=== PATIENT | male | born 1935 | race Caucasian/White ===

== ENCOUNTER → 2016-10-12 | Outpatient (CLI) | payer OTHER ==
[~2016-10-12] MED LIST: ASPEC81 PO; ASPI81TA21 PO; ATOR-24 PO; ATOR-26 PO; FRS/40 PO; INSDGI; INSDGI SC; ISOS30TA3 PO; LISI-729 PO; METO25TA3 PO; MULT-845 PO; PLV75 PO; POTA10TA32 PO; PRD20 PO; RIVA1.5T PO; SPIR25TA PO; ZCR80 PO
[2016-10-12 16:09] LABS: BLOOD UREA NITROGEN 59 mg/dl (7-18); BUN/CREATININE RATIO 26.6 (10-20); CALCIUM 8.3 mg/dl (8.5-10.1); CARBON DIOXIDE 25 mmol/L (21-32); CHLORIDE 108 mmol/L (98-107); GLUCOSE 97 mg/dl (70-99); PHOSPHORUS 3.8 mg/dl (2.5-4.9); POTASSIUM 4.4 mmol/L (3.5-5.1); SODIUM 142 mmol/L (136-145)
[2016-10-13 06:04] LABS: ESTIMATED AVERAGE GLUCOSE 154 mg/dl; HA1C FLAG Normal (Normal)
== END | disposition home or self-care (01) ==
LOC: C.LAB1850 14:54
PROVIDERS: ATTEND Internal Medicine
DX: D64.9 Anemia, unspecified (principal); N18.3 Chronic kidney disease, stage 3 (moderate); E11.22 Type 2 diabetes mellitus with diabetic chronic kidney disease

== ENCOUNTER → 2016-11-01 | Outpatient (CLI) | payer OTHER ==
[~2016-11-01] MED LIST changes: -ATOR-26 PO
--- NOTE | 2016-11-01 15:26 | DIAGNOSTIC IMAGING REPORT ---
CT OF THE CHEST WITHOUT IV CONTRAST CLINICAL HISTORY: Lung nodule. Pleural effusion. COMPARISON STUDY: 08/12/2016 CT DOSE: 366.82 mGy.cm TECHNIQUE: CT of the thorax was performed from the thoracic inlet to the lung bases. Images are reviewed in the axial, sagittal, and coronal planes. IV contrast was not administered for this examination. FINDINGS: Thyroid: There is a multinodular thyroid gland. The largest nodule as visualized on the left measuring 11 mm. Thoracic aorta: The thoracic aorta is normal in course and caliber, noting standard 3 vessel arch anatomy. Heart: The heart is enlarged. There are coronary artery calcifications. Lungs and pleural spaces: There is evidence for pulmonary emphysema. There is no significant left pleural effusion. There is been marked interval decrease in the size of the right pleural effusion. There is right pleural thickening. There are right lower lobe atelectatic changes. In addition there is a persistent 2 cm lobulated/tubular nodule within the right lower lobe posterior medially. There is a stable 7 mm groundglass nodule within the right upper lobe. Mediastinum: There is a stable 9 mm right paratracheal lymph node. There is a stable 8 mm AP window lymph node. Diana: There is no evidence for pathologic hilar adenopathy given the limitations of a noncontrast study Axilla: Clear. Upper abdomen: There is left-sided nephrolithiasis Skeletal structures: There are no lytic or blastic osseous lesions. IMPRESSION: 1. Interval resolution of the previously identified left pleural effusion 2. Marked interval decrease in the size the right pleural effusion with only a small residua 3. Mild pleural thickening on the right 4. Right basilar atelectatic changes 5. Relatively stable somewhat unusual appearing lobulated/tubular 2 cm right lower lobe nodule 6. Stable 7 mm groundglass nodule within the right upper lobe 7. Left-sided nephrolithiasis Electronically signed by: Dipesh Mcnulty M.D. 11/01/2016 3:24 PM Dictated Date/Time: 11/01/2016 3:13 PM
== END | disposition home or self-care (01) ==
LOC: C.CTS 14:30
PROVIDERS: ATTEND Surgery
DX: R91.1 Solitary pulmonary nodule (principal); N20.0 Calculus of kidney

== ENCOUNTER → 2016-11-23 | Outpatient (CLI) | payer OTHER ==
[2016-11-23 15:23] LABS: BLOOD UREA NITROGEN 110 mg/dl (7-18); BUN/CREATININE RATIO 45.9 (10-20); CALCIUM 8.3 mg/dl (8.5-10.1); CARBON DIOXIDE 18 mmol/L (21-32); CHLORIDE 107 mmol/L (98-107); GLUCOSE 170 mg/dl (70-99); PHOSPHORUS 3.9 mg/dl (2.5-4.9); POTASSIUM 4.8 mmol/L (3.5-5.1); SODIUM 137 mmol/L (136-145)
== END | disposition home or self-care (01) ==
LOC: C.LAB1850 13:47
PROVIDERS: ATTEND Internal Medicine
DX: N18.3 Chronic kidney disease, stage 3 (moderate) (principal); D64.9 Anemia, unspecified

== ENCOUNTER → 2016-12-06 | Outpatient (CLI) | payer OTHER ==
[2016-12-06 09:51] LABS: BLOOD UREA NITROGEN 57 mg/dl (7-18); BUN/CREATININE RATIO 30.1 (10-20); CALCIUM 8.5 mg/dl (8.5-10.1); CARBON DIOXIDE 24 mmol/L (21-32); CHLORIDE 110 mmol/L (98-107); GLUCOSE 94 mg/dl (70-99); POTASSIUM 5.3 mmol/L (3.5-5.1); SODIUM 141 mmol/L (136-145)
== END | disposition home or self-care (01) ==
LOC: C.LAB1850 07:55
PROVIDERS: ATTEND Internal Medicine
DX: D64.9 Anemia, unspecified (principal); N18.3 Chronic kidney disease, stage 3 (moderate); N28.9 Disorder of kidney and ureter, unspecified

== ENCOUNTER → 2017-01-18 | Outpatient (CLI) | payer OTHER ==
[~2017-01-18] MED LIST changes: +ATOR-26 PO
[2017-01-18 15:38] LABS: BLOOD UREA NITROGEN 54 mg/dl (7-18); BUN/CREATININE RATIO 30.1 (10-20); CALCIUM 8.5 mg/dl (8.5-10.1); CARBON DIOXIDE 28 mmol/L (21-32); CHLORIDE 107 mmol/L (98-107); GLUCOSE 155 mg/dl (70-99); POTASSIUM 4.6 mmol/L (3.5-5.1); SODIUM 141 mmol/L (136-145)
[2017-01-19 06:16] LABS: ESTIMATED AVERAGE GLUCOSE 157 mg/dl; HA1C FLAG Normal (Normal)
== END | disposition home or self-care (01) ==
LOC: C.LAB1850 13:21
PROVIDERS: ATTEND Physician Assistant
DX: E11.9 Type 2 diabetes mellitus without complications (principal); N18.3 Chronic kidney disease, stage 3 (moderate)

== ENCOUNTER → 2017-05-04 | Outpatient (CLI) | payer OTHER ==
[~2017-05-04] MED LIST changes: -ATOR-26 PO
--- NOTE | 2017-05-04 11:51 | DIAGNOSTIC IMAGING REPORT ---
CT SCAN OF THE CHEST WITHOUT IV CONTRAST CLINICAL HISTORY: Pulmonary nodule. COMPARISON STUDY: Chest CT dated 11/01/2016 and 08/13/2014. Chest x-ray dated 04/06/2016. PET/CT dated 03/24/2016. TECHNIQUE: CT scan of the thorax was performed from the thoracic inlet to the upper abdomen. Images are reviewed in the axial, sagittal, and coronal planes. IV contrast was not administered for this examination as per the referring clinician. A dose lowering technique was utilized adhering to the principles of ALARA. CT DOSE: 385.12 mGy.cm FINDINGS: Thyroid: Imaged portions of the thyroid gland are normal in size and attenuation. A 1.5 cm low-attenuation nodule is again seen in the left lobe. Thoracic aorta: There is atherosclerotic calcification of the thoracic aorta, which is normal in caliber and demonstrates 4-vessel variant arch anatomy. Heart: The heart is markedly enlarged and without pericardial effusion. There is diminished attenuation of the cardiac blood pool as compared to the myocardium suggesting anemia. There are coronary arteries are densely calcified. The main pulmonary arteries are dilated suggesting pulmonary artery hypertension. Lungs and pleural spaces: Emphysema is again noted. There is no airspace consolidation typical for pneumonia. There are small pleural effusions, right larger than left. A curvilinear airspace opacity at the right lung base on image #212 measures 2.9 cm. Foci of scarring are present in the lower lobes, right greater than left. Scattered calcified granulomas are observed. A 9 mm groundglass lesion at the right apex is again noted. This is seen on image #65. Pleural thickening is noted at the right lung base. The trachea and central airways are clear. Mediastinum: Mediastinal lymphadenopathy has increased from 11/01/2016. Paratracheal nodes measure up to 1.3 cm in short axis. Precarinal nodes measure up to 1.4 cm in short axis, and prevascular nodes measure up to 9 mm in short axis. Diana: Not well assessed without IV contrast. Axillae: There is no axillary lymphadenopathy. Upper abdomen: Nonobstructing calculi are present in the upper pole of the left kidney. There is glandular atrophy of the partially visualized pancreas. A tiny hiatal hernia is observed. Gynecomastia is noted. Skeletal structures: The skeletal structures are osteopenic. No lytic or blastic bony lesions are seen. Degenerative changes noted throughout the thoracic spine. Arthritic changes also present in the shoulders. IMPRESSION: 1. Cardiomegaly and emphysema with evidence of pulmonary artery hypertension. 2. Small pleural effusions, right larger than left. The left pleural effusion is new from previous. 3. There are foci of parenchymal scarring at the right lung base. A curvilinear 2.9 cm density at the right lung base is similar to previous and likely represents round atelectasis. 4. A 9 mm groundglass nodule the right apex is again noted. This appears minimally increased in size from previous and a low-grade neoplasm is not excluded. At a minimum, continued attention at follow-up is recommended. 5. Increasing mediastinal lymphadenopathy as compared to 11/01/2016. Clinical correlation will be required. 6. Left-sided nephrolithiasis. 7. There is an enlarging 1.5 cm nodule in the left lobe of the thyroid gland. Consider follow-up thyroid ultrasound for further assessment. 8. Additional findings as above. Electronically signed by: Sen Estrada M.D. 05/04/2017 11:49 AM Dictated Date/Time: 05/04/2017 11:39 AM
== END | disposition home or self-care (01) ==
LOC: C.CTS 11:14
PROVIDERS: ATTEND Surgery
DX: J90 Pleural effusion, not elsewhere classified (principal); R91.1 Solitary pulmonary nodule; I51.7 Cardiomegaly; J43.9 Emphysema, unspecified; R91.8 Other nonspecific abnormal finding of lung field; R59.1 Generalized enlarged lymph nodes; N20.0 Calculus of kidney; E04.1 Nontoxic single thyroid nodule

== ENCOUNTER 2017-05-20 17:28 | Inpatient (IN) | payer OTHER ==
[~2017-05-20] VITALS: Ht 182.9 cm; Wt 82.6 kg
[2017-05-20] VITALS (19 sets, daily range): BP systolic 96–140; BP diastolic 39–85; PULSE 45–89; TEMP 36.4–36.8; O2SAT 84–100; BMI 25.6
[~2017-05-20 17:28] MED LIST changes: +AMIODARONE HCL INJ 50 MG/ML 3 ML VIAL IV ONE; -ASPI81TA21 PO; +ATROPINE SULFATE 0.1 MG/ML 10 ML SYR IV ONE; +DEXTROSE 5% 100 ML BAG IV ONE; +DEXTROSE 50% 50 ML SYR IV ONE; -INSDGI; +KETAMINE HCL INJ 50 MG/ML 10 ML VIAL IV ONE; -PLV75 PO; -PRD20 PO; +SODIUM BICARB 8.4% INJ 50 MEQ/50 ML SYR IV ONE; +SODIUM CHLORIDE 0.9% 10ML FLUSH IV ONE; +SUCCINYLCHOLINE CHLORIDE 20 MG/ML 10 ML VIAL IV ONE; -ZCR80 PO
[2017-05-20] MEDS ORDERED: NITROGLYCERIN/D5W 100MCG/ML 20ML SYR ONE (17:31)
[2017-05-20] MEDS ORDERED: NiCARDipine HCL INJ 2.5 MG/ML 10 ML AMP ONE (17:31)
[2017-05-20] MEDS ORDERED: HEPARIN SOD (PORCINE) 1000 UNIT/ML 10 ML VIAL ONE (17:31)
[2017-05-20] MEDS ORDERED: FENTANYL CITRATE INJ 50 MCG/1 ML 2 ML VIAL ONE ×2 (17:32→19:00)
[2017-05-20] MEDS ORDERED: MIDAZOLAM HCL 1 MG/ML 2ML VIAL ONE ×2 (17:32→20:00)
[2017-05-20] MEDS ORDERED: RAPID SEQUENCE INDUCTION BAG ONE (17:33)
--- NOTE | 2017-05-20 17:54 | DIAGNOSTIC IMAGING REPORT ---
CHEST ONE VIEW PORTABLE HISTORY: Short of breath. COMPARISON: Chest 07/14/2016. FINDINGS: The heart is moderately enlarged. Small bilateral pleural effusions. Diffuse interstitial and vascular thickening with perihilar hazy airspace opacities. This is consistent with pulmonary edema. No pneumothorax. IMPRESSION: Severe pulmonary edema, small bilateral pleural effusions, and moderate cardiomegaly. Recommend follow-up to ensure resolution. Electronically signed by: George Kingsley M.D. 05/20/2017 5:52 PM Dictated Date/Time: 05/20/2017 5:51 PM
--- NOTE | 2017-05-20 18:01 | DIAGNOSTIC IMAGING REPORT ---
CHEST ONE VIEW PORTABLE HISTORY: Short of breath. Intubation. COMPARISON: Chest 05/20/2017. FINDINGS: No pneumothorax. Severe pulmonary edema, cardiomegaly, and small bilateral pleural effusions persist. Interval placement of an endotracheal tube. The feliz is difficult to visualize. However, the endotracheal tube is likely near the level of the feliz. IMPRESSION: The endotracheal tube is likely near the level of the feliz. This should be pulled back by approximately 2 cm. Severe pulmonary edema and small bilateral pleural effusions persist. These findings were discussed with Dr. Bobby at 6:00 PM on 05/20/2017. Electronically signed by: George Kingsley M.D. 05/20/2017 6:00 PM Dictated Date/Time: 05/20/2017 5:56 PM
[2017-05-20] MEDS ORDERED: ZCR80 PO (18:02)
[2017-05-20] MEDS ORDERED: INSDGI (18:02)
[2017-05-20] MEDS ORDERED: NOREPINEPHRINE BITARTRATE 1 MG/ML 4 ML VIAL ONE (18:03)
[2017-05-20 18:04] LABS: ISTAT CREATININE 2.1 mg/dl (0.6-1.3); ISTAT HEMOGLOBIN 15.3 g/dl (14.0-18.0); ISTAT IONIZED CALCIUM 1.27 mmol/l (1.12-1.32)
[2017-05-20] MEDS ORDERED: ASPI81TA21 PO (18:05)
[2017-05-20] MEDS ORDERED: SODIUM BICARB 8.4% INJ 50 MEQ/50 ML SYR IV ONE (18:07)
[2017-05-20] MEDS ORDERED: FUROSEMIDE 40 MG/4 ML VIAL ONE (18:18)
[2017-05-20 18:22] LABS: BASO ABS # 0.11 K/uL (0-0.2); BASOPHIL % 0.9 % (0-2); COMPLETE YES; ECHINOCYTES 1+; EOSINOPHIL % 1.7 %; HEMATOCRIT 46.3 % (42-52); LYMPH ABS # 1.14 K/uL (1.2-3.4); LYMPHOCYTE % 9.5 %; MEAN CELL VOLUME 106.4 fL (80-100); MEAN CORPUSCULAR HEMOGLOBIN 33.3 pg (25-34); MEAN CORPUSCULAR HGB CONC 31.3 g/dl (32-36); NEUTROPHILS % 68.9 %; PLATELET COUNT 282 K/uL (130-400); PLT ESTIMATE NORMAL; RED BLOOD COUNT 4.35 M/uL (4.7-6.1); VARIANT LYM ABS # 1.14 K/uL; VARIANT LYMPHOCYTE % 9.5 %; WHITE BLOOD COUNT 11.99 K/uL (4.8-10.8)
[2017-05-20 18:34] LABS: BLOOD UREA NITROGEN 48 mg/dl (7-18); BUN/CREATININE RATIO 20.7 (10-20); CALCIUM 8.8 mg/dl (8.5-10.1); CARBON DIOXIDE 21 mmol/L (21-32); CHLORIDE 117 mmol/L (98-107); CKMB/CK RATIO 7.8 (0-3.0); POTASSIUM 5.4 mmol/L (3.5-5.1); SODIUM 145 mmol/L (136-145)
[2017-05-20 18:38] LABS: GLUCOSE 394 mg/dl (70-99)
[2017-05-20] MEDS ORDERED: DC ALL ANTICOAGULANTS ONE (18:45)
[2017-05-20] MEDS ORDERED: CLOPIDOGREL BISULFATE 300 MG TAB PO ONE (18:45)
[2017-05-20] MEDS ORDERED: ASPIRIN 81 MG CHEW ONE (18:45)
[2017-05-20 18:51] LABS: BETA-HYDROXYBUTYRATE 1.43 mg/dL (0.2-2.81)
[2017-05-20] MEDS ORDERED: CLOPIDOGREL BISULFATE 300 MG TAB PO STA ×2 (18:53)
[2017-05-20] MEDS ORDERED: ASPIRIN 81 MG CHEW PO SCH (19:00)
[2017-05-20] MEDS ORDERED: FENTANYL CITRATE 1250MCG/250ML NSS ONE (19:01)
[2017-05-20 19:03] LABS: ISTAT ARTERIAL BLOOD GAS HCO3 18 meq/L (19-24); ISTAT ARTERIAL BLOOD GAS PCO2 72 mmHg (35-46); ISTAT ARTERIAL BLOOD GAS PO2 151 mmHg (80-95); ISTAT CARBON DIOXIDE 20 mEq/l (24-31)
[2017-05-20 19:03] LABS: ISTAT ARTERIAL BLOOD GAS HCO3 20 meq/L (19-24); ISTAT ARTERIAL BLOOD GAS PCO2 55 mmHg (35-46); ISTAT ARTERIAL BLOOD GAS PO2 126 mmHg (80-95); ISTAT ARTERIAL BLOOD GAS pH 7.18 (7.35-7.45); ISTAT CARBON DIOXIDE 22 mEq/l (24-31)
[2017-05-20] MEDS ORDERED: MILRINONE IV STA (19:34)
[2017-05-20] MEDS ORDERED: D5W IV STA (19:34)
[2017-05-20] MEDS: FENTANYL 1250MCG/250ML NSS 250 ML IV SCH (20:00)
[2017-05-20] MEDS: MILRINONE / D5W 20,000 MCG in PREMIXED IN D5W 100 ML IV SCH (20:04)
--- NOTE | 2017-05-20 20:20 | EMERGENCY ROOM VISIT NOTE ---
History Report prepared by Tayo: Tyler Win Under the Supervision of: Dr. Steve Bobby D.O. First contact with patient: 17:31 Chief Complaint: HEART ALERT Stated Complaint: CARDIAC ALERT History of Present Illness The patient is a 82 year old male who presents to the Emergency Room with complaints of shortness of breath that began 30 minutes ago. This history is limited secondary to the patient's mental status and is given by EMS. He is currently on a non-breather. Patient was sitting in his living room having a normal conversation.. He suddenly began to be very short of breath, sweaty, and weak. He had no other complaints prior to these. He is normally awake, alert, and oriented at baseline. En route to the ED, he was given 2 Nitroglycerin and 324 of Aspirin. In the ambulance, when asked if the patient had chest pain, he nodded that he was not talking to EMS. Upon arrival patient is nonverbal and is unable to communicate. History limited secondary to altered mental status. Source of History: EMS History Limited By: other (Heart alert) Onset: 30 minutes ago Position: other (Heart) Symptom Intensity: severe Quality: other (Heart alert) Timing: constant Associated Symptoms: + diaphoresis, + chest pain, + SOB, + weakness Review of Systems See HPI for pertinent positives & negatives. A total of 10 systems reviewed and were otherwise negative. Past Medical & Surgical Medical Problems: (1) Diabetes mellitus (2) History of colon cancer, stage I (3) Hypercholesterolemia (4) Hypertension (5) Myocardial infarction (6) Pleural effusion (7) Rectal carcinoma Surgical Problems: (1) History of bilateral cataract extraction Family History Cancer Diabetes mellitus Heart disease Hypertension Kidney disease Kidney stones Social History Smoking Status: Former Smoker Drug Use: none Marital Status: Housing Status: lives with family Occupation Status: retired Current/Historical Medications Scheduled Aspirin Enteric Coated (Ecotrin Or Generic), 81 MG PO HS Furosemide (Lasix), 40 MG PO QAM Isosorbide Mononitrate Ext Rel (Imdur Ext Rel), 30 MG PO QAM Lisinopril (Zestril), 5 MG PO QAM Metoprolol Succinate (Toprol Xl), 25 MG PO BID Multiple Vitamins W/ Minerals (Centrum Silver Adult 50+), 1 TAB PO QAM Potassium Chloride Microencaps (Potassium Chloride Er), 10 MEQ PO QAM Rivaroxaban (Xarelto), 15 MG PO QPM Simvastatin (Simvastatin), 80 MG PO QPM Spironolactone (Aldactone), 25 MG PO QAM Miscellaneous Medications Insulin Glargine (Lantus), Unknown Dose Allergies Coded Allergies: NO KNOWN DRUG ALLERGIES (Verified Allergy, Mild, ., 08/06/16) Poison Emily Extract/Poison [place] Extra (Verified Adverse Reaction, Severe, SKIN BLISTERS ON CHEST, 08/06/16) Physical Exam Vital Signs Date Time Temp Pulse Resp B/P (MAP) Pulse Ox O2 Delivery O2 Flow Rate FiO2 05/20/17 18:50 36.4 60 26 117/59 (78) 99 Mechanical Ventilator 127/41 (69) 05/20/17 18:01 100 05/20/17 17:36 85 18 172/89 92 Non-Rebreather Physical Exam GENERAL: Lying on bed, unresponsive, ill appearing, in significant distress, on a non-rebreather, pale. EYE EXAM: Pupils are 2 mm and reactive to light. OROPHARYNX: no exudate, no erythema, lips, buccal mucosa, and tongue normal and mucous membranes are moist NECK: supple, no nuchal rigidity, no adenopathy, non-tender LUNGS: Rhonchi to bilateral bases. HEART: Distant, but no murmurs, S1 normal and S2 normal ABDOMEN: Ostomy bag in LLQ with protruding bowel, which is reproducible. : Scrotum is edematous. SKIN: Pale, no rashes and no bruising UPPER EXTREMITIES: upper extremities are grossly normal. LOWER EXTREMITIES: pitting edema. NEURO EXAM: Eyes are open, nonverbal, no response to painful stimuli, maintaining shallow respirations. Medical Decision & Procedures ER Provider Diagnostic Interpretation: Radiology results as stated below per my review and the radiologist's interpretation: CHEST ONE VIEW PORTABLE HISTORY: Short of breath. COMPARISON: Chest 07/14/2016. FINDINGS: The heart is moderately enlarged. Small bilateral pleural effusions. Diffuse interstitial and vascular thickening with perihilar hazy airspace opacities. This is consistent with pulmonary edema. No pneumothorax. IMPRESSION: Severe pulmonary edema, small bilateral pleural effusions, and moderate cardiomegaly. Recommend follow-up to ensure resolution. Electronically signed by: George Kingsley M.D. 05/20/2017 5:52 PM Dictated Date/Time: 05/20/2017 5:51 PM CHEST ONE VIEW PORTABLE HISTORY: Short of breath. Intubation. COMPARISON: Chest 05/20/2017. FINDINGS: No pneumothorax. Severe pulmonary edema, cardiomegaly, and small bilateral pleural effusions persist. Interval placement of an endotracheal tube. The feliz is difficult to visualize. However, the endotracheal tube is likely near the level of the feliz. IMPRESSION: The endotracheal tube is likely near the level of the feliz. This should be pulled back by approximately 2 cm. Severe pulmonary edema and small bilateral pleural effusions persist. These findings were discussed with Dr. Bobby at 6:00 PM on 05/20/2017. Electronically signed by: George Kingsley M.D. 05/20/2017 6:00 PM Dictated Date/Time: 05/20/2017 5:56 PM Laboratory Results 05/20/17 17:46 Red Blood Count 4.35, Mean Corpuscular Volume 106.4, Mean Corpuscular Hemoglobin 33.3, Mean Corpuscular Hemoglobin Concent 31.3, Mean Platelet Volume 12.0 05/20/17 17:46 Test 05/20/17 17:46 05/20/17 17:47 05/20/17 17:51 05/20/17 18:16 White Blood Count 11.99 K/uL (4.8-10.8) Red Blood Count 4.35 M/uL (4.7-6.1) Hemoglobin 14.5 g/dL (14.0-18.0) Hematocrit 46.3 % (42-52) Mean Corpuscular Volume 106.4 fL (80-100) Mean Corpuscular Hemoglobin 33.3 pg (25-34) Mean Corpuscular Hemoglobin Concent 31.3 g/dl (32-36) Platelet Count 282 K/uL (130-400) Mean Platelet Volume 12.0 fL (7.4-10.4) RDW Standard Deviation 57.3 fL (36.4-46.3) RDW Coefficient of Variation 14.7 % (11.5-14.5) Neutrophils % (Manual) 68.9 % Lymphocytes % (Manual) 9.5 % Variant Lymphocytes % (manual) 9.5 % Monocytes % (Manual) 9.5 % Eosinophils % (Manual) 1.7 % Basophils % (Manual) 0.9 % (0-2) Neutrophils # (Manual) 8.26 K/uL (1.4-6.5) Total Absolute Neutrophils 8.26 K/uL (1.4-6.5) Lymphocytes # (Manual) 1.14 K/uL (1.2-3.4) Absolute Variant Lymphocytes 1.14 K/uL Total Absolute Lymphocytes 2.28 K/uL (1.2-3.4) Monocytes # (Manual) 1.14 K/uL (0.11-0.59) Eosinophils # (Manual) 0.20 K/uL (0-0.5) Basophils # (Manual) 0.11 K/uL (0-0.2) Platelet Estimate NORMAL Echinocytes 1+ Estimated GFR () 30.0 Estimated GFR (Non- 25.9 BUN/Creatinine Ratio 20.7 (10-20) Calcium Level 8.8 mg/dl (8.5-10.1) Total Creatine Kinase 100 U/L (39-308) Creatine Kinase MB 7.8 ng/ml (0.5-3.6) Creatine Kinase MB Ratio 7.8 (0-3.0) Troponin I 0.069 ng/ml (0-0.045) LDL Cholesterol Direct 115 mg/dl Beta-Hydroxybutyric Acid 1.43 mg/dL (0.2-2.81) Bedside Lactic Acid Venous 2.97 mmol/L (0.90-1.70) Bedside Hemoglobin 15.3 g/dl (14.0-18.0) Bedside Hematocrit 45 % (42-52) Bedside Sodium 145 mEq/L (135-144) Bedside Potassium 5.2 mEq/L (3.3-5.0) Bedside Chloride 115 mEq/L (101-112) Bedside Total CO2 20 mEq/l (24-31) Anion Gap 16.0 mmol/L (16-25) Bedside Blood Urea Nitrogen 45 mg/dl (7-18) Bedside Creatinine 2.1 mg/dl (0.6-1.3) Bedside Glucose (other) 397 mg/dl (70-99) Bedside Ionized Calcium (Isaac) 1.27 mmol/l (1.12-1.32) Kaolin Activated Coagulation Time 147 SECONDS (94-140) Test 05/20/17 18:45 Bedside Blood Gas pH (LAB) 7.18 (7.35-7.45) Bedside Blood Gas pCO2 (LAB) 55 mmHg (35-46) Bedside Blood Gas pO2 (LAB) 126 mmHg (80-95) Bedside Blood Gas HCO3 (LAB) 20 meq/L (19-24) Bedside Blood Gas Total CO2 22 mEq/l (24-31) Bedside Blood Gas Base Excess (LAB) -8.0 meq/L (-9-1.8) Bedside Blood Gas O2 Saturation 98.0 % (90-95) Laboratory results per my review. Medications Administered Medications (Trade) Dose Ordered Sig/Stefani Route Start Time Stop Time Status Last Admin Dose Admin Milrinone Lactate/ Dextrose 36243 mcg/Prmx 100 ml @ 0 mls/hr Q0M IV 05/20/17 17:45 06/19/17 17:44 05/20/17 20:04 3.2 MLS/HR Procedure Endotracheal Intubation Indication: Respiratory Failure. The patient was on 100% oxygen via NRB prior to the procedure. Suction, airway equipment, RSI drugs, respiratory equipment, and appropriate personnel were prepared prior to the initiation of the procedure. A time out was taken. Induction was performed with ketamine and succinylcholine. After observing the clinical benefit of the medications, the airway was easily visualized utilizing a 3-glide scope. A 7.5 size ETT tube was placed atraumatically to 25 cm at the lips using standard technique. The cuff inflated without signs of malfunction. There were bilateral breath sounds, positive colormetric change, no gastric sounds, a good capnography waveform, and post procedure pulse oximetry was 95%. Post intubation sedation and paralysis was not administered. There were no complications. ECG Indication: SOB/dyspnea Rate (beats per minute): 84 Rhythm: sinus rhythm Findings: 1st degree AV block, Q waves (Inferior and anterior), ST depression ( high lateral), T-wave inversion (Lateral), ST elevation (Inferior, anterior) ED Course ED COURSE: Vital signs were reviewed and showed hypertension. The patients medical record was reviewed The above diagnostic studies were performed and reviewed. ED treatments and interventions as stated above. 1731: The patient was evaluated in room A1. A complete history and physical examination was performed. 1740: I performed an intubation procedure at this time. Please see the procedure note for more information. I ordered Ketamine and Succinylcholine as well as normal saline bolus IV. 1753: Upon reevaluation, the patient is going to the semiconductor lab technician. Based on the patients age, coexisting illnesses, exam and lab findings the decision to treat as an inpatient was made. The patient remained stable while under my care. The patient will be evaluated by [facility] for further management. Medical Decision Differential diagnoses includes but is not limited to pneumonia, bronchitis, COPD/Asthma exacerbation, pneumothorax, pulmonary embolism, congestive heart failure, acute coronary syndrome I received medical command in regards to an 82-year-old man who is sitting at home awake alert and talking at his baseline. He again has significant short of breath. EMS arrived and placed him on a nonrebreather as he was hypoxic. EKG showed a STEMI. Upon my review of the EKG I called a STEMI alert. Upon arrival patient is ill-appearing unresponsive with a GCS of 6 for his eyes being open. Patient is nonverbal and unresponsive to pain. Bowel was protruding through ostomy site that was reducible. Patient was intubated and taken to the Investigations Director. Bedside sounds showed large dilated LV/RV. No pericardial effusion. Chest x-ray showed ET tube was just above the feliz with enlarged heart. Did notify cardiology in regards to this as the patient was on the Table at this time. Updated family who presented while the patient was in the Investigations Director. labs resulted following admission. I did discuss case with the trimmer tailer and internal medicine attending. Medication Reconcilliation Current Medication List: was personally reviewed by me Blood Pressure Screening Patient's blood pressure: Elevated blood pressure Blood pressure disposition: Elevated BP felt to be situational Consults Time Called: 175 Consulting Physician: [facility] Returned Call: 175 I spoke with a physician of the [facility]. They will be evaluating the patient for more information. Impression Primary Impression: STEMI (ST elevation myocardial infarction) Additional Impressions: Respiratory failure Altered mental status Lactic acidosis Acute respiratory distress Critical Care I have personally spent 35 minutes of critical care time in the direct management of this patient. This includes bedside care, interpretation of diagnostic studies, and testing, discussion with consultants, patient, and family members, and other required patient management activities. This 35 minutes is in excess of all separately billable procedures. Scribe Attestation The scribe's documentation has been prepared under my direction and personally reviewed by me in its entirety. I confirm that the note above accurately reflects all work, treatment, procedures, and medical decision making performed by me. Departure Information Dispostion Being Evaluated By Hospitalist Referrals Henri Daily M.D. (PCP) Patient Instructions [facility] Problem Qualifiers Primary Impression: STEMI (ST elevation myocardial infarction) Involved coronary artery: unspecified coronary artery Qualified Codes: I21.3 - ST elevation (STEMI) myocardial infarction of unspecified site Additional Impressions: Respiratory failure Chronicity: acute Respiratory failure complication: unspecified whether with hypoxia or hypercapnia Qualified Codes: J96.00 - Acute respiratory failure, unspecified whether with hypoxia or hypercapnia Altered mental status Altered mental status type: coma Coma depth: [place] coma 3-8 Coma timing: at arrival to emergency department Qualified Codes: R40.2432 - Hal coma scale score 3-8, at arrival to emergency department
[2017-05-20] MEDS ORDERED: FUROSEMIDE INJ 60 MG in SYRINGE 0 ML IV ONE (20:30)
--- NOTE | 2017-05-20 20:49 | Critical Care Consultation ---
Critical Care Consultation Date of Consultation: May 20, 2017. Attending Physician: Jessica Young DO Reason for Consultation: STEMI, cardiogenic shock History of Present Illness Dear Dr. Mejia: Thank you for your kind referral of Mr. Casillas to [facility], this is 82 yo, m, with a hx of CAD , left main disease, declined CABG in the past, hx of DM, COPD, former smoker, hx of Afib not anticoagulated, hx of colon ca s/p sigmoidectomy with colostomy and ventral hernia, presented to the hospital with increasing sob and chest pain, became unresponsive , ended up intubated , found in the ED to have STEMI in the anterior leads with first degree AVB, the pt was taken to the logging rafter laborer by Dr. Mejia and found to have old left main disease and LAD lesion with OM1 lesion ( ballooned), apparently discussed with the family and based on the pt wishes he did not want aggressive measures done. the pt was started on ASA, loading dose Plavix, heparin, and transferred to the ICU. In the ICU , he was openning his eyes to command, but cold clammy in the periphery, Hr 45 with 1st degree AVB, with ST elevation notable in V2-5, reciprocal changes in I and AVL on 12 leads EKG, trop was positive, creat was elevated too. acidotic due to acute on chronic hypercapnea. intubated with 7.5 ETT , 21 cm to the lips. ROS was limited but he denied chest pain and sob. noted to have CM with EF 15% ( 25% in the past). started on Milrinone and Dopamine, fentanyl for sedation and versed as needed. vent was adjusted to higher VE. CVL needed and placed in the right IJ. long discussion with the family took place regarding the pt wishes, they are leaning towards DNR, no heroic measures based on his wishes. they agree to the current treatment. Family History Cancer Diabetes mellitus Heart disease Hypertension Kidney disease Kidney stones Social History Smoking Status: Former Smoker Drug Use: none Marital Status: Housing Status: lives with family Occupation Status: retired Allergies Coded Allergies: NO KNOWN DRUG ALLERGIES (Verified Allergy, Mild, ., 08/06/16) Poison Emily Extract/Poison [place] Extra (Verified Adverse Reaction, Severe, SKIN BLISTERS ON CHEST, 08/06/16) Home Medications Scheduled Aspirin Enteric Coated (Ecotrin Or Generic), 81 MG PO HS Furosemide (Lasix), 40 MG PO QAM Isosorbide Mononitrate Ext Rel (Imdur Ext Rel), 30 MG PO QAM Lisinopril (Zestril), 5 MG PO QAM Metoprolol Succinate (Toprol Xl), 25 MG PO BID Multiple Vitamins W/ Minerals (Centrum Silver Adult 50+), 1 TAB PO QAM Potassium Chloride Microencaps (Potassium Chloride Er), 10 MEQ PO QAM Rivaroxaban (Xarelto), 15 MG PO QPM Simvastatin (Simvastatin), 80 MG PO QPM Spironolactone (Aldactone), 25 MG PO QAM Miscellaneous Medications Insulin Glargine (Lantus), Unknown Dose Current Inpatient Medications Current Inpatient Medications Medications (Trade) Dose Ordered Sig/Stefani Route Start Time Stop Time Status Last Admin Dose Admin Aspirin (Ecotrin Tab) 81 mg QAM PO 05/21/17 09:00 06/20/17 08:59 Atorvastatin Calcium (Lipitor Tab) 40 mg QAM PO 05/21/17 09:00 06/20/17 08:59 Lisinopril (Zestril Tab) 5 mg QAM PO 05/21/17 09:00 06/20/17 08:59 Aspirin (Aspirin Chew) 324 mg NOW PO 05/20/17 19:00 06/19/17 18:59 Milrinone Lactate/ Dextrose 10840 mcg/Prmx 100 ml @ 0 mls/hr Q0M IV 05/20/17 17:45 06/19/17 17:44 Fentanyl Citrate 250 ml @ 20 mls/hr [id number] IV 05/20/17 20:00 06/03/17 19:59 Dopamine HCl/ Dextrose 0 ml @ 0 mls/hr Q0M IV 05/20/17 19:39 06/19/17 19:38 Furosemide 60 mg/ Syringe 6 ml @ 4 mls/min ONE STAT IV 05/20/17 19:42 05/20/17 19:43 UNV Midazolam HCl (Versed Inj) 2 mg Q1HWA PRN IV 05/20/17 19:45 06/19/17 19:44 UNV Review of Systems difficult to obtain due to intubation , but denies chest pain and sob. no further ROS is obtainable. Physical Exam Date Time Temp Pulse Resp B/P (MAP) Pulse Ox O2 Delivery O2 Flow Rate FiO2 05/20/17 19:41 100 05/20/17 19:30 Mechanical Ventilator 100 05/20/17 19:03 100 05/20/17 18:50 36.4 60 26 117/59 (78) 99 Mechanical Ventilator 127/41 (69) 05/20/17 18:01 100 05/20/17 17:36 85 18 172/89 92 Non-Rebreather General Appearance: no apparent distress, thin Eyes: PERRLA, sclerae normal ENT: normal mouth exam Neck: normal range of motion, no tenderness Respiratory: rales Cardiovasular: normal S1S2, no murmur, no gallop, no rub, JVD Abdomen: non tender, normal bowel sounds, no rebound, hernia, other Upper Extremities: no edema Pulses: carotid (R) (2+), carotid (L) (2+), radial (L) (2+), femoral (R) (2+) Neuro: alert, decreased LOC Laboratory Results Last 24 Hours Test 05/20/17 17:46 05/20/17 17:47 05/20/17 17:51 05/20/17 18:03 White Blood Count 11.99 K/uL Red Blood Count 4.35 M/uL Hemoglobin 14.5 g/dL Hematocrit 46.3 % Mean Corpuscular Volume 106.4 fL Mean Corpuscular Hemoglobin 33.3 pg Mean Corpuscular Hemoglobin Concent 31.3 g/dl Platelet Count 282 K/uL Mean Platelet Volume 12.0 fL RDW Standard Deviation 57.3 fL RDW Coefficient of Variation 14.7 % Neutrophils % (Manual) 68.9 % Lymphocytes % (Manual) 9.5 % Variant Lymphocytes % (manual) 9.5 % Monocytes % (Manual) 9.5 % Eosinophils % (Manual) 1.7 % Basophils % (Manual) 0.9 % Neutrophils # (Manual) 8.26 K/uL Total Absolute Neutrophils 8.26 K/uL Lymphocytes # (Manual) 1.14 K/uL Absolute Variant Lymphocytes 1.14 K/uL Total Absolute Lymphocytes 2.28 K/uL Monocytes # (Manual) 1.14 K/uL Eosinophils # (Manual) 0.20 K/uL Basophils # (Manual) 0.11 K/uL Platelet Estimate NORMAL Echinocytes 1+ Sodium Level 145 mmol/L Potassium Level 5.4 mmol/L Chloride Level 117 mmol/L Carbon Dioxide Level 21 mmol/L Anion Gap 7.0 mmol/L 16.0 mmol/L Blood Urea Nitrogen 48 mg/dl Creatinine 2.30 mg/dl Estimated GFR () 30.0 Estimated GFR (Non- 25.9 BUN/Creatinine Ratio 20.7 Random Glucose 394 mg/dl Calcium Level 8.8 mg/dl Total Creatine Kinase 100 U/L Creatine Kinase MB 7.8 ng/ml Creatine Kinase MB Ratio 7.8 Troponin I 0.069 ng/ml Beta-Hydroxybutyric Acid 1.43 mg/dL Bedside Lactic Acid Venous 2.97 mmol/L Bedside Hemoglobin 15.3 g/dl Bedside Hematocrit 45 % Bedside Sodium 145 mEq/L Bedside Potassium 5.2 mEq/L Bedside Chloride 115 mEq/L Bedside Total CO2 20 mEq/l Bedside Blood Urea Nitrogen 45 mg/dl Bedside Creatinine 2.1 mg/dl Bedside Glucose (other) 397 mg/dl Bedside Ionized Calcium (Isaac) 1.27 mmol/l Bedside Blood Gas pH (LAB) 7.00 Bedside Blood Gas pCO2 (LAB) 72 mmHg Bedside Blood Gas pO2 (LAB) 151 mmHg Bedside Blood Gas HCO3 (LAB) 18 meq/L Bedside Blood Gas Total CO2 20 mEq/l Bedside Blood Gas Base Excess (LAB) -13.0 meq/L Bedside Blood Gas O2 Saturation 98.0 % Test 05/20/17 18:16 05/20/17 18:45 Kaolin Activated Coagulation Time 147 SECONDS Bedside Blood Gas pH (LAB) 7.18 Bedside Blood Gas pCO2 (LAB) 55 mmHg Bedside Blood Gas pO2 (LAB) 126 mmHg Bedside Blood Gas HCO3 (LAB) 20 meq/L Bedside Blood Gas Total CO2 22 mEq/l Bedside Blood Gas Base Excess (LAB) -8.0 meq/L Bedside Blood Gas O2 Saturation 98.0 % Diagnostic Results CXR reviewed personally as well as the chest ct from previous showing CHF on the CXR with old pleural thickening in the right, pleural effusion bilaterally. ct chest with COPD changes and RLL nodule, Mediastinal LN noted. Assessment & Plan 1- STEMI. 2- acute on chronic hypercapneic respiratory failure. requiring intubation and MV. 3- COPD , severe , GOLD III. 4- Diabetes, hyperglycemia, stress related. 5- hx of colon ca with colostomy. 6- chronic pleural thickening right sided. Plan: 1- fentanyl drip for sedation given his poor cardiac reserve. 2- versed prn for sedation, RASS -2. 3- Vap bundle. 4- Vent adjusted to VE of >14 lpm to compensate for acute resp acidosis. 5- BD. 6- start Milrinone for inotropy. 7- Dopamine for BP support. 8- CVL, right IJ placed for multiple drips. 9- ASA, high dose Plavix. 10- glucose control. 11- daily labs. 12- soft restraints. 13- DVT prophylaxis . 14 GI prophylaxis. 15- family discussion regarding code status, they are leaning towards DNR but not confirmed yet, palliation if he does not turn the corner, they are awaiting another family member to arrive. for now he is a full code. 16 discussed with the staff in details. CCT 60 min excluding procedure time.
--- NOTE | 2017-05-20 20:52 | Procedure Note ---
Procedure Note Procedure Date May 20, 2017. Procedure Description Procedure Name: CVL Procedure time out: side/site verified, patient ID confirmed, correct procedure Consent obtained: verbal Performed by: attending Indications: diagnostic Contraindications: none Description: CVL placed in the right IJ site , due to the need for multiple drips, under strict sterile field, the pt placed in supine position, no sterile gel was available, US was not used, one attempt, seldinger tech, 5 ml of 1% lido after the skin been prepped with chlorhexidine, good flow times three ports, all ports flushed with saline, secured with two sutures and covered with surgical dressing, CXR , no PTX and the tip of the catheter at the SVC level. no immediate complication, tolerated well.
[2017-05-20] MEDS: DOPamine 400MG / D5W 400 MG IV SCH (20:53)
--- NOTE | 2017-05-20 20:56 | DIAGNOSTIC IMAGING REPORT ---
CHEST ONE VIEW PORTABLE CLINICAL HISTORY: Central line insertion. COMPARISON STUDY: Chest radiograph May 20, 2017 at 5:48 PM. FINDINGS: Tip of the endotracheal tube is difficult to visualize but is likely either at or just above the feliz. Tip of nasogastric tube is below the lower aspect of this image but shown to be within the proximal body of the stomach on the KUB which was performed concurrently. There is no pneumothorax. Bilateral pleural effusions are unchanged. There is persistent interstitial thickening suggestive of pulmonary edema. This has slightly improved. There has been interval placement of a right internal jugular central line with tip in the SVC. IMPRESSION: 1. Interval placement of a right internal jugular central line with tip in SVC. No pneumothorax. 2. Tip of endotracheal tube obscured on this exam but likely either at or just above the feliz. 3. No significant change in small to moderate bilateral pleural effusions and associated bibasilar opacities. 4. Moderate pulmonary edema, slightly improved since prior exam. Electronically signed by: Toño Gee M.D. 05/20/2017 8:55 PM Dictated Date/Time: 05/20/2017 8:46 PM
--- NOTE | 2017-05-20 20:57 | DIAGNOSTIC IMAGING REPORT ---
KUB CLINICAL HISTORY: Nasogastric tube insertion. COMPARISON STUDY: KUB September 03, 2014. FINDINGS: The tip of the nasogastric tube is within the proximal body of the stomach. There is no evidence for a bowel obstruction. IMPRESSION: Tip of nasogastric tube within the proximal body of the stomach. Electronically signed by: Toño Gee M.D. 05/20/2017 8:55 PM Dictated Date/Time: 05/20/2017 8:55 PM
[2017-05-20] MEDS ORDERED: INSULIN IV INFUSION PROTOCOL SCH (21:11)
[2017-05-20] MEDS: MIDAZOLAM HCL 1 MG/ML 2ML VIAL IV PRN (21:29)
[2017-05-20] MEDS ORDERED: NURSING VERBAL MED ORDER ONE (21:30)
[2017-05-20] MEDS ORDERED: GLUCOSE 40% GEL 15 GM TUBE PO PRN (21:45)
[2017-05-20] MEDS ORDERED: DEXTROSE 50% 50 ML SYR IV PRN (21:45)
[2017-05-20] MEDS ORDERED: INSULIN REGULAR 250 UNITS in SODIUM CHLORIDE 0.9% 250ML 250 ML IV SCH (21:45)
[2017-05-20] MEDS ORDERED: GLUCAGON FOR INJ 1 MG VIAL SQ PRN (21:45)
[2017-05-20] MEDS ORDERED: INSULIN HUMAN REGULAR IV BOLUS 2 UNIT in SYRINGE 0 ML IV SCH (21:45)
[2017-05-20] MEDS ORDERED: GLUCOSE 10 TABS/TUBE PO PRN (21:45)
[2017-05-20] MEDS: INSULIN ASPART 100 UNITS/ML 3 ML PEN SC SCH (21:46)
[2017-05-21] VITALS (117 sets, daily range): BP systolic -50–234; BP diastolic -50–234; PULSE 49–165; TEMP 36.7–36.8; O2SAT 75–100
[2017-05-21] MEDS: MIDAZOLAM HCL 1 MG/ML 2ML VIAL IV PRN ×2 (00:51→08:36)
[2017-05-21] MEDS: FENTANYL 1250MCG/250ML NSS 250 ML IV SCH (02:23)
--- NOTE | 2017-05-21 02:41 | OPERATIVE REPORT ---
DATE OF OPERATION: 05/20/2017 PORT-A-CATH AND PCI INDICATIONS: Acute anterolateral NM. History of prior inferior wall NM, history of congestive heart failure, atrial fibrillation in an 82-year-old male. Past medical history significant for hypertension, diabetes, hypercholesterolemia and atrial fibrillation. PROCEDURE PERFORMED: Left heart catheterization, coronary cineangiography, PTCA diagonal branch of the LAD, radial artery interpretation and supervision method. DESCRIPTION OF PROCEDURE: Upon arrival in the senior laboratory technician, the patient was prepped and draped in the usual sterile fashion. After local infiltration with 2% lidocaine, a 7-Italian sheath was placed in the right femoral vein, 7-Italian sheath in the right femoral artery, both sheaths were aspirated and flushed. A 6-Italian EBU 3.5 guiding catheter was advanced under fluoroscopic guidance to the central circulation where it was aspirated and flushed, and after confirmation of adequate waveforms, advanced into left main, cineangiogram of the left anterior descending artery obtained and reviewed. A 0.014-inch Coil Assembler wire was advanced across the left main and ostial LAD to the mid LAD, some calcified stenosis. After multiple unsuccessful attempts at crossing the calcified subtotally occluded LAD, the wire was advanced into the subtotally occluded diagonal branch. A 2.0 x 15 balloon was positioned in the diagonal branch, extending proximally into the LAD and inflated to nominal pressure for less than 1 and balloon was withdrawn. Further attempts to engage the LAD beyond the diagonal branch were attempted and abandoned. Wire was removed from the coronary artery, catheter from the body, over wire sheath was aspirated and flushed. A 6-Italian diagnostic JR4 was advanced under fluoroscopic guidance to the central circulation where it was aspirated and flushed, and after confirmation of adequate waves, it was advanced into the right coronary artery. Cineangiogram of the right coronary obtained and reviewed.. Catheter was removed from the body, over wire sheath was aspirated and flushed. The right coronary catheter was then used to cross the aortic valve in retrograde fashion. Left ventricular end-diastolic pressure was measured. The catheter was removed from the left ventricle to the aorta under continuous pressure monitoring and removed from the body, over wire sheath was aspirated and flushed. After consultation with family, the arterial and venous sheaths were sutured to the right groin. The patient was returned to his room in critical condition. COMPLICATIONS: None. FINDINGS: Left main is small to moderate in caliber with a distal 80% stenosis. Ostial diagonal branch has a 90% stenosis. The mid LAD has a subtotal calcified stenosis beyond the second diagonal branch. Second diagonal branch has an ostial 80% stenosis. Left circumflex has an ostial 80% stenosis. The remainder of the circumflex is free of significant disease. The right coronary artery has extensive but noncritical luminal irregularities. The PDA is small with a mid subtotal occlusion. Left ventricular end-diastolic pressure is markedly elevated. IMPRESSION: 1. Critical mid left anterior descending artery stenosis beyond critical left main, ostial left anterior descending artery and ostial circumflex stenosis, successful percutaneous transluminal coronary angioplasty without stent placement in the diagonal branch only, with unsuccessful attempt at re-perfusion of the mid to distal left anterior descending artery. 2. Markedly elevated left ventricular end-diastolic pressure. RECOMMENDATIONS: After discussion with the patient's family, it is clear that the and daughter knew of the left main stenosis at the time of PCI of the right coronary artery at the time of acute NM 2 years earlier. Comments including "We knew this day would come" were heard. I offered intraaortic balloon pump placement and transfer to a tertiary care facility for consideration of bypass surgery but explained that given severe LV dysfunction as demonstrated by echocardiogram in the ER, elevated LVDP, prior NM and general medical condition, surgery would be temporizing at best and unsuccessful at worst. states "He didn't want to be a vegetable." The patient transferred to the ICU. I discussed the case with the principal engineer who initiated further treatment in the face of acidosis and was intending to have further conversation with the patient's family regarding palliative care. I attest to the content of the Intraoperative Record and any orders documented therein. Any exception s are noted below.
[2017-05-21] MEDS ORDERED: ALBUT/IPRATROP 3MG/0.5MG NEB 3 ML VIAL INH SCH (03:00)
[2017-05-21] MEDS ORDERED: IPRATROPIUM BROMIDE HFA INHALER INH SCH (04:00)
[2017-05-21] MEDS ORDERED: ALBUTEROL HFA 8 GM INHALER INH SCH ×2 (04:00→09:00)
[2017-05-21 04:35] LABS: BUN/CREATININE RATIO 23.4 (10-20); CREATININE 2.1 mg/dl (0.60-1.40); MAGNESIUM 1.9 mg/dl (1.8-2.4); POTASSIUM 4.8 mmol/L (3.5-5.1)
[2017-05-21 04:38] LABS: PHOSPHORUS 1.9 mg/dl (2.5-4.9)
[2017-05-21 05:12] LABS: ISTAT ARTERIAL BLOOD GAS HCO3 20 meq/L (19-24); ISTAT ARTERIAL BLOOD GAS PCO2 33 mmHg (35-46); ISTAT ARTERIAL BLOOD GAS PO2 218 mmHg (80-95); ISTAT ARTERIAL BLOOD GAS pH 7.39 (7.35-7.45); ISTAT CARBON DIOXIDE 21 mEq/l (24-31); ISTAT DELIVERY SYSTEM Ventilator; ISTAT FIO2 100 %; ISTAT PEEP 8; ISTAT RATE 26; ISTAT SITE Art Line; VE 15.1; Vt 600
[2017-05-21] MEDS ORDERED: NOREPINEPHRINE BIT INJ 8 MG in DEXTROSE 5% 500ML 500 ML IV PRN (05:19)
[2017-05-21 05:25] LABS: HEMATOCRIT 40.9 % (42-52); MEAN CELL VOLUME 99.3 fL (80-100); MEAN CORPUSCULAR HEMOGLOBIN 32.8 pg (25-34); RED BLOOD COUNT 4.12 M/uL (4.7-6.1); WHITE BLOOD COUNT 12.66 K/uL (4.8-10.8)
[2017-05-21 05:30] LABS: MEAN PLATELET VOLUME 11.9 fL (7.4-10.4); PLATELET COUNT 143 K/uL (130-400)
[2017-05-21 05:31] LABS: BASO % 0.1 %; BASO ABS # 0.01 K/uL (0-0.2); COMPLETE YES; ECHINOCYTES 2+; IG% 0.3 %; LYMPH % 5.3 %; LYMPH ABS # 0.67 K/uL (1.2-3.4); MONO % 2.4 %; NEUT % 91.9 %; OVALOCYTES 1+; SCHISTOCYTES 1+
[2017-05-21] MEDS: DOPamine 400MG / D5W 400 MG IV SCH (06:29)
[2017-05-21] MEDS: INSULIN ASPART 100 UNITS/ML 3 ML PEN SC SCH ×4 (08:00→20:59)
[2017-05-21] MEDS: ATORVASTATIN 40 MG TAB PO SCH (08:27)
[2017-05-21] MEDS: ASPIRIN 81 MG CHEW PO SCH (08:27)
[2017-05-21] MEDS: LISINOPRIL 5 MG TAB PO SCH (08:28)
[2017-05-21] MEDS: MILRINONE / D5W 20,000 MCG in PREMIXED IN D5W 100 ML IV SCH (08:50)
[2017-05-21] MEDS ORDERED: CHLORHEXIDINE GLUCONATE 0.12% 480 ML MT SCH (09:00)
[2017-05-21] MEDS ORDERED: LISINOPRIL 5 MG TAB PO SCH (09:00)
[2017-05-21] MEDS ORDERED: ASPIRIN 81 MG ECTAB PO SCH (09:00)
[2017-05-21] MEDS ORDERED: ATORVASTATIN 40 MG TAB PO SCH (09:00)
[2017-05-21] MEDS ORDERED: ARTIFICIAL TEARS OP SOLN OP SCH ×2 (09:00)
[2017-05-21 11:18] LABS: ISTAT ALLEN TEST Pass; ISTAT ARTERIAL BLOOD GAS HCO3 22 meq/L (19-24); ISTAT ARTERIAL BLOOD GAS PCO2 48 mmHg (35-46); ISTAT ARTERIAL BLOOD GAS PO2 201 mmHg (80-95); ISTAT ARTERIAL BLOOD GAS pH 7.27 (7.35-7.45); ISTAT CARBON DIOXIDE 24 mEq/l (24-31); ISTAT DELIVERY SYSTEM Ventilator; ISTAT FIO2 70 %; ISTAT PEEP 5; ISTAT SITE Art Line
[2017-05-21] MEDS ORDERED: ALBUTEROL 0.5% NEB SOLN 2.5 MG/0.5 ML VIAL INH PRN (11:30)
--- NOTE | 2017-05-21 11:31 | ECHOCARDIOGRAM REPORT ---
*NOTICE TO RECEIVING [employer] This information is strictly Confidential and protected under [place] law. [place] law prohibits you from making any further disclosure of this information unless further disclosure is expressly permitted by the written consent of the person to whom it pertains or is authorized by law. A general authorization for the release of medical or other information is not sufficient for this purpose. Hospital accepts no responsibility if the information is made available to any other person, INCLUDING THE PATIENT. Interpretation Summary * Name: ROSAMARIA KERNS Study Date: 05/21/2017 06:48 AM BP: 98/51 mmHg * Patient Location: .MSICU\S\E110\S\1 HR: 94 * : 1935 (M/d/yyy) Gender: Male Height: 72 in * Age: 82 yrs Ethnicity: CA Weight: 188 lb * Ordering Physician: Clint Mejia * Referring Physician: Self, Referred * Performed By: Mike Perez RCS * * Reason For Study: Cardiomegaly * BSA: 2.1 m2 * -- Conclusions -- * Left ventricular systolic function is severely reduced. 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 All other deleon hypokinetic. * Left ventricular ejection fraction <20%. * Decreased right ventricular systolic function. * No obvious valvular pathology. Procedure Details * A complete two-dimensional transthoracic echocardiogram was performed (2D, M-mode, Doppler and color flow Doppler). * The study was technically difficult. * There were technical limitations due to patient'ssupine positioning while on mechanical ventilation * A contrast injection of Definity was performed to improve assessment of LV function. * Contrast was injected into an intravenous site in the right arm. * One vial of Definity ultrasound contrast was diluted in normal saline to a total volume of 10 ml. A total of '2' ml of solution was administered during imaging. * Lot # [id number] of Definity utilized for procedure. * Expiration date 1AUG18. * The attending nurse who injected the contrast agent was Ender Maharaj RN. Left Ventricle * The left ventricle is mildly dilated. * Left ventricular systolic function is severely reduced. * Left ventricular ejection fraction <20%. 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 All other deleon hypokinetic. Right Ventricle * The right ventricle is not well visualized. * The right ventricular systolic function is reduced as assessed by tricuspid annular plane systolic excursion (TAPSE) (TAPSE <1.6 cm). Atria * The left atrium is moderately dilated. * Right atrium not well visualized. * No ASD detected; PFO is not assessed. Mitral Valve * The mitral valve is grossly normal. * There is no mitral valve stenosis. * Significant mitral regurgitation is absent. Tricuspid Valve * The tricuspid valve is not well visualized, but is grossly normal. * There is no tricuspid stenosis. * Significant tricuspid regurgitation is absent. Aortic Valve * The aortic valve is not well visualized. * The aortic valve opens well. * No hemodynamically significant valvular aortic stenosis. * There is no significant aortic regurgitation. Pulmonic Valve * The pulmonary valve is not well seen, but the Doppler examination is normal without significant regurgitation or stenosis. Great Vessels * The aortic root is normal size. * The pulmonary is not well visualized. Pericardium/Pleural * There is no pericardial effusion. Great Vessels * Normal IVC size with little respiratory variation. MMode 2D Measurements and Calculations IVSd 1.0 cm IVSs 1.1 cm LVIDd 5.8 cm LVIDs 5.4 cm LVPWd 0.94 cm LVPWs 1.1 cm IVS/LVPW 1.1 FS 6.1 % EDV(Teich) 165.3 ml ESV(Teich) 142.9 ml EF(Teich) 13.5 % EDV(cubed) 193.2 ml ESV(cubed) 159.8 ml EF(cubed) 17.3 % % IVS thick 12.0 % % LVPW thick 12.6 % LV mass(C)d 225.9 grams LV mass(C)dI 108.9 grams/m\S\2 LV mass(C)s 237.0 grams LV mass(C)sI 114.2 grams/m\S\2 CO(Teich) 1.9 l/min CI(Teich) 0.89 l/min/m\S\2 SV(Teich) 22.4 ml SI(Teich) 10.8 ml/m\S\2 CO(cubed) 2.8 l/min CI(cubed) 1.3 l/min/m\S\2 SV(cubed) 33.4 ml SI(cubed) 16.1 ml/m\S\2 Ao root diam 3.9 cm Ao root area 11.9 cm\S\2 ACS 1.9 cm LA dimension 4.9 cm asc Aorta Diam 3.8 cm LA/Ao 1.3 LVAd ap4 46.0 cm\S\2 LVLd ap4 10.2 cm EDV(MOD-sp4) 168.0 ml LVAs ap4 42.9 cm\S\2 LVLs ap4 10.4 cm ESV(MOD-sp4) 142.0 ml EF(MOD-sp4) 15.5 % LVAd ap2 45.7 cm\S\2 LVLd ap2 9.9 cm EDV(MOD-sp2) 169.0 ml LVAs ap2 44.2 cm\S\2 LVLs ap2 9.9 cm ESV(MOD-sp2) 159.0 ml EF(MOD-sp2) 5.9 % CO(MOD-sp4) 2.2 l/min CI(MOD-sp4) 1.0 l/min/m\S\2 SV(MOD-sp4) 26.0 ml SI(MOD-sp4) 12.5 ml/m\S\2 CO(MOD-sp2) 0.83 l/min CI(MOD-sp2) 0.40 l/min/m\S\2 SV(MOD-sp2) 10.0 ml SI(MOD-sp2) 4.8 ml/m\S\2 Doppler Measurements and Calculations Ao V2 max 127.2 cm/sec Ao max PG 6.5 mmHg Ao max PG (full) 2.5 mmHg LV V1 max PG 3.9 mmHg LV V1 max 99.2 cm/sec PA V2 max 120.3 cm/sec PA max PG 5.8 mmHg
[2017-05-21] MEDS: METHYLPREDNISOLONE IV 40 MG in SYRINGE 0 ML IV SCH ×2 (11:59→18:23)
[2017-05-21] MEDS: FUROSEMIDE INJ 40 MG in SYRINGE 0 ML IV SCH (11:59)
[2017-05-21] MEDS: ALBUT/IPRATROP 3MG/0.5MG NEB 3 ML VIAL INH SCH ×3 (12:00→20:00)
[2017-05-21 14:07] LABS: ISTAT ALLEN TEST Pass; ISTAT ARTERIAL BLOOD GAS HCO3 19 meq/L (19-24); ISTAT ARTERIAL BLOOD GAS PCO2 34 mmHg (35-46); ISTAT ARTERIAL BLOOD GAS PO2 74 mmHg (80-95); ISTAT ARTERIAL BLOOD GAS pH 7.35 (7.35-7.45); ISTAT CARBON DIOXIDE 19 mEq/l (24-31); ISTAT DELIVERY SYSTEM Cannula; ISTAT SITE Art Line
--- NOTE | 2017-05-21 15:06 | Critical Care Progress Note ---
Critical Care Progress Note Date of Service May 21, 2017. Attending Dr. Zamarripa Subjective the pt is awake on the vent, denies chest pain, no sob, no cough , feels better , not diaphoretic. Objective stable overnight, on milrinone and dopamine, fentanyl and versed. noted to be awake on sedation. ( high tolerance). Current SOFA Score SOFA Score Response (Comments) Value PaO2/FiO2 (mmHg) < 300 2 SaO2 / FIO2 142 - 220 2 Platelets (x10) > 150 0 Bilirubin (mg/dL) < 1.2 0 Hal Coma Score 13 - 14 1 Level of Hypotension No Hypotension 0 Creatinine (mg/dL) < 1.2 0 Total 5 Assessment & Plan 1- STEMI, anterior wall, balloon dilation to OM, severe LM lesion. and prox LAD. 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 2- COPD. 3- colon ca with hemicolectomy and colostomy with ventral hernia. 4- pulmonary nodules. thought to be benign. 5- acute resp failure on this admission improving. Plan: 1- with stop fentanyl and versed. 2- cpap trial then proceed with extubation to bipap. 3- continue BD on regular basis. 4- on lisinopril ? stop it with CKD III, will defer to cardiology. 5- dc levophed. 6- use the bipap nocturnally and prn day time. 7- start solumedrol ( the pt with severe COPD, intubated and hypercapneic). GOLD IV. 8- resume oral meds. 9- diuresis with lasix 40 mg bid. 10- decrease Milrinone to .250 mcg/kg/min. 11- dc VAP bundle post extubation. 12- change BD to nebs. 13- discussed with the staff in details. 14- discussed with the family in details. discussed with the staff on rounds in details. CCT 45 min. Consults & Procedures Consultants: cardiology consult. Dr. Mejia. Procedures: central line. Data Medications: Current Inpatient Medications Medications (Trade) Dose Ordered Sig/Stefani Route Start Time Stop Time Status Last Admin Dose Admin Milrinone Lactate/ Dextrose 97049 mcg/Prmx 100 ml @ 0 mls/hr Q0M IV 05/20/17 17:45 06/19/17 17:44 05/21/17 08:50 9.6 MLS/HR Dopamine HCl/ Dextrose 0 ml @ 0 mls/hr Q0M IV 05/20/17 19:39 06/19/17 19:38 05/21/17 06:29 25.7 MLS/HR Midazolam HCl (Versed Inj) 2 mg Q1HWA PRN IV 05/20/17 19:45 06/19/17 19:44 05/21/17 08:36 2 MG Aspirin (Aspirin Chew) 81 mg QAM PO 05/21/17 09:00 06/20/17 08:59 05/21/17 08:27 81 MG Atorvastatin Calcium (Lipitor Tab) 40 mg QAM PO 05/21/17 09:00 06/20/17 08:59 05/21/17 08:27 40 MG Lisinopril (Zestril Tab) 5 mg QAM PO 05/21/17 09:00 06/20/17 08:59 05/21/17 08:28 5 MG Insulin Aspart (novoLOG ASPART) SLIDING SCALE HS SC 05/20/17 21:00 06/19/17 20:59 Glucose (Glucose 40% Gel) UD PRN PO 05/20/17 21:45 06/19/17 21:44 Glucose (Glucose Chew Tab) 1 tabs UD PRN PO 05/20/17 21:45 06/19/17 21:44 Dextrose (Dextrose 50% 50ML Syringe) 50 ml UD PRN IV 05/20/17 21:45 06/19/17 21:44 Glucagon (Glucagon Inj) 1 mg UD PRN SQ 05/20/17 21:45 06/19/17 21:44 Ipratropium Silex (Atrovent Hfa Inhaler) 4 puffs Q6R INH 05/21/17 04:00 06/20/17 03:59 05/21/17 07:13 4 PUFFS Methylprednisolone Sodium Succinate 40 mg/Syringe 0.64 ml @ 1.5 mls/min Q6H IV 05/21/17 12:00 06/20/17 11:59 05/21/17 11:59 1.5 MLS/MIN Furosemide 40 mg/ Syringe 4 ml @ 4 mls/min Q12H IV 05/21/17 12:00 06/20/17 11:59 05/21/17 11:59 4 MLS/MIN Albuterol/ Ipratropium (Duoneb) 3 ml Q4HWA INH 05/21/17 12:00 06/20/17 11:59 05/21/17 14:04 3 ML Albuterol Sulfate (Ventolin 0.5% 2.5MG/0.5ML Neb) 2.5 mg Q6 PRN INH 05/21/17 11:30 06/20/17 11:29 I & O: 24-Hour Column 05/22/17 08:00 Intake Total 366 ml Output Total 450 ml Balance -84 ml Vital Signs: Date Time Temp Pulse Resp B/P (MAP) Pulse Ox O2 Delivery O2 Flow Rate FiO2 05/21/17 14:32 72 20 97 Mask 8.0 05/21/17 14:00 56 (59) 102/41 05/21/17 13:31 63 111/51 (64) 91 108/47 05/21/17 13:31 63 111/51 (64) 91 108/47 05/21/17 13:30 68 (62) 94 116/43 05/21/17 13:30 68 (62) 94 116/43 05/21/17 13:01 63 103/53 (61) 94 99/45 05/21/17 13:01 63 103/53 (61) 94 99/45 05/21/17 13:01 63 103/53 (61) 94 99/45 05/21/17 13:00 55 (62) 95 102/45 05/21/17 13:00 55 (62) 95 102/45 05/21/17 13:00 55 (62) 95 102/45 05/21/17 12:31 63 103/64 (56) 93 91/42 05/21/17 12:30 60 (56) 93 90/42 05/21/17 12:01 95 101/71 (67) 94 113/48 05/21/17 12:01 95 101/71 (67) 94 113/48 05/21/17 12:00 93 BiPAP 05/21/17 12:00 104 (74) 93 112/56 05/21/17 12:00 104 (74) 93 112/56 05/21/17 11:36 100 93 05/21/17 11:31 78 111/52 (66) 94 112/47 05/21/17 11:31 78 111/52 (66) 94 112/47 05/21/17 11:30 87 (67) 93 109/49 05/21/17 11:30 87 (67) 93 109/49 05/21/17 11:15 165 (79) 88 125/54 05/21/17 11:01 89 145/59 (106) 95 172/64 05/21/17 11:01 89 145/59 (106) 95 172/64 05/21/17 11:00 85 (115) 96 180/32 05/21/17 11:00 85 (115) 96 180/32 05/21/17 10:49 70 05/21/17 10:31 86 13 120/72 (234) 97 234/234 05/21/17 10:15 64 26 (57) 97 99/41 05/21/17 10:01 61 26 112/55 (71) 98 120/53 05/21/17 09:45 52 26 (51) 97 88/38 05/21/17 09:31 69 26 99/51 (58) 97 91/45 05/21/17 09:15 71 26 (56) 98 89/36 05/21/17 09:01 76 26 90/52 (59) 97 90/46 05/21/17 08:45 80 26 (64) 97 98/49 05/21/17 08:45 80 26 (64) 97 98/49 05/21/17 08:31 84 26 114/60 (62) 98 94/43 05/21/17 08:30 82 26 (69) 98 111/52 05/21/17 08:15 72 26 (55) 97 94/39 05/21/17 08:01 74 26 98/56 (62) 97 95/48 05/21/17 08:00 76 26 (62) 97 96/48 05/21/17 08:00 70 05/21/17 08:00 97 Mechanical Ventilator 70 05/21/17 07:31 80 26 106/58 (67) 97 104/51 05/21/17 07:15 77 26 (66) 97 104/49 05/21/17 07:14 70 05/21/17 07:01 84 26 91/66 (65) 97 106/48 05/21/17 06:45 89 26 (63) 97 100/48 05/21/17 06:31 88 26 95/54 (63) 97 92/50 8/12/17 06:30 88 26 (62) 96 91/50 05/21/17 06:01 96 26 91/57 (60) 96 84/49 05/21/17 06:00 97 26 (61) 96 87/50 05/21/17 05:31 94 26 97/59 (65) 97 98/51 (62) 05/21/17 05:17 100 26 81/55 (63) 95 77/46 05/21/17 05:05 70 05/21/17 05:01 70 26 91/48 (59) 96 90/46 (56) 05/21/17 04:31 55 26 92/53 (56) 97 91/43 (60) 05/21/17 04:11 63 29 93/50 (68) 96 88/45 (61) 05/21/17 04:03 66 26 97 Mechanical Ventilator 100 05/21/17 04:01 36.8 66 26 108/56 (71) 98 112/54 (70) 05/21/17 04:00 100 05/21/17 04:00 Mechanical Ventilator 100 05/21/17 03:31 62 26 107/53 (62) 97 106/47 (67) 05/21/17 03:24 71 26 83/53 (64) 96 77/45 (59) 05/21/17 03:07 74 26 111/56 (73) 98 115/56 (72) 05/21/17 03:01 69 26 99/45 (60) 98 107/30 (52) 05/21/17 02:31 58 26 109/52 (66) 99 110/48 (68) 05/21/17 02:19 100 05/21/17 02:01 56 26 97/46 (58) 97 94/43 (58) 05/21/17 01:31 69 26 110/51 (69) 99 111/51 (67) 05/21/17 01:01 53 26 100/46 (53) 97 88/40 (58) 05/21/17 00:53 54 26 110/52 (84) 98 116/46 (66) 05/21/17 00:31 53 26 108/51 (67) 116/47 (67) 05/21/17 00:01 36.8 49 26 116/51 (63) 98 111/43 (65) 05/21/17 00:01 Mechanical Ventilator 100 05/21/17 00:01 100 05/20/17 23:31 54 26 119/56 (71) 98 115/49 (72) 05/20/17 23:11 100 05/20/17 23:01 51 26 117/54 (78) 98 114/48 (77) 05/20/17 22:47 51 26 (70) 99 119/48 05/20/17 22:31 52 26 125/49 (71) 98 124/49 (72) 05/20/17 22:01 52 26 126/53 (77) 99 132/51 (76) 05/20/17 21:46 50 26 128/43 (74) 100 127/49 (75) 05/20/17 21:31 53 26 140/65 (83) 99 140/55 (82) 05/20/17 21:16 70 26 128/64 (81) 99 128/57 (82) 05/20/17 21:01 60 26 122/59 (78) 100 128/54 (79) 05/20/17 20:46 89 26 136/68 (91) 100 136/63 (90) 05/20/17 20:31 64 26 125/77 (95) 84 118/42 (70) 05/20/17 20:16 45 26 101/49 (57) 98 96/39 (56) 05/20/17 20:01 36.8 51 26 106/58 (71) 93 110/49 (69) 05/20/17 19:46 59 27 103/64 (79) 100 116/59 (77) 05/20/17 19:41 100 05/20/17 19:30 58 11 108/58 (75) 97 113/55 (83) 05/20/17 19:30 Mechanical Ventilator 100 05/20/17 19:15 59 26 117/62 (84) 98 129/60 (82) 05/20/17 19:04 63 26 117/59 (72) 99 116/48 (64) 05/20/17 19:03 100 05/20/17 19:01 78 27 136/85 (101) 98 05/20/17 18:50 36.4 60 26 117/59 (78) 99 Mechanical Ventilator 127/41 (69) 05/20/17 18:01 100 05/20/17 17:36 85 18 172/89 92 Non-Rebreather Laboratory Results: Last 24 Hours Test 05/20/17 17:46 05/20/17 17:47 05/20/17 17:51 05/20/17 18:03 White Blood Count 11.99 K/uL Red Blood Count 4.35 M/uL Hemoglobin 14.5 g/dL Hematocrit 46.3 % Mean Corpuscular Volume 106.4 fL Mean Corpuscular Hemoglobin 33.3 pg Mean Corpuscular Hemoglobin Concent 31.3 g/dl Platelet Count 282 K/uL Mean Platelet Volume 12.0 fL RDW Standard Deviation 57.3 fL RDW Coefficient of Variation 14.7 % Neutrophils % (Manual) 68.9 % Lymphocytes % (Manual) 9.5 % Variant Lymphocytes % (manual) 9.5 % Monocytes % (Manual) 9.5 % Eosinophils % (Manual) 1.7 % Basophils % (Manual) 0.9 % Neutrophils # (Manual) 8.26 K/uL Total Absolute Neutrophils 8.26 K/uL Lymphocytes # (Manual) 1.14 K/uL Absolute Variant Lymphocytes 1.14 K/uL Total Absolute Lymphocytes 2.28 K/uL Monocytes # (Manual) 1.14 K/uL Eosinophils # (Manual) 0.20 K/uL Basophils # (Manual) 0.11 K/uL Platelet Estimate NORMAL Echinocytes 1+ Sodium Level 145 mmol/L Potassium Level 5.4 mmol/L Chloride Level 117 mmol/L Carbon Dioxide Level 21 mmol/L Anion Gap 7.0 mmol/L 16.0 mmol/L Blood Urea Nitrogen 48 mg/dl Creatinine 2.30 mg/dl Estimated GFR () 30.0 Estimated GFR (Non- 25.9 BUN/Creatinine Ratio 20.7 Random Glucose 394 mg/dl Calcium Level 8.8 mg/dl Total Creatine Kinase 100 U/L Creatine Kinase MB 7.8 ng/ml Creatine Kinase MB Ratio 7.8 Troponin I 0.069 ng/ml LDL Cholesterol Direct 115 mg/dl Beta-Hydroxybutyric Acid 1.43 mg/dL Bedside Lactic Acid Venous 2.97 mmol/L Bedside Hemoglobin 15.3 g/dl Bedside Hematocrit 45 % Bedside Sodium 145 mEq/L Bedside Potassium 5.2 mEq/L Bedside Chloride 115 mEq/L Bedside Total CO2 20 mEq/l Bedside Blood Urea Nitrogen 45 mg/dl Bedside Creatinine 2.1 mg/dl Bedside Glucose (other) 397 mg/dl Bedside Ionized Calcium (Isaac) 1.27 mmol/l Bedside Blood Gas pH (LAB) 7.00 Bedside Blood Gas pCO2 (LAB) 72 mmHg Bedside Blood Gas pO2 (LAB) 151 mmHg Bedside Blood Gas HCO3 (LAB) 18 meq/L Bedside Blood Gas Total CO2 20 mEq/l Bedside Blood Gas Base Excess (LAB) -13.0 meq/L Bedside Blood Gas O2 Saturation 98.0 % Test 05/20/17 18:16 05/20/17 18:45 05/20/17 19:41 05/20/17 21:15 Kaolin Activated Coagulation Time 147 SECONDS Bedside Blood Gas pH (LAB) 7.18 Bedside Blood Gas pCO2 (LAB) 55 mmHg Bedside Blood Gas pO2 (LAB) 126 mmHg Bedside Blood Gas HCO3 (LAB) 20 meq/L Bedside Blood Gas Total CO2 22 mEq/l Bedside Blood Gas Base Excess (LAB) -8.0 meq/L Bedside Blood Gas O2 Saturation 98.0 % Bedside Glucose 305 mg/dl Bedside Glucose (other) 281 mg/dl Test 05/20/17 23:02 05/21/17 00:14 05/21/17 01:14 05/21/17 02:11 Bedside Glucose (other) 262 mg/dl 244 mg/dl 224 mg/dl 206 mg/dl Test 05/21/17 03:11 05/21/17 04:10 05/21/17 04:26 05/21/17 04:59 Bedside Glucose (other) 188 mg/dl 176 mg/dl White Blood Count 12.66 K/uL Red Blood Count 4.12 M/uL Hemoglobin 13.5 g/dL Hematocrit 40.9 % Mean Corpuscular Volume 99.3 fL Mean Corpuscular Hemoglobin 32.8 pg Mean Corpuscular Hemoglobin Concent 33.0 g/dl Platelet Count 143 K/uL Mean Platelet Volume 11.9 fL Neutrophils (%) (Auto) 91.9 % Lymphocytes (%) (Auto) 5.3 % Monocytes (%) (Auto) 2.4 % Eosinophils (%) (Auto) 0.0 % Basophils (%) (Auto) 0.1 % Neutrophils # (Auto) 11.64 K/uL Lymphocytes # (Auto) 0.67 K/uL Monocytes # (Auto) 0.30 K/uL Eosinophils # (Auto) 0.00 K/uL Basophils # (Auto) 0.01 K/uL RDW Standard Deviation 52.2 fL RDW Coefficient of Variation 14.3 % Immature Granulocyte % (Auto) 0.3 % Immature Granulocyte # (Auto) 0.04 K/uL Ovalocytes 1+ Echinocytes 2+ Schistocytes 1+ Sodium Level 147 mmol/L Potassium Level 4.8 mmol/L Chloride Level 120 mmol/L Carbon Dioxide Level 22 mmol/L Anion Gap 5.0 mmol/L Blood Urea Nitrogen 49 mg/dl Creatinine 2.10 mg/dl Est Creatinine Clear Calc Drug Dose 30.8 ml/min Estimated GFR () 33.4 Estimated GFR (Non- 28.9 BUN/Creatinine Ratio 23.4 Random Glucose 171 mg/dl Calcium Level 8.0 mg/dl Phosphorus Level 1.9 mg/dl Magnesium Level 1.9 mg/dl Total Bilirubin 0.7 mg/dl Direct Bilirubin 0.2 mg/dl Aspartate Amino Transf (AST/SGOT) 34 U/L Alanine Aminotransferase (ALT/SGPT) 41 U/L Alkaline Phosphatase 97 U/L Total Protein 6.2 gm/dl Albumin 2.8 gm/dl Blood Gas Sample Site Art Line Bedside Blood Gas pH (LAB) 7.39 Bedside Blood Gas pCO2 (LAB) 33 mmHg Bedside Blood Gas pO2 (LAB) 218 mmHg Bedside Blood Gas HCO3 (LAB) 20 meq/L Bedside Blood Gas Total CO2 21 mEq/l Bedside Blood Gas Base Excess (LAB) -5.0 meq/L Bedside Blood Gas O2 Saturation 100.0 % Alon Test NA Oxygen Delivery Device Ventilator Bedside Oxygen Rate (breaths/min) 26 Blood Gas Minute Ventilation 15.1 Bedside FiO2 100 % Blood Gas Tidal Volume 600 Blood Gas PEEP 8 Test 05/21/17 05:55 05/21/17 11:05 05/21/17 12:16 05/21/17 13:56 Bedside Glucose (other) 162 mg/dl 113 mg/dl Blood Gas Sample Site Art Line Art Line Bedside Blood Gas pH (LAB) 7.27 7.35 Bedside Blood Gas pCO2 (LAB) 48 mmHg 34 mmHg Bedside Blood Gas pO2 (LAB) 201 mmHg 74 mmHg Bedside Blood Gas HCO3 (LAB) 22 meq/L 19 meq/L Bedside Blood Gas Total CO2 24 mEq/l 19 mEq/l Bedside Blood Gas Base Excess (LAB) -5.0 meq/L -7.0 meq/L Bedside Blood Gas O2 Saturation 100.0 % 94.0 % Alon Test Pass Pass Oxygen Delivery Device Ventilator Cannula Bedside FiO2 70 % Blood Gas PEEP 5
--- NOTE | 2017-05-21 15:46 | Family Medicine Progress Note ---
Progress Note Date of Service May 21, 2017. Subjective Pt evaluation today including: conversation w/ patient, physical exam Voiding: paulson catheter in place Patient was seen at the bedside. He was intubated. Couldn't obtain full ROS given his condition. He nod his head and denied SOB or chest pain. Spoke with nurse and she said he is doing better than yesterday. Plan to extubate him today. Additional Comments: couldn't obtain full ROS given his condition Medications Current Inpatient Medications Medications (Trade) Dose Ordered Sig/Stefani Route Start Time Stop Time Status Last Admin Dose Admin Milrinone Lactate/ Dextrose 62752 mcg/Prmx 100 ml @ 0 mls/hr Q0M IV 05/20/17 17:45 06/19/17 17:44 05/21/17 08:50 9.6 MLS/HR Dopamine HCl/ Dextrose 0 ml @ 0 mls/hr Q0M IV 05/20/17 19:39 06/19/17 19:38 05/21/17 06:29 25.7 MLS/HR Midazolam HCl (Versed Inj) 2 mg Q1HWA PRN IV 05/20/17 19:45 06/19/17 19:44 05/21/17 08:36 2 MG Aspirin (Aspirin Chew) 81 mg QAM PO 05/21/17 09:00 06/20/17 08:59 05/21/17 08:27 81 MG Atorvastatin Calcium (Lipitor Tab) 40 mg QAM PO 05/21/17 09:00 06/20/17 08:59 05/21/17 08:27 40 MG Lisinopril (Zestril Tab) 5 mg QAM PO 05/21/17 09:00 06/20/17 08:59 05/21/17 08:28 5 MG Insulin Aspart (novoLOG ASPART) SLIDING SCALE HS SC 05/20/17 21:00 06/19/17 20:59 Glucose (Glucose 40% Gel) UD PRN PO 05/20/17 21:45 06/19/17 21:44 Glucose (Glucose Chew Tab) 1 tabs UD PRN PO 05/20/17 21:45 06/19/17 21:44 Dextrose (Dextrose 50% 50ML Syringe) 50 ml UD PRN IV 05/20/17 21:45 06/19/17 21:44 Glucagon (Glucagon Inj) 1 mg UD PRN SQ 05/20/17 21:45 06/19/17 21:44 Ipratropium [place] (Atrovent Hfa Inhaler) 4 puffs Q6R INH 05/21/17 04:00 06/20/17 03:59 05/21/17 07:13 4 PUFFS Methylprednisolone Sodium Succinate 40 mg/Syringe 0.64 ml @ 1.5 mls/min Q6H IV 05/21/17 12:00 06/20/17 11:59 05/21/17 11:59 1.5 MLS/MIN Furosemide 40 mg/ Syringe 4 ml @ 4 mls/min Q12H IV 05/21/17 12:00 06/20/17 11:59 05/21/17 11:59 4 MLS/MIN Albuterol/ Ipratropium (Duoneb) 3 ml Q4HWA INH 05/21/17 12:00 06/20/17 11:59 Albuterol Sulfate (Ventolin 0.5% 2.5MG/0.5ML Neb) 2.5 mg Q6 PRN INH 05/21/17 11:30 06/20/17 11:29 Objective Vital Signs Date Time Temp Pulse Resp B/P (MAP) Pulse Ox O2 Delivery O2 Flow Rate FiO2 05/21/17 12:01 95 101/71 (67) 94 113/48 05/21/17 12:00 104 (74) 93 112/56 05/21/17 11:36 100 93 05/21/17 11:31 78 111/52 (66) 94 112/47 05/21/17 11:31 78 111/52 (66) 94 112/47 05/21/17 11:30 87 (67) 93 109/49 05/21/17 11:30 87 (67) 93 109/49 05/21/17 11:15 165 (79) 88 125/54 05/21/17 11:01 89 145/59 (106) 95 172/64 05/21/17 11:01 89 145/59 (106) 95 172/64 05/21/17 11:00 85 (115) 96 180/32 05/21/17 11:00 85 (115) 96 180/32 05/21/17 10:49 70 05/21/17 10:31 86 13 120/72 (234) 97 234/234 8/12/17 10:15 64 26 (57) 97 99/41 05/21/17 10:01 61 26 112/55 (71) 98 120/53 05/21/17 09:45 52 26 (51) 97 88/38 05/21/17 09:31 69 26 99/51 (58) 97 91/45 05/21/17 09:15 71 26 (56) 98 89/36 05/21/17 09:01 76 26 90/52 (59) 97 90/46 05/21/17 08:45 80 26 (64) 97 98/49 05/21/17 08:45 80 26 (64) 97 98/49 05/21/17 08:31 84 26 114/60 (62) 98 94/43 05/21/17 08:30 82 26 (69) 98 111/52 05/21/17 08:15 72 26 (55) 97 94/39 05/21/17 08:01 74 26 98/56 (62) 97 95/48 05/21/17 08:00 76 26 (62) 97 96/48 05/21/17 08:00 70 05/21/17 08:00 97 Mechanical Ventilator 70 05/21/17 07:31 80 26 106/58 (67) 97 104/51 05/21/17 07:15 77 26 (66) 97 104/49 05/21/17 07:14 70 05/21/17 07:01 84 26 91/66 (65) 97 106/48 05/21/17 06:45 89 26 (63) 97 100/48 05/21/17 06:31 88 26 95/54 (63) 97 92/50 05/21/17 06:30 88 26 (62) 96 91/50 05/21/17 06:01 96 26 91/57 (60) 96 84/49 05/21/17 06:00 97 26 (61) 96 87/50 05/21/17 05:31 94 26 97/59 (65) 97 98/51 (62) 05/21/17 05:17 100 26 81/55 (63) 95 77/46 05/21/17 05:05 70 05/21/17 05:01 70 26 91/48 (59) 96 90/46 (56) 05/21/17 04:31 55 26 92/53 (56) 97 91/43 (60) 05/21/17 04:11 63 29 93/50 (68) 96 88/45 (61) 05/21/17 04:03 66 26 97 Mechanical Ventilator 100 05/21/17 04:01 36.8 66 26 108/56 (71) 98 112/54 (70) 05/21/17 04:00 100 05/21/17 04:00 Mechanical Ventilator 100 05/21/17 03:31 62 26 107/53 (62) 97 106/47 (67) 05/21/17 03:24 71 26 83/53 (64) 96 77/45 (59) 05/21/17 03:07 74 26 111/56 (73) 98 115/56 (72) 05/21/17 03:01 69 26 99/45 (60) 98 107/30 (52) 05/21/17 02:31 58 26 109/52 (66) 99 110/48 (68) 05/21/17 02:19 100 05/21/17 02:01 56 26 97/46 (58) 97 94/43 (58) 05/21/17 01:31 69 26 110/51 (69) 99 111/51 (67) 05/21/17 01:01 53 26 100/46 (53) 97 88/40 (58) 05/21/17 00:53 54 26 110/52 (84) 98 116/46 (66) 05/21/17 00:31 53 26 108/51 (67) 116/47 (67) 05/21/17 00:01 36.8 49 26 116/51 (63) 98 111/43 (65) 05/21/17 00:01 Mechanical Ventilator 100 05/21/17 00:01 100 05/20/17 23:31 54 26 119/56 (71) 98 115/49 (72) 05/20/17 23:11 100 05/20/17 23:01 51 26 117/54 (78) 98 114/48 (77) 05/20/17 22:47 51 26 (70) 99 119/48 05/20/17 22:31 52 26 125/49 (71) 98 124/49 (72) 05/20/17 22:01 52 26 126/53 (77) 99 132/51 (76) 05/20/17 21:46 50 26 128/43 (74) 100 127/49 (75) 05/20/17 21:31 53 26 140/65 (83) 99 140/55 (82) 05/20/17 21:16 70 26 128/64 (81) 99 128/57 (82) 05/20/17 21:01 60 26 122/59 (78) 100 128/54 (79) 05/20/17 20:46 89 26 136/68 (91) 100 136/63 (90) 05/20/17 20:31 64 26 125/77 (95) 84 118/42 (70) 05/20/17 20:16 45 26 101/49 (57) 98 96/39 (56) 05/20/17 20:01 36.8 51 26 106/58 (71) 93 110/49 (69) 05/20/17 19:46 59 27 103/64 (79) 100 116/59 (77) 05/20/17 19:41 100 05/20/17 19:30 58 11 108/58 (75) 97 113/55 (83) 05/20/17 19:30 Mechanical Ventilator 100 05/20/17 19:15 59 26 117/62 (84) 98 129/60 (82) 05/20/17 19:04 63 26 117/59 (72) 99 116/48 (64) 05/20/17 19:03 100 05/20/17 19:01 78 27 136/85 (101) 98 05/20/17 18:50 36.4 60 26 117/59 (78) 99 Mechanical Ventilator 127/41 (69) 05/20/17 18:01 100 05/20/17 17:36 85 18 172/89 92 Non-Rebreather Physical Exam General Appearance: WD/WN, no apparent distress, + pertinent finding (intubated ) Neck: supple, trachea midline Respiratory/Chest: chest non-tender, no respiratory distress, no accessory muscle use Cardiovascular: regular rate, rhythm, no edema Abdomen: normal bowel sounds, non tender, soft, + pertinent finding (colostomy bag on the left) Extremities: non-tender, no pedal edema Skin: normal color, warm/dry, no rash Laboratory Results Results Past 24 Hours Test 05/20/17 17:46 05/20/17 17:47 05/20/17 17:51 05/20/17 18:03 Range/Units White Blood Count 11.99 4.8-10.8 K/uL Red Blood Count 4.35 4.7-6.1 M/uL Hemoglobin 14.5 14.0-18.0 g/dL Hematocrit 46.3 42-52 % Mean Corpuscular Volume 106.4 80-100 fL Mean Corpuscular Hemoglobin 33.3 25-34 pg Mean Corpuscular Hemoglobin Concent 31.3 32-36 g/dl Platelet Count 282 130-400 K/uL Mean Platelet Volume 12.0 7.4-10.4 fL RDW Standard Deviation 57.3 36.4-46.3 fL RDW Coefficient of Variation 14.7 11.5-14.5 % Neutrophils % (Manual) 68.9 % Lymphocytes % (Manual) 9.5 % Variant Lymphocytes % (manual) 9.5 % Monocytes % (Manual) 9.5 % Eosinophils % (Manual) 1.7 % Basophils % (Manual) 0.9 0-2 % Neutrophils # (Manual) 8.26 1.4-6.5 K/uL Total Absolute Neutrophils 8.26 1.4-6.5 K/uL Lymphocytes # (Manual) 1.14 1.2-3.4 K/uL Absolute Variant Lymphocytes 1.14 K/uL Total Absolute Lymphocytes 2.28 1.2-3.4 K/uL Monocytes # (Manual) 1.14 0.11-0.59 K/uL Eosinophils # (Manual) 0.20 0-0.5 K/uL Basophils # (Manual) 0.11 0-0.2 K/uL Platelet Estimate NORMAL Echinocytes 1+ Sodium Level 145 136-145 mmol/L Potassium Level 5.4 3.5-5.1 mmol/L Chloride Level 117 98-107 mmol/L Carbon Dioxide Level 21 21-32 mmol/L Anion Gap 7.0 16.0 16-25 mmol/L Blood Urea Nitrogen 48 7-18 mg/dl Creatinine 2.30 0.60-1.40 mg/dl Estimated GFR () 30.0 Estimated GFR (Non- 25.9 BUN/Creatinine Ratio 20.7 10-20 Random Glucose 394 70-99 mg/dl Calcium Level 8.8 8.5-10.1 mg/dl Total Creatine Kinase 100 39-308 U/L Creatine Kinase MB 7.8 0.5-3.6 ng/ml Creatine Kinase MB Ratio 7.8 0-3.0 Troponin I 0.069 0-0.045 ng/ml LDL Cholesterol Direct 115 mg/dl Beta-Hydroxybutyric Acid 1.43 0.2-2.81 mg/dL Bedside Lactic Acid Venous 2.97 0.90-1.70 mmol/L Bedside Hemoglobin 15.3 14.0-18.0 g/dl Bedside Hematocrit 45 42-52 % Bedside Sodium 145 135-144 mEq/L Bedside Potassium 5.2 3.3-5.0 mEq/L Bedside Chloride 115 101-112 mEq/L Bedside Total CO2 20 24-31 mEq/l Bedside Blood Urea Nitrogen 45 7-18 mg/dl Bedside Creatinine 2.1 0.6-1.3 mg/dl Bedside Glucose (other) 397 70-99 mg/dl Bedside Ionized Calcium (Isaac) 1.27 1.12-1.32 mmol/l Bedside Blood Gas pH (LAB) 7.00 7.35-7.45 Bedside Blood Gas pCO2 (LAB) 72 35-46 mmHg Bedside Blood Gas pO2 (LAB) 151 80-95 mmHg Bedside Blood Gas HCO3 (LAB) 18 19-24 meq/L Bedside Blood Gas Total CO2 20 24-31 mEq/l Bedside Blood Gas Base Excess (LAB) -13.0 -9-1.8 meq/L Bedside Blood Gas O2 Saturation 98.0 90-95 % Test 05/20/17 18:16 05/20/17 18:45 05/20/17 19:41 05/20/17 21:15 Range/Units Kaolin Activated Coagulation Time 147 94-140 SECONDS Bedside Blood Gas pH (LAB) 7.18 7.35-7.45 Bedside Blood Gas pCO2 (LAB) 55 35-46 mmHg Bedside Blood Gas pO2 (LAB) 126 80-95 mmHg Bedside Blood Gas HCO3 (LAB) 20 19-24 meq/L Bedside Blood Gas Total CO2 22 24-31 mEq/l Bedside Blood Gas Base Excess (LAB) -8.0 -9-1.8 meq/L Bedside Blood Gas O2 Saturation 98.0 90-95 % Bedside Glucose 305 70-99 mg/dl Bedside Glucose (other) 281 70-99 mg/dl Test 05/20/17 23:02 05/21/17 00:14 05/21/17 01:14 05/21/17 02:11 Range/Units Bedside Glucose (other) 262 244 224 206 70-99 mg/dl Test 05/21/17 03:11 05/21/17 04:10 05/21/17 04:26 05/21/17 04:59 Range/Units Bedside Glucose (other) 188 176 70-99 mg/dl White Blood Count 12.66 4.8-10.8 K/uL Red Blood Count 4.12 4.7-6.1 M/uL Hemoglobin 13.5 14.0-18.0 g/dL Hematocrit 40.9 42-52 % Mean Corpuscular Volume 99.3 80-100 fL Mean Corpuscular Hemoglobin 32.8 25-34 pg Mean Corpuscular Hemoglobin Concent 33.0 32-36 g/dl Platelet Count 143 130-400 K/uL Mean Platelet Volume 11.9 7.4-10.4 fL Neutrophils (%) (Auto) 91.9 % Lymphocytes (%) (Auto) 5.3 % Monocytes (%) (Auto) 2.4 % Eosinophils (%) (Auto) 0.0 % Basophils (%) (Auto) 0.1 % Neutrophils # (Auto) 11.64 1.4-6.5 K/uL Lymphocytes # (Auto) 0.67 1.2-3.4 K/uL Monocytes # (Auto) 0.30 0.11-0.59 K/uL Eosinophils # (Auto) 0.00 0-0.5 K/uL Basophils # (Auto) 0.01 0-0.2 K/uL RDW Standard Deviation 52.2 36.4-46.3 fL RDW Coefficient of Variation 14.3 11.5-14.5 % Immature Granulocyte % (Auto) 0.3 % Immature Granulocyte # (Auto) 0.04 0.00-0.02 K/uL Ovalocytes 1+ Echinocytes 2+ Schistocytes 1+ Sodium Level 147 136-145 mmol/L Potassium Level 4.8 3.5-5.1 mmol/L Chloride Level 120 98-107 mmol/L Carbon Dioxide Level 22 21-32 mmol/L Anion Gap 5.0 3-11 mmol/L Blood Urea Nitrogen 49 7-18 mg/dl Creatinine 2.10 0.60-1.40 mg/dl Est Creatinine Clear Calc Drug Dose 30.8 ml/min Estimated GFR () 33.4 Estimated GFR (Non- 28.9 BUN/Creatinine Ratio 23.4 10-20 Random Glucose 171 70-99 mg/dl Calcium Level 8.0 8.5-10.1 mg/dl Phosphorus Level 1.9 2.5-4.9 mg/dl Magnesium Level 1.9 1.8-2.4 mg/dl Total Bilirubin 0.7 0.2-1 mg/dl Direct Bilirubin 0.2 0-0.2 mg/dl Aspartate Amino Transf (AST/SGOT) 34 15-37 U/L Alanine Aminotransferase (ALT/SGPT) 41 12-78 U/L Alkaline Phosphatase 97 45-117 U/L Total Protein 6.2 6.4-8.2 gm/dl Albumin 2.8 3.4-5.0 gm/dl Blood Gas Sample Site Art Line Bedside Blood Gas pH (LAB) 7.39 7.35-7.45 Bedside Blood Gas pCO2 (LAB) 33 35-46 mmHg Bedside Blood Gas pO2 (LAB) 218 80-95 mmHg Bedside Blood Gas HCO3 (LAB) 20 19-24 meq/L Bedside Blood Gas Total CO2 21 24-31 mEq/l Bedside Blood Gas Base Excess (LAB) -5.0 -9-1.8 meq/L Bedside Blood Gas O2 Saturation 100.0 90-95 % Alon Test NA Oxygen Delivery Device Ventilator Bedside Oxygen Rate (breaths/min) 26 Blood Gas Minute Ventilation 15.1 Bedside FiO2 100 % Blood Gas Tidal Volume 600 Blood Gas PEEP 8 Test 05/21/17 05:55 05/21/17 11:05 05/21/17 12:16 05/21/17 13:56 Range/Units Bedside Glucose (other) 162 113 70-99 mg/dl Blood Gas Sample Site Art Line Art Line Bedside Blood Gas pH (LAB) 7.27 7.35 7.35-7.45 Bedside Blood Gas pCO2 (LAB) 48 34 35-46 mmHg Bedside Blood Gas pO2 (LAB) 201 74 80-95 mmHg Bedside Blood Gas HCO3 (LAB) 22 19 19-24 meq/L Bedside Blood Gas Total CO2 24 19 24-31 mEq/l Bedside Blood Gas Base Excess (LAB) -5.0 -7.0 -9-1.8 meq/L Bedside Blood Gas O2 Saturation 100.0 94.0 90-95 % Alon Test Pass Pass Oxygen Delivery Device Ventilator Cannula Bedside FiO2 70 % Blood Gas PEEP 5 Test 05/21/17 15:05 Range/Units Bedside Glucose (other) 112 70-99 mg/dl Microbiology Results 05/20/17 MRSA DNA Surveillance Screen - Final, Complete Specimen Negative for MRSA by DNA Probe Assessment and Plan This is a 82 y/o M with PMHx of CAD, 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 He became unresponsive and needed to be intubated. In ED he found to have STEMI in the anterior leads with 1st degree AVB. Patient was taken to the radiographer cardiac catheterization by Dr. Mejia and found to have old left main disease and mid LAD stenosis with ostial LAD artery and ostial circumflex stenosis. Placement of percutaneous transluminal coronary angioplasty without stent in the diagonal branch, with unsuccessful attempt at re-perfusion of the mid to distal LAD artery. Discussed the result with the family and apparently patient doesn't want any aggressive treatment. Patient is currently on ICU for further management. * ST elevation myocardial infraction - EKG in ED showed ST elevation in the ant leads. Troponin and CK-MB were elevated. - Cath was performed yesterday showed left main with a distal 80% stenosis , ostial diagonal branch 90% stenosis. Mid LAD has a subtotal calcified stenosis beyond the 2nd diagonal branch. 2nd diagonal branch has ostial 80% stenosis, LCX has ostial with 90% stenosis. RCA has extensive but non critical luminal irregularities. Markedly elevated left ventricular end-diastolic pressure. - Echo showed EF <20%, severely reduced LV systolic function, large akinetic segment involving the mid and distal anterior wall and the entire apex. All other deleon are hypokinetic. Decreased RV systolic function. No valvular pathology. - Patient declined aggressive management - Patient received loading dose of heparin and Plavix, currently on ASA 81mg - Continue Lisinopril 5mg qam * Acute on chronic hypercapneic respiratory failure - 2/2 COPD exacerbation, acute decompensation of CMP - Currently intubated and on mechanical vent with FIO2 70% and PEEP 5 - Last ABG showed pH 7.27, CO2 48 and HCO3 22, improved from prior ABG - Plan to extubate him this afternoon and observe * COPD exacerbation - Continue IV methylprednisolone 40mg q6h - Continue DuoNeb INH q4h, Ipratropium 4 puffs q6R - Continue Albuterol q6h prn *Acute on Chronic systolic congested heart failure - Echo (05/21/17) showed severely reduced LV systolic function with EF <20% , akinetic segment involving mid and distal ant wall and entire apex. - CXR showed moderate pulmonary edema, improving - Started on IV Milrinone for inotropic effect - Continue IV Lasix 40mg Q12h - Monitor I/O and weight * Hx of Afib - Patient was on Xarelto 15mg at home - In the hospital he received loading dose of Plavix and heparin - Currently on ASA 81mg * DMII - Patient glucose was elevated on admission, could be 2/2 stress - Currently on sliding scale - Continue to monitor BMP * Hypercholesterolemia - Continue with Lipitor 40mg * VTE prophylaxis - Patient received loading dose of heparin and Plavix - Currently ASA 81mg * Code Status - Full code (per Dr. Zamarripa's note) - Dr. Zamarripa spoke with the family yesterday about the code status, they were leaning toward DNR but have not come with a decision yet. Reviewed: Pt Seen/Exam by Me History seen this am. in the process of weaning vent. tolerating well Constitutional: denies: fever General Appearance: other Respiratory: lungs clear, other (on vent) Cardiovascular: regular rate, rhythm Gastrointestinal: normal bowel sounds, non tender, soft Neurologic/Psychiatric: alert, oriented x 3 Skin Characteristics: warm/dry Assessment/Plan Resident Physician Supervision Note: I was present with Dr. Palmer in bedside. I verified the salcido history and physical, reviewed labs and image studies, discussed the case with the resident and agree with the findings and care plan.
[2017-05-21] MEDS ORDERED: NURSING VERBAL MED ORDER ONE (19:00)
[2017-05-21 19:42] LABS: HEMATOCRIT 36.5 % (42-52)
[2017-05-21] MEDS: HEPARIN SOD 5000 UNIT/0.5 ML CARP SC SCH (20:57)
[2017-05-22] VITALS (45 sets, daily range): BP systolic 111–142; BP diastolic 59–91; PULSE 63–107; TEMP 36.5–37; O2SAT 94–100
[2017-05-22] MEDS: METHYLPREDNISOLONE IV 40 MG in SYRINGE 0 ML IV SCH ×5 (00:59→23:53)
[2017-05-22] MEDS: FUROSEMIDE INJ 40 MG in SYRINGE 0 ML IV SCH (00:59)
[2017-05-22 04:06] LABS: BUN/CREATININE RATIO 25.8 (10-20); CALCIUM 7.7 mg/dl (8.5-10.1); CREATININE 2.4 mg/dl (0.60-1.40); POTASSIUM 4.9 mmol/L (3.5-5.1)
[2017-05-22 04:26] LABS: COMPLETE YES; HEMATOCRIT 35.7 % (42-52); IG% 0.2 %; LYMPH % 2.4 %; LYMPH ABS # 0.29 K/uL (1.2-3.4); MEAN CELL VOLUME 101.1 fL (80-100); MEAN CORPUSCULAR HEMOGLOBIN 31.7 pg (25-34); MEAN CORPUSCULAR HGB CONC 31.4 g/dl (32-36); MEAN PLATELET VOLUME 12.1 fL (7.4-10.4); MONO % 1.4 %; PLATELET COUNT 119 K/uL (130-400); PLT ESTIMATE NORMAL; RED BLOOD COUNT 3.53 M/uL (4.7-6.1); WHITE BLOOD COUNT 12.14 K/uL (4.8-10.8)
[2017-05-22] MEDS: INSULIN ASPART 100 UNITS/ML 3 ML PEN SC SCH ×4 (06:44→21:00)
[2017-05-22] MEDS: ALBUT/IPRATROP 3MG/0.5MG NEB 3 ML VIAL INH SCH ×4 (07:37→20:02)
--- NOTE | 2017-05-22 09:13 | Critical Care Progress Note ---
Critical Care Progress Note Date of Service May 22, 2017. Attending Dr. Zamarripa Subjective asymptomatic this am, following commands, no chest pain or sob, tolerating oral intake. Objective stable overnight, on milrinone and dopamine, fentanyl and versed. noted to be awake on sedation. ( high tolerance). 05/22/17... stable overnight, the introducers removed, off dopa and milrinone. bun and creat slightly elevated. leukocytosis due to steroids. Current SOFA Score SOFA Score Response (Comments) Value PaO2/FiO2 (mmHg) < 300 2 SaO2 / FIO2 142 - 220 2 Platelets (x10) > 150 0 Bilirubin (mg/dL) < 1.2 0 [place] Coma Score 13 - 14 1 Level of Hypotension No Hypotension 0 Creatinine (mg/dL) < 1.2 0 Total 5 Assessment & Plan 1- STEMI , s/p PCI, balloon to the OM , prox LAD and LM lesions not amenable to PCI, needed surgery in the past but he told me that he was instructed to go with medical management, however, the family mentioned he did not want CABG in the past. 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 meanwhile will continue ASA, Plavix, add low dose b blockers ( not wheezing). stop Milrinone and Dopamine. 2- COPD, started on solumedrol and BD, will add LABA. 3- CKD with changing in creat, will reduce lasix dose to 40 mg po daily, it can be stopped if not needed. pulmonary edema definitely improved but the pt has EF of 15%. 4- Ischemic Cardiomyopathy , on afterload reduction with Lisinopril , will watch for the rising Creat and stop it or change it to ARB or Isosorbide. needs follow up with Cardiology and referral to CV surgery. 5- Thrombocytopenia, monitor closely, if the platelets < 70 stop Heparin SC and Plavix ( if Ok with Cardiology). 6- Hx of colon CA with hemicolectomy, colostomy, and ventral hernia, CRISTÓBAL. 7- multiple pulmonary nodules, according to the family a biopsy was done in the past and they were normal ( not sure). 8- DVT and GI prophylaxis. 9- disposition to step down. 10- ambulate. 11- oral intake heart healthy diet. 12- full code, discussed with the pt himself , he is not sure and he will talk it further with the family. discussed with the staff on rounds in details. CCT 35 min. Consults & Procedures Consultants: cardiology consult. Dr. Mejia. Procedures: central line. Data Medications: Current Inpatient Medications Medications (Trade) Dose Ordered Sig/Stefani Route Start Time Stop Time Status Last Admin Dose Admin Aspirin (Aspirin Chew) 81 mg QAM PO 05/21/17 09:00 06/20/17 08:59 05/21/17 08:27 81 MG Atorvastatin Calcium (Lipitor Tab) 40 mg QAM PO 05/21/17 09:00 06/20/17 08:59 05/21/17 08:27 40 MG Lisinopril (Zestril Tab) 5 mg QAM PO 05/21/17 09:00 06/20/17 08:59 05/21/17 08:28 5 MG Glucose (Glucose 40% Gel) UD PRN PO 05/20/17 21:45 06/19/17 21:44 Glucose (Glucose Chew Tab) 1 tabs UD PRN PO 05/20/17 21:45 06/19/17 21:44 Dextrose (Dextrose 50% 50ML Syringe) 50 ml UD PRN IV 05/20/17 21:45 06/19/17 21:44 Glucagon (Glucagon Inj) 1 mg UD PRN SQ 05/20/17 21:45 06/19/17 21:44 Methylprednisolone Sodium Succinate 40 mg/Syringe 0.64 ml @ 1.5 mls/min Q6H IV 05/21/17 12:00 06/20/17 11:59 05/22/17 06:38 1.5 MLS/MIN Albuterol/ Ipratropium (Duoneb) 3 ml Q4HWA INH 05/21/17 12:00 06/20/17 11:59 05/22/17 07:37 3 ML Albuterol Sulfate (Ventolin 0.5% 2.5MG/0.5ML Neb) 2.5 mg Q6 PRN INH 05/21/17 11:30 06/20/17 11:29 Clopidogrel Bisulfate (plAVix TAB) 75 mg QAM PO 05/22/17 09:00 06/21/17 08:59 Heparin Sodium (Porcine) (Heparin Sq 5000 Unit/0.5ml) 5,000 unit Q12 SC 05/21/17 21:00 06/20/17 20:59 Insulin Aspart (novoLOG ASPART) SLIDING SCALE G... ACHS GA 05/21/17 21:00 06/20/17 20:59 05/22/17 06:44 2 UNITS Vital Signs: Date Time Temp Pulse Resp B/P (MAP) Pulse Ox O2 Delivery O2 Flow Rate FiO2 05/22/17 08:00 96 Nasal Cannula 2.0 05/22/17 07:38 92 20 96 Nasal Cannula 2.0 05/22/17 06:16 70 12 122/70 (87) 100 BiPAP 30 05/22/17 06:01 74 14 132/82 (99) 100 BiPAP 30 05/22/17 05:46 69 16 117/68 (84) 100 BiPAP 30 05/22/17 05:31 68 11 117/67 (84) 100 BiPAP 30 05/22/17 05:16 67 14 123/70 (87) 100 BiPAP 30 05/22/17 05:07 67 100 05/22/17 05:01 68 15 115/65 (82) 100 BiPAP 30 05/22/17 04:46 74 11 129/70 (89) 100 05/22/17 04:31 79 15 124/71 (88) 100 05/22/17 04:16 75 14 123/71 (88) 100 05/22/17 04:01 37.0 76 24 121/68 (85) 100 30 05/22/17 04:00 BiPAP 05/22/17 03:46 79 19 119/70 (86) 100 05/22/17 03:31 84 17 119/75 (90) 100 30 05/22/17 03:16 88 17 132/77 (95) 100 30 05/22/17 03:01 107 20 142/91 (108) 94 05/22/17 02:46 69 13 116/70 (85) 100 30 05/22/17 02:31 73 10 115/74 (88) 100 05/22/17 02:16 71 26 123/73 (90) 100 30 05/22/17 02:01 73 17 118/69 (85) 100 05/22/17 01:46 74 18 117/69 (85) 100 05/22/17 01:31 83 19 116/83 (94) 100 30 05/22/17 01:16 76 15 114/68 (83) 100 30 05/22/17 01:16 75 100 05/22/17 01:01 76 24 116/65 (82) 100 30 05/22/17 00:46 76 23 114/68 (83) 100 30 05/22/17 00:31 85 21 126/74 (91) 100 30 05/22/17 00:16 79 18 116/61 (79) 100 BiPAP 30 05/22/17 00:01 37.0 80 16 111/62 (78) 100 BiPAP 30 05/22/17 00:01 BiPAP 05/21/17 23:46 86 19 110/73 (85) 100 BiPAP 30 05/21/17 23:31 90 16 115/70 (85) 100 05/21/17 23:31 90 18 115/70 (85) 100 BiPAP 30 05/21/17 23:16 85 16 109/64 (77) 100 05/21/17 23:16 85 16 109/64 (79) 100 BiPAP 30 05/21/17 23:01 83 18 108/62 (75) 100 05/21/17 23:01 83 18 108/62 (77) 100 BiPAP 30 05/21/17 22:46 87 19 106/66 (81) 100 05/21/17 22:31 94 25 112/66 (77) 100 05/21/17 22:16 95 18 109/63 (73) 100 05/21/17 22:01 95 108/60 (68) 100 05/21/17 22:00 96 100 05/21/17 21:46 96 113/61 (74) 98 05/21/17 21:31 94 104/56 (65) 97 05/21/17 21:16 71 110/54 (80) 96 05/21/17 21:01 67 17 112/59 (76) 96 Nasal Cannula 2.0 05/21/17 21:01 36.8 67 16 112/59 (81) 96 05/21/17 21:00 BiPAP 05/21/17 20:46 67 116/55 (80) 96 05/21/17 20:46 67 116/55 (80) 96 05/21/17 20:46 67 17 116/55 (75) 96 Nasal Cannula 2.0 05/21/17 20:35 76 17 107/57 (74) 97 2.0 05/21/17 20:35 76 107/57 (83) 97 05/21/17 20:33 88 107/57 (77) 96 05/21/17 20:33 88 17 107/57 (74) 96 2.0 05/21/17 20:31 74 17 107/57 (74) 97 2.0 05/21/17 20:31 74 107/57 (68) 97 05/21/17 20:29 88 102/61 (79) 97 05/21/17 20:29 88 17 102/61 (75) 97 Nasal Cannula 4.0 05/21/17 20:27 78 112/55 (87) 98 05/21/17 20:27 78 17 112/55 (74) 98 Nasal Cannula 4.0 05/21/17 20:25 87 104/55 (59) 97 05/21/17 20:25 87 17 104/55 (71) 97 Nasal Cannula 4.0 05/21/17 20:23 86 17 116/65 (82) 98 Nasal Cannula 4.0 05/21/17 20:23 86 116/65 (96) 98 05/21/17 20:21 79 104/67 (72) 98 05/21/17 20:21 79 17 104/67 (79) 98 Nasal Cannula 4.0 05/21/17 20:19 85 122/56 (75) 99 05/21/17 20:19 85 17 122/56 (78) 99 Nasal Cannula 4.0 05/21/17 20:17 81 17 119/68 (85) 100 Nasal Cannula 4.0 05/21/17 20:17 81 119/68 (85) 100 05/21/17 20:15 85 16 118/65 (82) 100 Non-Rebreather 15.0 05/21/17 20:15 85 118/65 (76) 100 05/21/17 20:13 78 119/60 (78) 100 05/21/17 20:13 78 16 119/60 (79) 100 Non-Rebreather 15.0 05/21/17 20:10 93 133/42 (101) 100 05/21/17 20:10 93 16 133/42 (72) 100 Non-Rebreather 15.0 05/21/17 20:07 91 16 122/75 (91) 100 Non-Rebreather 15.0 05/21/17 20:07 91 122/75 (96) 100 05/21/17 20:05 96 121/72 (90) 100 05/21/17 20:05 96 16 121/72 (88) 100 Non-Rebreather 15.0 05/21/17 20:03 90 16 113/89 (97) 100 Non-Rebreather 15.0 05/21/17 20:03 90 113/89 (91) 100 05/21/17 20:01 36.7 96 16 107/74 (85) 100 Non-Rebreather 15.0 05/21/17 20:01 96 107/74 (90) 100 05/21/17 20:00 92 100 05/21/17 19:57 92 125/66 (95) 100 05/21/17 19:55 92 122/60 (87) 100 05/21/17 19:53 92 118/60 (77) 100 05/21/17 19:51 92 124/64 (85) 100 05/21/17 19:49 94 126/66 (94) 100 05/21/17 19:47 90 124/64 (73) 100 05/21/17 19:45 93 126/61 (79) 100 05/21/17 19:43 85 118/68 (85) 100 05/21/17 19:41 93 117/71 (89) 100 05/21/17 19:39 94 120/63 (-50) 100 -50/-50 05/21/17 19:37 94 131/62 (-50) 100 -50/-50 05/21/17 19:35 92 122/65 (-50) 100 -50/-50 05/21/17 19:33 94 124/67 (-50) 100 -50/-50 05/21/17 19:30 90 130/67 (71) 100 -50/-50 05/21/17 19:28 98 139/70 (91) 100 -50/-50 05/21/17 19:27 111 152/80 (-50) 100 -50/-50 05/21/17 19:26 108 134/78 (-50) 100 -50/-50 05/21/17 19:01 65 109/50 (64) 100 104/46 8 19:00 68 (67) 100 109/49 05/21/17 18:00 36.8 69 20 (63) 100 101/46 8//17 17:00 69 (63) 100 101/46 8//17 16:32 87 113/60 (83) 100 133/60 05/21/17 16:30 63 (79) 100 130/57 17 16:15 64 (71) 100 120/50 17 16:01 65 110/64 (73) 100 120/52 8//17 16:01 65 110/64 (73) 100 120/52 17 16:00 64 (79) 100 129/57 05/21/17 16:00 36.8 72 20 (59) 97 113/6 05/21/17 16:00 97 BiPAP 05/21/17 16:00 64 (79) 100 129/57 05/21/17 15:31 63 122/72 (86) 93 143/61 05/21/17 15:30 75 (90) 94 145/62 05/21/17 15:01 64 111/57 (69) 121/47 05/21/17 15:00 36.8 72 20 (59) 97 102/41 05/21/17 15:00 68 (74) 75 127/51 05/21/17 14:32 72 20 97 Mask 8.0 05/21/17 14:00 56 (59) 102/41 17 13:31 63 111/51 (64) 91 108/47 17 13:31 63 111/51 (64) 91 108/47 17 13:30 68 (62) 94 116/43 8//17 13:30 68 (62) 94 116/43 8/17 13:01 63 103/53 (61) 94 99/45 8/12/17 13:01 63 103/53 (61) 94 99/45 8//17 13:01 63 103/53 (61) 94 99/45 8//17 13:00 55 (62) 95 102/45 8/17 13:00 55 (62) 95 102/45 8/12/17 13:00 55 (62) 95 102/45 05/21/17 12:31 63 103/64 (56) 93 91/42 05/21/17 12:30 60 (56) 93 90/42 05/21/17 12:01 95 101/71 (67) 94 113/48 05/21/17 12:01 95 101/71 (67) 94 113/48 05/21/17 12:00 93 BiPAP 05/21/17 12:00 104 (74) 93 112/56 05/21/17 12:00 104 (74) 93 112/56 05/21/17 11:36 100 93 05/21/17 11:31 78 111/52 (66) 94 112/47 05/21/17 11:31 78 111/52 (66) 94 112/47 05/21/17 11:30 87 (67) 93 109/49 05/21/17 11:30 87 (67) 93 109/49 05/21/17 11:15 165 (79) 88 125/54 05/21/17 11:01 89 145/59 (106) 95 172/64 05/21/17 11:01 89 145/59 (106) 95 172/64 05/21/17 11:00 85 (115) 96 180/32 05/21/17 11:00 85 (115) 96 180/32 05/21/17 10:49 70 05/21/17 10:31 86 13 120/72 (234) 97 234/234 05/21/17 10:15 64 26 (57) 97 99/41 05/21/17 10:01 61 26 112/55 (71) 98 120/53 05/21/17 09:45 52 26 (51) 97 88/38 05/21/17 09:31 69 26 99/51 (58) 97 91/45 05/21/17 09:15 71 26 (56) 98 89/36 Laboratory Results: Last 24 Hours Test 05/21/17 11:05 05/21/17 12:16 05/21/17 13:56 05/21/17 15:05 Blood Gas Sample Site Art Line Art Line Bedside Blood Gas pH (LAB) 7.27 7.35 Bedside Blood Gas pCO2 (LAB) 48 mmHg 34 mmHg Bedside Blood Gas pO2 (LAB) 201 mmHg 74 mmHg Bedside Blood Gas HCO3 (LAB) 22 meq/L 19 meq/L Bedside Blood Gas Total CO2 24 mEq/l 19 mEq/l Bedside Blood Gas Base Excess (LAB) -5.0 meq/L -7.0 meq/L Bedside Blood Gas O2 Saturation 100.0 % 94.0 % Alon Test Pass Pass Oxygen Delivery Device Ventilator Cannula Bedside FiO2 70 % Blood Gas PEEP 5 Bedside Glucose (other) 113 mg/dl 112 mg/dl Test 05/21/17 16:13 05/21/17 19:33 05/21/17 19:55 05/21/17 20:21 Bedside Glucose 134 mg/dl 246 mg/dl Hemoglobin 11.6 g/dL Hematocrit 36.5 % Hepatitis B Surface Antigen NEG Hepatitis C Antibody NEG HIV (1&2) Ab and P24 Ag, 4th Gener NEG Test 05/22/17 01:01 05/22/17 03:38 05/22/17 06:35 Bedside Glucose 227 mg/dl 215 mg/dl White Blood Count 12.14 K/uL Red Blood Count 3.53 M/uL Hemoglobin 11.2 g/dL Hematocrit 35.7 % Mean Corpuscular Volume 101.1 fL Mean Corpuscular Hemoglobin 31.7 pg Mean Corpuscular Hemoglobin Concent 31.4 g/dl Platelet Count 119 K/uL Mean Platelet Volume 12.1 fL Neutrophils (%) (Auto) 96.0 % Lymphocytes (%) (Auto) 2.4 % Monocytes (%) (Auto) 1.4 % Eosinophils (%) (Auto) 0.0 % Basophils (%) (Auto) 0.0 % Neutrophils # (Auto) 11.66 K/uL Lymphocytes # (Auto) 0.29 K/uL Monocytes # (Auto) 0.17 K/uL Eosinophils # (Auto) 0.00 K/uL Basophils # (Auto) 0.00 K/uL RDW Standard Deviation 54.0 fL RDW Coefficient of Variation 14.5 % Immature Granulocyte % (Auto) 0.2 % Immature Granulocyte # (Auto) 0.02 K/uL Platelet Estimate NORMAL Sodium Level 144 mmol/L Potassium Level 4.9 mmol/L Chloride Level 115 mmol/L Carbon Dioxide Level 23 mmol/L Anion Gap 6.0 mmol/L Blood Urea Nitrogen 62 mg/dl Creatinine 2.40 mg/dl Est Creatinine Clear Calc Drug Dose 26.9 ml/min Estimated GFR () 28.5 Estimated GFR (Non- 24.6 BUN/Creatinine Ratio 25.8 Random Glucose 258 mg/dl Calcium Level 7.7 mg/dl
[2017-05-22] MEDS: ATORVASTATIN 40 MG TAB PO SCH (09:23)
[2017-05-22] MEDS: ASPIRIN 81 MG CHEW PO SCH (09:23)
[2017-05-22] MEDS: LISINOPRIL 5 MG TAB PO SCH (09:24)
[2017-05-22] MEDS: CLOPIDOGREL BISULFATE 75 MG TAB PO SCH (09:24)
[2017-05-22] MEDS: HEPARIN SOD 5000 UNIT/0.5 ML CARP SC SCH ×2 (09:25→21:05)
--- NOTE | 2017-05-22 14:11 | Family Medicine Progress Note ---
Progress Note Date of Service May 22, 2017. Subjective Pt evaluation today including: conversation w/ patient, physical exam, lab review Pain: Denies Voiding: paulson catheter in place Patient was seen at the bedside. He was comfortably lying down on his bed. Patient looks more wake today. Denies any complaints today. Constitutional: No fever Respiratory: No cough, No shortness of breath Cardiovascular: No chest pain Abdomen: No pain, No nausea, No vomiting, No diarrhea Musculoskeletal: No muscle pain Medications Current Inpatient Medications Medications (Trade) Dose Ordered Sig/Stefani Route Start Time Stop Time Status Last Admin Dose Admin Aspirin (Aspirin Chew) 81 mg QAM PO 05/21/17 09:00 06/20/17 08:59 05/22/17 09:23 81 MG Atorvastatin Calcium (Lipitor Tab) 40 mg QAM PO 05/21/17 09:00 06/20/17 08:59 05/22/17 09:23 40 MG Lisinopril (Zestril Tab) 5 mg QAM PO 05/21/17 09:00 06/20/17 08:59 05/22/17 09:24 5 MG Glucose (Glucose 40% Gel) UD PRN PO 05/20/17 21:45 06/19/17 21:44 Glucose (Glucose Chew Tab) 1 tabs UD PRN PO 05/20/17 21:45 06/19/17 21:44 Dextrose (Dextrose 50% 50ML Syringe) 50 ml UD PRN IV 05/20/17 21:45 06/19/17 21:44 Glucagon (Glucagon Inj) 1 mg UD PRN SQ 05/20/17 21:45 06/19/17 21:44 Methylprednisolone Sodium Succinate 40 mg/Syringe 0.64 ml @ 1.5 mls/min Q6H IV 05/21/17 12:00 06/20/17 11:59 05/22/17 11:32 1.5 MLS/MIN Albuterol/ Ipratropium (Duoneb) 3 ml Q4HWA INH 05/21/17 12:00 06/20/17 11:59 05/22/17 11:22 3 ML Albuterol Sulfate (Ventolin 0.5% 2.5MG/0.5ML Neb) 2.5 mg Q6 PRN INH 05/21/17 11:30 06/20/17 11:29 Clopidogrel Bisulfate (plAVix TAB) 75 mg QAM PO 05/22/17 09:00 06/21/17 08:59 05/22/17 09:24 75 MG Heparin Sodium (Porcine) (Heparin Sq 5000 Unit/0.5ml) 5,000 unit Q12 SC 05/21/17 21:00 06/20/17 20:59 05/22/17 09:25 5,000 UNIT Insulin Aspart (novoLOG ASPART) SLIDING SCALE G... ACHS [place] 05/21/17 21:00 06/20/17 20:59 05/22/17 11:00 7 UNITS Furosemide (Lasix Tab) 40 mg QAM PO 05/23/17 09:00 06/22/17 08:59 Metoprolol Tartrate (Lopressor Tab) 12.5 mg BID PO 05/22/17 21:00 06/21/17 20:59 Objective Vital Signs Date Time Temp Pulse Resp B/P (MAP) Pulse Ox O2 Delivery O2 Flow Rate FiO2 05/22/17 12:00 100 Room Air 05/22/17 12:00 83 23 121/61 (81) 100 Room Air 83 05/22/17 11:22 92 25 97 Nasal Cannula 2.0 05/22/17 10:00 93 30 132/70 (90) 96 Nasal Cannula 2.0 93 05/22/17 08:00 36.8 94 26 129/77 (94) 96 Nasal Cannula 4.0 94 05/22/17 08:00 96 Nasal Cannula 2.0 05/22/17 07:38 92 20 96 Nasal Cannula 2.0 05/22/17 06:16 70 12 122/70 (87) 100 BiPAP 30 05/22/17 06:01 74 14 132/82 (99) 100 BiPAP 30 05/22/17 05:46 69 16 117/68 (84) 100 BiPAP 30 05/22/17 05:31 68 11 117/67 (84) 100 BiPAP 30 05/22/17 05:16 67 14 123/70 (87) 100 BiPAP 30 05/22/17 05:07 67 100 05/22/17 05:01 68 15 115/65 (82) 100 BiPAP 30 05/22/17 04:46 74 11 129/70 (89) 100 30 05/22/17 04:31 79 15 124/71 (88) 100 30 05/22/17 04:16 75 14 123/71 (88) 100 30 05/22/17 04:01 37.0 76 24 121/68 (85) 100 30 05/22/17 04:00 BiPAP 05/22/17 03:46 79 19 119/70 (86) 100 30 05/22/17 03:31 84 17 119/75 (90) 100 30 05/22/17 03:16 88 17 132/77 (95) 100 30 05/22/17 03:01 107 20 142/91 (108) 94 30 05/22/17 02:46 69 13 116/70 (85) 100 30 05/22/17 02:31 73 10 115/74 (88) 100 30 05/22/17 02:16 71 26 123/73 (90) 100 30 05/22/17 02:01 73 17 118/69 (85) 100 30 05/22/17 01:46 74 18 117/69 (85) 100 30 05/22/17 01:31 83 19 116/83 (94) 100 30 05/22/17 01:16 76 15 114/68 (83) 100 30 05/22/17 01:16 75 100 05/22/17 01:01 76 24 116/65 (82) 100 30 05/22/17 00:46 76 23 114/68 (83) 100 30 05/22/17 00:31 85 21 126/74 (91) 100 30 05/22/17 00:16 79 18 116/61 (79) 100 BiPAP 05/22/17 00:01 37.0 80 16 111/62 (78) 100 BiPAP 30 05/22/17 00:01 BiPAP 05/21/17 23:46 86 19 110/73 (85) 100 BiPAP 05/21/17 23:31 90 16 115/70 (85) 100 05/21/17 23:31 90 18 115/70 (85) 100 BiPAP 30 05/21/17 23:16 85 16 109/64 (77) 100 05/21/17 23:16 85 16 109/64 (79) 100 BiPAP 30 05/21/17 23:01 83 18 108/62 (75) 100 05/21/17 23:01 83 18 108/62 (77) 100 BiPAP 30 05/21/17 22:46 87 19 106/66 (81) 100 05/21/17 22:31 94 25 112/66 (77) 100 05/21/17 22:16 95 18 109/63 (73) 100 05/21/17 22:01 95 108/60 (68) 100 05/21/17 22:00 96 100 05/21/17 21:46 96 113/61 (74) 98 05/21/17 21:31 94 104/56 (65) 97 05/21/17 21:16 71 110/54 (80) 96 05/21/17 21:01 67 17 112/59 (76) 96 Nasal Cannula 2.0 05/21/17 21:01 36.8 67 16 112/59 (81) 96 05/21/17 21:00 BiPAP 05/21/17 20:46 67 116/55 (80) 96 05/21/17 20:46 67 116/55 (80) 96 05/21/17 20:46 67 17 116/55 (75) 96 Nasal Cannula 2.0 05/21/17 20:35 76 17 107/57 (74) 97 2.0 05/21/17 20:35 76 107/57 (83) 97 05/21/17 20:33 88 107/57 (77) 96 05/21/17 20:33 88 17 107/57 (74) 96 2.0 05/21/17 20:31 74 17 107/57 (74) 97 2.0 05/21/17 20:31 74 107/57 (68) 97 05/21/17 20:29 88 102/61 (79) 97 05/21/17 20:29 88 17 102/61 (75) 97 Nasal Cannula 4.0 05/21/17 20:27 78 112/55 (87) 98 05/21/17 20:27 78 17 112/55 (74) 98 Nasal Cannula 4.0 05/21/17 20:25 87 104/55 (59) 97 05/21/17 20:25 87 17 104/55 (71) 97 Nasal Cannula 4.0 05/21/17 20:23 86 17 116/65 (82) 98 Nasal Cannula 4.0 05/21/17 20:23 86 116/65 (96) 98 05/21/17 20:21 79 104/67 (72) 98 05/21/17 20:21 79 17 104/67 (79) 98 Nasal Cannula 4.0 05/21/17 20:19 85 122/56 (75) 99 05/21/17 20:19 85 17 122/56 (78) 99 Nasal Cannula 4.0 05/21/17 20:17 81 17 119/68 (85) 100 Nasal Cannula 4.0 05/21/17 20:17 81 119/68 (85) 100 05/21/17 20:15 85 16 118/65 (82) 100 Non-Rebreather 15.0 05/21/17 20:15 85 118/65 (76) 100 05/21/17 20:13 78 119/60 (78) 100 05/21/17 20:13 78 16 119/60 (79) 100 Non-Rebreather 15.0 05/21/17 20:10 93 133/42 (101) 100 05/21/17 20:10 93 16 133/42 (72) 100 Non-Rebreather 15.0 05/21/17 20:07 91 16 122/75 (91) 100 Non-Rebreather 15.0 05/21/17 20:07 91 122/75 (96) 100 05/21/17 20:05 96 121/72 (90) 100 05/21/17 20:05 96 16 121/72 (88) 100 Non-Rebreather 15.0 05/21/17 20:03 90 16 113/89 (97) 100 Non-Rebreather 15.0 05/21/17 20:03 90 113/89 (91) 100 05/21/17 20:01 36.7 96 16 107/74 (85) 100 Non-Rebreather 15.0 05/21/17 20:01 96 107/74 (90) 100 05/21/17 20:00 92 100 05/21/17 19:57 92 125/66 (95) 100 05/21/17 19:55 92 122/60 (87) 100 05/21/17 19:53 92 118/60 (77) 100 05/21/17 19:51 92 124/64 (85) 100 05/21/17 19:49 94 126/66 (94) 100 05/21/17 19:47 90 124/64 (73) 100 05/21/17 19:45 93 126/61 (79) 100 05/21/17 19:43 85 118/68 (85) 100 05/21/17 19:41 93 117/71 (89) 100 05/21/17 19:39 94 120/63 (-50) 100 -50/-50 05/21/17 19:37 94 131/62 (-50) 100 -50/-50 05/21/17 19:35 92 122/65 (-50) 100 -50/-50 05/21/17 19:33 94 124/67 (-50) 100 -50/-50 05/21/17 19:30 90 130/67 (71) 100 -50/-50 05/21/17 19:28 98 139/70 (91) 100 -50/-50 05/21/17 19:27 111 152/80 (-50) 100 -50/-50 05/21/17 19:26 108 134/78 (-50) 100 -50/-50 05/21/17 19:01 65 109/50 (64) 100 104/46 05/21/17 19:00 68 (67) 100 109/49 05/21/17 18:00 36.8 69 20 (63) 100 101/46 05/21/17 17:00 69 (63) 100 101/46 05/21/17 16:32 87 113/60 (83) 100 133/60 05/21/17 16:30 63 (79) 100 130/57 05/21/17 16:15 64 (71) 100 120/50 05/21/17 16:01 65 110/64 (73) 100 120/52 05/21/17 16:01 65 110/64 (73) 100 120/52 05/21/17 16:00 64 (79) 100 129/57 05/21/17 16:00 36.8 72 20 (59) 97 113/6 05/21/17 16:00 97 BiPAP 05/21/17 16:00 64 (79) 100 129/57 05/21/17 15:31 63 122/72 (86) 93 143/61 05/21/17 15:30 75 (90) 94 145/62 05/21/17 15:01 64 111/57 (69) 121/47 05/21/17 15:00 36.8 72 20 (59) 97 102/41 05/21/17 15:00 68 (74) 75 127/51 05/21/17 14:32 72 20 97 Mask 8.0 Physical Exam General Appearance: WD/WN, no apparent distress Neck: supple, trachea midline Respiratory/Chest: chest non-tender, lungs clear, normal breath sounds, no respiratory distress, no accessory muscle use Cardiovascular: regular rate, rhythm, no edema Abdomen: normal bowel sounds, non tender, soft, + pertinent finding (colostomy bag on the left) Extremities: non-tender, no pedal edema Neurologic/Psychiatric: alert, normal mood/affect Skin: normal color, warm/dry, no rash Laboratory Results Results Past 24 Hours Test 05/21/17 15:05 05/21/17 16:13 05/21/17 19:33 05/21/17 19:55 Range/Units Bedside Glucose (other) 112 70-99 mg/dl Bedside Glucose 134 70-99 mg/dl Hemoglobin 11.6 14.0-18.0 g/dL Hematocrit 36.5 42-52 % Hepatitis B Surface Antigen NEG NEG Hepatitis C Antibody NEG NEG HIV (1&2) Ab and P24 Ag, 4th Gener NEG NEG Test 05/21/17 20:21 05/22/17 01:01 05/22/17 03:38 05/22/17 06:35 Range/Units Bedside Glucose 246 227 215 70-99 mg/dl White Blood Count 12.14 4.8-10.8 K/uL Red Blood Count 3.53 4.7-6.1 M/uL Hemoglobin 11.2 14.0-18.0 g/dL Hematocrit 35.7 42-52 % Mean Corpuscular Volume 101.1 80-100 fL Mean Corpuscular Hemoglobin 31.7 25-34 pg Mean Corpuscular Hemoglobin Concent 31.4 32-36 g/dl Platelet Count 119 130-400 K/uL Mean Platelet Volume 12.1 7.4-10.4 fL Neutrophils (%) (Auto) 96.0 % Lymphocytes (%) (Auto) 2.4 % Monocytes (%) (Auto) 1.4 % Eosinophils (%) (Auto) 0.0 % Basophils (%) (Auto) 0.0 % Neutrophils # (Auto) 11.66 1.4-6.5 K/uL Lymphocytes # (Auto) 0.29 1.2-3.4 K/uL Monocytes # (Auto) 0.17 0.11-0.59 K/uL Eosinophils # (Auto) 0.00 0-0.5 K/uL Basophils # (Auto) 0.00 0-0.2 K/uL RDW Standard Deviation 54.0 36.4-46.3 fL RDW Coefficient of Variation 14.5 11.5-14.5 % Immature Granulocyte % (Auto) 0.2 % Immature Granulocyte # (Auto) 0.02 0.00-0.02 K/uL Platelet Estimate NORMAL Sodium Level 144 136-145 mmol/L Potassium Level 4.9 3.5-5.1 mmol/L Chloride Level 115 98-107 mmol/L Carbon Dioxide Level 23 21-32 mmol/L Anion Gap 6.0 3-11 mmol/L Blood Urea Nitrogen 62 7-18 mg/dl Creatinine 2.40 0.60-1.40 mg/dl Est Creatinine Clear Calc Drug Dose 26.9 ml/min Estimated GFR () 28.5 Estimated GFR (Non- 24.6 BUN/Creatinine Ratio 25.8 10-20 Random Glucose 258 70-99 mg/dl Calcium Level 7.7 8.5-10.1 mg/dl Test 05/22/17 11:19 Range/Units Bedside Glucose 377 70-99 mg/dl Assessment and Plan This is a 82 y/o M with PMHx of CAD, 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 He became unresponsive and needed to be intubated. In ED he found to have STEMI in the anterior leads with 1st degree AVB. Patient was taken to the [facility] by Dr. Mejia and found to have old left main disease and mid LAD stenosis with ostial LAD artery and ostial circumflex stenosis. Placement of percutaneous transluminal coronary angioplasty without stent in the diagonal branch, with unsuccessful attempt at re-perfusion of the mid to distal LAD artery. Discussed the result with the family and apparently patient doesn't want any aggressive treatment. Patient is currently on ICU. * ST elevation myocardial infraction - EKG in ED showed ST elevation in the ant leads. Troponin and CK-MB were elevated. - Cath was performed on 05/20 showed left main with a distal 80% stenosis, ostial diagonal branch 90% stenosis. Mid LAD has a subtotal calcified stenosis beyond the 2nd diagonal branch. 2nd diagonal branch has ostial 80% stenosis, LCX has ostial with 90% stenosis. RCA has extensive but non critical luminal irregularities. Markedly elevated left ventricular end-diastolic pressure. - Echo showed EF <20%, severely reduced LV systolic function, large akinetic segment involving the mid and distal anterior wall and the entire apex. All other deleon are hypokinetic. Decreased RV systolic function. No valvular pathology. - Patient declined aggressive management - Continue Plavix 75mg, heparin and ASA 81mg - Continue Lisinopril 5mg qam - Cardiology Consult * Acute on chronic hypercapneic respiratory failure - 2/2 COPD exacerbation, acute decompensation of CMP - Patient is extubated on 05/21. - Last ABG showed pH 7.35, CO2 34 and HCO3 19, improved from prior ABG - Currently on 3L NC and maintaining O2 sat. * COPD exacerbation - Continue IV methylprednisolone 40mg q6h - Continue DuoNeb INH q4h, Ipratropium 4 puffs q6R - Continue Albuterol q6h prn *Acute on Chronic systolic congested heart failure - Echo (05/21/17) showed severely reduced LV systolic function with EF <20% , akinetic segment involving mid and distal ant wall and entire apex. - CXR showed moderate pulmonary edema, improving - d/kaelyn Milrinone - Started Lopressor 12.5mg BID - Switched IV Lasix 40mg BID to daily given rising in creat - Monitor I/O and weight * Ischemic Cardiomyopathy - Currently on Lisinopril - Dr. Zamarripa recommended to switch to ARB or Isosorbide if Creat continues to rise * Hx of Afib - Patient was on Xarelto 15mg at home - Continue Plavix 75mg daily, heparin and ASA 81mg * DMII - Patient glucose was elevated on admission, could be 2/2 stress - Currently on sliding scale - Continue to monitor BMP * Hypercholesterolemia - Continue with Lipitor 40mg * Thrombocytopenia - To stop Plavix and heparin if platelet <70, if ok with Cardiology - Consulted Cardio - Continue to monitor CBC * Leukocytosis - Most likely 2/2 steroid - Continue to monitor CBC * VTE prophylaxis - Heparin * Code Status - Full code for now. Dr. Zamarripa stated that he spoke with the patient and he was not sure and will talk further with his family Reviewed: Pt Seen/Exam by Me History sitting in chair comfortably Constitutional: denies: fever Respiratory: negative: short of breath Cardiovascular: denies chest pain General Appearance: no apparent distress Respiratory: lungs clear, no respiratory distress Cardiovascular: regular rate, rhythm Gastrointestinal: normal bowel sounds, non tender, soft Neurologic/Psychiatric: alert, oriented x 3 Skin Characteristics: warm/dry Assessment/Plan Resident Physician Supervision Note: I was present with Dr. Palmer in bedside. I verified the salcido history and physical, reviewed labs and image studies, discussed the case with the resident and agree with the findings and care plan.
[2017-05-22] MEDS ORDERED: NURSING VERBAL MED ORDER ONE ×2 (21:00→23:00)
[2017-05-22] MEDS: METOPROLOL TARTRATE 25 MG TAB PO SCH (21:04)
[2017-05-22] MEDS ORDERED: INSULIN GLARGINE SOLOSTAR 100 UNITS/ML 3 ML PEN SC STA (21:28)
[2017-05-22] MEDS ORDERED: INSULIN ASPART 100 UNITS/ML 3 ML PEN SC STA (21:28)
[2017-05-22] MEDS ORDERED: TEMAZEPAM 15 MG CAP PO PRN (23:00)
[2017-05-22] MEDS ORDERED: INSULIN IV INFUSION PROTOCOL SCH (23:15)
[2017-05-22] MEDS ORDERED: MODERATE STRESS LEVEL ONE (23:15)
[2017-05-22] MEDS ORDERED: INSULIN PROTOCOL GOAL RANGE ONE (23:15)
--- NOTE | 2017-05-22 23:15 | Progress Note ---
Progress Note Date of Service May 22, 2017. Progress Note Patient has had significantly elevated BSG throughout the day and responding minimally to insulin from sliding scale, placed on insulin drip
[2017-05-22] MEDS ORDERED: INSULIN REGULAR 250 UNITS in SODIUM CHLORIDE 0.9% 250ML 250 ML IV SCH (23:30)
[2017-05-22] MEDS ORDERED: INSULIN HUMAN REGULAR IV BOLUS 2 UNIT in SYRINGE 0 ML IV SCH (23:30)
[2017-05-22 23:40] LABS: BUN/CREATININE RATIO 28.7 (10-20); CALCIUM 7.3 mg/dl (8.5-10.1); CREATININE 2.7 mg/dl (0.60-1.40); MAGNESIUM 1.9 mg/dl (1.8-2.4); POTASSIUM 4.6 mmol/L (3.5-5.1)
[2017-05-22 23:52] LABS: BETA-HYDROXYBUTYRATE 1.45 mg/dL (0.2-2.81)
[2017-05-23] VITALS (21 sets, daily range): BP systolic 101–126; BP diastolic 52–68; PULSE 53–98; TEMP 36.4–36.7; O2SAT 92–100; Ht 182.9 cm; Wt 82.6 kg
[2017-05-23 00:02] LABS: HEMATOCRIT 33.3 % (42-52); MEAN CELL VOLUME 98.2 fL (80-100); MEAN CORPUSCULAR HEMOGLOBIN 31.9 pg (25-34); MEAN CORPUSCULAR HGB CONC 32.4 g/dl (32-36); MEAN PLATELET VOLUME 10.2 fL (7.4-10.4); PLATELET COUNT 124 K/uL (130-400); RED BLOOD COUNT 3.39 M/uL (4.7-6.1)
[2017-05-23 00:03] LABS: COMPLETE YES; ECHINOCYTES 1+; IG% 0.3 %; LYMPH % 4.2 %; LYMPH ABS # 0.56 K/uL (1.2-3.4); MONO % 0.4 %; NEUT % 95.1 %; OVALOCYTES 1+
[2017-05-23 05:22] LABS: BUN/CREATININE RATIO 32.1 (10-20); CALCIUM 7.4 mg/dl (8.5-10.1); CREATININE 2.4 mg/dl (0.60-1.40); POTASSIUM 4.7 mmol/L (3.5-5.1)
[2017-05-23 05:26] LABS: HEMATOCRIT 33.9 % (42-52); MEAN CELL VOLUME 98.5 fL (80-100); MEAN CORPUSCULAR HEMOGLOBIN 31.1 pg (25-34); MEAN CORPUSCULAR HGB CONC 31.6 g/dl (32-36); MEAN PLATELET VOLUME 12.5 fL (7.4-10.4); PLATELET COUNT 91 K/uL (130-400); RED BLOOD COUNT 3.44 M/uL (4.7-6.1); WHITE BLOOD COUNT 11.03 K/uL (4.8-10.8)
[2017-05-23 05:27] LABS: COMPLETE YES; IG% 0.2 %; LYMPH % 3.1 %; LYMPH ABS # 0.34 K/uL (1.2-3.4); MONO % 1.4 %; NEUT % 95.3 %; TEAR DROP CELLS 1+
[2017-05-23] MEDS: METHYLPREDNISOLONE IV 40 MG in SYRINGE 0 ML IV SCH ×2 (06:37→11:57)
[2017-05-23] MEDS: ASPIRIN 81 MG CHEW PO SCH (07:36)
[2017-05-23] MEDS: METOPROLOL TARTRATE 25 MG TAB PO SCH ×2 (07:39→21:04)
[2017-05-23] MEDS: ALBUT/IPRATROP 3MG/0.5MG NEB 3 ML VIAL INH SCH ×4 (07:40→19:42)
[2017-05-23] MEDS: CLOPIDOGREL BISULFATE 75 MG TAB PO SCH (07:40)
[2017-05-23] MEDS: LISINOPRIL 5 MG TAB PO SCH (07:41)
[2017-05-23] MEDS ORDERED: INSULIN GLARGINE SOLOSTAR 100 UNITS/ML 3 ML PEN SC ONE ×2 (08:30→17:15)
[2017-05-23] MEDS ORDERED: INSULIN GLARGINE SOLOSTAR 100 UNITS/ML 3 ML PEN SC SCH ×2 (09:00→21:00)
[2017-05-23] MEDS: ATORVASTATIN 40 MG TAB PO SCH (09:46)
[2017-05-23] MEDS: HEPARIN SOD 5000 UNIT/0.5 ML CARP SC SCH ×2 (09:47→21:03)
[2017-05-23] MEDS: INSULIN ASPART 100 UNITS/ML 3 ML PEN SC SCH ×3 (09:52→16:25)
[2017-05-23] MEDS: FUROSEMIDE 40 MG TAB PO SCH (09:55)
[2017-05-23] MEDS ORDERED: INSULIN REGULAR 250 UNITS in SODIUM CHLORIDE 0.9% 250ML 250 ML IV SCH ×2 (11:30→21:00)
[2017-05-23] MEDS ORDERED: NURSING VERBAL MED ORDER ONE (11:45)
--- NOTE | 2017-05-23 13:29 | Cardiology Consultation ---
Cardiology Consultation Date of Consultation: May 23, 2017. Attending Physician: Neel Reason for Consultation: STEMI, ICM Pt evaluation today including: conversation w/ patient History of Present Illness Mr. Casillas is a pleasant 82-year-old man with a history coronary artery disease with prior [place] managed medically, ischemic cardiomyopathy prior EF 25-30 percent , atrial fibrillation, chronic kidney disease with baseline creatinine around 2 , moderate COPD rectal cancer status post resection and adjuvant chemotherapy residual colostomy, anemia, thrombocytopenia who was admitted over the weekend in with acute coronary syndrome. Per presenting documentation patient was in his usual state of health until the night of admission when developed acute onset of chest pressure, shortness breath while at rest. Symptoms persisted for approximately 30 minutes before presenting to the emergency department where was noted to have anterior ST elevations and a heart alert was activated. Patient was taken to cardiac catheterization lab where was found to have severe left main, ostial circumflex , proximal and mid LAD with significant 1st and 2nd diagonal disease. Attempts were made to wire mid LAD unsuccessfully. Eventually underwent POBA to 1st diagonal with 2.0 balloon. Initial course was complicated by respiratory failure requiring intubation but was able to be extubated on hospital day 2. His postprocedure echocardiogram showed severe LV dysfunction with an EF approximately 20 percent and regional wall motion abnormalities consistent with LAD distribution akinesis. He briefly required inotropes upon arrival to the ICU which quickly weaned off his required no vasopressor support. Today patient states that he is feeling well. He is on no supplemental oxygen and denies any significant shortness of breath, chest pain. He has no other new concerns or complaints. Past Medical/Surgical History Coronary artery disease--prior perioperative [place] in 2014 around the time surgery for rectal cancer. Was managed medically down at [facility] in the setting of thrombocytopenia, anemia Ischemic cardiomyopathy prior EF 25-30 percent Chronic kidney disease--baseline creatinine around 2.0 Rectal cancer status post resection and adjuvant chemo with residual colostomy Type 2 diabetes on insulin Hypertension Dyslipidemia Persistent pulmonary nodule/pleural plaquing followed by Dr. Calderon Moderate COPD Atrial fibrillation Family History Cancer Diabetes mellitus Heart disease Hypertension Kidney disease Kidney stones Social History Smoking Status: Former Smoker History of Alcohol Use: No Review of Systems Respiratory: No cough, No shortness of breath Cardiac: No chest pain 10 point review of systems was completed and was otherwise negative unless stated in HPI All Other Systems: Reviewed and Negative Allergies Coded Allergies: NO KNOWN DRUG ALLERGIES (Verified Allergy, Mild, ., 08/06/16) Poison Emily Extract/Poison [place] Extra (Verified Adverse Reaction, Severe, SKIN BLISTERS ON CHEST, 08/06/16) Medications Current Inpatient Medications Medications (Trade) Dose Ordered Sig/Stefani Route Start Time Stop Time Status Last Admin Dose Admin Aspirin (Aspirin Chew) 81 mg QAM PO 05/21/17 09:00 06/20/17 08:59 05/23/17 07:36 81 MG Atorvastatin Calcium (Lipitor Tab) 40 mg QAM PO 05/21/17 09:00 06/20/17 08:59 05/23/17 09:46 40 MG Glucose (Glucose 40% Gel) UD PRN PO 05/20/17 21:45 06/19/17 21:44 Glucose (Glucose Chew Tab) 1 tabs UD PRN PO 05/20/17 21:45 06/19/17 21:44 Dextrose (Dextrose 50% 50ML Syringe) 50 ml UD PRN IV 05/20/17 21:45 06/19/17 21:44 Glucagon (Glucagon Inj) 1 mg UD PRN SQ 05/20/17 21:45 06/19/17 21:44 Methylprednisolone Sodium Succinate 40 mg/Syringe 0.64 ml @ 1.5 mls/min Q6H IV 05/21/17 12:00 06/20/17 11:59 05/23/17 11:57 1.5 MLS/MIN Albuterol/ Ipratropium (Duoneb) 3 ml Q4HWA INH 05/21/17 12:00 06/20/17 11:59 05/23/17 11:16 3 ML Albuterol Sulfate (Ventolin 0.5% 2.5MG/0.5ML Neb) 2.5 mg Q6 PRN INH 05/21/17 11:30 06/20/17 11:29 Clopidogrel Bisulfate (plAVix TAB) 75 mg QAM PO 05/22/17 09:00 06/21/17 08:59 05/23/17 07:40 75 MG Heparin Sodium (Porcine) (Heparin Sq 5000 Unit/0.5ml) 5,000 unit Q12 SC 05/21/17 21:00 06/20/17 20:59 05/23/17 09:47 5,000 UNIT Furosemide (Lasix Tab) 40 mg QAM PO 05/23/17 09:00 06/22/17 08:59 05/23/17 09:55 40 MG Metoprolol Tartrate (Lopressor Tab) 12.5 mg BID PO 05/22/17 21:00 06/21/17 20:59 05/23/17 07:39 12.5 MG Temazepam (Restoril Cap) 15 mg HSZ PRN PO 05/22/17 23:00 06/21/17 22:59 Insulin Aspart (novoLOG ASPART) SLIDING SCALE PCHS NE 05/23/17 08:00 06/22/17 07:59 05/23/17 11:56 6 UNITS Insulin Glargine (Lantus Solostar Pen) 20 units PM SC 05/23/17 21:00 06/22/17 20:59 Physical Exam Vital Signs Past 12 Hours Date Time Temp Pulse Resp B/P (MAP) Pulse Ox O2 Delivery O2 Flow Rate FiO2 05/23/17 11:18 79 18 97 Room Air 05/23/17 10:00 98 30 115/65 (82) 95 Room Air 98 05/23/17 08:00 36.7 93 26 125/68 (87) 99 Room Air 93 05/23/17 08:00 100 Room Air 05/23/17 07:43 78 20 96 Room Air 05/23/17 06:01 56 20 117/67 (84) 97 Room Air 05/23/17 05:01 57 19 126/63 (84) 99 Room Air 05/23/17 04:01 36.6 55 15 113/52 (72) 99 Room Air 05/23/17 04:00 99 Room Air 05/23/17 03:01 59 16 112/63 (79) 99 Room Air 05/23/17 02:01 57 16 117/61 (79) 99 Room Air 05/23/17 01:42 60 99 05/23/17 01:01 58 14 113/56 (75) 99 General: Comfortable, no acute distress Eyes: Sclerae anicteric, extraocular movements intact HENT: Oropharynx clear mucous membranes moist Neck: Supple, no lymphadenopathy, no thyromegaly. Lungs: Clear to auscultation bilaterally, stent crackles at left base Cardiac: Regular rate and rhythm, 2/6 systolic ejection murmur heard best at the left upper sternal border. No JVD. No peripheral edema. Extremities well perfused. Vascular: No JVD 2+ radial, femoral, DP and PT pulses. No apparent access site complications at right groin Abdomen: Soft, nontender, nondistended positive bowel sounds. No hepatosplenomegaly. Musculoskeletal: Normal gait. No joint deformities Skin: No rashes or lesions. Neuro: Cranial nerves 2-12 grossly intact, remainder exam nonfocal Psych: Alert orient x3, normal affect and mood Data Laboratory Results: Last 24 Hours Test 05/22/17 16:08 05/22/17 20:29 05/22/17 22:54 05/22/17 22:58 Bedside Glucose 416 mg/dl 356 mg/dl 438 mg/dl White Blood Count 13.20 K/uL Red Blood Count 3.39 M/uL Hemoglobin 10.8 g/dL Hematocrit 33.3 % Mean Corpuscular Volume 98.2 fL Mean Corpuscular Hemoglobin 31.9 pg Mean Corpuscular Hemoglobin Concent 32.4 g/dl Platelet Count 124 K/uL Mean Platelet Volume 10.2 fL Neutrophils (%) (Auto) 95.1 % Lymphocytes (%) (Auto) 4.2 % Monocytes (%) (Auto) 0.4 % Eosinophils (%) (Auto) 0.0 % Basophils (%) (Auto) 0.0 % Neutrophils # (Auto) 12.55 K/uL Lymphocytes # (Auto) 0.56 K/uL Monocytes # (Auto) 0.05 K/uL Eosinophils # (Auto) 0.00 K/uL Basophils # (Auto) 0.00 K/uL RDW Standard Deviation 51.1 fL RDW Coefficient of Variation 14.2 % Immature Granulocyte % (Auto) 0.3 % Immature Granulocyte # (Auto) 0.04 K/uL Ovalocytes 1+ Echinocytes 1+ Sodium Level 142 mmol/L Potassium Level 4.6 mmol/L Chloride Level 109 mmol/L Carbon Dioxide Level 21 mmol/L Anion Gap 12.0 mmol/L Blood Urea Nitrogen 77 mg/dl Creatinine 2.70 mg/dl Est Creatinine Clear Calc Drug Dose 24.0 ml/min Estimated GFR () 24.7 Estimated GFR (Non- 21.3 BUN/Creatinine Ratio 28.7 Random Glucose 417 mg/dl Calcium Level 7.3 mg/dl Magnesium Level 1.9 mg/dl Beta-Hydroxybutyric Acid 1.45 mg/dL Test 8/14/17 00:42 05/23/17 01:39 05/23/17 02:27 05/23/17 03:52 Bedside Glucose 321 mg/dl 297 mg/dl 248 mg/dl 226 mg/dl Test 05/23/17 04:49 05/23/17 05:15 05/23/17 06:09 05/23/17 08:17 White Blood Count 11.03 K/uL Red Blood Count 3.44 M/uL Hemoglobin 10.7 g/dL Hematocrit 33.9 % Mean Corpuscular Volume 98.5 fL Mean Corpuscular Hemoglobin 31.1 pg Mean Corpuscular Hemoglobin Concent 31.6 g/dl Platelet Count 91 K/uL Mean Platelet Volume 12.5 fL Neutrophils (%) (Auto) 95.3 % Lymphocytes (%) (Auto) 3.1 % Monocytes (%) (Auto) 1.4 % Eosinophils (%) (Auto) 0.0 % Basophils (%) (Auto) 0.0 % Neutrophils # (Auto) 10.52 K/uL Lymphocytes # (Auto) 0.34 K/uL Monocytes # (Auto) 0.15 K/uL Eosinophils # (Auto) 0.00 K/uL Basophils # (Auto) 0.00 K/uL RDW Standard Deviation 50.4 fL RDW Coefficient of Variation 14.1 % Immature Granulocyte % (Auto) 0.2 % Immature Granulocyte # (Auto) 0.02 K/uL Tear Drop Cells 1+ Sodium Level 144 mmol/L Potassium Level 4.7 mmol/L Chloride Level 112 mmol/L Carbon Dioxide Level 23 mmol/L Anion Gap 9.0 mmol/L Blood Urea Nitrogen 77 mg/dl Creatinine 2.40 mg/dl Est Creatinine Clear Calc Drug Dose 26.9 ml/min Estimated GFR () 28.5 Estimated GFR (Non- 24.6 BUN/Creatinine Ratio 32.1 Random Glucose 215 mg/dl Calcium Level 7.4 mg/dl Bedside Glucose 202 mg/dl 203 mg/dl 267 mg/dl Test 05/23/17 11:51 Bedside Glucose 336 mg/dl Echo: Severe LV dysfunction, EF less than 20 percent, akinetic mid to distal anterior wall and entire apex remaining deleon are hypokinetic no significant valvular pathology, decreased RV systolic function EKG (05/20/2017): Sinus rhythm, first-degree AV block, ST elevations in V3, V4 , V5. Inferior Q-waves 2, 3, AVF EKG (05/21/2017): Sinus tachycardia, first-degree AV block, resolved ST elevations, inferior and anterior Q-waves Telemetry reviewed: No events overnight Assessment & Plan 1. Severe 2 vessel coronary artery disease as well as severe distal left main disease status post POBA of 1st diagonal 2. Severe LV dysfunction/ischemic cardiomyopathy 3. Atrial fibrillation 4. Acute on chronic renal insufficiency 5. Thrombocytopenia 6. COPD with resolved respiratory failure 7. History rectal cancer status post resection/chemotherapy, stable pulmonary nodules/pleural plaquing 8. Poorly controlled diabetes Patient now 3 days post PCI to 1st diagonal in the setting ACS/anterior STEMI. During intervention noted to have severe 2 vessel disease in addition to critical left main involvement. Since intervention he has done remarkably well and now appears comfortable on room air with no recurrent anginal symptoms. He has severe LV dysfunction on echocardiogram but appears well compensated without significant pulmonary or systemic venous congestion on exam today and appears well perfused. Going forward we discussed options for his severe coronary artery disease in terms of revascularization. At this time would continue to recommend medical management as would be significantly high risk for any surgical procedure or complex PCI with unclear potential benefit in the setting of what suspect is likely a chronically infarcted anterior wall. Patient understood this and is agreeable with this plan. In terms of medical management agree with current aspirin, clopidogrel, statin. If worsened thrombocytopenia would discontinue clopidogrel. Would increase metoprolol to 25 milligrams b.i.d.. Agree with continued holding of LUIS- inhibitor in the setting of acute renal insufficiency. Continue current diuretics. No role for spironolactone at present. Otherwise agree with transfer of patient out of intensive care unit and will continue to follow. Long-term reasonable to have further discussions with palliative care as with his critical coronary artery disease/LV dysfunction in the setting of significant comorbidities long-term prognosis is poor.
--- NOTE | 2017-05-23 16:44 | Family Medicine Progress Note ---
Progress Note Date of Service May 23, 2017. Subjective Pt evaluation today including: conversation w/ patient, physical exam, lab review, review of studies Pain: Denies Voiding: no voiding problems Patient was seen at the bedside. He was lying down comfortable on his bed. He denied any complaints. Tolerating food well. Denies SOB, chest pain, Constitutional: No fever Respiratory: + cough, No wheezing, No shortness of breath Cardiovascular: No chest pain, No edema Abdomen: No pain, No nausea, No vomiting Skin: No rash Medications Current Inpatient Medications Medications (Trade) Dose Ordered Sig/Stefani Route Start Time Stop Time Status Last Admin Dose Admin Aspirin (Aspirin Chew) 81 mg QAM PO 05/21/17 09:00 06/20/17 08:59 05/23/17 07:36 81 MG Atorvastatin Calcium (Lipitor Tab) 40 mg QAM PO 05/21/17 09:00 06/20/17 08:59 05/23/17 09:46 40 MG Glucose (Glucose 40% Gel) UD PRN PO 05/20/17 21:45 06/19/17 21:44 Glucose (Glucose Chew Tab) 1 tabs UD PRN PO 05/20/17 21:45 06/19/17 21:44 Dextrose (Dextrose 50% 50ML Syringe) 50 ml UD PRN IV 05/20/17 21:45 06/19/17 21:44 Glucagon (Glucagon Inj) 1 mg UD PRN SQ 05/20/17 21:45 06/19/17 21:44 Albuterol/ Ipratropium (Duoneb) 3 ml Q4HWA INH 05/21/17 12:00 06/20/17 11:59 05/23/17 15:07 3 ML Albuterol Sulfate (Ventolin 0.5% 2.5MG/0.5ML Neb) 2.5 mg Q6 PRN INH 05/21/17 11:30 06/20/17 11:29 Clopidogrel Bisulfate (plAVix TAB) 75 mg QAM PO 05/22/17 09:00 06/21/17 08:59 05/23/17 07:40 75 MG Heparin Sodium (Porcine) (Heparin Sq 5000 Unit/0.5ml) 5,000 unit Q12 SC 05/21/17 21:00 06/20/17 20:59 05/23/17 09:47 5,000 UNIT Furosemide (Lasix Tab) 40 mg QAM PO 05/23/17 09:00 06/22/17 08:59 05/23/17 09:55 40 MG Metoprolol Tartrate (Lopressor Tab) 12.5 mg BID PO 05/22/17 21:00 06/21/17 20:59 05/23/17 07:39 12.5 MG Temazepam (Restoril Cap) 15 mg HSZ PRN PO 05/22/17 23:00 06/21/17 22:59 Insulin Aspart (novoLOG ASPART) SLIDING SCALE PCHS HI 05/23/17 08:00 06/22/17 07:59 05/23/17 16:25 10 UNITS Insulin Glargine (Lantus Solostar Pen) 20 units PM SC 05/23/17 21:00 06/22/17 20:59 Methylprednisolone Sodium Succinate 40 mg/Syringe 0.64 ml @ 1.5 mls/min Q12@0000,1200 IV 05/24/17 00:00 06/23/17 00:00 Objective Vital Signs Date Time Temp Pulse Resp B/P (MAP) Pulse Ox O2 Delivery O2 Flow Rate FiO2 05/23/17 15:09 87 18 97 Room Air 05/23/17 14:00 88 18 113/60 (77) 92 Room Air 88 05/23/17 12:00 Room Air 05/23/17 12:00 86 28 114/64 (81) 96 Room Air 86 05/23/17 11:18 79 18 97 Room Air 05/23/17 10:00 98 30 115/65 (82) 95 Room Air 98 05/23/17 08:00 36.7 93 26 125/68 (87) 99 Room Air 93 05/23/17 08:00 100 Room Air 05/23/17 07:43 78 20 96 Room Air 05/23/17 06:01 56 20 117/67 (84) 97 Room Air 05/23/17 05:01 57 19 126/63 (84) 99 Room Air 05/23/17 04:01 36.6 55 15 113/52 (72) 99 Room Air 05/23/17 04:00 99 Room Air 05/23/17 03:01 59 16 112/63 (79) 99 Room Air 05/23/17 02:01 57 16 117/61 (79) 99 Room Air 05/23/17 01:42 60 99 05/23/17 01:01 58 14 113/56 (75) 99 05/23/17 00:01 99 Room Air 05/23/17 00:01 36.7 62 21 114/59 (77) 98 05/22/17 23:01 63 24 115/59 (77) 99 05/22/17 22:21 69 23 118/70 (86) 98 05/22/17 22:01 84 22 118/70 (86) 96 Room Air 05/22/17 21:26 89 99 05/22/17 21:01 91 20 120/64 (82) 100 Room Air 05/22/17 20:07 80 20 100 Room Air 05/22/17 20:01 36.5 78 23 121/71 (88) 100 Room Air 05/22/17 20:00 100 Room Air 05/22/17 19:01 80 17 122/71 (88) 100 Room Air 05/22/17 18:00 78 28 132/75 (94) 100 Room Air 78 Physical Exam General Appearance: WD/WN, no apparent distress Neck: supple, trachea midline Respiratory/Chest: chest non-tender, lungs clear, no respiratory distress, no accessory muscle use Cardiovascular: regular rate, rhythm, no edema Abdomen: normal bowel sounds, non tender, soft Extremities: non-tender, no pedal edema Neurologic/Psychiatric: alert, normal mood/affect, oriented x 3 Skin: normal color, warm/dry, no rash Laboratory Results Results Past 24 Hours Test 05/22/17 20:29 05/22/17 22:54 05/22/17 22:58 05/23/17 00:42 Range/Units Bedside Glucose 356 438 321 70-99 mg/dl White Blood Count 13.20 4.8-10.8 K/uL Red Blood Count 3.39 4.7-6.1 M/uL Hemoglobin 10.8 14.0-18.0 g/dL Hematocrit 33.3 42-52 % Mean Corpuscular Volume 98.2 80-100 fL Mean Corpuscular Hemoglobin 31.9 25-34 pg Mean Corpuscular Hemoglobin Concent 32.4 32-36 g/dl Platelet Count 124 130-400 K/uL Mean Platelet Volume 10.2 7.4-10.4 fL Neutrophils (%) (Auto) 95.1 % Lymphocytes (%) (Auto) 4.2 % Monocytes (%) (Auto) 0.4 % Eosinophils (%) (Auto) 0.0 % Basophils (%) (Auto) 0.0 % Neutrophils # (Auto) 12.55 1.4-6.5 K/uL Lymphocytes # (Auto) 0.56 1.2-3.4 K/uL Monocytes # (Auto) 0.05 0.11-0.59 K/uL Eosinophils # (Auto) 0.00 0-0.5 K/uL Basophils # (Auto) 0.00 0-0.2 K/uL RDW Standard Deviation 51.1 36.4-46.3 fL RDW Coefficient of Variation 14.2 11.5-14.5 % Immature Granulocyte % (Auto) 0.3 % Immature Granulocyte # (Auto) 0.04 0.00-0.02 K/uL Ovalocytes 1+ Echinocytes 1+ Sodium Level 142 136-145 mmol/L Potassium Level 4.6 3.5-5.1 mmol/L Chloride Level 109 98-107 mmol/L Carbon Dioxide Level 21 21-32 mmol/L Anion Gap 12.0 3-11 mmol/L Blood Urea Nitrogen 77 7-18 mg/dl Creatinine 2.70 0.60-1.40 mg/dl Est Creatinine Clear Calc Drug Dose 24.0 ml/min Estimated GFR () 24.7 Estimated GFR (Non- 21.3 BUN/Creatinine Ratio 28.7 10-20 Random Glucose 417 70-99 mg/dl Calcium Level 7.3 8.5-10.1 mg/dl Magnesium Level 1.9 1.8-2.4 mg/dl Beta-Hydroxybutyric Acid 1.45 0.2-2.81 mg/dL Test 05/23/17 01:39 05/23/17 02:27 05/23/17 03:52 05/23/17 04:49 Range/Units Bedside Glucose 297 248 226 70-99 mg/dl White Blood Count 11.03 4.8-10.8 K/uL Red Blood Count 3.44 4.7-6.1 M/uL Hemoglobin 10.7 14.0-18.0 g/dL Hematocrit 33.9 42-52 % Mean Corpuscular Volume 98.5 80-100 fL Mean Corpuscular Hemoglobin 31.1 25-34 pg Mean Corpuscular Hemoglobin Concent 31.6 32-36 g/dl Platelet Count 91 130-400 K/uL Mean Platelet Volume 12.5 7.4-10.4 fL Neutrophils (%) (Auto) 95.3 % Lymphocytes (%) (Auto) 3.1 % Monocytes (%) (Auto) 1.4 % Eosinophils (%) (Auto) 0.0 % Basophils (%) (Auto) 0.0 % Neutrophils # (Auto) 10.52 1.4-6.5 K/uL Lymphocytes # (Auto) 0.34 1.2-3.4 K/uL Monocytes # (Auto) 0.15 0.11-0.59 K/uL Eosinophils # (Auto) 0.00 0-0.5 K/uL Basophils # (Auto) 0.00 0-0.2 K/uL RDW Standard Deviation 50.4 36.4-46.3 fL RDW Coefficient of Variation 14.1 11.5-14.5 % Immature Granulocyte % (Auto) 0.2 % Immature Granulocyte # (Auto) 0.02 0.00-0.02 K/uL Tear Drop Cells 1+ Sodium Level 144 136-145 mmol/L Potassium Level 4.7 3.5-5.1 mmol/L Chloride Level 112 98-107 mmol/L Carbon Dioxide Level 23 21-32 mmol/L Anion Gap 9.0 3-11 mmol/L Blood Urea Nitrogen 77 7-18 mg/dl Creatinine 2.40 0.60-1.40 mg/dl Est Creatinine Clear Calc Drug Dose 26.9 ml/min Estimated GFR () 28.5 Estimated GFR (Non- 24.6 BUN/Creatinine Ratio 32.1 10-20 Random Glucose 215 70-99 mg/dl Calcium Level 7.4 8.5-10.1 mg/dl Test 05/23/17 05:15 05/23/17 06:09 05/23/17 08:17 05/23/17 11:51 Range/Units Bedside Glucose 202 203 267 336 70-99 mg/dl Assessment and Plan This is a 82 y/o M with PMHx of CAD, 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 He became unresponsive and needed to be intubated. In ED he found to have STEMI in the anterior leads with 1st degree AVB. [facility] was taken to [facility] by Dr. Mejia and found to have old left main disease and mid LAD stenosis with ostial LAD artery and ostial circumflex stenosis. Placement of percutaneous transluminal coronary angioplasty without stent in the diagonal branch, with unsuccessful attempt at re-perfusion of the mid to distal LAD artery. Discussed the result with the family and apparently patient doesn't want any aggressive treatment. Overnight his blood glucose level increased to 400s, which is most likely 2/2 steroid and he was only on SS. He was started on insulin infusion and also received lantus 7unit. Patient is transferred to Tele given improvement of his condition. * ST elevation myocardial infraction - EKG in ED showed ST elevation in the ant leads. Troponin and CK-MB were elevated. - Cath was performed on 05/20 showed left main with a distal 80% stenosis, ostial diagonal branch 90% stenosis. Mid LAD has a subtotal calcified stenosis beyond the 2nd diagonal branch. 2nd diagonal branch has ostial 80% stenosis, LCX has ostial with 90% stenosis. RCA has extensive but non critical luminal irregularities. Markedly elevated left ventricular end-diastolic pressure. - Echo showed EF <20%, severely reduced LV systolic function, large akinetic segment involving the mid and distal anterior wall and the entire apex. All other deleon are hypokinetic. Decreased RV systolic function. No valvular pathology. - Patient declined aggressive management - Continue Plavix 75mg, heparin and ASA 81mg - d/kaelyn Lisinopril 5mg qam given his increased creat - Cardiology Consulted and will appreciate his recommendation * Acute on chronic hypercapneic respiratory failure - 2/2 COPD exacerbation, acute decompensation of CMP - Patient is extubated on 05/21. - Last ABG showed pH 7.35, CO2 34 and HCO3 19, improved from prior ABG - Currently on room air maintaining O2 sat. * COPD exacerbation - Changed IV methylprednisolone 40mg q6h to q12h - Continue DuoNeb INH q4h, Ipratropium 4 puffs q6R - Continue Albuterol q6h prn - Currently on RA maintaining O2 *Acute on Chronic systolic congested heart failure - Echo (05/21/17) showed severely reduced LV systolic function with EF <20% , akinetic segment involving mid and distal ant wall and entire apex. - CXR showed moderate pulmonary edema, improving - d/kaelyn Milrinone - Changed Lopressor to 25mg BID per Cardio recommendation - Switched IV Lasix 40mg daily given rising in creat - Daily I/O and weight * Ischemic Cardiomyopathy - d/kaelyn Lisinopril given rising in creatinine - Currently on Lopressor 25mg BID - Cardiology was consulted and will appreciate his recommendation * Hx of Afib - Patient was on Xarelto 15mg at home - Continue Plavix 75mg daily, heparin and ASA 81mg * DMII - Patient glucose was elevated overnight could be 2/2 steroid also he was only on SS - d/kaelyn insulin infusion, Start 20unit Lantus - Con't sliding scale - Continue to monitor BMP * Hypercholesterolemia - Continue with Lipitor 40mg * Thrombocytopenia - To stop Plavix and heparin if platelet <70, if ok with Cardiology - Consulted Cardio - Continue to monitor CBC * Leukocytosis - Most likely 2/2 steroid - Continue to monitor CBC * VTE prophylaxis - Heparin * Code Status - Full code for now. Dr. Zamarripa stated that he spoke with the patient and he was not sure and will talk further with his family Resident Physician Supervision Note: I was present with Dr. Palmer during the history and exam. I discussed the case with the resident and agree with the findings and plan as documented in the note. Any exceptions or clarifications are listed here: Patient without complaint today. Agree that he is stable for transfer to telemetry. Likely be able to convert IV steroids to oral steroids tomorrow. Close attention to volume status with respect to diuretics and creatinine. PT/OT consults. Documented By: Matias Greene
[2017-05-23] MEDS ORDERED: PHARMACY GLYCEMIC MGMT CONSULT PRN (17:02)
[2017-05-23] MEDS ORDERED: INSULIN ASPART 100 UNITS/ML 3 ML PEN SC SCH ×2 (17:15→21:00)
--- NOTE | 2017-05-23 18:16 | Critical Care Progress Note ---
Critical Care Progress Note Date of Service May 23, 2017. ICU Day ICU Day Number: [address] Nicholson Subjective Patient is an 82-year-old male who was admitted to the ICU for significant coronary artery disease with balloon angioplasty of the LAD. The patient has a poor EF. The patient has progressively improved throughout his stay in the emergency department. He did have continued elevated blood sugars throughout his stay. Overall, the patient feels very well. He offers no complaint of pain. He had no events overnight Objective VITAL SIGNS - Vital signs and nursing notes were reviewed. GENERAL - 82-year-old male appearing his stated age who is in no acute distress. Communicates well with provider and answers questions appropriately. NECK - Neck with FROM. Supple to palpation. RIGHT IJ in place. LUNGS - Chest wall symmetric without accessory muscle use, intercostals retractions, or central cyanosis. Normal vesicular breath sounds CTA B/L. No wheezes, rales, or rhonchi appreciated. CARDIAC - RRR with S1/S2. No murmur, rubs, or gallops appreciated. No reproducible tenderness to palpation appreciated over the anterior chest wall. ABDOMEN - Abdominal contour flat and without pulsations or visible masses. BS normoactive all four quadrants. No tenderness, palpable masses, hepatosplenomegaly, or ascites noted. NEUROLOGIC - Cranial nerves II through XII grossly intact. PSYCH - A&Ox3 and cooperates fully with examiner. Pt is very pleasant and interacts well with examiner. Current SOFA Score SOFA Score Response (Comments) Value PaO2/FiO2 (mmHg) < 300 2 SaO2 / FIO2 142 - 220 2 Platelets (x10) > 150 0 Bilirubin (mg/dL) < 1.2 0 [place] Coma Score 13 - 14 1 Level of Hypotension No Hypotension 0 Creatinine (mg/dL) < 1.2 0 Total 5 Assessment & Plan (1) STEMI (ST elevation myocardial infarction) Reason Critically Ill: 82-year-old male status post balloon angioplasty with acute hypercapnic respiratory failure or cardiac to patient. Neuro: * Alert and oriented 3. * No complaints of pain. Cardiac: * Status post STEMI with balloon angioplasty only. * Despite poor EF, continues to progress. * chest discomfort overnight. * Troponins peaked. * Plan to be downgraded to telemetry per cardiology. Respiratory: * Continues to improve from a respiratory standpoint. * O2 as needed. Renal/Lytes: * Continue chronic kidney disease. Decrease nephrotoxic agents. * Replace Lytes appropriately. Endo: * Continued elevation of BSG. * Increased Lantus dosing. Lines: * PIVs intact. * RIGHT IJ - d/c today. DVT Prophylaxis: * Heparin BID. Thank you for allowing us to participate in the care of this patient. Please refer to my attending physician's documentation for further recommendation. To be downgraded to telemetry status per cardiology I have personally evaluated and examined this patient. I agree with assessment and plan of Bere Massey PA-C. Started lantus for glycemic control. Discussed with Hospitalist team. Consults & Procedures Consultants: cardiology consult. Dr. Mejia. Procedures: central line. Data Medications: Current Inpatient Medications Medications (Trade) Dose Ordered Sig/Stefani Route Start Time Stop Time Status Last Admin Dose Admin Aspirin (Aspirin Chew) 81 mg QAM PO 05/21/17 09:00 06/20/17 08:59 05/23/17 07:36 81 MG Atorvastatin Calcium (Lipitor Tab) 40 mg QAM PO 05/21/17 09:00 06/20/17 08:59 05/23/17 09:46 40 MG Glucose (Glucose 40% Gel) UD PRN PO 05/20/17 21:45 06/19/17 21:44 Glucose (Glucose Chew Tab) 1 tabs UD PRN PO 05/20/17 21:45 06/19/17 21:44 Dextrose (Dextrose 50% 50ML Syringe) 50 ml UD PRN IV 05/20/17 21:45 06/19/17 21:44 Glucagon (Glucagon Inj) 1 mg UD PRN SQ 05/20/17 21:45 06/19/17 21:44 Albuterol/ Ipratropium (Duoneb) 3 ml Q4HWA INH 05/21/17 12:00 06/20/17 11:59 05/23/17 15:07 3 ML Albuterol Sulfate (Ventolin 0.5% 2.5MG/0.5ML Neb) 2.5 mg Q6 PRN INH 05/21/17 11:30 06/20/17 11:29 Clopidogrel Bisulfate (plAVix TAB) 75 mg QAM PO 05/22/17 09:00 06/21/17 08:59 05/23/17 07:40 75 MG Heparin Sodium (Porcine) (Heparin Sq 5000 Unit/0.5ml) 5,000 unit Q12 SC 05/21/17 21:00 06/20/17 20:59 05/23/17 09:47 5,000 UNIT Furosemide (Lasix Tab) 40 mg QAM PO 05/23/17 09:00 06/22/17 08:59 05/23/17 09:55 40 MG Temazepam (Restoril Cap) 15 mg HSZ PRN PO 05/22/17 23:00 06/21/17 22:59 Methylprednisolone Sodium Succinate 40 mg/Syringe 0.64 ml @ 1.5 mls/min Q12@0000,1200 IV 05/24/17 00:00 06/23/17 00:00 Metoprolol Tartrate (Lopressor Tab) 25 mg BID PO 05/23/17 21:00 06/21/17 20:59 Miscellaneous Information (Consult Glycemic Management Pharmacy) 1 ea UD PRN N/A 05/23/17 17:02 06/22/17 17:01 Insulin Aspart (novoLOG ASPART) SLIDING SCALE ACHS MN 05/23/17 17:15 06/22/17 17:14 05/23/17 17:50 15 UNITS Insulin Aspart (novoLOG ASPART) SLIDING SCALE TODAY@0000,0400 MN 05/24/17 00:00 05/24/17 04:01 I & O: 24-Hour Column 05/24/17 08:00 Intake Total 480 ml Output Total 800 ml Balance -320 ml Vital Signs: Date Time Temp Pulse Resp B/P (MAP) Pulse Ox O2 Delivery O2 Flow Rate FiO2 05/23/17 16:00 97 Room Air 05/23/17 16:00 95 22 101/59 (73) 99 Room Air 95 05/23/17 15:09 87 18 97 Room Air 05/23/17 14:00 88 18 113/60 (77) 92 Room Air 88 05/23/17 12:00 Room Air 05/23/17 12:00 86 28 114/64 (81) 96 Room Air 86 05/23/17 11:18 79 18 97 Room Air 05/23/17 10:00 98 30 115/65 (82) 95 Room Air 98 05/23/17 08:00 36.7 93 26 125/68 (87) 99 Room Air 93 05/23/17 08:00 100 Room Air 05/23/17 07:43 78 20 96 Room Air 05/23/17 06:01 56 20 117/67 (84) 97 Room Air 05/23/17 05:01 57 19 126/63 (84) 99 Room Air 05/23/17 04:01 36.6 55 15 113/52 (72) 99 Room Air 05/23/17 04:00 99 Room Air 05/23/17 03:01 59 16 112/63 (79) 99 Room Air 05/23/17 02:01 57 16 117/61 (79) 99 Room Air 05/23/17 01:42 60 99 05/23/17 01:01 58 14 113/56 (75) 99 05/23/17 00:01 99 Room Air 05/23/17 00:01 36.7 62 21 114/59 (77) 98 05/22/17 23:01 63 24 115/59 (77) 99 05/22/17 22:21 69 23 118/70 (86) 98 05/22/17 22:01 84 22 118/70 (86) 96 Room Air 05/22/17 21:26 89 99 05/22/17 21:01 91 20 120/64 (82) 100 Room Air 05/22/17 20:07 80 20 100 Room Air 05/22/17 20:01 36.5 78 23 121/71 (88) 100 Room Air 05/22/17 20:00 100 Room Air 05/22/17 19:01 80 17 122/71 (88) 100 Room Air Laboratory Results: Last 24 Hours Test 05/22/17 20:29 05/22/17 22:54 05/22/17 22:58 05/23/17 00:42 Bedside Glucose 356 mg/dl 438 mg/dl 321 mg/dl White Blood Count 13.20 K/uL Red Blood Count 3.39 M/uL Hemoglobin 10.8 g/dL Hematocrit 33.3 % Mean Corpuscular Volume 98.2 fL Mean Corpuscular Hemoglobin 31.9 pg Mean Corpuscular Hemoglobin Concent 32.4 g/dl Platelet Count 124 K/uL Mean Platelet Volume 10.2 fL Neutrophils (%) (Auto) 95.1 % Lymphocytes (%) (Auto) 4.2 % Monocytes (%) (Auto) 0.4 % Eosinophils (%) (Auto) 0.0 % Basophils (%) (Auto) 0.0 % Neutrophils # (Auto) 12.55 K/uL Lymphocytes # (Auto) 0.56 K/uL Monocytes # (Auto) 0.05 K/uL Eosinophils # (Auto) 0.00 K/uL Basophils # (Auto) 0.00 K/uL RDW Standard Deviation 51.1 fL RDW Coefficient of Variation 14.2 % Immature Granulocyte % (Auto) 0.3 % Immature Granulocyte # (Auto) 0.04 K/uL Ovalocytes 1+ Echinocytes 1+ Sodium Level 142 mmol/L Potassium Level 4.6 mmol/L Chloride Level 109 mmol/L Carbon Dioxide Level 21 mmol/L Anion Gap 12.0 mmol/L Blood Urea Nitrogen 77 mg/dl Creatinine 2.70 mg/dl Est Creatinine Clear Calc Drug Dose 24.0 ml/min Estimated GFR () 24.7 Estimated GFR (Non- 21.3 BUN/Creatinine Ratio 28.7 Random Glucose 417 mg/dl Calcium Level 7.3 mg/dl Magnesium Level 1.9 mg/dl Beta-Hydroxybutyric Acid 1.45 mg/dL Test 05/23/17 01:39 05/23/17 02:27 05/23/17 03:52 05/23/17 04:49 Bedside Glucose 297 mg/dl 248 mg/dl 226 mg/dl White Blood Count 11.03 K/uL Red Blood Count 3.44 M/uL Hemoglobin 10.7 g/dL Hematocrit 33.9 % Mean Corpuscular Volume 98.5 fL Mean Corpuscular Hemoglobin 31.1 pg Mean Corpuscular Hemoglobin Concent 31.6 g/dl Platelet Count 91 K/uL Mean Platelet Volume 12.5 fL Neutrophils (%) (Auto) 95.3 % Lymphocytes (%) (Auto) 3.1 % Monocytes (%) (Auto) 1.4 % Eosinophils (%) (Auto) 0.0 % Basophils (%) (Auto) 0.0 % Neutrophils # (Auto) 10.52 K/uL Lymphocytes # (Auto) 0.34 K/uL Monocytes # (Auto) 0.15 K/uL Eosinophils # (Auto) 0.00 K/uL Basophils # (Auto) 0.00 K/uL RDW Standard Deviation 50.4 fL RDW Coefficient of Variation 14.1 % Immature Granulocyte % (Auto) 0.2 % Immature Granulocyte # (Auto) 0.02 K/uL Tear Drop Cells 1+ Sodium Level 144 mmol/L Potassium Level 4.7 mmol/L Chloride Level 112 mmol/L Carbon Dioxide Level 23 mmol/L Anion Gap 9.0 mmol/L Blood Urea Nitrogen 77 mg/dl Creatinine 2.40 mg/dl Est Creatinine Clear Calc Drug Dose 26.9 ml/min Estimated GFR () 28.5 Estimated GFR (Non- 24.6 BUN/Creatinine Ratio 32.1 Random Glucose 215 mg/dl Calcium Level 7.4 mg/dl Test 05/23/17 05:15 05/23/17 06:09 05/23/17 08:17 05/23/17 11:51 Bedside Glucose 202 mg/dl 203 mg/dl 267 mg/dl 336 mg/dl Problem Qualifiers (1) STEMI (ST elevation myocardial infarction): Involved coronary artery: unspecified coronary artery Qualified Codes: I21.3 - ST elevation (STEMI) myocardial infarction of unspecified site
--- NOTE | 2017-05-23 20:08 | Pharmacy Progress Note ---
Glycemic Control Intl Consult Date of Service May 23, 2017. Scope Glycemic Pharmacist consulted by Dr Pamler on 05/23/17 for glycemic control and to write orders per [facility] inpatient glycemic control protocol Objective Weight (Kilograms): 83.800 Accuchecks BSG (last 24hrs): Test 05/22/17 20:29 05/22/17 22:54 05/22/17 22:58 05/23/17 00:42 Bedside Glucose 356 mg/dl (70-99) 438 mg/dl (70-99) 321 mg/dl (70-99) Random Glucose 417 mg/dl (70-99) Test 05/23/17 01:39 05/23/17 02:27 05/23/17 03:52 05/23/17 04:49 Bedside Glucose 297 mg/dl (70-99) 248 mg/dl (70-99) 226 mg/dl (70-99) Random Glucose 215 mg/dl (70-99) Test 05/23/17 05:15 05/23/17 06:09 05/23/17 08:17 05/23/17 11:51 Bedside Glucose 202 mg/dl (70-99) 203 mg/dl (70-99) 267 mg/dl (70-99) 336 mg/dl (70-99) Test 05/23/17 16:20 Bedside Glucose 476 mg/dl (70-99) Laboratory Data (last 24hrs) Test 05/22/17 22:54 05/23/17 04:49 Anion Gap 12.0 mmol/L 9.0 mmol/L BUN/Creatinine Ratio 28.7 32.1 Blood Urea Nitrogen 77 mg/dl 77 mg/dl Creatinine 2.70 mg/dl 2.40 mg/dl Potassium Level 4.6 mmol/L 4.7 mmol/L Sodium Level 142 mmol/L 144 mmol/L White Blood Count 13.20 K/uL 11.03 K/uL Red Blood Count 3.39 M/uL 3.44 M/uL Hemoglobin 10.8 g/dL 10.7 g/dL Hematocrit 33.3 % 33.9 % Mean Corpuscular Volume 98.2 fL 98.5 fL Mean Corpuscular Hemoglobin 31.9 pg 31.1 pg Mean Corpuscular Hemoglobin Concent 32.4 g/dl 31.6 g/dl Platelet Count 124 K/uL 91 K/uL Mean Platelet Volume 10.2 fL 12.5 fL Neutrophils (%) (Auto) 95.1 % 95.3 % Lymphocytes (%) (Auto) 4.2 % 3.1 % Monocytes (%) (Auto) 0.4 % 1.4 % Eosinophils (%) (Auto) 0.0 % 0.0 % Basophils (%) (Auto) 0.0 % 0.0 % Neutrophils # (Auto) 12.55 K/uL 10.52 K/uL Lymphocytes # (Auto) 0.56 K/uL 0.34 K/uL Monocytes # (Auto) 0.05 K/uL 0.15 K/uL Eosinophils # (Auto) 0.00 K/uL 0.00 K/uL Basophils # (Auto) 0.00 K/uL 0.00 K/uL HbA1c 7.1% on 01/18/17 Recent Pertinent Medications Outpatient Anti-diabetic Regimen: * Lantus 25 units SQ daily The patient is currently receiving: * Basal insulin: Lantus 20 units every 24 hours given at bedtime ( Lantus 10 units SQ x 1 dose given to transition off of insulin infusion this morning) * Correctional Insulin: Novolog Correction per scale ACHS Goal Range: Low 140 mg/dL - High 180 mg/dL Correction Factor: 30 mg/dL/unit * Prandial insulin: Per carb ratio of 1 unit per -- grams CHO consumed Risk Factors for Insulin Resistance: * Steroids * Pressors * Diet Assessment & Plan ASSESSMENT: * 82yo T2DM male with SEVERE sustained hyperglycemia secondary to holding outpatient basal insulin x 3 days and patient initiated on high dose IV Solumedrol * Pt initiated on IV insulin infusion 05/22/17 PM and transitioned off this morning despite no BSGs < 180 mg/dl? * Lantus 10 units SQ x 1 dose given this AM to facilitate transition ( outpatient dosing is 25 units) and IV insulin infusion was running at 2+ units/ hr with suboptimal control. Pt received additional 17 units of SQ NovoLog coverage in addition in IV insulin infusion * Pt now with SEVERE rebound hyperglycemia d/t insufficient SQ insulin given to transition off of drip * Steroid dosing cut in half from Solumedrol 40mg IV Q6hrs to 40mg IV Q12hrs. This should improve BSGs but likely will still have severe insulin resistance as Solumedrol dosing is still 80+ mg/day. * Discussed case with RN and MD.... recommended re-initiating IV insulin infusion but both reluctant since patient was downgraded to tele? * ADA & AACE recommend a goal blood sugar range 140-180 mg/dl for the majority of critically ill & non-critically ill patients. However, more stringent targets may be selected in individual cases. PLAN FOR INPATIENT GLYCEMIC CONTROL: * RECOMMEND re-starting IV insulin infusion per moderate stress protocol for BSG > 250mg/dl * Goal Range 140 - 180 mg/dl * In the critical care setting, continuous IV insulin infusion has been shown to be the best method for achieving glycemic targets. In the meantime, will aggressively adjust SQ basal bolus insulin orders * Basal insulin * 35 units SQ x 1 dose NOW (for a total dose of 45 units today) * Bolus insulin * NovoLog per scale ACHS or Q6hrs while NPO. Additional checks + coverage at 0000 & 0400 for severe hyperglycemia * Goal Range: Low 140 mg/dL - High 180 mg/dL * Correction Factor: 20 mg/dL/unit * Nutritional / Prandial insulin per carb ratio of 1 unit per 6 grams CHO consumed * Please note that the plan above was derived based on current level of insulin resistance and hospital stress. These recommendations are appropriate for inpatient admission only. Plan of care upon discharge will need to be reassessed to avoid potential outpatient hypo/hyperglycemia. Thank you.
[2017-05-23] MEDS ORDERED: INSULIN IV INFUSION PROTOCOL ONE (20:45)
[2017-05-23] MEDS ORDERED: INSULIN HUMAN REGULAR IV BOLUS 2 UNIT in SYRINGE 0 ML IV ONE (21:00)
[2017-05-24] VITALS (9 sets, daily range): BP systolic 110–128; BP diastolic 65–74; PULSE 53–62; TEMP 36.4–36.9; O2SAT 94–98
[2017-05-24] MEDS ORDERED: METHYLPREDNISOLONE IV 40 MG in SYRINGE 0 ML IV SCH
[2017-05-24 05:34] LABS: PARTIAL THROMBOPLASTIN RATIO 0.9; PROTHROMBIN TIME (PATIENT) 11.2 SECONDS (9.0-12.0)
[2017-05-24 05:47] LABS: BUN/CREATININE RATIO 33.3 (10-20); CALCIUM 7.9 mg/dl (8.5-10.1); CREATININE 2.5 mg/dl (0.60-1.40); POTASSIUM 4.2 mmol/L (3.5-5.1)
[2017-05-24 06:18] LABS: HEMATOCRIT 34.7 % (42-52); MEAN CELL VOLUME 98.6 fL (80-100); MEAN CORPUSCULAR HEMOGLOBIN 32.7 pg (25-34); MEAN CORPUSCULAR HGB CONC 33.1 g/dl (32-36); MEAN PLATELET VOLUME 11.2 fL (7.4-10.4); PLATELET COUNT 145 K/uL (130-400); RED BLOOD COUNT 3.52 M/uL (4.7-6.1); WHITE BLOOD COUNT 14.34 K/uL (4.8-10.8)
[2017-05-24 06:19] LABS: COMPLETE YES; ECHINOCYTES 1+; IG% 0.3 %; LYMPH % 4.2 %; NEUT % 94.5 %; OVALOCYTES 1+
[2017-05-24] MEDS: ALBUT/IPRATROP 3MG/0.5MG NEB 3 ML VIAL INH SCH (07:00)
[2017-05-24] MEDS: ATORVASTATIN 40 MG TAB PO SCH (08:54)
[2017-05-24] MEDS: CLOPIDOGREL BISULFATE 75 MG TAB PO SCH (08:54)
[2017-05-24] MEDS: ASPIRIN 81 MG CHEW PO SCH (08:55)
[2017-05-24] MEDS: METOPROLOL TARTRATE 25 MG TAB PO SCH ×2 (08:55→20:51)
[2017-05-24] MEDS: FUROSEMIDE 40 MG TAB PO SCH (08:55)
[2017-05-24] MEDS: HEPARIN SOD 5000 UNIT/0.5 ML CARP SC SCH ×2 (08:58→20:56)
[2017-05-24] MEDS ORDERED: INSULIN ASPART 100 UNITS/ML 3 ML PEN SC ONE ×2 (10:30→12:15)
[2017-05-24] MEDS: IPRATROPIUM BROMIDE/ALBUTEROL respimat INH INH SCH ×3 (11:12→20:50)
--- NOTE | 2017-05-24 11:24 | Pharmacy Progress Note ---
Glycemic Control Progress Note Date of Service May 24, 2017. Scope Glycemic Pharmacist consulted for glycemic control to write orders per [facility] inpatient glycemic control protocol. Objective Accuchecks BSG (last 24hrs): Test 05/23/17 11:51 05/23/17 16:20 05/23/17 20:29 05/23/17 22:04 Bedside Glucose 336 mg/dl (70-99) 476 mg/dl (70-99) 423 mg/dl (70-99) 355 mg/dl (70-99) Test 05/23/17 23:21 05/24/17 00:24 05/24/17 01:16 05/24/17 02:55 Bedside Glucose 266 mg/dl (70-99) 241 mg/dl (70-99) 212 mg/dl (70-99) 157 mg/dl (70-99) Test 05/24/17 04:44 05/24/17 04:58 05/24/17 06:00 05/24/17 06:33 Bedside Glucose 110 mg/dl (70-99) 145 mg/dl (70-99) 163 mg/dl (70-99) Random Glucose 107 mg/dl (70-99) Test 05/24/17 10:20 Bedside Glucose 283 mg/dl (70-99) Recent Pertinent Medications The patient is currently receiving: * Insulin drip was discontinued ~0600 this AM * Basal insulin: Lantus 45 units total yesterday * Correctional Insulin: Novolog Correction per scale ACHS - was placed on hold while on insulin drip Goal Range: Low 140 mg/dL - High 180 mg/dL Correction Factor: 20 mg/dL/unit * Prandial insulin: Per carb ratio of 1 unit per 6 grams CHO consumed - was placed on hold while on insulin drip Outpatient Anti-Diabetic Meds Lantus 25 units daily Assessment & Plan ASSESSMENT: * See progress note from 05/23 for more background info, in short: * Pt receiving SQ basal bolus insulin regimen for hyperglycemia secondary to baseline DM (outpatient regimen on hold), steroids * Patient received 79 units of SQ insulin yesterday (in addition to IV overnight ). I spoke with the nurse this AM and apparently there was some confusion because the provider told the nurse to d/c the insulin drip when she was transferred out of the ICU (was previously on hold and then resumed at 1.5 units /hr) and then somehow the patient did not get coverage w/ breakfast. * BSG at 1030 this AM was up to 283 so I instructed the nurse to give a dose of correctional insulin at that time. 1 hr later, BSG has improved by ~15% so will plan to have nurse cover CHO only with lunch and resume CF/CR with dinner * I am okay with insulin drip staying off for now but will need to continue being quite aggressive with SQ insulin dosing with the steroids still on board - patient switched to once daily prednisone 60 mg today * Insulin dosing to be based on patient's weight and stress level of 3 - similar to TDD of ~80 units that he received yesterday PLAN FOR INPATIENT GLYCEMIC CONTROL: * Lantus 40 units qAM - 1st dose now to coincide w/ prednisone dose * Novolog ACHS + 00,04 for overnight accuchecks * Continue correction factor of 20 mg/dl/unit * Continue carb ratio of 1 unit per 6 grams CHO consumed * Continue goal range of Low 140 mg/dL - High 180 mg/dL * Please note that the plan above was derived based on current level of insulin resistance and hospital stress. These recommendations are appropriate for inpatient admission only. Plan of care upon discharge will need to be reassessed to avoid potential outpatient hypo/hyperglycemia. Thank you.
[2017-05-24] MEDS ORDERED: INSULIN ASPART 100 UNITS/ML 3 ML PEN SC SCH ×2 (11:30)
[2017-05-24] MEDS: INSULIN GLARGINE SOLOSTAR 100 UNITS/ML 3 ML PEN SC SCH (12:30)
--- NOTE | 2017-05-24 13:14 | Clinical Documentation Query ---
CLINICAL DOCUMENTATION QUERY Dr. BERNARD, In your clinical opinion is this patient being managed for: ( ) Acute kidney failure ( X ) Other explanation of clinical findings (Please Explain) ( ) Unable to determine (Please Define) ( ) Need to Discuss ( ) Not Agree Patient has CKD stage 3. His baseline Creatinine is between 1.8-2.5. Currently he is at his baseline. His Lasix dose was changed given CKD and rising in creatinine. The medical record reflects the following clinical findings, treatment, and risk factors. Clinical Indicators:82 yo male presenting with STEMI. Noted to have CKD stage III. Initial Cr 2.3 which kb to Cr 2.7 on day 3 of admission. Progress notes indicate rising creatinine. Treatment:stop IV lasix and restart at po dosing, daily wts and I/O, monitor PRP's daily Risk Factors: CKD stage III, Acute on chronic systolic CHF, IV lasix, STEMI, HTN, DM Please clarify and document your clinical opinion in the progress notes and discharge summary. Terms such as "probable", "suspected", "likely", "questionable", "possible", or "still to be ruled out" are acceptable. IF IN AGREEMENT, YOU MUST DOCUMENT ABOVE DIAGNOSTIC STATEMENT IN DAILY PROGRESS NOTES AND DISCHARGE SUMMARY. This document is not part of the patient's record. Thank You, Elizabet Bauer RN [phone]
--- NOTE | 2017-05-24 13:16 | Clinical Documentation Query ---
CLINICAL DOCUMENTATION QUERY Dr. UNGER, In your clinical opinion is this patient being managed for: ( x) Acute kidney failure ( ) Other explanation of clinical findings (Please Explain) ( ) Unable to determine (Please Define) ( ) Need to Discuss ( ) Not Agree The medical record reflects the following clinical findings, treatment, and risk factors. Clinical Indicators:82 yo male presenting with STEMI. Noted to have CKD stage III. Initial Cr 2.3 which kb to Cr 2.7 on day 3 of admission. Progress notes indicate rising creatinine. Treatment:stop IV lasix and restart at po dosing, daily wts and I/O, monitor PRP's daily Risk Factors: CKD stage III, Acute on chronic systolic CHF, IV lasix, STEMI, HTN, DM Please clarify and document your clinical opinion in the progress notes and discharge summary. Terms such as "probable", "suspected", "likely", "questionable", "possible", or "still to be ruled out" are acceptable. IF IN AGREEMENT, YOU MUST DOCUMENT ABOVE DIAGNOSTIC STATEMENT IN DAILY PROGRESS NOTES AND DISCHARGE SUMMARY. This document is not part of the Thank You, Elizabet Bauer RN [phone]
[2017-05-24] MEDS: INSULIN ASPART 100 UNITS/ML 3 ML PEN SC SCH ×2 (17:08→20:52)
--- NOTE | 2017-05-24 18:27 | Family Medicine Progress Note ---
Progress Note Date of Service May 24, 2017. Subjective Pt evaluation today including: conversation w/ patient, chart review, lab review, review of studies Pain: denies PO Intake: good 82-year-old male seen this morning. He denies any chest pain or shortness of breath. He was able living when he was the ICU with assistance of one nurse without any significant symptoms. The patient tells me today that he has his own garden at home which he tends to so I get the idea that his baseline activity level is fairly substantial given his age. Respiratory: No cough, No sputum, No wheezing, No shortness of breath, No dyspnea on exertion Cardiovascular: No chest pain, No orthopnea, No palpitations Abdomen: No nausea, No vomiting, No diarrhea All Other Systems: Reviewed and Negative Medications Albuterol/ Ipratropium (Combivent Respimat Inh) 1 puffs Q4HWA INH Last administered on 05/24/17 11:12; Admin Dose 1 PUFFS; Start 05/24/17 at 12:00; Stop 06/23/17 at 11:59 Aspirin (Aspirin Chew) 81 mg QAM PO Last administered on 05/24/17 08:55; Admin Dose 81 MG; Start 05/21/17 at 09:00; Stop 06/20/17 at 08:59 Atorvastatin Calcium (Lipitor Tab) 40 mg QAM PO Last administered on 05/24/17 08:54; Admin Dose 40 MG; Start 05/21/17 at 09:00; Stop 06/20/17 at 08:59 Clopidogrel Bisulfate (plAVix TAB) 75 mg QAM PO Last administered on 05/24/17 08:54; Admin Dose 75 MG; Start 05/22/17 at 09:00; Stop 06/21/17 at 08:59 Dextrose (Dextrose 50% 50ML Syringe) 50 ml UD PRN IV; Start 05/20/17 at 21:45; Stop 06/19/17 at 21:44 Furosemide (Lasix Tab) 40 mg QAM PO Last administered on 05/24/17 08:55; Admin Dose 40 MG; Start 05/23/17 at 09:00; Stop 06/22/17 at 08:59 Glucagon (Glucagon Inj) 1 mg UD PRN SQ; Start 05/20/17 at 21:45; Stop 06/19/17 at 21:44 Glucose (Glucose 40% Gel) UD PRN PO; Start 05/20/17 at 21:45; Stop 06/19/17 at 21:44 Glucose (Glucose Chew Tab) 1 tabs UD PRN PO; Start 05/20/17 at 21:45; Stop 07/26 at 21:44 Heparin Sodium (Porcine) (Heparin Sq 5000 Unit/0.5ml) 5,000 unit Q12 SC Last administered on 05/24/17 08:58; Admin Dose 5,000 UNIT; Start 05/21/17 at 21:00 ; Stop 06/20/17 at 20:59 Insulin Aspart (novoLOG ASPART) SLIDING SCALE 0000,0400 SC; Start 05/25/17 at 00 :00; Stop 05/25/17 at 04:01 Insulin Aspart (novoLOG ASPART) SLIDING SCALE ACHS SC; Start 05/24/17 at 16:15; Stop 06/23/17 at 16:14 Insulin Glargine (Lantus Solostar Pen) 40 units QAM SC Last administered on 05/24 12:30; Admin Dose 40 UNITS; Start 05/24/17 at 11:30; Stop 06/23/17 at 11: 29 Metoprolol Tartrate (Lopressor Tab) 25 mg BID PO Last administered on 05/24/17 08:55; Admin Dose 25 MG; Start 05/23/17 at 21:00; Stop 06/21/17 at 20:59 Miscellaneous Information (Consult Glycemic Management Pharmacy) 1 ea UD PRN N/ A; Start 05/23/17 at 17:02; Stop 06/22/17 at 17:01 Prednisone (PredniSONE TAB) 60 mg Taper DAILY PO Last administered on 05/24/17 12:24; Admin Dose 60 MG; Start 05/24/17 at 10:45; Stop 05/30/17 at 10:44 Temazepam (Restoril Cap) 15 mg HSZ PRN PO; Start 05/22/17 at 23:00; Stop at 22:59 Objective Physical Exam General Appearance: WD/WN, no apparent distress Eyes: normal inspection, PERRL ENT: normal ENT inspection Neck: supple Respiratory/Chest: lungs clear Cardiovascular: regular rate, rhythm, no edema Abdomen: non tender, soft, no organomegaly Extremities: non-tender, normal inspection Neurologic/Psychiatric: no motor/sensory deficits, alert, normal mood/affect, oriented x 3 Skin: warm/dry Laboratory Results Last 24 Hours Test 05/23/17 16:20 05/23/17 20:29 05/23/17 22:04 05/23/17 23:21 Bedside Glucose 476 mg/dl 423 mg/dl 355 mg/dl 266 mg/dl Test 05/24/17 00:24 05/24/17 01:16 05/24/17 02:55 05/24/17 04:44 Bedside Glucose 241 mg/dl 212 mg/dl 157 mg/dl 110 mg/dl Test 05/24/17 04:58 05/24/17 06:00 05/24/17 06:33 05/24/17 10:20 White Blood Count 14.34 K/uL Red Blood Count 3.52 M/uL Hemoglobin 11.5 g/dL Hematocrit 34.7 % Mean Corpuscular Volume 98.6 fL Mean Corpuscular Hemoglobin 32.7 pg Mean Corpuscular Hemoglobin Concent 33.1 g/dl Platelet Count 145 K/uL Mean Platelet Volume 11.2 fL Neutrophils (%) (Auto) 94.5 % Lymphocytes (%) (Auto) 4.2 % Monocytes (%) (Auto) 1.0 % Eosinophils (%) (Auto) 0.0 % Basophils (%) (Auto) 0.0 % Neutrophils # (Auto) 13.55 K/uL Lymphocytes # (Auto) 0.60 K/uL Monocytes # (Auto) 0.14 K/uL Eosinophils # (Auto) 0.00 K/uL Basophils # (Auto) 0.00 K/uL RDW Standard Deviation 50.9 fL RDW Coefficient of Variation 14.1 % Immature Granulocyte % (Auto) 0.3 % Immature Granulocyte # (Auto) 0.05 K/uL Ovalocytes 1+ Echinocytes 1+ Prothrombin Time 11.2 SECONDS Prothromb Time International Ratio 1.0 Activated Partial Thromboplast Time 24.6 SECONDS Partial Thromboplastin Ratio 0.9 Sodium Level 143 mmol/L Potassium Level 4.2 mmol/L Chloride Level 113 mmol/L Carbon Dioxide Level 21 mmol/L Anion Gap 9.0 mmol/L Blood Urea Nitrogen 83 mg/dl Creatinine 2.50 mg/dl Est Creatinine Clear Calc Drug Dose 25.9 ml/min Estimated GFR () 27.1 Estimated GFR (Non- 23.4 BUN/Creatinine Ratio 33.3 Random Glucose 107 mg/dl Calcium Level 7.9 mg/dl Bedside Glucose 145 mg/dl 163 mg/dl 283 mg/dl Test 05/24/17 11:22 Bedside Glucose 241 mg/dl Assessment and Plan Resident Physician Supervision Note: I was present with Dr. Palmer during the history and exam. I discussed the case with the resident and agree with the findings and plan as documented in her note. Severe two-vessel coronary artery disease with left ventricular/ischemic cardiopathy Atrial fibrillation COPD exacerbation with acute respiratory failure, improving Acute on chronic renal insufficiency Thrombocytopenia, stable Diabetes, exacerbated by intravenous steroids for COPD exacerbation Appreciate cardiology consultation, symptomatically the patient is doing well. PT/OT consults today with increased activity. Transition to by mouth steroids; there is no wheezing upon auscultation today. Glycemic consult appreciated.
--- NOTE | 2017-05-24 18:29 | Family Medicine Progress Note ---
Progress Note Date of Service May 24, 2017. Subjective Pt evaluation today including: conversation w/ patient, physical exam, lab review Pain: Denies Voiding: no voiding problems Patient was seen at the bedside. He was comfortably lying down on his bed. He states that he is feeling better today. He did walk to the bathroom and didn't have any chest pain. Denied SOB. Constitutional: No fever Respiratory: No cough, No shortness of breath Cardiovascular: No chest pain, No edema Abdomen: No pain, No nausea, No vomiting, No diarrhea Male : No dysuria Skin: No rash Medications Current Inpatient Medications Medications (Trade) Dose Ordered Sig/Stefani Route Start Time Stop Time Status Last Admin Dose Admin Aspirin (Aspirin Chew) 81 mg QAM PO 05/21/17 09:00 06/20/17 08:59 05/24/17 08:55 81 MG Atorvastatin Calcium (Lipitor Tab) 40 mg QAM PO 05/21/17 09:00 06/20/17 08:59 05/24/17 08:54 40 MG Glucose (Glucose 40% Gel) UD PRN PO 05/20/17 21:45 06/19/17 21:44 Glucose (Glucose Chew Tab) 1 tabs UD PRN PO 05/20/17 21:45 06/19/17 21:44 Dextrose (Dextrose 50% 50ML Syringe) 50 ml UD PRN IV 05/20/17 21:45 06/19/17 21:44 Glucagon (Glucagon Inj) 1 mg UD PRN SQ 05/20/17 21:45 06/19/17 21:44 Clopidogrel Bisulfate (plAVix TAB) 75 mg QAM PO 05/22/17 09:00 06/21/17 08:59 05/24/17 08:54 75 MG Heparin Sodium (Porcine) (Heparin Sq 5000 Unit/0.5ml) 5,000 unit Q12 SC 05/21/17 21:00 06/20/17 20:59 05/24/17 08:58 5,000 UNIT Furosemide (Lasix Tab) 40 mg QAM PO 05/23/17 09:00 06/22/17 08:59 05/24/17 08:55 40 MG Temazepam (Restoril Cap) 15 mg HSZ PRN PO 05/22/17 23:00 06/21/17 22:59 Metoprolol Tartrate (Lopressor Tab) 25 mg BID PO 05/23/17 21:00 06/21/17 20:59 05/24/17 08:55 25 MG Miscellaneous Information (Consult Glycemic Management Pharmacy) 1 ea UD PRN N/A 05/23/17 17:02 06/22/17 17:01 Prednisone (PredniSONE TAB) 60 mg Taper DAILY PO 05/24/17 10:45 05/30/17 10:44 05/24/17 12:24 60 MG Albuterol/ Ipratropium (Combivent Respimat Inh) 1 puffs Q4HWA INH 05/24/17 12:00 06/23/17 11:59 05/24/17 15:57 1 PUFFS Insulin Glargine (Lantus Solostar Pen) 40 units QAM [place] 05/24/17 11:30 06/23/17 11:29 05/24/17 12:30 40 UNITS Insulin Aspart (novoLOG ASPART) SLIDING SCALE ACHS [place] 05/24/17 16:15 06/23/17 16:14 Insulin Aspart (novoLOG ASPART) SLIDING SCALE 0000,0400 [place] 05/25/17 00:00 05/25/17 04:01 Objective Vital Signs Date Time Temp Pulse Resp B/P (MAP) Pulse Ox O2 Delivery O2 Flow Rate FiO2 05/24/17 15:15 36.4 53 18 121/70 (87) 97 Room Air 05/24/17 12:00 98 Room Air 2.0 30 05/24/17 11:37 36.6 53 18 118/68 (85) 98 Room Air 05/24/17 08:00 54 05/24/17 08:00 98 Room Air 2.0 30 05/24/17 07:00 58 20 98 Room Air 05/24/17 06:45 36.6 62 18 128/69 (88) 97 Room Air 05/24/17 06:43 36.9 55 20 95 05/24/17 04:00 36.9 55 20 110/65 (80) 95 Room Air 05/24/17 04:00 Room Air 05/23/17 23:59 Room Air 05/23/17 23:59 36.5 53 18 104/59 (74) 96 Room Air 05/23/17 20:00 36.4 75 18 110/55 (73) 94 Room Air 05/23/17 20:00 96 Room Air 05/23/17 19:42 79 18 96 Room Air 05/23/17 18:00 69 20 116/63 (80) Room Air 69 Physical Exam General Appearance: WD/WN, no apparent distress Neck: supple, trachea midline Respiratory/Chest: chest non-tender, lungs clear, normal breath sounds, no respiratory distress, no accessory muscle use Cardiovascular: regular rate, rhythm, no edema Abdomen: normal bowel sounds, non tender, soft Extremities: non-tender, no pedal edema Neurologic/Psychiatric: alert, normal mood/affect, oriented x 3 Skin: normal color, warm/dry, no rash Laboratory Results Results Past 24 Hours Test 05/23/17 16:20 05/23/17 20:29 05/23/17 22:04 05/23/17 23:21 Range/Units Bedside Glucose 476 423 355 266 70-99 mg/dl Test 05/24/17 00:24 05/24/17 01:16 05/24/17 02:55 05/24/17 04:44 Range/Units Bedside Glucose 241 212 157 110 70-99 mg/dl Test 05/24/17 04:58 05/24/17 06:00 05/24/17 06:33 05/24/17 10:20 Range/Units White Blood Count 14.34 4.8-10.8 K/uL Red Blood Count 3.52 4.7-6.1 M/uL Hemoglobin 11.5 14.0-18.0 g/dL Hematocrit 34.7 42-52 % Mean Corpuscular Volume 98.6 80-100 fL Mean Corpuscular Hemoglobin 32.7 25-34 pg Mean Corpuscular Hemoglobin Concent 33.1 32-36 g/dl Platelet Count 145 130-400 K/uL Mean Platelet Volume 11.2 7.4-10.4 fL Neutrophils (%) (Auto) 94.5 % Lymphocytes (%) (Auto) 4.2 % Monocytes (%) (Auto) 1.0 % Eosinophils (%) (Auto) 0.0 % Basophils (%) (Auto) 0.0 % Neutrophils # (Auto) 13.55 1.4-6.5 K/uL Lymphocytes # (Auto) 0.60 1.2-3.4 K/uL Monocytes # (Auto) 0.14 0.11-0.59 K/uL Eosinophils # (Auto) 0.00 0-0.5 K/uL Basophils # (Auto) 0.00 0-0.2 K/uL RDW Standard Deviation 50.9 36.4-46.3 fL RDW Coefficient of Variation 14.1 11.5-14.5 % Immature Granulocyte % (Auto) 0.3 % Immature Granulocyte # (Auto) 0.05 0.00-0.02 K/uL Ovalocytes 1+ Echinocytes 1+ Prothrombin Time 11.2 9.0-12.0 SECONDS Prothromb Time International Ratio 1.0 0.9-1.1 Activated Partial Thromboplast Time 24.6 21.0-31.0 SECONDS Partial Thromboplastin Ratio 0.9 Sodium Level 143 136-145 mmol/L Potassium Level 4.2 3.5-5.1 mmol/L Chloride Level 113 98-107 mmol/L Carbon Dioxide Level 21 21-32 mmol/L Anion Gap 9.0 3-11 mmol/L Blood Urea Nitrogen 83 7-18 mg/dl Creatinine 2.50 0.60-1.40 mg/dl Est Creatinine Clear Calc Drug Dose 25.9 ml/min Estimated GFR () 27.1 Estimated GFR (Non- 23.4 BUN/Creatinine Ratio 33.3 10-20 Random Glucose 107 70-99 mg/dl Calcium Level 7.9 8.5-10.1 mg/dl Bedside Glucose 145 163 283 70-99 mg/dl Test 05/24/17 11:22 05/24/17 16:06 Range/Units Bedside Glucose 241 118 70-99 mg/dl Assessment and Plan This is a 82 y/o M with PMHx of CAD, 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 He became unresponsive and needed to be intubated. In ED he found to have STEMI in the anterior leads with 1st degree AVB. Patient was taken to the oven laborer by Dr. Mejia and found to have old left main disease and mid LAD stenosis with ostial LAD artery and ostial circumflex stenosis. Placement of percutaneous transluminal coronary angioplasty without stent in the diagonal branch, with unsuccessful attempt at re-perfusion of the mid to distal LAD artery. Discussed the result with the family and apparently patient doesn't want any aggressive treatment. Patient is transferred to Tele given improvement of his condition. Patient is doing well, changed IV steroid to PO and taper down. PT/OT is ordered. * ST elevation myocardial infraction - EKG in ED showed ST elevation in the ant leads. Troponin and CK-MB were elevated. - Cath was performed on 05/20 showed left main with a distal 80% stenosis, ostial diagonal branch 90% stenosis. Mid LAD has a subtotal calcified stenosis beyond the 2nd diagonal branch. 2nd diagonal branch has ostial 80% stenosis, LCX has ostial with 90% stenosis. RCA has extensive but non critical luminal irregularities. Markedly elevated left ventricular end-diastolic pressure. - Echo showed EF <20%, severely reduced LV systolic function, large akinetic segment involving the mid and distal anterior wall and the entire apex. All other deleon are hypokinetic. Decreased RV systolic function. No valvular pathology. - Patient declined aggressive management - Continue Plavix 75mg, heparin and ASA 81mg - d/kaelyn Lisinopril 5mg qam given his increased creat - Cardiology Consulted and will appreciate his recommendation * Acute on chronic hypercapneic respiratory failure - 2/2 COPD exacerbation, acute decompensation of CMP - Patient is extubated on 05/21. - Last ABG showed pH 7.35, CO2 34 and HCO3 19, improved from prior ABG - Currently on room air maintaining O2 sat. * COPD exacerbation - PO steroid and taper down - Continue DuoNeb INH q4h, Ipratropium 4 puffs q6R - Continue Albuterol q6h prn - Currently on RA maintaining O2 *Acute on Chronic systolic congested heart failure - Echo (05/21/17) showed severely reduced LV systolic function with EF <20% , akinetic segment involving mid and distal ant wall and entire apex. - CXR showed moderate pulmonary edema, improving - d/kaelyn Milrinone - Changed Lopressor to 25mg BID per Cardio recommendation - Switched IV Lasix 40mg daily given rising in creat - Daily I/O and weight * Ischemic Cardiomyopathy - d/kaelyn Lisinopril given rising in creatinine - Currently on Lopressor 25mg BID - Cardiology was consulted and will appreciate his recommendation * Hx of Afib - Patient was on Xarelto 15mg at home - Continue Plavix 75mg daily, heparin and ASA 81mg * DMII - Patient glucose was elevated overnight could be 2/2 steroid also he was only on SS - d/kaelyn insulin infusion, Start 20unit Lantus - Con't sliding scale - Continue to monitor BMP * Hypercholesterolemia - Continue with Lipitor 40mg * Thrombocytopenia - hold Plavix if platelet <60, per Cardiology recommendation - Consulted Cardio - Continue to monitor CBC * Leukocytosis - Most likely 2/2 steroid - Continue to monitor CBC * CKD - Stage 3 (according to prior record) - Reviewed prior labs, his baseline Creatinine is between 1.8-2.5 - Currently he is on his baseline - Avoid nephrotoxic drugs - Continue to hold lisinopril * VTE prophylaxis - Heparin * Code Status - Full code for now. Dr. Zamarripa stated that he spoke with the patient and he was not sure and will talk further with his family Plan to discharge tomorrow, if patient remains stable. Resident Physician Supervision Note: I was present with Dr. Palmer during the history and exam. I discussed the case with the resident and agree with the findings and plan as documented in the note. Any exceptions or clarifications are listed here: Please see my note of the same date Documented By: Matias Greene
--- NOTE | 2017-05-24 18:45 | Cardiology Follow-Up ---
Subjective Subjective Date of Service: May 24, 2017. Pt evaluation today including: conversation w/ patient, physical exam, chart review, lab review, review of studies, conversation w/ provider contracting consultant Additional Details: Feeling well. No chest pain, shortness of breath, palpitations. Up walking to bathroom without complaints Telemetry reviewed--no events overnight Problem List Medical Problems: (1) Acute pulmonary edema Status: Acute (2) Acute respiratory distress Status: Acute (3) Altered mental status Status: Acute (4) Hyperglycemia Status: Acute (5) Hypoxia Status: Acute (6) Lactic acidosis Status: Acute (7) Respiratory failure Status: Acute (8) STEMI (ST elevation myocardial infarction) Status: Acute Review of Systems Constitutional: No fever Respiratory: No cough, No shortness of breath Cardiac: No chest pain, No edema Abdomen: No pain, No nausea, No vomiting, No diarrhea Musculoskeletal: No muscle pain Male : No dysuria Skin: No rash Objective Vital Signs Last Vital Signs Documentation Date Time Temp Pulse Resp B/P (MAP) Pulse Ox O2 Delivery O2 Flow Rate FiO2 05/24/17 16:00 Room Air 05/24/17 15:15 36.4 53 18 121/70 (87) 97 05/24/17 12:00 2.0 30 Physical Exam: General Appearance: WD/WN, no apparent distress ENT: normal ENT inspection Neck: supple, trachea midline, + pertinent finding (Prior right IJ dressing in place) Respiratory/Chest: lungs clear, normal breath sounds, no respiratory distress Cardiovascular: regular rate, rhythm, no edema Abdomen: normal bowel sounds, non tender, soft Extremities: non-tender, no pedal edema Neurologic/Psychiatric: alert, normal mood/affect, oriented x 3 Skin: normal color, warm/dry, no rash Lymphatic: no adenopathy Assessment and Plan 1. Severe 2 vessel coronary artery disease as well as severe distal left main disease status post POBA of diagonal 2. Severe LV dysfunction/ischemic cardiomyopathy 3. Atrial fibrillation 4. Acute on chronic renal insufficiency 5. Thrombocytopenia 6. COPD with resolved respiratory failure 7. History rectal cancer status post resection/chemotherapy, stable pulmonary nodules/pleural plaquing 8. Poorly controlled diabetes Patient continues to do well following his ACS event and PCI 4 days ago. He remains chest pain-free, hemodynamically and electrically stable. Well perfused, minimal congestion on exam Continue conservative management --continue dual antiplatelet therapy with aspirin and clopidogrel. Further discussion with patient, family regarding long-term anticoagulation --continue beta-jimmy. LUIS on hold,can resume as renal function, blood pressure allows --continue current diuretic for now --from a cardiac standpoint if remains stable potentially safe for discharge tomorrow with close cardiology follow-up. Medications: Current Inpatient Medications Medications (Trade) Dose Ordered Sig/Stefani Route Start Time Stop Time Status Last Admin Dose Admin Aspirin (Aspirin Chew) 81 mg QAM PO 05/21/17 09:00 06/20/17 08:59 05/24/17 08:55 81 MG Atorvastatin Calcium (Lipitor Tab) 40 mg QAM PO 05/21/17 09:00 06/20/17 08:59 05/24/17 08:54 40 MG Glucose (Glucose 40% Gel) UD PRN PO 05/20/17 21:45 06/19/17 21:44 Glucose (Glucose Chew Tab) 1 tabs UD PRN PO 05/20/17 21:45 06/19/17 21:44 Dextrose (Dextrose 50% 50ML Syringe) 50 ml UD PRN IV 05/20/17 21:45 06/19/17 21:44 Glucagon (Glucagon Inj) 1 mg UD PRN SQ 05/20/17 21:45 06/19/17 21:44 Clopidogrel Bisulfate (plAVix TAB) 75 mg QAM PO 05/22/17 09:00 06/21/17 08:59 05/24/17 08:54 75 MG Heparin Sodium (Porcine) (Heparin Sq 5000 Unit/0.5ml) 5,000 unit Q12 SC 05/21/17 21:00 06/20/17 20:59 05/24/17 08:58 5,000 UNIT Furosemide (Lasix Tab) 40 mg QAM PO 05/23/17 09:00 06/22/17 08:59 05/24/17 08:55 40 MG Temazepam (Restoril Cap) 15 mg HSZ PRN PO 05/22/17 23:00 06/21/17 22:59 Metoprolol Tartrate (Lopressor Tab) 25 mg BID PO 05/23/17 21:00 06/21/17 20:59 05/24/17 08:55 25 MG Miscellaneous Information (Consult Glycemic Management Pharmacy) 1 ea UD PRN N/A 05/23/17 17:02 06/22/17 17:01 Prednisone (PredniSONE TAB) 60 mg Taper DAILY PO 05/24/17 10:45 05/30/17 10:44 05/24/17 12:24 60 MG Albuterol/ Ipratropium (Combivent Respimat Inh) 1 puffs Q4HWA INH 05/24/17 12:00 06/23/17 11:59 05/24/17 15:57 1 PUFFS Insulin Glargine (Lantus Solostar Pen) 40 units QAM [place] 05/24/17 11:30 06/23/17 11:29 05/24/17 12:30 40 UNITS Insulin Aspart (novoLOG ASPART) SLIDING SCALE ACHS [place] 05/24/17 16:15 06/23/17 16:14 05/24/17 17:08 7 UNITS Insulin Aspart (novoLOG ASPART) SLIDING SCALE 0000,0400 [place] 05/25/17 00:00 05/25/17 04:01 Lab Results: 05/24/17 04:58 Red Blood Count 3.52, Mean Corpuscular Volume 98.6, Mean Corpuscular Hemoglobin 32.7, Mean Corpuscular Hemoglobin Concent 33.1, Mean Platelet Volume 11.2, Neutrophils (%) (Auto) 94.5, Lymphocytes (%) (Auto) 4.2, Monocytes (%) (Auto) 1.0, Eosinophils (%) (Auto) 0.0, Basophils (%) (Auto) 0.0, Neutrophils # (Auto) 13.55, Lymphocytes # (Auto) 0.60, Monocytes # (Auto) 0.14, Eosinophils # (Auto) 0.00, Basophils # (Auto) 0.00 05/24/17 04:58 Test 05/24/17 04:58 05/24/17 16:06 White Blood Count 14.34 K/uL (4.8-10.8) Red Blood Count 3.52 M/uL (4.7-6.1) Hemoglobin 11.5 g/dL (14.0-18.0) Hematocrit 34.7 % (42-52) Mean Corpuscular Volume 98.6 fL (80-100) Mean Corpuscular Hemoglobin 32.7 pg (25-34) Mean Corpuscular Hemoglobin Concent 33.1 g/dl (32-36) Platelet Count 145 K/uL (130-400) Mean Platelet Volume 11.2 fL (7.4-10.4) Neutrophils (%) (Auto) 94.5 % Lymphocytes (%) (Auto) 4.2 % Monocytes (%) (Auto) 1.0 % Eosinophils (%) (Auto) 0.0 % Basophils (%) (Auto) 0.0 % Neutrophils # (Auto) 13.55 K/uL (1.4-6.5) Lymphocytes # (Auto) 0.60 K/uL (1.2-3.4) Monocytes # (Auto) 0.14 K/uL (0.11-0.59) Eosinophils # (Auto) 0.00 K/uL (0-0.5) Basophils # (Auto) 0.00 K/uL (0-0.2) RDW Standard Deviation 50.9 fL (36.4-46.3) RDW Coefficient of Variation 14.1 % (11.5-14.5) Immature Granulocyte % (Auto) 0.3 % Immature Granulocyte # (Auto) 0.05 K/uL (0.00-0.02) Ovalocytes 1+ Echinocytes 1+ Prothrombin Time 11.2 SECONDS (9.0-12.0) Prothromb Time International Ratio 1.0 (0.9-1.1) Activated Partial Thromboplast Time 24.6 SECONDS (21.0-31.0) Partial Thromboplastin Ratio 0.9 Anion Gap 9.0 mmol/L (3-11) Est Creatinine Clear Calc Drug Dose 25.9 ml/min Estimated GFR () 27.1 Estimated GFR (Non- 23.4 BUN/Creatinine Ratio 33.3 (10-20) Calcium Level 7.9 mg/dl (8.5-10.1) Bedside Glucose 118 mg/dl (70-99)
[2017-05-25] VITALS (7 sets, daily range): BP systolic 125–137; BP diastolic 74–80; PULSE 49–66; TEMP 36.5–37; O2SAT 94–98
[2017-05-25] MEDS: INSULIN ASPART 100 UNITS/ML 3 ML PEN SC SCH ×4 (03:44→11:00)
--- NOTE | 2017-05-25 07:15 | Discharge Instructions ---
Discharge Instructions Date of Service May 25, 2017. Admission Reason for Admission: Chf, Myocardial Infarction Discharge Discharge Diagnosis / Problem: STEMI, CHF, COPD exacerbation Discharge Goals Goal(s): Decrease discomfort, Increase independence, Improve disease control Activity Recommendations Activity Limitations: resume your previous activity . Instructions / Follow-Up Instructions / Follow-Up You presented to the hospital with chest and shortness of breath. You had loss of consciousness and need to be intubated. You also found to have heart attack. You were taken to the labeling machine operator. You had severe stenosis of your 2 heart vessels. You didn't want any aggressive management. Please take Xarelto 15 mg daily, continue aspirin 81mg Lisinopril and Xarelto are stopped. Please follow up with your Hydraulic Chair Assembler and primary doctor when you can continue Lisinopril. Continue taking rest of your medications. Please follow up with your community development planner Dr. Bauer in 1 week. Follow up with your primary doctor in 4-5days. Current Hospital Diet Patient's current hospital diet: AHA Diet (Heart Healthy), Diabetes Type 2 Diet Discharge Diet Recommended Diet: Regular Diet Pending Studies Studies pending at discharge: no Medical Emergencies . Who to Call and When: Medical Emergencies: If at any time you feel your situation is an emergency, please call 911 immediately. . Non-Emergent Contact Non-Emergency issues call your: Primary Care Provider . . "Provider Documentation" section prepared by Lisette Palmer. . VTE Core Measure Inpt VTE Proph given/why not?: Unfractionated heparin SQ
[2017-05-25] MEDS: METOPROLOL TARTRATE 25 MG TAB PO SCH (07:48)
[2017-05-25] MEDS: CLOPIDOGREL BISULFATE 75 MG TAB PO SCH (07:48)
[2017-05-25] MEDS: FUROSEMIDE 40 MG TAB PO SCH (07:48)
[2017-05-25] MEDS: ATORVASTATIN 40 MG TAB PO SCH (07:48)
[2017-05-25] MEDS: IPRATROPIUM BROMIDE/ALBUTEROL respimat INH INH SCH ×2 (07:48→12:51)
[2017-05-25] MEDS: ASPIRIN 81 MG CHEW PO SCH (07:51)
[2017-05-25] MEDS: HEPARIN SOD 5000 UNIT/0.5 ML CARP SC SCH (07:54)
[2017-05-25] MEDS: INSULIN GLARGINE SOLOSTAR 100 UNITS/ML 3 ML PEN SC SCH (07:55)
[2017-05-25 07:58] LABS: PARTIAL THROMBOPLASTIN RATIO 0.9; PROTHROMBIN TIME (PATIENT) 10.8 SECONDS (9.0-12.0)
[2017-05-25] MEDS ORDERED: PLV75 PO (08:03)
[2017-05-25 08:07] LABS: BUN/CREATININE RATIO 32.6 (10-20); CREATININE 2.4 mg/dl (0.60-1.40); POTASSIUM 4.2 mmol/L (3.5-5.1)
[2017-05-25 08:11] LABS: MEAN CELL VOLUME 99.2 fL (80-100); MEAN CORPUSCULAR HEMOGLOBIN 32.4 pg (25-34); MEAN CORPUSCULAR HGB CONC 32.6 g/dl (32-36); PLATELET COUNT 168 K/uL (130-400); RED BLOOD COUNT 3.83 M/uL (4.7-6.1); WHITE BLOOD COUNT 12.73 K/uL (4.8-10.8)
--- NOTE | 2017-05-25 10:14 | Pharmacy Progress Note ---
Glycemic Control Progress Note Date of Service May 25, 2017. Scope Glycemic Pharmacist consulted for glycemic control to write orders per [facility] inpatient glycemic control protocol. Objective Accuchecks BSG (last 24hrs): Test 05/24/17 10:20 05/24/17 11:22 05/24/17 16:06 05/24/17 20:48 Bedside Glucose 283 mg/dl (70-99) 241 mg/dl (70-99) 118 mg/dl (70-99) 174 mg/dl (70-99) Test 05/25/17 00:13 05/25/17 03:42 05/25/17 06:19 05/25/17 07:26 Bedside Glucose 150 mg/dl (70-99) 141 mg/dl (70-99) 133 mg/dl (70-99) Random Glucose 122 mg/dl (70-99) Recent Pertinent Medications The patient is currently receiving: * Basal insulin: Lantus 40 units qAM * Correctional Insulin: Novolog Correction per scale ACHS Goal Range: Low 140 mg/dL - High 180 mg/dL Correction Factor: 20 mg/dL/unit * Prandial insulin: Per carb ratio of 1 unit per 6 grams CHO consumed Outpatient Anti-Diabetic Meds Lantus 25 units SQ daily Assessment & Plan ASSESSMENT: * See progress note from 05/24 for more background info, in short: * Pt receiving SQ basal bolus insulin regimen for hyperglycemia secondary to baseline DM (outpatient regimen on hold), steroids * Patient is currently receiving an average of 60 units of insulin per day * 40 units of basal insulin * BSGs ranging 118-241 over the past 24hrs * Risk factors for insulin resistance are decreasing over the past 24hrs * Steroid dosing tapering - received equivalent of 110 mg prednisone yesterday (with combo of Solu-medrol and prednisone) * Anticipating insulin regimen will need decreased for the next 24hrs d/t above: * Lantus dose already given this AM so will need to decrease starting tomorrow (heavily weighted on basal dose at this point so will decrease back to 25 units - outpatient dose) * Will loosen CF/CR slightly to coincide with tapering steroid PLAN FOR INPATIENT GLYCEMIC CONTROL: * Decrease Lantus to 25 units qAM starting tomorrow * Novolog ACHS - no further overnight accuchecks since BSGs have improved * LOOSEN correction factor to 30 mg/dl/unit * LOOSEN carb ratio to 1 unit per 8 grams CHO consumed * Continue goal range of Low 140 mg/dL - High 180 mg/dL for age/comorbidities DISCHARGE RECOMMENDATIONS: * Will depend if patient is to be discharged on steroids * If not discharged on steroids, patient may continue Lantus 25 units daily Thank you.
[2017-05-25] MEDS ORDERED: PRD20 PO (12:33)
--- NOTE | 2017-05-25 12:36 | Discharge Instructions ---
Discharge Instructions Date of Service May 25, 2017. Admission Reason for Admission: Chf, Myocardial Infarction Discharge Discharge Diagnosis / Problem: STEMI, CHF, COPD Discharge Goals Goal(s): Decrease discomfort, Improve function, Improve disease control Activity Recommendations Activity Limitations: resume your previous activity . Instructions / Follow-Up Instructions / Follow-Up Home Care: * Take your medications exactly as directed. Don't skip doses. * Remember that recovery after a heart attack takes time. Plan to rest for at lease 4-8 weeks while you recover. Then return to normal activity when your doctor says it's okay. * Ask your doctor about joining a heart rehabilitation program. * Tell your doctor if you are feeling depressed. Feelings of sadness are common after a heart attack, but it is important that you speak to someone if you are feeling overwhelmed by these feelings. * If you are having chest pain, call 911 for an ambulance. Do NOT drive yourself to the hospital. * Ask your family members to learn CPR. * Learn to take your own blood pressure and pulse. Keep a record of your results. Ask your doctor when you should seek emergency medical attention. He or she will tell you which blood pressure reading is dangerous. Lifestyle Changes: * Maintain a healthy weight. Get help to lose any extra pounds. * Cut back on salt. * Limit canned, dried, packaged, and fast foods. * Don't add salt to your food. * Season foods with herbs instead of salt when you cook. * Break the smoking habit. Enroll in a stop-smoking program to improve your chances of success. * Limit fatty foods. * Ask your doctor about having your lipid levels checked regularly. * Build up your activity according to your doctor's recommendation. * Ask your doctor when it's okay to resume sexual activity. * Tell your doctor about any erectile dysfunction (ED) medication you are taking. Some ED medications are not safe if you take certain heart medications. * Try to manage stress. Follow Up: It is important for you to keep your follow up appointments with your medical provider. You presented to the hospital with chest and shortness of breath. You had loss of consciousness and need to be intubated. You also found to have heart attack. You were taken to the optical laboratory mechanic. You had severe stenosis of your 2 heart vessels. You didn't want any aggressive management. Please take Xarelto 15 mg daily, continue aspirin 81mg Lisinopril is stopped. Please follow up with your Revenue Coordinator and primary doctor when you can continue Lisinopril. Take prednisone as follows: - 40mg for 2days - 20mg for 2 days then stop Continue taking rest of your medications. Please follow up with your cloth checker Dr. Bauer in 1 week. Follow up with your primary doctor in 4-5days. Current Hospital Diet Patient's current hospital diet: AHA Diet (Heart Healthy), Diabetes Type 2 Diet Discharge Diet Recommended Diet: Regular Diet Procedures Procedures Performed: Catherization Pending Studies Studies pending at discharge: no Medical Emergencies . Who to Call and When: Medical Emergencies: If at any time you feel your situation is an emergency, please call 911 immediately. Call 911 immediately or go to your nearest Emergency Room if you experience any of the following: Warning Signs and Symptoms of a Heart Attack * Chest pain that is not relieved by medication * Shortness of breath . Non-Emergent Contact Non-Emergency issues call your: Primary Care Provider . . "Provider Documentation" section prepared by Lisette Palmer. . AMI Core Measures Reason no ASA as I/P: Treatment provided - N/A Reason no ASA at D/C: Treatment provided - N/A Reason no statin as I/P: Treatment provided - N/A Reason no statin at D/C: Treatment provided - N/A VTE Core Measure Inpt VTE Proph given/why not?: Unfractionated heparin SQ
--- NOTE | 2017-05-25 17:53 | Discharge Summary ---
Discharge Summary Date of Service May 25, 2017. (Lisette Palmer MD) Discharge Summary Admission Date: May 20, 2017 at 18:53 Discharge Date: May 25, 2017 Discharge Disposition: Home Principal Diagnosis: STEMI, CHF, COPD Procedures: Patient: ROSAMARIA KERNS Admit Date: 05/20/1708/11/17 Med Rec: [id number] Acct ID: [id number] [~ rep ct labl] Page 3of 3 p: [~ rep prt dt last] [~ rep prt tm last] [~ rep ct labl] Page 1of 1 p: [~ rep prt dt last] [~ rep prt tm last] OPERATIVE REPORT [place], [place] Patient: ROSAMARIA KERNS Admit Date: 05/20/1708/11/17 Med Rec: [id number] Att Phy: Tess Shaikh M.D. Acct ID: [id number] Fam Phy: Henri Daily M.D. Date: 1935 Ref Phy: Henri Daily M.D. Age: 82 Location: [facility] Sex: M Room/Bed: [facility] MNE:[facility] REPORT #: [id number] CC: Henri Daily M.D. Fanning, Robert ., D.O. Endcc: DICTATED BY: Clint Mejia D.O. DATE OF OPERATION: 05/20/2017 PORT-A-CATH AND PCI INDICATIONS: Acute anterolateral NJ. History of prior inferior wall NJ, history of congestive heart failure, atrial fibrillation in an 82-year-old male. Past medical history significant for hypertension, diabetes, hypercholesterolemia and atrial fibrillation. PROCEDURE PERFORMED: Left heart catheterization, coronary cineangiography, PTCA diagonal branch of the LAD, radial artery interpretation and supervision method. DESCRIPTION OF PROCEDURE: Upon arrival in the veterinarian laboratory animal care, the patient was prepped and draped in the usual sterile fashion. After local infiltration with 2% lidocaine, a 7-Ethiopian sheath was placed in the right femoral vein, 7-Ethiopian sheath in the right femoral artery, both sheaths were aspirated and flushed. A 6-Ethiopian EBU 3.5 guiding catheter was advanced under fluoroscopic guidance to the central circulation where it was aspirated and flushed, and after confirmation of adequate waveforms, advanced into left main, cineangiogram of the left anterior descending artery obtained and reviewed. A 0.014-inch Medical Nurse wire was advanced across the left main and ostial LAD to the mid LAD, some calcified stenosis. After multiple unsuccessful attempts at crossing the calcified subtotally occluded LAD, the wire was advanced into the subtotally occluded diagonal branch. A 2.0 x 15 balloon was positioned in the diagonal branch, extending proximally into the LAD and inflated to nominal pressure for less than 1 and balloon was withdrawn. Further attempts to engage the LAD beyond the diagonal branch were attempted and abandoned. Wire was removed from the coronary artery, catheter from the body, over wire sheath was aspirated and flushed. A 6-Ethiopian diagnostic JR4 was advanced under fluoroscopic guidance to the central circulation where it was aspirated and flushed, and after confirmation of adequate waves, it was advanced into the right coronary artery. Cineangiogram of the right coronary obtained and reviewed.. Catheter was removed from the body, over wire sheath was aspirated and flushed. The right coronary catheter was then used to cross the aortic valve in retrograde fashion. Left ventricular end-diastolic pressure was measured. The catheter was removed from the left ventricle to the aorta under continuous pressure monitoring and removed from the body, over wire sheath was aspirated and flushed. After consultation with family, the arterial and venous sheaths were sutured to the right groin. The patient was returned to his room in critical condition. COMPLICATIONS: None. FINDINGS: Left main is small to moderate in caliber with a distal 80% stenosis. Ostial diagonal branch has a 90% stenosis. The mid LAD has a subtotal calcified stenosis beyond the second diagonal branch. Second diagonal branch has an ostial 80% stenosis. Left circumflex has an ostial 80% stenosis. The remainder of the circumflex is free of significant disease. The right coronary artery has extensive but noncritical luminal irregularities. The PDA is small with a mid subtotal occlusion. Left ventricular end-diastolic pressure is markedly elevated. IMPRESSION: 1. Critical mid left anterior descending artery stenosis beyond critical left main, ostial left anterior descending artery and ostial circumflex stenosis, successful percutaneous transluminal coronary angioplasty without stent placement in the diagonal branch only, with unsuccessful attempt at re-perfusion of the mid to distal left anterior descending artery. 2. Markedly elevated left ventricular end-diastolic pressure. RECOMMENDATIONS: After discussion with the patient's family, it is clear that the and daughter knew of the left main stenosis at the time of PCI of the right coronary artery at the time of acute NJ 2 years earlier. Comments including "We knew this day would come" were heard. I offered intraaortic balloon pump placement and transfer to a tertiary care facility for consideration of bypass surgery but explained that given severe LV dysfunction as demonstrated by echocardiogram in the ER, elevated LVDP, prior NJ and general medical condition, surgery would be temporizing at best and unsuccessful at worst. states "He didn't want to be a vegetable." The patient transferred to the ICU. I discussed the case with the nanoscience technician who initiated further treatment in the face of acidosis and was intending to have further conversation with the patient's family regarding palliative care. I attest to the content of the Intraoperative Record and any orders documented therein. Any exceptions are noted below. Dictated: 05/20/171916 Transcribed: 05/21/17145 <Electronically signed by Clint Mejia D.O.> Signed: 05/23/17134 ES Clint Mejia D.O. The status of this report is Signed. Draft = Not yet reviewed or approved by Medical Physician. Signed = Reviewed and approved by Medical Physician. Patient Name: ROSAMARIA KERNS Unit Number: [id number] Dictated: 05/20/172045 Transcribed: 05/20/172045 JACQUELINE Printed Date/Time: [~ rep prt dt]/[~ rep prt tm] [~ rep ct labl] - [~ rep ct ivnm] [facility] [place] [address] Dictated: 05/20/172045 Transcribed: 05/20/172045 JACQUELINE Printed Date/Time: [~ rep prt dt]/[~ rep prt tm] [~ rep ct labl] - [~ rep ct ivnm] Patient: ROSAMARIA KERNS Address1: [address] [place] [address] Rec: [id number] Address2: Acct ID: [id number] [facility] Zip: [place] [address] Date: 1935 Sex: M Room/Bed: E110-1 Ref Phy: Henri Daily M.D. SC: REYNA Att Phy: Jessica Young DO Report #: [id number] Zaynab Phy: Henri Daily M.D. Test: CXR1P Admit Phy: Apurva Zamarripa MD Revenue Cycle Analyst: JONATHAN Interpreting Phy: Toño Gee MD Diagnosis: CHF, MYOCARDIAL INFARCTION Ordering Phy: Apurva Zamarripa MD Service Date: 05/20/17 Admit Date: 05/20/1708/11/17 MNE: [id number] CONF: DICTATED BY: Toño Gee MD]] CC: Henri Daily M.D. Stevens, Jessica A., DO Wardeh, Anas ., MD Endcc: [~ rep ct add3]] CHEST ONE VIEW PORTABLE CLINICAL HISTORY: Central line insertion. COMPARISON STUDY: Chest radiograph May 20, 2017 at 5:48 PM. FINDINGS: Tip of the endotracheal tube is difficult to visualize but is likely either at or just above the feliz. Tip of nasogastric tube is below the lower aspect of this image but shown to be within the proximal body of the stomach on the KUB which was performed concurrently. There is no pneumothorax. Bilateral pleural effusions are unchanged. There is persistent interstitial thickening suggestive of pulmonary edema. This has slightly improved. There has been interval placement of a right internal jugular central line with tip in the SVC. IMPRESSION: 1. Interval placement of a right internal jugular central line with tip in SVC. No pneumothorax. 2. Tip of endotracheal tube obscured on this exam but likely either at or just above the feliz. 3. No significant change in small to moderate bilateral pleural effusions and associated bibasilar opacities. 4. Moderate pulmonary edema, slightly improved since prior exam. Electronically signed by: Toño Gee M.D. 05/20/2017 8:55 PM Dictated Date/Time: 05/20/2017 8:46 PM The status of this report is Signed. Draft = Not yet reviewed or approved by Radiologist. Signed = Reviewed and approved by Radiologist. <AttendingPhy>Jessica Young DO</AttendingPhy> <FamilyPhy>Henri Daily M.D.</FamilyPhy> <PrimaryPhy>Henri Daily M.D.</PrimaryPhy> <UnitNumber> [id number]</UnitNumber> <VisitNumber>[id number]</VisitNumber> <PatientName> ROSAMARIA KERNS</PatientName> <DateOfBirth>1935</DateOfBirth> <Location> C.[facility]</Location> <ServiceDate>05/20/17</ServiceDate> <MNE>ESINDI</MNE> < OrderingPhy>Apurva Zamarripa MD</OrderingPhy> <OrderingPhyMNE>f rep ord dr gregg</ OrderingPhyMNE> <DictatingPhyMNE>f rep dict dr gregg</DictatingPhyMNE> <CCListMNE> f rep ct mne</CCListMNE> <AdmittingPhyMNE>f pt admit dr gregg</AdmittingPhyMNE> < AttendingPhyMNE>f pt attend dr gregg</AttendingPhyMNE> <ConsultingPhyMNE>f pt consult dr gregg</ConsultingPhyMNE> <FamilyPhyMNE>f pt fam dr gregg</FamilyPhyMNE> <OtherPhyMNE>f pt other dr gregg</OtherPhyMNE> < PrimaryPhyMNE>f pt prim care dr gregg</PrimaryPhyMNE> <ReferringPhyMNE>f pt referring dr gregg</ReferringPhyMNE> (Lisette Palmer MD) Medication Reconciliation New Medications: Prednisone (Prednisone) 20 Mg Tab 40 MG PO DAILY for 4 Days, #6 TAB 40mg for 2 days, 20mg for 2 days then stop Continued Medications: Aspirin Enteric Coated (Ecotrin Or Generic) 81 Mg Tab 81 MG PO HS, TAB Furosemide (Lasix) 40 Mg Tab 40 MG PO QAM, TAB Insulin Glargine (Lantus) 100 Unit/Ml Inj Unknown Dose, #30 Isosorbide Mononitrate Ext Rel (Imdur Ext Rel) 30 Mg Ertab 30 MG PO QAM, TAB Metoprolol Succinate (Toprol Xl) 25 Mg Tabcr 25 MG PO BID Multiple Vitamins W/ Minerals (Centrum Silver Adult 50+) 1 Tab Tab 1 TAB PO QAM Potassium Chloride Microencaps (Potassium Chloride Er) 10 Meq Tab 10 MEQ PO QAM Rivaroxaban (Xarelto) 15 Mg Tab 15 MG PO QPM Simvastatin (Simvastatin) 80 Mg Tab 80 MG PO QPM, #30 Spironolactone (Aldactone) 25 Mg Tab 25 MG PO QAM, TAB Discontinued Medications: Lisinopril (Zestril) 5 Mg Tab 5 MG PO QAM, TAB Referrals At Discharge Follow up Referrals: Hospitality Associate Referral - Within 1-2 Weeks @ [facility] with Jensen Bauer MD Discharge Exam Patient was seen at the bedside. He was able to walk around the hallway without having any chest pain or SOB. He is tolerating PO intake well. Denies any complaints today. Review of Systems: Constitutional: No fever, No chills Respiratory: No cough, No shortness of breath Cardiovascular: No chest pain Abdomen: No pain, No nausea, No vomiting, No diarrhea, No constipation Genitourinary - Male: No dysuria Integumentary: No rash Physical Exam: General Appearance: WD/WN, no apparent distress Neck: supple, trachea midline Respiratory/Chest: chest non-tender, lungs clear, normal breath sounds, no respiratory distress, no accessory muscle use Cardiovascular: regular rate, rhythm Abdomen / GI: normal bowel sounds, non tender, soft Extremities: no calf tenderness, no pedal edema Neurologic/Psychiatric: alert, normal mood/affect, oriented x 3 Skin: normal color, warm/dry, no rash (Lisette Palmer MD) Hospital Course This is a 82 y/o M with PMHx of CAD, left main disease (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 He became unresponsive and needed to be intubated. In ED he found to have STEMI in the anterior leads with 1st degree AVB. Patient was taken to the veterinarian laboratory animal care by Dr. Mejia and found severe distal left main disease s/p balloon dilation to 1st diagonal, also noted stenosis in prox LAD. Discussed the result with the family and family informed patient doesn't want any aggressive treatment. Patient was transferred to the ICU for further medical management. One day after patient was extubated. 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 All other deleon are hypokinetic. Decreased RV systolic function. No valvular pathology. He was started on Milrinone for inotropic effect. Given improvement of his symptoms milrinone d/kaelyn. Patient was started on prednisone along with duoneb and his regular home medications given hypoxic, which might be 2/2 COPD exacerbation and acute decompensation of cardiomyopathy. Patient was started on Plavix and ASA. Lisinopril was on hold given his CKD and rising creatinine. Continued Lopressor and statin. Patient symptoms improved and he was transferred to Tele. Cardiology was consulted. Dr. Bauer, who is his regular conference service coordinator saw the patient. He recommended to continue to hold lisinopril, continue dual therapy with Plavix 75mg and ASA, continue Lopressor 25mg and Lasix 40mg. Patient continues to improve. He maintained oxygen sat on room. He was evaluated by OT/PT prior discharge to home. On discharge patient was instructed to continue his home dose of Xarelto (15mg) and ASA; Plavix was d/kaelyn per Cardio recommendation. Lisinopril was on hold and rest of his medications were continued. Patient also had thrombocytopenia during his hospital stay which resolved during discharge. His plt count on discharge [id number]. Total Time Spent: Greater than 30 minutes This includes examination of the patient, discharge planning, medication reconciliation, and communication with other providers. (Lisette Palmer MD) Resident Physician Supervision Note: I was present with Dr. Palmer during the history and exam. I discussed the case with the resident and agree with the findings and plan as documented in the note. Any exceptions or clarifications are listed here: Patient without chest pain or SOB with ambulation. I personally discussed with cardiology regarding medications and follow up and reviewed changes with the patient. Documented By: Matias Greene Total Time Spent: Greater than 30 minutes 45 minutes was spent seeing this patient, discussing with specialist, and reconciling medications. (Matias Greene.,D.O.) Discharge Instructions Please refer to the electronic Patient Visit Report (Discharge Instructions) for additional information. (Lisette Palmer MD) Additional Copies To Henri Daily M.D.
[2017-05-26] MEDS ORDERED: INSULIN GLARGINE SOLOSTAR 100 UNITS/ML 3 ML PEN SC SCH (09:00)
== END 2017-05-25 15:01 | disposition home or self-care (01) | DRG 250 ==
LOC: EDBD 17:28 → C.ED 17:29 → C.MSICU 18:53 → C.2T 05-24 06:10
PROVIDERS: ADMIT Internal Medicine; ATTEND Family Medicine
PROC: 02HV33Z Insertion of Infusion Device into Superior Vena Cava, Percutaneous Approach (ICD-10-PCS; 2017-05-20)
PROC: B2151ZZ Fluoroscopy of Left Heart using Low Osmolar Contrast (ICD-10-PCS; 2017-05-20)
PROC: 4A023N7 Measurement of Cardiac Sampling and Pressure, Left Heart, Percutaneous Approach (ICD-10-PCS; 2017-05-20)
PROC: B2111ZZ Fluoroscopy of Multiple Coronary Arteries using Low Osmolar Contrast (ICD-10-PCS; 2017-05-20)
PROC: 02703ZZ Dilation of Coronary Artery, One Artery, Percutaneous Approach (ICD-10-PCS; 2017-05-20)
PROC: 5A1935Z Respiratory Ventilation, Less than 24 Consecutive Hours (ICD-10-PCS; principal; 2017-05-20 19:11)
PROC: 0BH17EZ Insertion of Endotracheal Airway into Trachea, Via Natural or Artificial Opening (ICD-10-PCS; principal; 2017-05-20 19:11)
DX: I21.09 ST elevation (STEMI) myocardial infarction involving other coronary artery of anterior wall (principal); J96.22 Acute and chronic respiratory failure with hypercapnia; R57.0 Cardiogenic shock; I50.23 Acute on chronic systolic (congestive) heart failure; J44.1 Chronic obstructive pulmonary disease with (acute) exacerbation; E87.2 Acidosis; I13.0 Hypertensive heart and chronic kidney disease with heart failure and stage 1 through stage 4 chronic kidney disease, or unspecified chronic kidney disease; I25.5 Ischemic cardiomyopathy; I44.0 Atrioventricular block, first degree; I25.10 Atherosclerotic heart disease of native coronary artery without angina pectoris; I25.84 Coronary atherosclerosis due to calcified coronary lesion; D69.6 Thrombocytopenia, unspecified; D64.9 Anemia, unspecified; E11.65 Type 2 diabetes mellitus with hyperglycemia; D72.829 Elevated white blood cell count, unspecified; T38.0X5A Adverse effect of glucocorticoids and synthetic analogues, initial encounter; E11.22 Type 2 diabetes mellitus with diabetic chronic kidney disease; N28.9 Disorder of kidney and ureter, unspecified; N18.3 Chronic kidney disease, stage 3 (moderate); I48.91 Unspecified atrial fibrillation; E78.00 Pure hypercholesterolemia, unspecified; E78.5 Hyperlipidemia, unspecified; R91.8 Other nonspecific abnormal finding of lung field; I25.2 Old myocardial infarction; Z93.3 Colostomy status; Z87.891 Personal history of nicotine dependence; Z79.82 Long term (current) use of aspirin; Z79.01 Long term (current) use of anticoagulants; Z79.4 Long term (current) use of insulin; Z79.899 Other long term (current) drug therapy

== ENCOUNTER → 2017-07-26 | Outpatient (CLI) | payer OTHER ==
[~2017-07-26] MED LIST changes: -AMIODARONE HCL INJ 50 MG/ML 3 ML VIAL IV ONE; -ASPEC81 PO; +ASPI81TA21 PO; -ATOR-24 PO; +ATOR-26 PO; -ATROPINE SULFATE 0.1 MG/ML 10 ML SYR IV ONE; -DEXTROSE 5% 100 ML BAG IV ONE; -DEXTROSE 50% 50 ML SYR IV ONE; +INSDGI; -INSDGI SC; -KETAMINE HCL INJ 50 MG/ML 10 ML VIAL IV ONE; -LISI-729 PO; +PRD20 PO; -SODIUM BICARB 8.4% INJ 50 MEQ/50 ML SYR IV ONE; -SODIUM CHLORIDE 0.9% 10ML FLUSH IV ONE; -SUCCINYLCHOLINE CHLORIDE 20 MG/ML 10 ML VIAL IV ONE; +ZCR80 PO
[2017-07-26 13:15] VITALS: BP 122/62; PULSE 45; TEMP 36.2; O2SAT 100
--- NOTE | 2017-07-26 14:22 | Radiation Oncology Follow-Up ---
Radiation Oncology Follow-Up Date of Visit Jul 26, 2017. Reason For Visit Annual follow-up Radiation Completion Date 11/20/14 Diagnosis (1) Rectal carcinoma Status: Resolved Onset Date: 08/13/2014 Histology Subtype: adenocarcinoma Stage: lll (B) Permanent Comment: Routine colonoscopy due to history of polyps Finding of adenocarcinoma of the rectum Status post endoscopic ultrasound 09/06/2014, stage uT4a uN1 M0 clinical stage IIIB Status post neoadjuvant radiation and chemotherapy. Radiation completed 2014 received 5460 cGy Chemotherapy comprised of infusional 5-FU, chemotherapy stopped due to thrombocytopenia Status post abdominal peritoneal resection performed robotically 01/20/2015 Pathology stage ypT2 ypN0 Surgery was complicated by an acute myocardial infarction The patient had subsequent DE and congestive heart failure No further chemotherapy has been advised Last Edited By: Estrella Randolph on Jun 19, 2015 16:18 History of Present Illness Mr. Casillas has multiple comorbidities and was found to be anemic as part of his ongoing evaluation. He has a prior history of colonic polyps and in May 2002 underwent colonoscopy that revealed a cecal polyp which was biopsied revealing a tubular adenoma and a polyp in the ascending colon positive for tubulovillous adenoma. Specimen #0 [id number]. In June 2002 a rectal polypectomy was performed identifying an adenocarcinoma in situ arising within a tubular adenoma with no invasive carcinoma seen. Specimen #0 [id number]. His hemoglobin on 04/10/2014 was 11.9 with hematocrit of 37.1. On 08/13/2014 Dr. Thuan Vazquez underwent a colonoscopy secondary to his history of polyps and the recent anemia. This examination revealed a large ulcerated rectal mass with active bleeding. Also noted was a large pedunculated sigmoid colon polyp >3 cm. This was removed by hot snare polypectomy and an Endo clip placed 3. A sending colon polyps 2 were noted. These were sessile measuring from 0.4- 0.5 cm. These were completely removed via hot snare. A CEA was performed and was normal at 0.5. The ascending colonic polyps revealed fragments of colonic mucosa with hyperplastic change. The sigmoid polyp revealed a tubular adenoma. The rectal mass biopsies revealed a moderately differentiated invasive adenocarcinoma. 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 Intact expression of all 4 proteins is present within the carcinoma. The immunohistochemistry findings are not consistent with microsatellite instability. Case: [id number]. Patient underwent a staging CT scan of the chest abdomen and pelvis. The chest CT showed multiple tiny pulmonary nodules the largest of these is noted within the right lower lobe posterior medially and measures 5 mm. A three-month follow-up was suggested. A centrally hypodense enhancing splenic lesion was noted that was felt to represent a splenic hemangioma. CT scan of the abdomen and pelvis showed no evidence of bowel obstruction or abdominal free air. Diverticulosis was appreciated without evidence of abscess. Rectosigmoid wall thickening was appreciated. A 5 mm right lower lobe pulmonary nodule was noted. A 2.4 cm hypervascular targetoid lesion was noted within the spleen. A 1.3 cm hypervascular lesion was noted within the liver demonstrating peripheral nodular enhancement. A 1.1 cm left anal gland nodule was noted. The patient was seen in referral by Dr. Anton James. He scheduled the patient used be seen by Dr. Sandhu for endoscopic staging. He also scheduled according to the patient and his an ultrasound of the liver and a bone marrow biopsy. These results are pending. On 09/06/2014 the patient was evaluated by Dr. Sandhu. He recommended an MRI of the pelvis however this was not possible due to the placement of Endo clips. He performed an endoscopy and endorectal ultrasound. His rectal exam revealed a palpable mass present at 5 cm from the anal verge in the anterior region of the rectum extending up to 10 cm. The tumor was identified and appeared to be a T1 tumor however at the center of the tumor there was invasion through the muscularis into the perirectal fat. He staged this as a uT4a. In addition 3 lymph nodes were noted to be enlarged raising the possibility of lymph node involvement. Final ultrasound staging is T4a N1. We were asked to see the patient for evaluation and discussion of the role of radiation and chemotherapy as neoadjuvant therapy prior to a planned surgical excision. Status post neoadjuvant radiation chemotherapy. Radiation completed 11/20/2014 received 5460 cGy. Chemotherapy was initiated with infusional 5-FU but stopped due to thrombocytopenia. Interim History He's been doing well regards to the prior history of rectal cancer. He denies any abdominal pain or discomfort. There is been no change in the function of his ostomy. He seen no bleeding. He is up-to-date in follow-up with medical oncology and the colorectal surgeon. He'll be having laboratory studies for the medical oncologist and seeing him next week. He had a colonoscopy by Dr. Garcia 08/06/2016. 2 polyps were removed from the cecum. These were tubular adenomas case [id number]. The skin in the perineal region is easily irritated. He states he has to be careful how he slides across the seed of scar. This can cause irritation to the tissue in this area. Unfortunately he suffered a myocardial infarction and was hospitalized in May. He is steadily recuperating and doing well. Allergies Coded Allergies: NO KNOWN DRUG ALLERGIES (Verified Allergy, Mild, ., 08/06/16) Poison Emily Extract/Poison [place] Extra (Verified Adverse Reaction, Severe, SKIN BLISTERS ON CHEST, 08/06/16) Home Medications Scheduled Aspirin Enteric Coated (Ecotrin Or Generic), 81 MG PO HS Atorvastatin (Lipitor), 80 MG PO DAILY Furosemide (Lasix), 40 MG PO QAM Isosorbide Mononitrate Ext Rel (Imdur Ext Rel), 30 MG PO QAM Metoprolol Succinate (Toprol Xl), 25 MG PO BID Multiple Vitamins W/ Minerals (Centrum Silver Adult 50+), 1 TAB PO QAM Potassium Chloride Microencaps (Potassium Chloride Er), 10 MEQ PO QAM Rivaroxaban (Xarelto), 15 MG PO QPM Spironolactone (Aldactone), 25 MG PO QAM Miscellaneous Medications Insulin Glargine (Lantus) Review of Systems Gastrointestinal: Symptoms: WNL Oral: Symptoms: No Problems Respiratory: Symptoms: WNL Urinary: Symptoms: WNL Skin: Symptoms: No Problems Physical Exam Vital Signs Date Time Temp Pulse Resp B/P (MAP) Pulse Ox O2 Delivery O2 Flow Rate FiO2 07/26/17 13:15 36.2 45 18 122/62 100 General Appearance: no apparent distress Eyes: normal inspection, EOMI ENT: normal ENT inspection, hearing grossly normal Respiratory/Chest: lungs clear, no respiratory distress, no accessory muscle use Cardiovascular: regular rate, rhythm, no gallop, no murmur Abdomen: non tender, soft, no organomegaly Anal / Rectum: Perineal area reveals no telangiectasia. No induration. Extremities: no pedal edema Neurologic/Psychiatric: no motor/sensory deficits, alert, normal mood/affect Skin: warm/dry Laboratory Studies Test 04/29/17 08:58 05/20/17 17:46 05/20/17 17:47 05/20/17 17:51 Globulin 3.3 gm/dl (2.5-4.0) Albumin/Globulin Ratio 0.9 (0.9-2) Carcinoembryonic Antigen < 0.5 ng/ml (0-2.5) Neutrophils % (Manual) 68.9 % Lymphocytes % (Manual) 9.5 % Variant Lymphocytes % (manual) 9.5 % Monocytes % (Manual) 9.5 % Eosinophils % (Manual) 1.7 % Basophils % (Manual) 0.9 % (0-2) Neutrophils # (Manual) 8.26 K/uL (1.4-6.5) Total Absolute Neutrophils 8.26 K/uL (1.4-6.5) Lymphocytes # (Manual) 1.14 K/uL (1.2-3.4) Absolute Variant Lymphocytes 1.14 K/uL Total Absolute Lymphocytes 2.28 K/uL (1.2-3.4) Monocytes # (Manual) 1.14 K/uL (0.11-0.59) Eosinophils # (Manual) 0.20 K/uL (0-0.5) Basophils # (Manual) 0.11 K/uL (0-0.2) Platelet Estimate NORMAL Total Creatine Kinase 100 U/L (39-308) Creatine Kinase MB 7.8 ng/ml (0.5-3.6) Creatine Kinase MB Ratio 7.8 (0-3.0) Troponin I 0.069 ng/ml (0-0.045) LDL Cholesterol Direct 115 mg/dl Beta-Hydroxybutyric Acid 1.43 mg/dL (0.2-2.81) POC Lactic Acid Venous 2.97 mmol/L (0.90-1.70) POC Hemoglobin 15.3 g/dl (14.0-18.0) POC Hematocrit 45 % (42-52) POC Sodium 145 mEq/L (135-144) POC Potassium 5.2 mEq/L (3.3-5.0) POC Chloride 115 mEq/L (101-112) POC Total CO2 20 mEq/l (24-31) POC Blood Urea Nitrogen 45 mg/dl (7-18) POC Creatinine 2.1 mg/dl (0.6-1.3) POC Ionized Calcium (Isaac) 1.27 mmol/l (1.12-1.32) Test 05/20/17 18:16 8/12/17 04:10 05/21/17 04:59 05/21/17 11:05 Kaolin Activated Coagulation Time 147 SECONDS (94-140) Schistocytes 1+ Phosphorus Level 1.9 mg/dl (2.5-4.9) Magnesium Level 1.9 mg/dl (1.8-2.4) Total Bilirubin 0.7 mg/dl (0.2-1) Direct Bilirubin 0.2 mg/dl (0-0.2) Aspartate Amino Transferase (AST) 34 U/L (15-37) Alanine Aminotransferase (ALT) 41 U/L (12-78) Alkaline Phosphatase 97 U/L (45-117) Total Protein 6.2 gm/dl (6.4-8.2) Albumin 2.8 gm/dl (3.4-5.0) POC Oxygen Rate (breaths/min) 26 Blood Gas Minute Ventilation 15.1 POC FiO2 100 % 70 % Blood Gas Tidal Volume 600 Blood Gas PEEP 8 5 Blood Gas Sample Site Art Line POC Blood Gas pH 7.27 (7.35-7.45) POC Blood Gas pCO2 48 mmHg (35-46) POC Blood Gas pO2 201 mmHg (80-95) POC Blood Gas HCO3 22 meq/L (19-24) POC Blood Gas Total CO2 24 mEq/l (24-31) POC Blood Gas Base Excess -5.0 meq/L (-9-1.8) POC Blood Gas O2 Saturation 100.0 % (90-95) Alon Test Pass Oxygen Delivery Device Ventilator Test 05/21/17 12:16 05/21/17 13:56 05/21/17 15:05 05/21/17 19:55 POC Glucose 113 mg/dl (70-99) 112 mg/dl (70-99) Blood Gas Sample Site Art Line POC Blood Gas pH 7.35 (7.35-7.45) POC Blood Gas pCO2 34 mmHg (35-46) POC Blood Gas pO2 74 mmHg (80-95) POC Blood Gas HCO3 19 meq/L (19-24) POC Blood Gas Total CO2 19 mEq/l (24-31) POC Blood Gas Base Excess -7.0 meq/L (-9-1.8) POC Blood Gas O2 Saturation 94.0 % (90-95) Alon Test Pass Oxygen Delivery Device Cannula Hepatitis A IgM Antibody NON-REACTIVE (NON-REACTIVE) Hepatitis B Surface Antigen NEG (NEG) Hepatitis B Core IgM Antibody NON-REACTIVE (NON-REACTIVE) Hepatitis C Antibody NEG (NEG) HIV (1&2) Ab and P24 Ag, 4th Gener NEG (NEG) Test 05/22/17 03:38 05/22/17 22:54 05/23/17 00:00 05/23/17 04:49 Platelet Estimate NORMAL Ovalocytes 1+ Echinocytes 1+ Magnesium Level 1.9 mg/dl (1.8-2.4) Beta-Hydroxybutyric Acid 1.45 mg/dL (0.2-2.81) Hepatitis C Antibody NEG (NEG) HIV-1 Antibody Rapid Screen NEG (NEG) Immature Granulocyte % (Auto) 0.2 % White Blood Count 11.03 K/uL (4.8-10.8) Red Blood Count 3.44 M/uL (4.7-6.1) Hemoglobin 10.7 g/dL (14.0-18.0) Hematocrit 33.9 % (42-52) Mean Corpuscular Volume 98.5 fL (80-100) Mean Corpuscular Hemoglobin 31.1 pg (25-34) Mean Corpuscular Hemoglobin Concent 31.6 g/dl (32-36) Platelet Count 91 K/uL (130-400) Mean Platelet Volume 12.5 fL (7.4-10.4) Neutrophils (%) (Auto) 95.3 % Lymphocytes (%) (Auto) 3.1 % Monocytes (%) (Auto) 1.4 % Eosinophils (%) (Auto) 0.0 % Basophils (%) (Auto) 0.0 % Neutrophils # (Auto) 10.52 K/uL (1.4-6.5) Lymphocytes # (Auto) 0.34 K/uL (1.2-3.4) Monocytes # (Auto) 0.15 K/uL (0.11-0.59) Eosinophils # (Auto) 0.00 K/uL (0-0.5) Basophils # (Auto) 0.00 K/uL (0-0.2) Immature Granulocyte # (Auto) 0.02 K/uL (0.00-0.02) Tear Drop Cells 1+ Test 05/24/17 04:58 05/25/17 06:19 05/25/17 07:05/25/17 07:26 RDW Standard Deviation 50.9 fL (36.4-46.3) 50.1 fL (36.4-46.3) RDW Coefficient of Variation 14.1 % (11.5-14.5) 13.9 % (11.5-14.5) White Blood Count 14.34 K/uL (4.8-10.8) 12.73 K/uL (4.8-10.8) Red Blood Count 3.52 M/uL (4.7-6.1) 3.83 M/uL (4.7-6.1) Hemoglobin 11.5 g/dL (14.0-18.0) Hematocrit 34.7 % (42-52) Mean Corpuscular Volume 98.6 fL (80-100) 99.2 fL (80-100) Mean Corpuscular Hemoglobin 32.7 pg (25-34) 32.4 pg (25-34) Mean Corpuscular Hemoglobin Concent 33.1 g/dl (32-36) 32.6 g/dl (32-36) Platelet Count 145 K/uL (130-400) 168 K/uL (130-400) Mean Platelet Volume 11.2 fL (7.4-10.4) 12.0 fL (7.4-10.4) Neutrophils (%) (Auto) 94.5 % Lymphocytes (%) (Auto) 4.2 % Monocytes (%) (Auto) 1.0 % Eosinophils (%) (Auto) 0.0 % Basophils (%) (Auto) 0.0 % Neutrophils # (Auto) 13.55 K/uL (1.4-6.5) Lymphocytes # (Auto) 0.60 K/uL (1.2-3.4) Monocytes # (Auto) 0.14 K/uL (0.11-0.59) Eosinophils # (Auto) 0.00 K/uL (0-0.5) Basophils # (Auto) 0.00 K/uL (0-0.2) Immature Granulocyte % (Auto) 0.3 % Immature Granulocyte # (Auto) 0.05 K/uL (0.00-0.02) Ovalocytes 1+ Echinocytes 1+ Prothrombin Time 11.2 SECONDS (9.0-12.0) 10.8 SECONDS (9.0-12.0) Prothrombin Time INR 1.0 (0.9-1.1) 1.0 (0.9-1.1) PTT 24.6 SECONDS (21.0-31.0) 24.3 SECONDS (21.0-31.0) Partial Thromboplastin Ratio 0.9 0.9 Est Creatinine Clear Calc Drug Dose 25.9 ml/min 27.0 ml/min POC Glucose 133 mg/dl (70-99) Test 05/25/17 11:14 06/22/17 08:44 07/19/17 11:55 07/26/17 13:59 POC Glucose 110 mg/dl (70-99) Sodium Level 138 mmol/L (136-145) Potassium Level 4.2 mmol/L (3.5-5.1) Chloride Level 104 mmol/L (98-107) Carbon Dioxide Level 26 mmol/L (21-32) Anion Gap 8.0 mmol/L (3-11) Blood Urea Nitrogen 75 mg/dl (7-18) Creatinine 2.20 mg/dl (0.60-1.40) Estimated GFR () 31.6 Estimated GFR (Non- 27.3 BUN/Creatinine Ratio 34.0 (10-20) Random Glucose 242 mg/dl (70-99) Calcium Level 8.5 mg/dl (8.5-10.1) Hemoglobin 11.3 g/dL (14.0-18.0) Hematocrit 33.0 % (42-52) Assessment & Plan Plan: Continue regular follow-up with medical oncology. She'll be seen next week and has recheck laboratory studies. He'll continue follow-up with the colorectal surgeon who is planning x-rays at approximately one year. Continue follow-up with his primary care provider. We asked him to return to our office in 1 year. He will call if he has any questions or concerns in the interim. Total Time In Follow-Up I spent 20 minutes speaking to the patient performing examination. I spent 15 minutes reviewing information and completing this note. Copy To Henri Daily M.D.; Jaylon Cartwright D.O.; Korey Sandhu M.D.
== END | disposition home or self-care (01) ==
LOC: C.ONC 13:01
PROVIDERS: ATTEND Physician Assistant Medical
DX: Z08 Encounter for follow-up examination after completed treatment for malignant neoplasm (principal); Z92.3 Personal history of irradiation; Z85.048 Personal history of other malignant neoplasm of rectum, rectosigmoid junction, and anus

== ENCOUNTER → 2017-09-19 | Outpatient (CLI) | payer OTHER ==
[~2017-09-19] MED LIST changes: -PRD20 PO; -ZCR80 PO
[2017-09-19 09:01] LABS: ALT/SGPT 10 U/L (12-78); AST/SGOT 9 U/L (15-37); BLOOD UREA NITROGEN 59 mg/dl (7-18); CALCIUM 8.6 mg/dl (8.5-10.1); CARBON DIOXIDE 24 mmol/L (21-32); CHLORIDE 103 mmol/L (98-107); CHOLESTEROL 134 mg/dl (0-200); CREATININE 2.36 mg/dl (0.60-1.40); GLUCOSE 249 mg/dl (70-99); POTASSIUM 4.2 mmol/L (3.5-5.1); SODIUM 136 mmol/L (136-145); TRIGLYCERIDES 83 mg/dl (0-150); VERY LOW DENSITY LIPOPROT CALC 17 mg/dl
[2017-09-19 09:08] LABS: ESTIMATED AVERAGE GLUCOSE 232 mg/dl; HA1C FLAG Normal (Normal)
[2017-09-19 09:11] LABS: CHOLESTEROL/HDL RATIO 3.2; HDL CHOLESTEROL 42 mg/dl; LDL CHOLESTEROL CALCULATED 75 mg/dl
== END | disposition home or self-care (01) ==
LOC: C.LAB1850 07:40
PROVIDERS: ATTEND Internal Medicine
DX: E11.9 Type 2 diabetes mellitus without complications (principal)

== ENCOUNTER → 2017-10-06 | Outpatient (CLI) | payer OTHER ==
[2017-10-06 09:49] LABS: FERRITIN 112.4 ng/ml (8.0-388.0)
== END | disposition home or self-care (01) ==
LOC: C.LAB1850 06:56
PROVIDERS: ATTEND Internal Medicine
DX: D64.9 Anemia, unspecified (principal)

== ENCOUNTER → 2017-11-25 | Outpatient (CLI) | payer OTHER ==
[~2017-11-25] MED LIST changes: -METO25TA3 PO; +METO25TA4 PO
--- NOTE | 2017-11-25 15:04 | DIAGNOSTIC IMAGING REPORT ---
(CHEST) THORAX WITHOUT CLINICAL HISTORY: 82 years-old Male presenting with C20 Rectal [id number] Lung nodule. TECHNIQUE: Multidetector CT imaging of the chest was performed without the use of intravenous contrast. IV contrast: None. A dose lowering technique was used consistent with the principles of ALARA (as low as reasonably achievable). COMPARISON: 05/04/2017. CT DOSE (mGy.cm): The estimated cumulative dose is 1458.41 mGycm. FINDINGS: Cloth Winding Supervisor topogram: Cardiomegaly. On soft tissue windows, hypodense 13 mm left left thyroid lobe nodule, unchanged. Bilateral gynecomastia. Multiple enlarged mediastinal lymph nodes as on prior exam in the right paratracheal, precarinal, subcarinal, and prevascular regions. These measure up to 10 mm in the short axis and are overall stable to slightly less prominent than on prior exam. Suspected right hilar lymph nodes though the jesse are suboptimally assessed without intravenous contrast. Atherosclerosis of the aorta. Multichamber enlargement of the heart. Coronary artery calcification. Trace right and small left pleural effusions, which appear loculated. Additionally, nodular appearing pleural thickening on the right. Pleural thickening is not as evident on the left. Nodular thickening of the left adrenal gland. On lung windows, architectural distortion of the right middle and lower lobes. Nodular opacities in the medial basal right lower lobe, grossly unchanged from prior. Mild apical predominant emphysema. Vague groundglass nodule at the right apex (series 4 image 65) the series, unchanged. Few additional scattered small nodules in the right upper lobe. Similar findings are not evident in the left upper lobe allowing for respiratory motion artifact. No new nodule. Bandlike groundglass opacities at the left lung base likely extensive atelectasis. Central airways patent. Mild bronchial wall thickening most pronounced in the lower lobes and on the right. On bone windows, degenerative changes of the spine. IMPRESSION: 1. Nodular opacity at the medial basal right lower lobe is unchanged from prior. No new nodule. 2. Extensive architectural distortion of the right middle and lower lobes, which is chronic and may represent posttreatment change. 3. Chronic loculated pleural effusions, left greater than right, with pleural thickening on the right, unchanged. Metastatic involvement is not excluded. 4. Stable subcentimeter groundglass nodule in the right apex. Continued follow-up recommended. Nodularity at the right apex could represent respiratory bronchiolitis in the setting of smoking related lung injury. 5. Emphysema. 6. Stable to slight decrease in mediastinal lymphadenopathy. 7. Cardiomegaly. Electronically signed by: Carlos Alberto Neil M.D. 11/25/2017 3:02 PM Dictated Date/Time: 11/25/2017 2:52 PM
--- NOTE | 2017-11-25 15:17 | DIAGNOSTIC IMAGING REPORT ---
ABDOMEN AND PELVIS CT WITH ORAL CONTRAST CT DOSE: HISTORY: C20 Rectal adenocarcinoma R91.1 Lung nodule TECHNIQUE: Multiaxial CT images of the abdomen and pelvis were performed following the use of oral contrast. A dose lowering technique was utilized adhering to the principles of ALARA. COMPARISON STUDY: Abdomen and pelvis CT 08/13/2014. FINDINGS: The heart remains enlarged. Right lower lobe nodules are again noted. There is a trace right and small left pleural effusion. These findings are better appreciated on the same day chest CT. Large fat-containing right inguinal hernia. There is also a large left inguinal hernia containing a loop of small bowel. Small umbilical hernia containing a short segment of small bowel. There is a large left parastomal hernia containing multiple loops of large and small bowel. The rectum has been resected. There is pelvic floor collapse. Mild right lateral bladder wall thickening. No retroperitoneal lymphadenopathy. The unenhanced liver demonstrates a 1.6 cm hypodense lesion within the right hepatic dome. This is similar to the 2014 examination and favors a hemangioma. No new hepatic or splenic masses. The adrenal glands and pancreas are unremarkable. Left-sided nephrolithiasis. No hydronephrosis. Normal right kidney. No evidence for bowel obstruction. Suboptimal evaluation for bowel pathology due to the lack of intravenous and oral contrast. However, there is no definite bowel wall thickening. No suspicious lytic or blastic osseous lesions. IMPRESSION: 1. No evidence for metastatic disease within the abdomen or pelvis. 2. Please refer to the dedicated chest CT for further evaluation of the abnormality at the lung bases. 3. Ventral and inguinal hernias as described above. No evidence for bowel obstruction. 4. Postoperative changes as described above. 5. Mild right lateral asymmetric bladder wall thickening. This is nonspecific. Consider follow-up cystitis or cystoscopy for further evaluation. 6. Left-sided nephrolithiasis. No hydronephrosis. 7. Stable 1.6 cm hypodense lesion within the right hepatic dome. This favors a hemangioma. Electronically signed by: George Kingsley M.D. 11/25/2017 3:16 PM Dictated Date/Time: 11/25/2017 3:06 PM
== END | disposition home or self-care (01) ==
LOC: C.CTS 12:25
PROVIDERS: ATTEND Internal Medicine
DX: C20 Malignant neoplasm of rectum (principal); R91.1 Solitary pulmonary nodule; K43.9 Ventral hernia without obstruction or gangrene; K40.90 Unilateral inguinal hernia, without obstruction or gangrene, not specified as recurrent; N20.0 Calculus of kidney; K76.9 Liver disease, unspecified

== ENCOUNTER → 2018-01-03 | Outpatient (CLI) | payer OTHER ==
[2018-01-03 09:44] LABS: HEMATOCRIT 35.1 % (42-52); HEMOGLOBIN 11.9 g/dL (14.0-18.0); MEAN CELL VOLUME 91.4 fL (80-100); MEAN CORPUSCULAR HGB CONC 33.9 g/dl (32-36); RED CELL DISTRIBUTION WIDTH CV 15.9 % (11.5-14.5); RED CELL DISTRIBUTION WIDTH SD 53.1 fL (36.4-46.3); WHITE BLOOD COUNT 8.88 K/uL (4.8-10.8)
[2018-01-03 09:48] LABS: HEMOGLOBIN A1C 10.4 % (4.5-5.6)
[2018-01-03 10:02] LABS: CREATININE RANDOM URINE 94.5 mg/dl
[2018-01-03 10:04] LABS: PLATELET COUNT 177 K/uL (130-400)
[2018-01-03 10:05] LABS: BASO % 0.2 %; BASO ABS # 0.02 K/uL (0-0.2); EOS % 1.2 %; EOS ABS # 0.11 K/uL (0-0.5); IG# 0.05 K/uL (0.00-0.02); LYMPH % 5.5 %; LYMPH ABS # 0.49 K/uL (1.2-3.4); MONO % 7.1 %; MONO ABS # 0.63 K/uL (0.11-0.59); NEUT % 85.4 %; NEUT ABS # 7.58 K/uL (1.4-6.5)
[2018-01-03 10:13] LABS: ALT/SGPT 24 U/L (12-78); AST/SGOT 11 U/L (15-37); BLOOD UREA NITROGEN 68 mg/dl (7-18); CALCIUM 8.6 mg/dl (8.5-10.1); CARBON DIOXIDE 23 mmol/L (21-32); CHOLESTEROL 124 mg/dl (0-200); CREATININE 2.22 mg/dl (0.60-1.40); GLUCOSE 139 mg/dl (70-99); POTASSIUM 4.1 mmol/L (3.5-5.1); SODIUM 139 mmol/L (136-145)
[2018-01-03 10:18] LABS: LDL CHOLESTEROL CALCULATED 67 mg/dl
== END | disposition home or self-care (01) ==
LOC: C.LAB1850 08:24
PROVIDERS: ATTEND Internal Medicine
DX: N28.9 Disorder of kidney and ureter, unspecified (principal); I10 Essential (primary) hypertension; E11.9 Type 2 diabetes mellitus without complications

== ENCOUNTER 2019-08-03 22:49 | Inpatient (IN) ==
[2019-08-04 00:19] LABS: Alanine Aminotransferase 20 U/L (12-78); Albumin Globulin Ratio 0.6 (0.9-2); Albumin Level 2.6 gm/dl (3.4-5.0); Aspartate Aminotransferase 42 U/L (15-37); Bilirubin,Total 0.9 mg/dl (0.2-1); Blood Urea Nitrogen 66 mg/dl (7-18); Calcium 8.5 mg/dl (8.5-10.1); Carbon Dioxide 26 mmol/L (21-32); Chloride 90 mmol/L (98-107); Est GFR (African American) 28.8; Est GFR (Non-African American) 24.8; Glucose 812 mg/dl (70-99); Sodium 125 mmol/L (136-145); Total Protein 6.6 gm/dl (6.4-8.2)
[2019-08-04 00:25] LABS: Alkaline Phosphatase 135 U/L (45-117); Troponin I 0.152 ng/ml (0-0.045)
[2019-08-04] MEDS ORDERED: SODIUM CHLORIDE 0.9% 500 ML IV ONE (00:27)
[2019-08-04] MEDS ORDERED: SODIUM CHLORIDE 0.9% 500 ML IV SCH (00:30)
[2019-08-04 00:31] LABS: Hematocrit (blood only) 41.3 % (42-52); Hemoglobin 13.5 g/dL (14.0-18.0); Mean Corpuscular Hemoglobin 30.6 pg (25-34); Mean Corpuscular Hgb Conc 32.7 g/dL (32-36); Mean Corpuscular Volume 93.7 fL (80-100); Mean Platelet Volume 11.7 fL (7.4-10.4); Platelet Count 178 K/uL (130-400); RDW Standard Deviation 51.7 fL (36.4-46.3); Red Blood Count 4.41 M/uL (4.7-6.1)
[2019-08-04 00:32] LABS: Basophils # (auto) 0.01 K/uL (0-0.2); Basophils % (auto) 0.1 %; Eosinophils # (auto) 0.02 K/uL (0-0.5); Eosinophils % (auto) 0.2 %; Immature Granulocytes # (auto) 0.05 K/uL (0.00-0.02); Immature Granulocytes % (auto) 0.5 %; Lymphocytes # (auto) 0.37 K/uL (1.2-3.4); Lymphocytes % (auto) 3.8 %; Monocytes # (auto) 0.21 K/uL (0.11-0.59); Monocytes % (auto) 2.2 %; Neutrophils # (auto) 9.04 K/uL (1.4-6.5); Neutrophils % (auto) 93.2 %
[2019-08-04 00:33] LABS: Beta-Hydroxybutyrate 3.25 mg/dl (0.2-2.81)
--- NOTE | 2019-08-04 01:44 | History & Physical Report ---
Date of Service August 04, 2019 Assessment & Plan (1) Hyperglycemia: 84yoM with hx of DM-ID, CAD s/p stent 1st diagonal in 2017 s/p anterior STEMI, severe 2 vessel disease adn critical L main involvement; CHF, HTN, HLD, Afib, CKD, rectal cancer presents from home to the ED for concern of worsening health at home per family Found to have elevated troponin with inverted T waves in lateral leads, glucose of 812 concerning for HHS, NILESH and pseudohyponatremia of 125. Patient also has left groin rash and worsening decubitus ulcer Hyperglycemia: Concern for HHS in the setting of insulin-dependent diabetes mellitus Likely noncompliant with home insulin per history provided by family BSG 812 Beta hydroxybutyrate 3.25 On HHS protocol with insulin drip Received 1 L NS bolus in the ED, on NS at 80 cc/h initially with orders to add D5 and KCl as needed Holding home subcu insulin in the setting of insulin drip -resume once off drip Elevated troponin: Patient denies any chest pain, shortness of breath, lightheadedness Hx of CAD s/p stent 1st diagonal in 2017 s/p anterior STEMI, severe 2 vessel disease and critical L main involvement -patient is high risk for surgical procedure and medically managed only Echo 2016: EF 20%, akinetic segment and mid to distal anterior wall and entire apex other hypokinetic segments, right ventricular systolic dysfunction Troponin elevated to 0.152 EKG: A. fib T wave inversion in anterior leads Eliquis held, started on heparin drip BNP ordered Trend troponin NILESH setting of CKD Baseline creatinine around 2-2.2 BUN/creatinine 66/2.35 Hold home Lasix, spironolactone and metformin On IV fluids as above Monitor BMP Pseudohyponatremia in the setting of hyperglycemia Sodium 125, corrects to 136 Continue to monitor Decubitus ulcer No concern for cellulitis/infection Afebrile, normal WBC Wound care nurse consulted Consider antibiotics if patient becomes febrile, clinically deteriorates Left groin rash Concern for fungal infection versus dermatitis Started on nystatin cream History of hypertension/hyperlipidemia/coronary disease/CHF/A. fib Hx of CAD s/p stent 1st diagonal in 2017 s/p anterior STEMI, severe 2 vessel disease and critical L main involvement -patient is high risk for surgical procedure and medically managed only Echo 2016: EF 20%, akinetic segment and mid to distal anterior wall and entire apex other hypokinetic segments, right ventricular systolic dysfunction Lipid profile: May 2019, triglycerides 79, total cholesterol 130, LDL 72, HDL 42 Hold home Lasix and spironolactone Hold Eliquis as started on heparin drip Continue home Imdur, metoprolol, simvastatin, aspirin History of rectal cancer diagnosed in 2014 [id number] Status post resection with colostomy, radiation, chemo CT abdomen/pelvis in 01/29/2019: No metastatic disease Anemia: Chronic -anemia of chronic disease in the setting of CKD Initially developed anemia in the setting of rectal cancer -improved status post treatment Baseline hemoglobin around 12 Hemoglobin today 13.5 -likely hemo-concentrated setting of dehydration Monitor CBC FEN/GI: On normal saline 80 cc/h-[facility] protocol DVT prophylaxis: Heparin drip -Eliquis held and patient started on heparin drip in the event patient needs debridement and also given elevated troponin Code: Full per discussion with patient and Disposition: PCU telemetry (2) Acute renal failure: (3) Rectal carcinoma: (4) Diabetes mellitus: (5) Hypercholesterolemia: (6) Hypertension: (7) CHF (congestive heart failure): (8) CAD (coronary artery disease): (9) Atrial fibrillation: (10) Decubitus skin ulcer: (11) Hyponatremia: (12) Elevated troponin: History of Present Illness Chief Complaint: Deteriorating health at home Primary Care Provider: Henri Daily MD 84yoM with hx of DM-ID, CAD s/p stent 1st diagonal in 2016 s/p anterior STEMI, severe 2 vessel disease adn critical L main involvement; CHF, HTN, HLD, Afib, CKD, rectal cancer presents from home to the ED for concern of worsening health at home per family. Per patient has been showing signs of failure. Has not been as active for at least 6 months. He also has a decubitus ulcer which has been bleeding. He has diabetes but is not compliant with his insulin. Per his gait is unsteady but he refuses to use a walker or cane. Per no falls. According to he has been more confused today and somewhat disoriented. Per grandchildren his lower extremity edema is much better than before and his feet no longer look blue. Otherwise eating and drinking well Patient denies any headache, lightheadedness, chest pain, shortness of breath, abdominal pain, nausea, vomiting, blood in his ostomy bag, hematuria, dysuria. He reports his left groin erythema has been there for a while and he also reports his decubitus ulcer being there for a long time. He denies any discomfort in his back or left groin region. He denies any discomfort. Allergies Allergy/AdvReac Type Severity Reaction Status Date / Time poison sumac extract Allergy Unknown Rash Verified 08/03/19 23:55 Home Medications Home Medications Medication Instructions Recorded Confirmed Type aspirin 81 mg tablet 81 mg PO DAILY tab 04/23/19 08/03/19 History furosemide 40 mg tablet 40 mg PO BID tab 04/23/19 08/03/19 History insulin glargine (U-100) 100 40 units SUBCUT .use 40units in am 04/23/19 08/03/19 History unit/mL (3 mL) subcutaneous pen #3 ml isosorbide mononitrate ER 30 mg 30 mg PO .COMPLEX tab 04/23/19 08/03/19 History tablet,extended release 24 hr metoprolol succinate ER 25 mg 25 mg PO DAILY #90 tab 04/23/19 08/03/19 History tablet,extended release 24 hr multivitamin tablet 1 tab PO DAILY 04/23/19 08/03/19 History spironolactone 25 mg tablet 25 mg PO DAILY #90 tab 04/23/19 08/03/19 History pregabalin 25 mg capsule 25 mg PO DAILY #90 cap 05/31/19 08/03/19 Rx simvastatin 80 mg tablet 80 mg PO DAILY #90 tab 05/31/19 08/03/19 Rx apixaban 2.5 mg tablet 2.5 mg PO BID #180 tab 06/05/19 08/03/19 Rx metformin 500 mg PO DAILY 08/04/19 08/04/19 History Past Med/Surg History Medical History Atrial fibrillation (Acute) Rectal cancer (Acute) Social History Preferred Language: Estonian Beliefs That Will Affect Care: None Feels Safe at Home: Yes Smoking Status: Former smoker Review of Systems Review of Systems: As per HPI Physical Exam Physical Exam: General: In NAD, opens eyes and holds a conversation then falls asleep and has to be verbally stimulated to speak again Neuro: A&O x 3 HEENT: dry oral mucosa Pulm: CTAB equal but mildly diminished breath sounds bilaterally CV: RRR, no m/r/g, cap refill > 3 secs Abdomen:+BS, no TTP in all quadrants, non-distended, reducible hernia, ostomy site C/D/I, ostomy bag with loose BM, non-bloody and brown in color; Skin: LLQ abdominal and groin region (also involves right testicle) erythematous papules in circular distribution, large foul smelling stage 2-3 decubitus ulcer with central eschar LE: 3+ RLE/pedal edema, 2+ left pedal edema, multiple skin lesions on bilateral LEs with localized scabbing/erythema Results & Data Vital Signs (Past 12 Hours) Vital Signs Temp Pulse Pulse Resp BP BP Pulse Ox 08/04/19 01:00 76 23 116/59 L 08/04/19 00:50 66 17 08/04/19 00:40 81 28 H 08/04/19 00:30 68 15 104/57 L 08/04/19 00:20 68 17 08/04/19 00:10 65 18 08/04/19 00:00 68 22 121/61 08/03/19 23:50 72 21 08/03/19 23:40 85 22 91 08/03/19 23:31 87 28 H 129/63 96 08/03/19 23:30 81 29 H 95 08/03/19 23:20 79 28 H 97 08/03/19 23:18 77 28 H 127/73 98 08/03/19 22:52 36.5 C 20 125/64 Laboratory Results Abnormal lab results 08/03/19 08/03/19 Range/Units 23:38 23:38 RBC 4.41 L (4.7-6.1) M/uL Hgb 13.5 L (14.0-18.0) g/dL Hct 41.3 L (42-52) % RDW Std Deviation 51.7 H (36.4-46.3) fL RDW Coeff of Abdirizak 15.0 H (11.5-14.5) % MPV 11.7 H (7.4-10.4) fL Immature Gran # (Auto) 0.05 H (0.00-0.02) K/uL Neut # (Auto) 9.04 H (1.4-6.5) K/uL Lymph # (Auto) 0.37 L (1.2-3.4) K/uL Sodium 125 L (136-145) mmol/L Chloride 90 L (98-107) mmol/L BUN 66 H (7-18) mg/dl Creatinine 2.35 H (0.6-1.4) mg/dl BUN/Creatinine Ratio 28.0 H (10-20) Glucose 812 H* (70-99) mg/dl AST 42 H (15-37) U/L Alkaline Phosphatase 135 H (45-117) U/L Troponin I 0.152 H* (0-0.045) ng/ml Albumin 2.6 L (3.4-5.0) gm/dl Albumin/Globulin Ratio 0.6 L (0.9-2) Beta-Hydroxybutyric Acd 3.25 H (0.2-2.81) mg/dl Code Status & VTE Plan Code Status Full Code per discussion with pt and - will bring in paperwork/will at home to clarify Supervising Physician Co-Signing Physician Notes Patient seen and examined, chart reviewed, case discussed with Dr. Kwong and I agree with her assessment and plan as documented above. 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 Hgb=13.5 (from baseline of 12), HCT=41.3, Ci=614, Cl=90, BUN=66, Cr=2.35, Jgo=553, Trop=0.152, BNP>61174, Albumin=2.6, BHB=3.25 Assessment/Plan: 84yo C male, FTT, decubitus, HHS -Admit to PCU -Insulin gtt, q 4 hour BMP and q 1 hr fingersticks -Cautious IVF. -Trend troponin. Patient with TWI ?ischemic changes. Will hold Apixaban for now - heparin gtt, possible debridement this hospital stay -Wound care consult appreciated -Remainder of plan as above PG Care Time/CCT Total # of Minutes Spent Total Time Spent with Patient: Total time spent is greater than 50% in coordina tion of care (as documented) at patient's floor/unit and/or counseling patient: Resident Activity Tracking Resident Involvement: Resident Care Provided Care Provided: Adult Hospital Medicine (1) Acute renal failure Acute renal failure type: unspecified Qualified Code(s): N17.9 - Acute kidney failure, unspecified
[2019-08-04] MEDS ORDERED: SODIUM CHLORIDE 0.9% 1000ML 500 ML IV ONE ×2 (02:40→10:59)
[2019-08-04] MEDS ORDERED: INSULIN HUMAN REGULAR SC STA (02:50)
[2019-08-04] MEDS ORDERED: HHS GOAL RANGE 250-350 mg/dl ONE ×2 (03:03→04:14)
[2019-08-04 03:05] LABS: Appearance Urine Clear (Clear); Bacteria Urine Automated Negative (Negative); Bilirubin Urine Negative (Negative); Blood Urine 2+ (Negative); Color Urine Yellow; Glucose Urine UA 3+ (Negative); Ketones Urine Negative (Negative); Leukocyte Esterase Urine Negative (Negative); Nitrite Urine Negative (Negative); Protein Urine 1+ (Negative); RBC Urine Automated 0-4 /hpf (0-4); Specific Gravity Urine 1.028 (1.000-1.030); Urobilinogen Urine Negative (Negative); WBC Urine Automated 0 /hpf (0-5)
[2019-08-04] MEDS ORDERED: INSULIN HUMAN REGULAR IV BOLUS 8 UNITS in SYRINGE 0 ML IV ONE (03:15)
[2019-08-04] MEDS ORDERED: INSULIN REGULAR 250 UNITS in SODIUM CHLORIDE 0.9% 247.5 ML IV SCH ×2 (03:15→04:14)
[2019-08-04] MEDS ORDERED: GLUCOSE 10 TABS/TUBE PO PRN (03:15)
[2019-08-04] MEDS ORDERED: GLUCAGON FOR INJ 1 MG VIAL IM PRN (03:15)
[2019-08-04] MEDS ORDERED: GLUCOSE 40% GEL 15 GM TUBE PO PRN (03:15)
[2019-08-04] MEDS ORDERED: DEXTROSE 50% 50 ML SYRINGE IV PRN (03:15)
[2019-08-04 03:38] LABS: NT Pro B Type Natriuretic Pept > 35000 pg/ml (0-1800)
[2019-08-04] MEDS ORDERED: Heparin IV Low Dose *NO* Bolus IV ONE (04:14)
[2019-08-04] MEDS ORDERED: NITROGLYCERIN SL 0.4 MG/TAB TAB SL PRN (04:14)
[2019-08-04] MEDS ORDERED: SODIUM CHLORIDE 0.9% 1000ML 1,000 ML IV SCH (04:14)
[2019-08-04] MEDS ORDERED: PHARMACY GLYCEMIC MGMT CONSULT PRN (04:48)
[2019-08-04 05:55] LABS: Partial Thromboplastin Time 26.1 Seconds (21.0-31.0); Prothrombin Time 10.5 Seconds (9.0-12.0)
[2019-08-04 06:07] LABS: BUN Creatinine Ratio 26.2 (10-20); Calcium 8.5 mg/dl (8.5-10.1); Creatinine Clr Calc Pharmacy 27.6 ml/min; Est GFR (African American) 31.2; Est GFR (Non-African American) 26.9; Magnesium 2.2 mg/dl (1.8-2.4)
[2019-08-04 06:14] LABS: Troponin I 0.466 ng/ml (0-0.045)
[2019-08-04 06:15] LABS: Beta-Hydroxybutyrate 0.99 mg/dl (0.2-2.81)
--- NOTE | 2019-08-04 06:21 | Emergency Department Note ---
Entered by Tamara Gonzales acting as a scribe for Kavya Goode DO History of Present Illness General Chief complaint: Weakness Stated complaint: OPEN SORE ON BUTTOCKS Time Seen by Provider: 08/03/19 22:58 Source: patient and family History of Present Illness Provider complaint: wound infection Onset (ago): week(s) 1 Location: buttocks Maximum Pain Intensity: 6 Quality: + constant Relieved By: + none Associated symptoms: + other (+buttocks pain) The patient is a 84 year old male who presents to the Emergency Room with com plaints of constant wound infection. The patients family reports that the patient has developed a wound on his buttocks that has been there for a week. They note that it spreads from his lower back to the end of his buttocks. They state that it was previously bleeding for several days, but now is oozing fluid. The patient reports that it is painful. The family reports that the patient is eating and drinking normally, but does not get up to go to the bathroom often. They note that he spends a lot of time sitting. They mention that he has a history of rectal cancer where he had a biopsy 5 years ago. They state that they are concerned that it has returned. Home Medications Home Medications Medication Instructions Recorded Confirmed Type aspirin 81 mg tablet 81 mg PO DAILY tab 04/23/19 08/03/19 History furosemide 40 mg tablet 40 mg PO BID tab 04/23/19 08/03/19 History insulin glargine (U-100) 100 40 units SUBCUT .use 40units in am 04/23/19 08/03/19 History unit/mL (3 mL) subcutaneous pen #3 ml isosorbide mononitrate ER 30 mg 30 mg PO .COMPLEX tab 04/23/19 08/03/19 History tablet,extended release 24 hr metoprolol succinate ER 25 mg 25 mg PO DAILY #90 tab 04/23/19 08/03/19 History tablet,extended release 24 hr multivitamin tablet 1 tab PO DAILY 04/23/19 08/03/19 History spironolactone 25 mg tablet 25 mg PO DAILY #90 tab 04/23/19 08/03/19 History pregabalin 25 mg capsule 25 mg PO DAILY #90 cap 05/31/19 08/03/19 Rx simvastatin 80 mg tablet 80 mg PO DAILY #90 tab 05/31/19 08/03/19 Rx apixaban 2.5 mg tablet 2.5 mg PO BID #180 tab 06/05/19 08/03/19 Rx metformin 500 mg PO DAILY 08/04/19 08/04/19 History Allergies Allergy/AdvReac Type Severity Reaction Status Date / Time poison sumac extract Allergy Unknown Rash Verified 08/03/19 23:55 Past Med/Surg History Medical History Atrial fibrillation (Acute) Rectal cancer (Acute) Social History Preferred Language: Persian Communication Ability: Effective Production Support Analyst Required: Yes Beliefs That Will Affect Care: None Current Living Situation: Family Other Information That Helps Us Care for You: No Feels Safe at Home: Yes Safety Concerns: Feels Safe At This Time Smoking Status: Former smoker Hx Alcohol Use: No Hx Substance Use: No Review of Systems See HPI for pertinent positives & negatives. and A total of 10 systems reviewed and were otherwise negative Physical Exam Vital Signs Vital Signs - 24 hr 08/03/19 22:52 08/03/19 23:16 08/03/19 23:18 Temperature 36.5 C Temperature Source Oral Sepsis Recent Fever Within 48 Hours No Sepsis Action Taken by Nursing No Action Required Pulse Rate Pulse Rate [Finger] 77 Pulse Rate from SpO2 Sensor Respiratory Rate 20 28 H Blood Pressure 125/64 Blood Pressure [Right Arm] 127/73 Blood Pressure Mean 84 Blood Pressure Mean [Right Arm] 91 Pulse Oximetry 98 Oxygen Delivery Method Room Air Room Air 08/03/19 23:20 08/03/19 23:30 08/03/19 23:31 Temperature Temperature Source Sepsis Recent Fever Within 48 Hours Sepsis Action Taken by Nursing Pulse Rate 79 81 87 Pulse Rate [Finger] Pulse Rate from SpO2 Sensor 77 83 86 Respiratory Rate 28 H 29 H 28 H Blood Pressure 129/63 Blood Pressure [Right Arm] Blood Pressure Mean 85 Blood Pressure Mean [Right Arm] Pulse Oximetry 97 95 96 Oxygen Delivery Method Room Air Room Air Room Air 08/03/19 23:40 08/03/19 23:50 08/04/19 00:00 Temperature Temperature Source Sepsis Recent Fever Within 48 Hours Sepsis Action Taken by Nursing Pulse Rate 85 72 68 Pulse Rate [Finger] Pulse Rate from SpO2 Sensor 90 Respiratory Rate 22 21 22 Blood Pressure 121/61 Blood Pressure [Right Arm] Blood Pressure Mean 81 Blood Pressure Mean [Right Arm] Pulse Oximetry 91 Oxygen Delivery Method Room Air Room Air Room Air 08/04/19 00:10 08/04/19 00:20 08/04/19 00:30 Temperature Temperature Source Sepsis Recent Fever Within 48 Hours Sepsis Action Taken by Nursing Pulse Rate 65 68 68 Pulse Rate [Finger] Pulse Rate from SpO2 Sensor Respiratory Rate 18 17 15 Blood Pressure 104/57 L Blood Pressure [Right Arm] Blood Pressure Mean 72 Blood Pressure Mean [Right Arm] Pulse Oximetry Oxygen Delivery Method Room Air Room Air Room Air 08/04/19 00:40 08/04/19 00:50 08/04/19 01:00 Temperature Temperature Source Sepsis Recent Fever Within 48 Hours Sepsis Action Taken by Nursing Pulse Rate 81 66 76 Pulse Rate [Finger] Pulse Rate from SpO2 Sensor 74 Respiratory Rate 28 H 17 23 Blood Pressure 116/59 L Blood Pressure [Right Arm] Blood Pressure Mean 78 Blood Pressure Mean [Right Arm] Pulse Oximetry Oxygen Delivery Method Room Air Room Air Room Air 08/04/19 01:10 08/04/19 01:20 08/04/19 01:30 Temperature Temperature Source Sepsis Recent Fever Within 48 Hours Sepsis Action Taken by Nursing Pulse Rate 70 69 71 Pulse Rate [Finger] Pulse Rate from SpO2 Sensor 67 70 73 Respiratory Rate 16 17 28 H Blood Pressure 105/72 Blood Pressure [Right Arm] Blood Pressure Mean 83 Blood Pressure Mean [Right Arm] Pulse Oximetry 97 92 96 Oxygen Delivery Method Room Air Room Air Room Air 08/04/19 01:40 08/04/19 01:50 08/04/19 02:00 Temperature Temperature Source Sepsis Recent Fever Within 48 Hours Sepsis Action Taken by Nursing Pulse Rate 69 62 64 Pulse Rate [Finger] Pulse Rate from SpO2 Sensor 81 64 64 Respiratory Rate 15 16 17 Blood Pressure Blood Pressure [Right Arm] Blood Pressure Mean Blood Pressure Mean [Right Arm] Pulse Oximetry 99 96 Oxygen Delivery Method Room Air Room Air Room Air HEENT: Head - normocephalic and atraumatic Pupils are equal, round, and reactive to light. Extraocular eye muscles are intact, and sclera are anicteric. Nose - moist nasal mucosa without discharge. Mouth - moist buccal mucosa. Oropharynx is nonerythematous and there is no tonsillar exudate or edema noted. Neck: Supple; no cervical lymphadenopathy or nuchal rigidity Heart: Regular rate and rhythm. There is a normal S1 and S2 with no murmurs, clicks, or gallops appreciated. Lungs: Clear to auscultation bilaterally with no wheezes, rales, or rhonchi. Abdomen: Soft, completely nontender, nondistended, with good bowel sounds. There are no palpable pulsatile masses or hepatosplenomegaly. There is no guarding, rigidity, or rebound noted. Extremities: No evidence of cyanosis, clubbing, or edema. There are easily palpable peripheral pulses. Skin: Multiple song of skin tears and breakdown most concerning at gluteal cleft and sacrum. Very deep pressure sores at multiple different stages with necrosis. Skin warm and extremely dry with poor turgor and no rashes. Course 2333: The patient was evaluated in room C3, and a complete history and physical examination were performed. 0035: I reviewed the patient's case with Dr. Sifuentes- [facility] Hospitalist. She will evaluate the patient for further management. I reviewed the results of the laboratory studies with the patient and his family. 0051: Sodium chloride was administered through IV. Administered Medications Insulin Human Regular 250 (units/ Sodium Chloride) 250 mls @ 8 mls/hr IV .Q24H RONNIE; Protocol Stop: 09/03/19 03:14 Last Titration: 08/04/19 06:11 Dose: 8 units/hr, 8 mls/hr Documented by: [id number] Cosigned by: [id number] Admin: 08/04/19 04:15 Dose: 8 units/hr, 8 mls/hr Documented by: [id number] Cosigned by: [id number] Sodium Chloride (Nss 1000ml) 1,000 mls @ 80 mls/hr IV .[id number] RONNIE Stop: 09/03/19 04:13 Last Admin: 08/04/19 05:00 Dose: 80 mls/hr Documented by: [id number] Discontinued Medications Sodium Chloride (Nss) 500 mls @ 999 mls/hr IV .Q31M ONE Stop: 08/04/19 00:57 Last Infusion: 08/04/19 01:15 Dose: 0 mls/hr Documented by: [id number] Admin: 08/04/19 00:44 Dose: 999 mls/hr Documented by: [id number] Sodium Chloride (Nss) 500 mls @ 125 mls/hr IV .Q4H RONNIE Stop: 09/03/19 00:29 Last Admin: 08/04/19 01:31 Dose: 125 mls/hr Documented by: [id number] Sodium Chloride (Nss 1000ml) 500 mls @ 999 mls/hr IV .Q31M ONE Stop: 08/04/19 03:10 Last Infusion: 08/04/19 05:00 Dose: 0 mls/hr Documented by: [id number] Admin: 08/04/19 04:25 Dose: 999 mls/hr Documented by: [id number] Insulin Human Regular 8 units/ (Syringe) 8 mls @ 0 mls/min IV TODAY@0315 ONE Stop: 08/04/19 03:16 Last Admin: 08/04/19 04:17 Dose: 100 mls/min Documented by: [id number] Cosigned by: [id number] Medical Decision Making Differential Diagnosis Differential diagnoses include but are not limited to dehydration, hyperglycemia, hypoglycemia, electrolyte abnormality, sepsis, bed sore, and skin ulceration. Medical Records Attestation: I reviewed the patient's medical records. Home Medications Current Medication List: was personally reviewed by me Laboratory Data Attestation: I reviewed the patient's lab results. Result diagrams: 08/03/19 23:38 08/04/19 05:29 Lab Results 08/03/19 08/03/19 Range/Units 23:38 23:38 WBC 9.70 (4.8-10.8) K/uL RBC 4.41 L (4.7-6.1) M/uL Hgb 13.5 L (14.0-18.0) g/dL Hct 41.3 L (42-52) % MCV 93.7 (80-100) fL MCH 30.6 (25-34) pg MCHC 32.7 (32-36) g/dL RDW Std Deviation 51.7 H (36.4-46.3) fL RDW Coeff of Abdirizak 15.0 H (11.5-14.5) % Plt Count 178 (130-400) K/uL MPV 11.7 H (7.4-10.4) fL Immature Gran % (Auto) 0.5 % Neut % (Auto) 93.2 % Lymph % (Auto) 3.8 % Crawford % (Auto) 2.2 % Eos % (Auto) 0.2 % Baso % (Auto) 0.1 % Immature Gran # (Auto) 0.05 H (0.00-0.02) K/uL Neut # (Auto) 9.04 H (1.4-6.5) K/uL Lymph # (Auto) 0.37 L (1.2-3.4) K/uL Crawford # (Auto) 0.21 (0.11-0.59) K/uL Eos # (Auto) 0.02 (0-0.5) K/uL Baso # (Auto) 0.01 (0-0.2) K/uL Sodium 125 L (136-145) mmol/L Potassium 5.0 (3.5-5.1) mmol/L Chloride 90 L (98-107) mmol/L Carbon Dioxide 26 (21-32) mmol/L Anion Gap 9.0 (3-11) BUN 66 H (7-18) mg/dl Creatinine 2.35 H (0.6-1.4) mg/dl Est Cr Clr Drug Dosing Not Reportable Est GFR ( Amer) 28.8 Est GFR (Non-Af Amer) 24.8 BUN/Creatinine Ratio 28.0 H (10-20) Glucose 812 H* (70-99) mg/dl Calcium 8.5 (8.5-10.1) mg/dl Total Bilirubin 0.9 (0.2-1) mg/dl AST 42 H (15-37) U/L ALT 20 (12-78) U/L Alkaline Phosphatase 135 H (45-117) U/L Troponin I 0.152 H* (0-0.045) ng/ml NT-Pro-B Natriuret Pep > 90710 H (0-1800) pg/ml Total Protein 6.6 (6.4-8.2) gm/dl Albumin 2.6 L (3.4-5.0) gm/dl Globulin 4.0 (2.5-4.0) gm/dl Albumin/Globulin Ratio 0.6 L (0.9-2) Beta-Hydroxybutyric Acd 3.25 H (0.2-2.81) mg/dl TSH 1.530 (0.300-4.500) uIu/ml ECG Data Attestation: I personally reviewed and interpreted this ECG as follows: Indication: weakness Rate (beats per minute): 81 Rhythm: other (atrial flutter ) Findings: + T-wave inversion Comparison ECG Date: from (05/21/17) Change: the following changes noted (TWI) Blood Pressure Blood Pressure Findings: Low blood pressure Blood Pressure Disposition: further management by hospitalist SHIN Mcmillan This is an 84-year-old male patient who presents to the emergency department with a worsening bedsore on his buttocks. The family explains that the patient has become less willing to get out of bed and move around. They are concerned a bout this and the fact that he has a wound on his buttocks that seems to be using. On physical exam, the patient appears to be very dehydrated. On laboratory testing, the patient has a blood sugar which is greater than 800 and significant hyponatremia. A twelve-lead EKG was performed and showed some EKG changes that were concerning for ischemia. The patient's troponin was also elevated. The p atient has an elevated creatinine concerning for acute renal injury. The patient was started on IV normal saline solution and the case was discussed with the [facility] Hospitalist and they will evaluate for further management. Impression & Plan Non-ST elevation NV (NSTEMI), Hyperglycemia, Hyponatremia, Acute renal failure Discharge Plan Visit Data *Final* Discharge Date/Time: 08/04/19 03:02 Chief Complaint: Weakness Stated Complaint: OPEN SORE ON BUTTOCKS ED Provider: Kavya Goode Discharge Problem: Non-ST elevation NV (NSTEMI), Hyperglycemia, Hyponatremia, Acute renal failure Patient Disposition: Admitted As Inpatient Discharge Instructions Interventions: ED Discharge Assessment Last Done: 08/04/19 03:02 Discharge Problem: Acute renal failure Qualifiers: Acute renal failure type: unspecified Qualified Code(s): N17.9 - Acute kidney failure, unspecified The scribe's documentation has been prepared under my direction and personally reviewed by me in its entirety. I confirm that the note above accurately reflects all work, treatment, procedures, and medical decision making performed by me.
[2019-08-04] MEDS: HEPARIN SODIUM/DEXTROSE 25,000 UNITS/500 ML BAG IV SCH (06:31)
[2019-08-04 06:45] LABS: Estimated Average Glucose 306 mg/dl; Hemoglobin A1C 12.3 % (4.5-5.6)
--- NOTE | 2019-08-04 07:40 | Family Medicine Progress Note ---
Date of Service August 04, 2019 Assessment & Plan (1) Hyperglycemia: 84yoM with hx of DM-ID, CAD s/p stent 1st diagonal in 2017 s/p anterior STEMI, severe 2 vessel disease adn critical L main involvement; CHF, HTN, HLD, Afib, CKD, rectal cancer presents from home to the ED for concern of worsening health at home per family. On admission, found to have elevated troponin with inverted T waves in lateral leads, glucose of 812 concerning for HHS, NILESH and pseudohyponatremia of 125. Patient also has left groin rash and worsening decubitus ulcer Hyperglycemia: Concern for HHS in the setting of insulin-dependent diabetes mellitus Concern of dementia interfering in him being compliant with his meds. morning A1C resulted at 12.3 which is considerably up from most recent on 05/11/2019 of 7.4. On HHS protocol with insulin drip with sugars improved to 150-180s s/p i L NS in ED. Will give 500ml bolus. Continue NS at 80 cc/h initially with orders to add D5 and KCl as needed. Avoid fluid overload - Low EF 20%. Pharmacy glycemic management recommended discontinuing drip and starting SubQ insulin And metformin Decubitus ulcer POA No concern for cellulitis/infection Afebrile, normal WBC Wound care nurse consulted, but services not available on weekend. Consider antibiotics if patient becomes febrile, clinically deteriorates Poor nutrition status Concerns for patient's nutrition status as appears very frail, thin, and has generalized weakness; sacral ulcer would need adequate nutrition for wound healing. Will consult Dietary for nutrition recs Will get Pre-albumin level PT/OT ordered to start tomorrow Elevated troponin: Patient denies any chest pain, shortness of breath, lightheadedness Hx of CAD s/p stent 1st diagonal in 2017 s/p anterior STEMI, severe 2 vessel dis ease and critical L main involvement -patient is high risk for surgical procedure and medically managed only Echo 2016: EF 20%, akinetic segment and mid to distal anterior wall and entire apex other hypokinetic segments, right ventricular systolic dysfunction EKG: A. fib T wave inversion in anterior leads Troponin elevated to 0.152 and repeat at 0.466, but also component of elevation from CKD as is renally cleared. CMP BNP ordered which was >71411 - unreliable in setting of CKD No sign of fluid overload currently. Gentle hydration to avoid overload A fib Continue Eliquis. d/c heparin drip since no procedure planed over the wkend NILESH setting of CKD In setting of HHS, but his values during visit reflect prior baseline values. No current concern for worsening kidney status and will continue IV fluid management as above Baseline creatinine around 2-2.2 Hold home Lasix, spironolactone as most likely hypovolemic from HSS. Trend BMP Pseudohyponatremia in the setting of hyperglycemia Sodium 125, corrects to 136 Continue to monitor Left groin rash Concern for fungal infection versus dermatitis, appears consistent with tinea cruris Started on nystatin cream History of hypertension/hyperlipidemia/coronary disease/CHF/A. fib Hx of CAD s/p stent 1st diagonal in 2016 s/p anterior STEMI, severe 2 vessel disease and critical L main involvement -patient is high risk for surgical procedure and medically managed only Echo 2016: EF 20%, akinetic segment and mid to distal anterior wall and entire apex other hypokinetic segments, right ventricular systolic dysfunction Lipid profile: May 2019, triglycerides 79, total cholesterol 130, LDL 72, HDL 42 Hold home Lasix and spironolactone Hold Eliquis as started on heparin drip Continue home Imdur, metoprolol, simvastatin, aspirin History of rectal cancer diagnosed in 2014 T4N1 Status post resection with colostomy, radiation, chemo CT abdomen/pelvis in 01/29/2019: No metastatic disease Anemia: Chronic -anemia of chronic disease in the setting of CKD Appears at baseline if not improved Monitor CBC FEN/GI: On normal saline 80 cc/h, restarted meals - diabetic restrictions. DVT prophylaxis: Heparin drip -Eliquis held and patient started on heparin drip in the event patient needs debridement Code: Full per discussion with patient and by admitting physician, discussed with Grandson this morning who lindsey prefer aggressive measures not be taken; will continue discussions with patient and family to ensure they are informed completely about DNR status to make informed decision. Disposition: PCU telemetry (2) Acute renal failure: (3) Rectal carcinoma: (4) Diabetes mellitus: (5) Hypercholesterolemia: (6) Hypertension: (7) CHF (congestive heart failure): (8) CAD (coronary artery disease): (9) Atrial fibrillation: (10) Decubitus skin ulcer: (11) Hyponatremia: (12) Elevated troponin: Supervising Physician Co-Signing Physician Notes Resident Physician Supervision Note: I independently interviewed and examined the patient and verified the salcido history and physical, reviewed labs and image studies, discussed the case with the resident Dr. Smalls and agree with the findings and care plan. Subjective Caveat: History Limited by - AMS. Mr. Casilals is not oriented to place or time this morning. He notes reason why he was admitted as "didn't go to the doctors.". He does not endorse any acute complaints. Denies Chest pain, abdominal pain, shortness of breath. When asked about medication compliance, he states he was taking his medication at home and that his family takes care of him. No acute concerns noted by nursing staff this AM. Review of Systems Review of Systems: Caveat: limited by AMS Physical Exam Constitutional: + thin, + frail appearing and comfortable; no acute distress sleeping but easily arousable Eyes: EOM intact bilaterally; no eyelid abnormality and no conjunctival abnormality Neck: normal visual inspection and trachea midline Respiratory: normal respiratory effort; no respiratory distress, no labored breathing and does not use accessory muscles Auscultation: + diminished lung sounds Cardiovascular: Rate/Rhythm: regular rate; + abnormal rhythm Extremities: no pedal edema distant heart sounds Gastrointestinal (Abdomen): Inspection/Auscultation: normal bowel sounds; abdomen not distended Percussion/Palpation: abdomen soft; abdomen nontender and no guarding colostomy with bag present with brown stool noted, without appearance of bloody stools Musculoskeletal: Head/Neck/Chest: normocephalic and head atraumatic Skin: Left groin area rash appears erythematous with Nystatin coating that appears consistent with tinea cruris Neurologic: moves all extremities; no focal motor deficits Speech / Cognition: normal speech Sleeping but easily arousable Psychiatric: Orientation: alert, oriented to person and cooperative; + not oriented to place and + not oriented to time (Unable to name year or President) Results & Data Vital Signs (Past 12 Hours) Vital Signs Temp Pulse Pulse Resp BP BP Pulse Ox 08/04/19 07:27 36.2 C L 62 17 109/55 L 96 08/04/19 03:00 36.7 C 62 20 137/76 98 08/04/19 02:10 65 15 92 08/04/19 02:00 64 17 96 08/04/19 01:50 62 16 99 08/04/19 01:40 69 15 08/04/19 01:30 71 28 H 105/72 96 08/04/19 01:20 69 17 92 08/04/19 01:10 70 16 97 08/04/19 01:00 76 23 116/59 L 08/04/19 00:50 66 17 08/04/19 00:40 81 28 H 08/04/19 00:30 68 15 104/57 L 08/04/19 00:20 68 17 08/04/19 00:10 65 18 08/04/19 00:00 68 22 121/61 08/03/19 23:50 72 21 08/03/19 23:40 85 22 91 08/03/19 23:31 87 28 H 129/63 96 08/03/19 23:30 81 29 H 95 08/03/19 23:20 79 28 H 97 08/03/19 23:18 77 28 H 127/73 98 08/03/19 22:52 36.5 C 20 125/64 PG Care Time/CCT Total # of Minutes Spent Total Time Spent with Patient: Total time spent is greater than 50% in coordination of care (as documented) at patient's floor/unit and/or counseling patient: Resident Activity Tracking Resident Involvement: Resident Care Provided Care Provided: Adult Hospital Medicine (1) Acute renal failure Acute renal failure type: unspecified Qualified Code(s): N17.9 - Acute kidney failure, unspecified
[2019-08-04] MEDS ORDERED: INFLUENZA ADMINISTRATION CHARGE ONE (08:00)
[2019-08-04] MEDS ORDERED: INFLUENZA VACCINE HIGH DOSE 65+ 0.5 ML SYR IM ONE (08:00)
[2019-08-04] MEDS: SPIRONOLACTONE 25 MG TAB PO SCH (08:32)
[2019-08-04] MEDS: NYSTATIN OINT 15 GM TUBE EXT SCH ×2 (08:32→20:05)
[2019-08-04] MEDS: METOPROLOL SUCC 25MG EXT REL TAB PO SCH (08:33)
[2019-08-04] MEDS: PREGABALIN 25 MG CAP PO SCH (08:33)
[2019-08-04] MEDS: ASPIRIN 81 MG ECTAB PO SCH (08:34)
[2019-08-04] MEDS: ISOSORBIDE MONO EXTENDED REL 30 MG TABCR PO SCH (08:34)
[2019-08-04] MEDS: MULTIVITAMIN TAB PO SCH (08:34)
[2019-08-04] MEDS: SIMVASTATIN 80 MG TAB PO SCH (08:36)
[2019-08-04] MEDS: INSULIN ASPART 100 UNITS/ML 3 ML PEN SC SCH ×4 (08:36→21:10)
[2019-08-04] MEDS ORDERED: D5W AND 1/2NSS + 20MEQ KCL 20 MEQ/1,000 ML BAG IV SCH (08:45)
--- NOTE | 2019-08-04 11:12 | Pharmacy Report ---
Glycemic Control Consultation - Date of Service August 04, 2019 - Scope Scope: Glycemic Pharmacist consulted by Dr Kwong on 08/04 for glycemic control and to write orders per [facility] inpatient glycemic control protocol - Objective Weight: 78.9 kg Accuchecks BSG (last 24hrs): 08/03/19 08/04/19 08/04/19 23:38 02:45 05:06 Glucose 812 H* POC Glucose > 600 H* > 600 H* 08/04/19 08/04/19 08/04/19 05:29 05:29 06:26 Glucose 376 H* 376 H* POC Glucose 361 H* 08/04/19 08/04/19 08/04/19 07:29 07:52 08:15 Glucose POC Glucose 203 H 154 H 115 H 08/04/19 08/04/19 08/04/19 08:45 09:15 09:40 Glucose POC Glucose 186 H 153 H 149 H 08/04/19 10:21 Glucose POC Glucose 184 H Laboratory Data (last 24hrs): 08/03/19 08/04/19 08/04/19 23:38 05:29 05:29 Potassium 5.0 4.0 D Carbon Dioxide 26 27 Anion Gap 9.0 8.0 Creatinine 2.35 H 2.20 H Est Cr Clr Drug Dosing Not Reportable 27.6 Osmolality 326 H Beta-Hydroxybutyric Acd 3.25 H 08/04/19 05:29 Potassium Carbon Dioxide Anion Gap Creatinine Est Cr Clr Drug Dosing Osmolality Beta-Hydroxybutyric Acd 0.99 HbA1c: Hemoglobin A1c 12.3 % (4.5-5.6) H 08/04/19 05:29 - Recent Pertinent Medications Outpatient Anti-diabetic Regimen: * Lantus 40 units qAM * ?? metformin 500 mg daily * A1c = 12.3 % 08/04/19 The patient is currently receiving: * Insulin infusion per [facility] protocol Risk Factors for Insulin Resistance: * IVF: NS transitioned to D51/2NS + 20 K @ 80 cc/hr * Diet: NPO -> just transitioned to T2DM * Baseline poor glycemic control - Assessment & Plan Assessment & Plan: ASSESSMENT: * 84 y/o male admitted for hyperglycemia and NILESH. BSG was in the 800s on admission to the ED, which improved to the 300s after fluids. Serum osmolality = 326. Patient admitted with [facility] and insulin drip was initiated early this AM as per [facility] protocol. Poor outpatient control as per A1c. Unknown when last dose of Lantus was as RN unable to obtain information from patient. * BSGs dropped quickly, fluids were changed to incorporate dextrose and insulin drip had to be held multiple times for BSGs dropping below goal range. Resid ent okay with transitioning to SQ insulin at this time. I'm not sure how accurate his outpatient regimen is but I suspect some non-compliance. Will plan to initiate SQ insulin based on weight based dosing. PLAN FOR INPATIENT GLYCEMIC CONTROL: * Transition to SQ insulin, no overlap necessary since insulin drip currently on hold for BSGs below goal * Hold outpatient oral diabetes medications * Basal insulin * Lantus 15 units x 1 now (0.2 units/kg) * Will reassess further basal needs in AM * Bolus insulin * NovoLog per scale ACHS + 00,04 * Goal Range: Low 110 mg/dL - High 150 mg/dL * Correction Factor: 30 mg/dL/unit * Nutritional / Prandial insulin per carb ratio of 1 unit per 10 grams CHO consumed * Please note that the plan above was derived based on current level of insulin resistance and hospital stress. These recommendations are appropriate for inpatient admission only. Plan of care upon discharge will need to be reassessed to avoid potential outpatient hypo/hyperglycemia. Thank you.
[2019-08-04] MEDS ORDERED: INSULIN GLARGINE SOLOSTAR 100 UNITS/ML 3 ML PEN SC ONE (11:30)
[2019-08-04 12:58] LABS: Partial Thromboplastin Ratio 1.3; Partial Thromboplastin Time 34.7 Seconds (21.0-31.0)
[2019-08-04 13:14] LABS: BUN Creatinine Ratio 30.3 (10-20); Calcium 8.1 mg/dl (8.5-10.1); Creatinine Clr Calc Pharmacy 33.3 ml/min; Est GFR (African American) 39.2; Est GFR (Non-African American) 33.8; Potassium 4.3 mmol/L (3.5-5.1)
[2019-08-04 13:19] LABS: Prealbumin 8.9 mg/dl (20-40)
[2019-08-04] MEDS ORDERED: HEPARIN IV BOLUS 4,500 UNITS in SYRINGE 0 ML IV ONE (15:15)
[2019-08-04] MEDS: SODIUM CHLORIDE 0.9% 1000ML 1,000 ML IV SCH (16:41)
[2019-08-04] MEDS ORDERED: INSULIN ASPART 100 UNITS/ML 3 ML PEN SC SCH (18:00)
[2019-08-04] MEDS: PENDING D5 1/2NS+20mEq KCL IVF SCH (20:06)
[2019-08-04 21:30] LABS: Partial Thromboplastin Ratio 1.8
[2019-08-04 21:31] LABS: Partial Thromboplastin Time 47.6 Seconds (21.0-31.0)
[2019-08-04] MEDS: PENDING 1/2NSS+20mEq KCL IVF SCH ×2 (22:21→22:23)
[2019-08-05] MEDS: INSULIN ASPART 100 UNITS/ML 3 ML PEN SC SCH ×6 (00:07→21:11)
[2019-08-05] MEDS: SODIUM CHLORIDE 0.9% 1000ML 1,000 ML IV SCH (04:47)
[2019-08-05] MEDS: HEPARIN SODIUM/DEXTROSE 25,000 UNITS/500 ML BAG IV SCH (05:05)
[2019-08-05 06:40] LABS: Partial Thromboplastin Ratio 1.5
[2019-08-05] MEDS ORDERED: HEPARIN IV BOLUS 3,000 UNITS in SYRINGE 0 ML IV ONE (07:15)
--- NOTE | 2019-08-05 07:25 | Family Medicine Progress Note ---
Date of Service August 05, 2019 Assessment & Plan (1) Hyperglycemia: 84yoM with hx of DM-ID, CAD s/p stent 1st diagonal in 2017 s/p anterior STEMI, severe 2 vessel disease adn critical L main involvement; CHF, HTN, HLD, Afib, CKD, rectal cancer presents from home to the ED for concern of worsening health at home per family. On admission, found to have elevated troponin with inverted T waves in lateral leads, glucose of 812 concerning for HHS, NILESH and pseudohyponatremia of 125. Patient also has left groin rash and worsening decubitus ulcer Hyperglycemia: Concern for HHS in the setting of insulin-dependent diabetes mellitus Concern of dementia interfering in him being compliant with his meds. Admission A1C resulted at 12.3 which is considerably up from most recent on 05/11/2019 of 7.4. On HHS protocol with insulin drip with sugars improved to 150-180s s/p 1 L NS in ED. Had 500cc on floor followed by 80mL/hr of maintenance fluid as patient wasn't alert and able to self maintain fluid intake. More alert today and will discontinue IVFs. Avoid fluid overload - Low EF 20%. Pharmacy glycemic management on SubQ insulin Decubitus ulcer POA No concern for cellulitis/infection Afebrile, normal WBC Wound care nurse consulted, but services not available on weekend. Consider antibiotics if patient becomes febrile, clinically deteriorates Poor nutrition status Concerns for patient's nutrition status as appears very frail, thin, and has generalized weakness; sacral ulcer would need adequate nutrition for wound healing. Will consult Dietary for nutrition recs Pre-albumin level of 8.9 which is low. PT/OT ordered Elevated troponin: Patient denies any chest pain, shortness of breath, lightheadedness Hx of CAD s/p stent 1st diagonal in 2017 s/p anterior STEMI, severe 2 vessel disease and critical L main involvement -patient is high risk for surgical procedure and medically managed only Echo 2016: EF 20%, akinetic segment and mid to distal anterior wall and entire apex other hypokinetic segments, right ventricular systolic dysfunction EKG: A. fib T wave inversion in anterior leads Troponin elevated to 0.152 with repeat at 0.466 then 1.0, but also component of elevation from CKD as is renally cleared. CMP BNP ordered which was >27032 - unreliable in setting of CKD No sign of fluid overload currently. Gentle hydration to avoid overload A fib Continue Eliquis. d/c heparin drip since no procedure planned over the weekend NILESH setting of CKD In setting of HHS, but his values during visit reflect prior baseline values. No current concern for worsening kidney status and will continue IV fluid management as above Baseline creatinine around 2-2.2 Hold home Lasix, spironolactone as most likely hypovolemic from HSS. Trend BMP Pseudohyponatremia in the setting of hyperglycemia Sodium 125, corrects to 136 Continue to monitor Left groin rash Concern for fungal infection versus dermatitis, appears consistent with tinea cruris Continue with nystatin cream History of hypertension/hyperlipidemia/coronary disease/CHF/A. fib Hx of CAD s/p stent 1st diagonal in 2016 s/p anterior STEMI, severe 2 vessel disease and critical L main involvement -patient is high risk for surgical procedure and medically managed only Echo 2016: EF 20%, akinetic segment and mid to distal anterior wall and entire apex other hypokinetic segments, right ventricular systolic dysfunction Lipid profile: May 2019, triglycerides 79, total cholesterol 130, LDL 72, HDL 42 Hold home Lasix and spironolactone Resumed Eliquis Continue home Imdur, metoprolol, simvastatin, aspirin History of rectal cancer diagnosed in 2014 T4N1 Status post resection with colostomy, radiation, chemo CT abdomen/pelvis in 01/29/2019: No metastatic disease Anemia: Chronic -anemia of chronic disease in the setting of CKD Appears at baseline if not improved Monitor CBC FEN/GI: meals - diabetic restrictions. DVT prophylaxis: Eliquis Code: Full per discussion with patient and by admitting physician, discussed with Grandson this morning who lindsey prefer aggressive measures not be taken; will continue discussions with patient and family to ensure they are informed completely about DNR status to make informed decision. Disposition: Will transfer to med/surg today (2) Acute renal failure: (3) Rectal carcinoma: (4) Diabetes mellitus: (5) Hypercholesterolemia: (6) Hypertension: (7) CHF (congestive heart failure): (8) CAD (coronary artery disease): (9) Atrial fibrillation: (10) Decubitus skin ulcer: (11) Hyponatremia: (12) Elevated troponin: Supervising Physician Co-Signing Physician Notes Resident Physician Supervision Note: I independently interviewed and examined the patient and verified the salcido history and physical, reviewed labs and image studies, discussed the case with the resident Dr. Smalls and agree with the findings and care plan. Subjective Caveat: History Limited by - AMS. Mr. Casillas is not oriented to place or time this morning. But he is significantly more alert this morning and is sitting up eating breakfast without difficulty. He does not endorse any acute complaints. Denies Chest pain, abdominal pain, shortness of breath. No acute concerns noted by nursing staff this AM. Review of Systems Review of Systems: Caveat: limited by AMS Physical Exam Constitutional: + thin, + frail appearing and comfortable; no acute distress sitting up in bed, eating breakfast without difficulty. Eyes: EOM intact bilaterally; no eyelid abnormality and no conjunctival abn ormality Neck: normal visual inspection and trachea midline Respiratory: normal respiratory effort; no respiratory distress, no labored breathing and does not use accessory muscles Auscultation: + diminished lung sounds Cardiovascular: Rate/Rhythm: regular rate; + abnormal rhythm Extremities: no pedal edema Gastrointestinal (Abdomen): Inspection/Auscultation: normal bowel sounds; abdomen not distended Percussion/Palpation: abdomen soft; abdomen nontender and no guarding Musculoskeletal: Head/Neck/Chest: normocephalic and head atraumatic Neurologic: moves all extremities; no focal motor deficits Speech / Cognition: normal speech Psychiatric: Orientation: alert, oriented to person and cooperative; + not oriented to place (Unable to provide answer after thought) and + not oriented to time Eye Contact: good eye contact Results & Data Vital Signs (Past 12 Hours) Vital Signs Temp Pulse Pulse Resp BP Pulse Ox 08/05/19 06:39 36.5 C 68 19 122/70 91 08/05/19 05:02 36.6 C 66 20 131/70 91 08/05/19 00:00 36.4 C L 67 19 113/72 94 08/04/19 23:45 66 Laboratory Results Laboratory Results - last 24 hr 08/04/19 08/04/19 08/04/19 10:21 11:15 11:43 APTT PTT Ratio Sodium Potassium Chloride Carbon Dioxide Anion Gap BUN Creatinine Est Cr Clr Drug Dosing Est GFR ( Amer) Est GFR (Non-Af Amer) BUN/Creatinine Ratio Glucose POC Glucose 184 H 121 H 100 H Calcium Troponin I Prealbumin 08/04/19 08/04/19 08/04/19 12:03 12:26 12:26 APTT 34.7 H PTT Ratio 1.3 Sodium 137 Potassium 4.3 Chloride 106 Carbon Dioxide 26 Anion Gap 5.0 BUN 55 H Creatinine 1.82 H D Est Cr Clr Drug Dosing 33.3 Est GFR ( Amer) 39.2 Est GFR (Non-Af Amer) 33.8 BUN/Creatinine Ratio 30.3 H Glucose 105 H POC Glucose 100 H Calcium 8.1 L Troponin I 1.000 H* Prealbumin 8.9 L 08/04/19 08/04/19 08/04/19 12:41 16:11 20:36 APTT PTT Ratio Sodium Potassium Chloride Carbon Dioxide Anion Gap BUN Creatinine Est Cr Clr Drug Dosing Est GFR ( Amer) Est GFR (Non-Af Amer) BUN/Creatinine Ratio Glucose POC Glucose 109 H 171 H 126 H Calcium Troponin I Prealbumin 08/04/19 08/05/19 08/05/19 20:49 00:03 03:54 APTT 47.6 H* PTT Ratio 1.8 Sodium Potassium Chloride Carbon Dioxide Anion Gap BUN Creatinine Est Cr Clr Drug Dosing Est GFR ( Amer) Est GFR (Non-Af Amer) BUN/Creatinine Ratio Glucose POC Glucose 101 H 104 H Calcium Troponin I Prealbumin 08/05/19 08/05/19 05:51 07:04 APTT 41.0 H PTT Ratio 1.5 Sodium Potassium Chloride Carbon Dioxide Anion Gap BUN Creatinine Est Cr Clr Drug Dosing Est GFR ( Amer) Est GFR (Non-Af Amer) BUN/Creatinine Ratio Glucose POC Glucose 115 H Calcium Troponin I Prealbumin Medications Administered Aspirin (Ecotrin Ectab) 81 mg PO DAILY [facility] Stop: 09/03/19 08:59 Last Admin: 08/05/19 08:01 Dose: 81 mg Documented by: [id number] Admin: 08/04/19 08:34 Dose: 81 mg Documented by: [id number] Dextrose (Dextrose 50%) 25 - 50 ml IV UD PRN; Protocol PRN Reason: Hypoglycemia Protocol Stop: 09/03/19 03:14 Last Admin: 08/04/19 08:20 Dose: 25 ml Documented by: [id number] Insulin Aspart (Novolog Flexpen) 0 units SC ACHS [facility]; Protocol Stop: 09/03/19 16:29 Last Admin: 08/05/19 08:03 Dose: 5 units Documented by: [id number] Cosigned by: [id number] Admin: 08/04/19 21:10 Dose: Not Given Documented by: [id number] Cosigned by: [id number] Admin: 08/04/19 17:24 Dose: 9 units Documented by: [id number] Cosigned by: [id number] Insulin Glargine (Lantus Solostar Pen) 12 units SC QAM [facility]; Protocol Stop: 09/04/19 08:59 Last Admin: 08/05/19 08:04 Dose: 12 units Documented by: [id number] Cosigned by: [id number] Isosorbide Mononitrate (Imdur Extended Rel) 30 mg PO DAILY [facility] Stop: 09/03/19 08:59 Last Admin: 08/05/19 08:01 Dose: 30 mg Documented by: [id number] Admin: 08/04/19 08:34 Dose: 30 mg Documented by: [id number] Metoprolol Succinate (Toprol Xl) 25 mg PO DAILY [facility] Stop: 09/03/19 08:59 Last Admin: 08/05/19 08:02 Dose: 25 mg Documented by: [id number] Admin: 08/04/19 08:33 Dose: 25 mg Documented by: [id number] Multivitamins (Multivitamin Tab) 1 tab PO DAILY [facility] Stop: 09/03/19 08:59 Last Admin: 08/05/19 08:02 Dose: 1 tab Documented by: [id number] Admin: 08/04/19 08:34 Dose: 1 tab Documented by: [id number] Nystatin (Mycostatin) 1 appln EXT BID [facility] Stop: 09/03/19 08:59 Last Admin: 08/05/19 08:03 Dose: 1 appln Documented by: [id number] Admin: 08/04/19 20:05 Dose: 1 appln Documented by: [id number] Admin: 08/04/19 08:32 Dose: 1 appln Documented by: [id number] Pregabalin (Lyrica) 25 mg PO DAILY [facility] Stop: 09/03/19 08:59 Last Admin: 08/05/19 08:06 Dose: 25 mg Documented by: [id number] Admin: 08/04/19 08:33 Dose: Not Given Documented by: [id number] Simvastatin (Zocor) 80 mg PO DAILY [facility] Stop: 09/03/19 08:59 Last Admin: 08/05/19 08:02 Dose: 80 mg Documented by: [id number] Admin: 10/26/19 08:36 Dose: 80 mg Documented by: [id number] Spironolactone (Aldactone) 25 mg PO DAILY [facility] Stop: 09/03/19 08:59 Last Admin: 08/05/19 08:02 Dose: 25 mg Documented by: [id number] Admin: 08/04/19 08:32 Dose: 25 mg Documented by: [id number] PG Care Time/CCT Total # of Minutes Spent Total Time Spent with Patient: Total time spent is greater than 50% in coordination of care (as documented) at patient's floor/unit and/or counseling patient: Resident Activity Tracking Resident Involvement: Resident Care Provided Care Provided: Adult Hospital Medicine (1) Acute renal failure Acute renal failure type: unspecified Qualified Code(s): N17.9 - Acute kidney failure, unspecified
[2019-08-05] MEDS: ASPIRIN 81 MG ECTAB PO SCH (08:01)
[2019-08-05] MEDS: ISOSORBIDE MONO EXTENDED REL 30 MG TABCR PO SCH (08:01)
[2019-08-05] MEDS: SIMVASTATIN 80 MG TAB PO SCH (08:02)
[2019-08-05] MEDS: METOPROLOL SUCC 25MG EXT REL TAB PO SCH (08:02)
[2019-08-05] MEDS: SPIRONOLACTONE 25 MG TAB PO SCH (08:02)
[2019-08-05] MEDS: MULTIVITAMIN TAB PO SCH (08:02)
[2019-08-05] MEDS: NYSTATIN OINT 15 GM TUBE EXT SCH ×2 (08:03→21:08)
[2019-08-05] MEDS: PREGABALIN 25 MG CAP PO SCH (08:06)
[2019-08-05] MEDS ORDERED: INSULIN GLARGINE SOLOSTAR 100 UNITS/ML 3 ML PEN SC SCH ×2 (09:00→21:00)
--- NOTE | 2019-08-05 10:19 | Pharmacy Report ---
Pharmacy Glycemic Short Note 2 - Date of Service August 05, 2019 - Glycemic Short BSG Results (Last 24 hours): 08/04/19 08/04/19 08/04/19 10:21 11:15 11:43 Glucose POC Glucose 184 H 121 H 100 H 08/04/19 08/04/19 08/04/19 12:03 12:26 12:41 Glucose 105 H POC Glucose 100 H 109 H 08/04/19 08/04/19 08/05/19 16:11 20:36 00:03 Glucose POC Glucose 171 H 126 H 101 H 08/05/19 08/05/19 03:54 07:04 Glucose POC Glucose 104 H 115 H OUTPATIENT ANTIDIABETIC REGIMEN: * Lantus 40 units qAM * ?? metformin 500 mg daily * A1c = 12.3 % 08/04/19 (up significantly from 7.4% on 05/11/19) The patient is currently receiving: * Lantus 15 units x 1 when transitioning off the insulin drip yesterday * Novolog ACHS * Goal 110-150 * CF 30 * CR 10 Risk Factors for Insulin Resistance: * Diet: T2DM * Baseline poor glycemic control - Assessment & Plan ASSESSMENT: 08/05 * Mr. Casillas was successfully transitioned off the insulin drip yesterday, after being admitted with [facility] * Fluids have been discontinued. Patient tolerating po intake. * SCr improved slightly but remains elevated * Overnight BSGs ~100 mg/dL; therefore, will reduce basal dose by 20% to prevent hypoglycemia * Pre-lunch BSG elevated; will tighten Novolog parameters and add additional basal tonight if BSGs remain > 150 * Unable to speak with patient/family today regarding outpatient control. not currently here and RN reports patient only oriented to person. 08/04 * 84 y/o male admitted for hyperglycemia and NILESH. BSG was in the 800s on admission to the ED, which improved to the 300s after fluids. Serum osmolality = 326. Patient admitted with [facility] and insulin drip was initiated early this AM as per [facility] protocol. Poor outpatient control as per A1c. Unknown when last dose of Lantus was as RN unable to obtain information from patient. * BSGs dropped quickly, fluids were changed to incorporate dextrose and insulin drip had to be held multiple times for BSGs dropping below goal range. Resident okay with transitioning to SQ insulin at this time. I'm not sure how accurate his outpatient regimen is but I suspect some non-compliance. Will plan to initiate SQ insulin based on weight based dosing. PLAN FOR INPATIENT GLYCEMIC CONTROL: * Hold outpatient oral diabetes medications * Basal insulin - reduce by 20% * Lantus 12 units qAM * Additional 3 units tonight if BSG remains > 150 * Bolus insulin - tighten CF/CR * NovoLog per scale ACHS or Q6hrs while NPO * Goal Range: Low 110 mg/dL - High 150 mg/dL * Correction Factor: 25 mg/dL/unit * Nutritional / Prandial insulin per carb ratio of 1 unit per 8 grams CHO consumed PLAN FOR DISCHARGE: * Will need to confirm outpatient regimen and new plan prior to discharge. Metformin was included on med list but this is not on outpatient records. * Reported non-compliance on admission and A1c has increased significantly in just a few months
[2019-08-05] MEDS: APIXABAN 2.5 MG TAB PO SCH ×2 (11:04→21:08)
[2019-08-05] MEDS: CARBOHYDRATES FOR HYPOGLYCEMIA PO PRN ×3 (16:40→17:15)
[2019-08-05] MEDS: cephALEXin 500 MG CAP PO SCH (17:07)
[2019-08-05] MEDS ORDERED: FUROSEMIDE 20 MG in SYRINGE 0 ML IV ONE (23:45)
[2019-08-06] MEDS: cephALEXin 500 MG CAP PO SCH ×2 (05:26→17:34)
[2019-08-06 06:19] LABS: BUN Creatinine Ratio 27.3 (10-20); Calcium 8.3 mg/dl (8.5-10.1); Creatinine Clr Calc Pharmacy 31.4 ml/min; Est GFR (Non-African American) 33.6; Potassium 4.9 mmol/L (3.5-5.1)
[2019-08-06] MEDS: SIMVASTATIN 80 MG TAB PO SCH (08:35)
[2019-08-06] MEDS: METOPROLOL SUCC 25MG EXT REL TAB PO SCH (08:35)
[2019-08-06] MEDS: MULTIVITAMIN TAB PO SCH (08:35)
[2019-08-06] MEDS: SPIRONOLACTONE 25 MG TAB PO SCH (08:35)
[2019-08-06] MEDS: ISOSORBIDE MONO EXTENDED REL 30 MG TABCR PO SCH (08:35)
[2019-08-06] MEDS: APIXABAN 2.5 MG TAB PO SCH ×2 (08:36→21:27)
[2019-08-06] MEDS: ASPIRIN 81 MG ECTAB PO SCH (08:36)
[2019-08-06] MEDS: INSULIN ASPART 100 UNITS/ML 3 ML PEN SC SCH ×4 (08:48→21:27)
[2019-08-06] MEDS: NYSTATIN OINT 15 GM TUBE EXT SCH ×2 (09:00→21:27)
[2019-08-06] MEDS ORDERED: INSULIN GLARGINE SOLOSTAR 100 UNITS/ML 3 ML PEN SC SCH (09:00)
[2019-08-06] MEDS: FUROSEMIDE 40 MG TAB PO SCH ×2 (09:21→17:34)
[2019-08-06] MEDS: PREGABALIN 25 MG CAP PO SCH (09:33)
--- NOTE | 2019-08-06 15:25 | Pharmacy Report ---
Glycemic Control Progress Note - Date of Service August 06, 2019 - Scope Glycemic Pharmacist consulted for glycemic control to write orders per [facility] inpatient glycemic control protocol. - Objective Accuchecks BSG(last 24 hours):: 08/05/19 08/05/19 08/05/19 16:37 16:55 17:16 Glucose POC Glucose 63 L* 62 L* 125 H 08/05/19 08/06/19 08/06/19 20:55 05:33 07:53 Glucose 131 H POC Glucose 257 H 122 H 08/06/19 11:47 Glucose POC Glucose 241 H HbA1c:: Hemoglobin A1c 12.3 % (4.5-5.6) H 08/04/19 05:29 - Recent Pertinent Medications The patient is currently receiving: * Basal insulin: Lantus 15 units x 1 for titration off insulin infusion * Correctional Insulin: Novolog Correction per scale ACHS Goal Range: Low 110 mg/dL - High 150 mg/dL Correction Factor: 30 mg/dL/unit * Prandial insulin: Per carb ratio of 1 unit per 10 grams CHO consumed - Outpatient Anti-Diabetic Meds Lantus 40 units SQ three times per week Metformin 500 mg daily - Assessment & Plan ASSESSMENT: * See progress note from 08/05/19 for more background info, in short: * Pt receiving SQ basal bolus insulin regimen for hyperglycemia secondary to baseline DM (outpatient regimen on hold) and infection (keflex) * Patient is currently receiving an average of 33 units of insulin per day * 15 units of basal insulin * 18 units of prandial/correctional insulin * BSGs ranging 63 - 257 mg/dl over the past 24hrs * Changes needed to insulin regimen: * AM Fasting BSG = 122 mg/dl. This is in goal range for patient based on inpatient targets and co-morbidities. The patient's fasting blood sugar today is slightly higher than yesterday's fasting of 115 mg/dL. Patient's blood sugars overnight tend to "tank." She dropped from 257 mg/dL to 122 mg/dL so patient most likely retains some insulin function. Will attempt to be more aggressive with bolus. * Post-prandial BSGs trended downwards yesterday. I'm not certain why that was. Leave a tightened carbohydrate ratio but loosen the CF slightly. I think that the patient is carbohydrate sensitive. * Total daily dose = ~30-40 units. PLAN FOR INPATIENT GLYCEMIC CONTROL: * Decreasing Lantus to 13 units SQ daily then increase to 15 units daily tomorrow * Continuing correction factor of 30 mg/dl/unit * TIGHTENING carb ratio to 1 unit per 8 grams CHO consumed * Continuing goal range to Low 110 mg/dL - High 140 mg/dL * Please note that the plan above was derived based on current level of insulin resistance and hospital stress. These recommendations are appropriate for inpatient admission only. Plan of care upon discharge will need to be reassessed to avoid potential outpatient hypo/hyperglycemia. Thank you.
--- NOTE | 2019-08-06 17:08 | Family Medicine Progress Note ---
Date of Service August 06, 2019 Assessment & Plan (1) Hyperglycemia: 84yoM with hx of DMII, CAD s/p stent 1st diagonal in 2017 s/p anterior STEMI, severe 2 vessel disease adn critical L main involvement; CHF, HTN, HLD, Afib, CKD, rectal cancer presents from home to the ED for concern of worsening health at home per family. On admission, found to have elevated troponin with inverted T waves in lateral leads, glucose of 812 concerning for HHS, NILESH and pseudohyponatremia of 125. Patient also has left groin rash and worsening decubitus ulcer Hyperglycemia Concern for HHS in the setting of insulin-dependent diabetes mellitus Concern of dementia interfering in him being compliant with his meds. Admission A1C resulted at 12.3 which is considerably up from most recent on 05/11/2019 of 7.4. On HHS protocol with insulin drip his sugars improved to 150-180s s/p 1 L NS in ED. Had 500cc on floor followed by 80mL/hr of maintenance fluid as patient wasn't alert and able to self maintain fluid intake. More alert today and will discontinue IVFs. Avoid fluid overload - Low EF 20%. Pharmacy glycemic management on SubQ insulin Well controlled today Decubitus ulcer Little concern for cellulitis/infection Will d/c keflex Afebrile, normal WBC Wound care nurse consulted, appreciate recommendations Will reconsider antibiotics if patient becomes febrile, clinically deteriorates Poor nutrition status Concerns for patient's nutrition status as appears very frail, thin, and has generalized weakness; sacral ulcer willn need adequate nutrition for wound healing. Will consult Dietary for nutrition recs Pre-albumin level of 8.9 which is low. PT/OT ordered Elevated troponin: Patient denies any chest pain, shortness of breath, lightheadedness Hx of CAD s/p stent 1st diagonal in 2017 s/p anterior STEMI, severe 2 vessel disease and critical L main involvement -patient is high risk for surgical procedure and medically managed only Echo 2016: EF 20%, akinetic segment and mid to distal anterior wall and entire apex other hypokinetic segments, right ventricular systolic dysfunction EKG: A. fib T wave inversion in anterior leads Troponin elevated to 0.152 with repeat at 0.466 then 1.0, down to .3 Certainly a component of elevation will be his CKD as is renally cleared. No concerning symptoms for ACS CMP BNP ordered which was >58434 - unreliable in setting of CKD No sign of fluid overload currently. Gentle hydration to avoid overload A fib Continue Eliquis. d/c heparin drip since no procedure planned over the weekend NILESH setting of CKD In setting of HHS, but his values during visit reflect prior baseline values. No current concern for worsening kidney status and will continue IV fluid management as above Baseline creatinine around 2-2.2 Hold home Lasix, spironolactone as most likely hypovolemic from HSS. Trend BMP Pseudohyponatremia in the setting of hyperglycemia Resolved Left groin rash Concern for fungal infection versus dermatitis, appears consistent with tinea cruris Continue with nystatin cream History of hypertension/hyperlipidemia/coronary disease/CHF/A. fib Hx of CAD s/p stent 1st diagonal in 2016 s/p anterior STEMI, severe 2 vessel disease and critical L main involvement -patient is high risk for surgical procedure and medically managed only Echo 2016: EF 20%, akinetic segment and mid to distal anterior wall and entire apex other hypokinetic segments, right ventricular systolic dysfunction Lipid profile: May 2019, triglycerides 79, total cholesterol 130, LDL 72, HDL 42 Hold home Lasix and spironolactone Resumed Eliquis Continue home Imdur, metoprolol, simvastatin, aspirin History of rectal cancer diagnosed in 2014 T4N1 Status post resection with colostomy, radiation, chemo CT abdomen/pelvis in 01/29/2019: No metastatic disease Anemia: Chronic -anemia of chronic disease in the setting of CKD Appears at baseline if not improved Monitor CBC FEN/GI: meals - diabetic restrictions. DVT prophylaxis: Eliquis Code: Full per discussion with patient and by admitting physician, discussed with Grandson this morning who lindsey prefer aggressive measures not be taken; will continue discussions with patient and family to ensure they are informed completely about DNR status to make informed decision. Disposition: Will transfer to med/surg today (2) Acute renal failure: (3) Rectal carcinoma: (4) Diabetes mellitus: (5) Hypercholesterolemia: (6) Hypertension: (7) CHF (congestive heart failure): (8) CAD (coronary artery disease): (9) Atrial fibrillation: (10) Decubitus skin ulcer: (11) Hyponatremia: (12) Elevated troponin: Supervising Physician Co-Signing Physician Notes I personally examined the patient and verified all salcido points of history and exam, discussed case, and agree with decision making with Dr Sood. Feeling okay. No complaints. No sacral pain. Vitals noted, in general he is awake and alert seems pleasantly confused but no distress. HEENT normocephalic atraumatic mucous membranes are moist. Cardio is regular without rubs murmurs or gallops, lungs clear to auscultation bilaterally no rales rhonchi or wheeze with good effort. Skin shows no tracking erythema, I am unable to roll him enough to visualize his decubitus ulcer due to concern of causing him pain with moving him, but I see no erythema with what I am available to visualize Hyperglycemic dehydrationimproved. Suspect this relates to poor med compliance which probably relates back to his dementia. Doing better now. Agree with stopping IV fluids. Dementiasupportive care. Sacral ulcerlocal wound care, does not appear to need systemic antibiotics at this time. Continue close follow-up and supportive care. Dispositionwill require SNF once approved and available. Subjective Mr. Casillas reports he is doing well today. When I question him about his discomfort over his sacral ulcer he tells me it's doing much better. He reports that he ate a good breakfast and that he feels well. He is amenable to SNF placement due to his progressive weakness. However, on deeper questioning, he tells me the affirmative for just about any question I ask him. He tells me he was doing quite well at home, was taking all his medications as prescribed and doesn't know why he had to come into hospital. ROS was completely negative secondary to this same phenomenon. Review of Systems Review of Systems: Unobtainable due to cognitive status Physical Exam Physical Exam: Constitutional: Frail appearing elderly gentleman, colostomy in place on abdomen bandage over sacral wound Eyes: Anicteric Sclerae, EOMMI bilaterally ENMT: NAD Neck: Supple no masses, Jugular pulse normal Respiratory: Lung sounds vesicular in all lung mace, no increased work of breathing, symmetrical chest expansion, no wheezing Cardiovascular: Heart sounds dual, no murmurs, rubs, skips, or gallops, no edema of lower extremities GI: Abdomen soft nontender, ostomy site looks intact no obvious skin breakdown Integumentary: Body covered in multiple lesions, including seborrheic keratoses, some concerning moles including one on scalp. Results & Data Vital Signs (Past 12 Hours) Vital Signs Temp Pulse Resp BP Pulse Ox 08/06/19 16:01 36.5 C 66 21 123/80 92 08/06/19 11:00 36.6 C 67 20 126/72 91 08/06/19 07:38 36.1 C L 72 16 132/75 90 PG Care Time/CCT Total # of Minutes Spent Total Time Spent with Patient: Total time spent is greater than 50% in coordination of care (as documented) at patient's floor/unit and/or counseling patient: Resident Activity Tracking Resident Involvement: Resident Care Provided Care Provided: Adult Hospital Medicine (1) Acute renal failure Acute renal failure type: unspecified Qualified Code(s): N17.9 - Acute kidney failure, unspecified
[2019-08-07] MEDS: cephALEXin 500 MG CAP PO SCH (05:40)
[2019-08-07 07:50] LABS: BUN Creatinine Ratio 27.7 (10-20); Calcium 8.5 mg/dl (8.5-10.1); Creatinine Clr Calc Pharmacy 30.6 ml/min; Est GFR (African American) 37.7; Est GFR (Non-African American) 32.5
[2019-08-07] MEDS: ACETAMINOPHEN 325 MG TAB PO PRN (08:24)
[2019-08-07] MEDS: ISOSORBIDE MONO EXTENDED REL 30 MG TABCR PO SCH (08:25)
[2019-08-07] MEDS: FUROSEMIDE 40 MG TAB PO SCH ×2 (08:26→17:21)
[2019-08-07] MEDS: METOPROLOL SUCC 25MG EXT REL TAB PO SCH (08:26)
[2019-08-07] MEDS: ASPIRIN 81 MG ECTAB PO SCH (08:26)
[2019-08-07] MEDS: SIMVASTATIN 80 MG TAB PO SCH (08:26)
[2019-08-07] MEDS: MULTIVITAMIN TAB PO SCH (08:26)
[2019-08-07] MEDS: NYSTATIN OINT 15 GM TUBE EXT SCH ×2 (08:27→21:05)
[2019-08-07] MEDS: INSULIN GLARGINE SOLOSTAR 100 UNITS/ML 3 ML PEN SC SCH (08:27)
[2019-08-07] MEDS: APIXABAN 2.5 MG TAB PO SCH ×2 (08:28→21:05)
[2019-08-07] MEDS: INSULIN ASPART 100 UNITS/ML 3 ML PEN SC SCH ×4 (08:29→21:16)
[2019-08-07] MEDS: SPIRONOLACTONE 25 MG TAB PO SCH ×2 (08:55→09:00)
[2019-08-07] MEDS: PREGABALIN 25 MG CAP PO SCH (09:05)
--- NOTE | 2019-08-07 18:21 | Family Medicine Progress Note ---
Date of Service August 07, 2019 Assessment & Plan (1) Hyperglycemia: 84yoM with hx of DMII, CAD s/p stent 1st diagonal in 2017 s/p anterior STEMI, severe 2 vessel disease and critical L main involvement; CHF, HTN, HLD, Afib, CKD, rectal cancer presents from home to the ED for concern of worsening health at home per family. On admission, found to have elevated troponin with inverted T waves in lateral leads, glucose of 812 concerning for HHS, NILESH and pseudohyponatremia of 125. Patient also has left groin rash and large decubitus ulcer Hyperglycemia Concern for HHS in the setting of insulin-dependent diabetes mellitus Concern of dementia interfering in him being compliant with his meds. Admission A1C resulted at 12.3 which is considerably up from most recent on 05/11/2019 of 7.4. On HHS protocol with insulin drip his sugars improved to 150-180s s/p 1 L NS in ED. Had 500cc on floor followed by 80mL/hr of maintenance fluid as patient wasn't alert and able to self maintain fluid intake. More alert now discontinued IVFs. Avoid fluid overload - Low EF 20%. Pharmacy glycemic management on SubQ insulin Well controlled currently Decubitus ulcer Little concern for cellulitis/infection stopped keflex Afebrile, normal WBC Wound care nurse consulted, appreciate recommendations Will reconsider antibiotics if patient becomes febrile, clinically deteriorates Poor nutrition status Concerns for patient's nutrition status as appears very frail, thin, and has generalized weakness; sacral ulcer will need adequate nutrition for wound healing. Will consult Dietary for nutrition recs Pre-albumin level of 8.9 which is low. PT/OT ordered Elevated troponin: Patient denies any chest pain, shortness of breath, lightheadedness Hx of CAD s/p stent 1st diagonal in 2017 s/p anterior STEMI, severe 2 vessel disease and critical L main involvement -patient is high risk for surgical procedure and medically managed only Echo 2016: EF 20%, akinetic segment and mid to distal anterior wall and entire apex other hypokinetic segments, right ventricular systolic dysfunction EKG: A. fib T wave inversion in anterior leads Troponin elevated to 0.152 with repeat at 0.466 then 1.0, down to .3 Certainly a component of elevation will be his CKD as is renally cleared. No concerning symptoms for ACS CMP BNP ordered which was >78599 - unreliable in setting of CKD No sign of fluid overload currently. Gentle hydration to avoid overload A fib Continue Eliquis. d/c heparin drip since no procedure planned over the weekend NILESH setting of CKD In setting of HHS, but his values during visit reflect prior baseline values. No current concern for worsening kidney status and will continue IV fluid management as above Baseline creatinine around 2-2.2 Hold home Lasix, spironolactone as most likely hypovolemic from HSS. Trend BMP Pseudohyponatremia in the setting of hyperglycemia Resolved Left groin rash Concern for fungal infection versus dermatitis, appears consistent with tinea cruris Continue with nystatin cream History of hypertension/hyperlipidemia/coronary disease/CHF/A. fib Hx of CAD s/p stent 1st diagonal in 2016 s/p anterior STEMI, severe 2 vessel disease and critical L main involvement -patient is high risk for surgical procedure and medically managed only Echo 2016: EF 20%, akinetic segment and mid to distal anterior wall and entire apex other hypokinetic segments, right ventricular systolic dysfunction Lipid profile: May 2019, triglycerides 79, total cholesterol 130, LDL 72, HDL 42 Hold home Lasix and spironolactone Resumed Eliquis Continue home Imdur, metoprolol, simvastatin, aspirin Patient with worsening hypoxemic respiratory failure, was recently paged and will go to evaluate patient currently. May be fluid overloaded will consider further diuresis. History of rectal cancer diagnosed in 2014 T4N1 Status post resection with colostomy, radiation, chemo CT abdomen/pelvis in 01/29/2019: No metastatic disease Anemia: Chronic -anemia of chronic disease in the setting of CKD Appears at baseline if not improved Monitor CBC FEN/GI: meals - diabetic restrictions. DVT prophylaxis: Eliquis Code: Full Disposition: Med/Surg pending placement to SNF for rehab possibly buttermaker helper care for his dementia (2) Acute renal failure: (3) Rectal carcinoma: (4) Diabetes mellitus: (5) Hypercholesterolemia: (6) Hypertension: (7) CHF (congestive heart failure): (8) CAD (coronary artery disease): (9) Atrial fibrillation: (10) Decubitus skin ulcer: (11) Hyponatremia: (12) Elevated troponin: Supervising Physician Co-Signing Physician Notes I personally examined the patient and verified all salcido points of history and exam, discussed case, and agree with decision making with Dr Sood. Feeling okay. No complaints. Granddaughter presentshe notes that she and her moved locally to help take care of patient and his . She does note that he definitely requires a lot of care. She is aware that his dementia is fairly progressed. She does get tearful at times during our conversation, but I offered empathy and support. We agree that a current plan of SNF with a rehab emphasis in a goal of back home, but also with the idea that patient may be progressing to where he needs more permanent care depending on how he is doing. Vitals noted, in general he is awake and alert seems pleasantly confused but no distress. HEENT normocephalic atraumatic mucous membranes are moist. Breathing unlabored no accessory muscle use good effort. Hyperglycemic dehydrationimproved. Suspect this relates to poor med compliance which probably relates back to his dementia. Sugars acceptable now Dementiasupportive care. Discussed with granddaughter in regards to overall progression and care. Stage II-III sacral ulcer present on admissionlocal wound care, mobility as possible Dispositionwill require SNF once approved and available. Otherwise as above Subjective Attending Physician Dr. Vela Patient resting comfortably today, still content and delightfully demented. Patient is oriented to person only, denies any symptoms on full review of system continues to tell me that everything was fine at home that he is taking all his bills as scheduled. Denies any pain in his sacral wounds area. Review of Systems Review of Systems: All systems reviewed & are unremarkable except as noted in HPI & below Physical Exam Physical Exam: Constitutional: Frail appearing elderly gentleman, colostomy in place on abdomen bandage over sacral wound Eyes: Anicteric Sclerae, EOMMI bilaterally ENMT: NAD Neck: Supple no masses, Jugular pulse normal Respiratory: Lung sounds vesicular in all lung mace, no increased work of breathing, symmetrical chest expansion, no wheezing Cardiovascular: Heart sounds dual, no murmurs, rubs, skips, or gallops, no edema of lower extremities GI: Abdomen soft nontender, ostomy site looks intact no obvious skin breakdown Integumentary: Body covered in multiple lesions, including seborrheic keratoses, some concerning moles Abrasion on scalp Results & Data Vital Signs (Past 12 Hours) Vital Signs Temp Pulse Resp BP Pulse Ox 08/07/19 16:32 36.5 C 68 18 115/66 93 08/07/19 11:52 20 92 08/07/19 11:50 36.3 C L 67 36 H 118/56 L 92 08/07/19 07:45 18 92 08/07/19 07:44 36.6 C 66 36 H 110/70 95 PG Care Time/CCT Total # of Minutes Spent Total Time Spent with Patient: Total time spent is greater than 50% in coordination of care (as documented) at patient's floor/unit and/or counseling patient: Resident Activity Tracking Resident Involvement: Resident Care Provided Care Provided: Adult Hospital Medicine (1) Acute renal failure Acute renal failure type: unspecified Qualified Code(s): N17.9 - Acute kidney failure, unspecified
--- NOTE | 2019-08-07 20:44 | XRay Report ---
XR chest 1V portable HISTORY: New Hypoxia, tachypnea COMPARISON: Chest 05/20/2017. Chest CT 11/25/2017. FINDINGS: There is a moderate size left hydropneumothorax. This demonstrates a maximal pleural gap la terally of 2.5 cm. No right-sided pneumothorax. The heart remains mildly enlarged. Diffuse interstiti al thickening and a small right pleural effusion. There are bilateral perihilar densities. This favor s mild pulmonary edema. IMPRESSION: 1. Moderate left hydropneumothorax. 2. Mild interstitial pulmonary edema and a small right pleural effusion. 3. These findings were discussed with Dr. Sood at 8:50 PM on 08/07/2019. Electronically signed by: George Kingsley M.D. 08/07/2019 9:42 PM
--- NOTE | 2019-08-07 23:05 | Communication Note ---
Date of Service: August 07, 2019 Patient became tachypneic and tachycardic around lunchtime today, I was paged by the patients very vigilant nurse that patient appeared tachycardic and with his increased oxygen demand to 3L from room air she was concerned. Visited patient and he was noted to be tachypneic but still conversational with decreased breath sounds on left compared to this morning. Ordered CXR which revealed a large left pleural effusion (chronic from previous imaging having been tapped multiple times by Dr. Calderon unsure of last thoracentesis, but certainly not this admission) And a moderate new pneumothorax. Consulted pulmonology Dr. Rasmussen for chest tube placement and he will evaluate patient shortly. Will continue to monitor and pass message on to night team. UPDATE: Family called and consented for chest tube placement, in discussions decision was also made by and daughter to go ahead with making patient DNR/DNI as they believe that would be what he would want. They are still for aggressive treatment and chest tube placement but should his heart stop would want no heroic intervention. Chest tube placed successfully, draining serosanguinous fluid. Family called and updated.
[2019-08-07] MEDS ORDERED: MoRPHine SULFATE 2 MG/ML CARP ONE (23:29)
[2019-08-07] MEDS ORDERED: LIDOCAINE HCL 1% 20 ML VIAL ONE (23:30)
[2019-08-07] MEDS ORDERED: LIDOCAINE HCL 2% (LOCAL) INJ 50 ML VIAL INFIL ONE (23:40)
[2019-08-07] MEDS ORDERED: MoRPHine SULFATE 2 MG/ML CARP IV ONE (23:41)
--- NOTE | 2019-08-08 01:05 | Procedure Note ---
Procedure Note Date of Service August 08, 2019 Procedure: Pigtail chest tube placement [employer]oples[employer] Administrator: Dr. Ted Rasmussen Indication: Hydropneumothorax on the left side with respiratory distress Consent: Telephone consent obtained from Saloni Casillas, witnessed by nurse Staci Anesthesia: 1% lidocaine without epinephrine local. Procedure: Consent was verified and time-out performed. Appropriate imaging studies were reviewed prior to the procedure. Patient was placed in a seated position and limited thoracic ultrasound was performed of the left side chest. The skin was prepped and draped in normal sterile fashion. Lidocaine was used for local analgesia. Fluid was aspirated via the finder needle. A small skin kevin was made with the scalpel and the catheter over the needle apparatus was advanced over the rib into the pleural space. 14 Turkish pigtail chest tube was inserted via Seldinger technique. Serosanguineous fluid was aspirated. The chest tube was connected to Nichole valve A sterile dressing was applied. Post procedure chest x-ray was ordered. Fluid was sent for labs, culture and cytology. The patient tolerated the procedure without obvious complication Blood loss: Less than 2 cc Complications: None Coding CPT Codes Pulmonary/Thoracic - Pulmonary and Thoracic: Tube thoracostomy ([id number])
[2019-08-08 01:57] LABS: Albumin Pleural Fluid 1.2 g/dl
[2019-08-08 02:02] LABS: Total Protein Pleural Fluid 2.8 g/dl
[2019-08-08 02:37] LABS: Appearance Pleural Fluid CLOUDY; Color Pleural Fluid RED; RBC Pleural Fluid (A) 36000 /uL; Source Pleural Fluid LEFT LUNG; WBC Pleural Fluid (A) 680 /uL
[2019-08-08 02:59] LABS: Basophils, Fluid 0 %; Eosinophils, Fluid 0 %; Lymphocytes, Fluid 53 %; Mono,Macrophage,Mesothelial 36 %; Neutrophils, Fluid 11 %
--- NOTE | 2019-08-08 06:48 | XRay Report ---
XR chest 1V portable CLINICAL HISTORY: Chest tube insertion COMPARISON STUDY: Chest radiograph August 07, 2019. Chest CT July 25, 2018. FINDINGS: Interval placement of a left basilar pleural catheter is noted. A left hydropneumothorax is again noted. The amount of pleural gas is similar to prior exam. The amount of pleural fluid has sli ghtly diminished. Interstitial thickening within the lungs persist. There is a trace right pleural ef fusion. Cardiomegaly is unchanged. Right infrahilar left basilar opacity persists. IMPRESSION: 1. Interval placement of a left basilar pleural catheter. Redemonstration of a left hydropneumothorax with no significant change in the gaseous component. Mild interval decrease in the fluid component. 2. No change in interstitial thickening which favors pulmonary edema. Persistent right infrahilar and bibasilar opacities. 3. Trace right pleural effusion. Electronically signed by: Toño Gee M.D. 08/08/2019 6:47 AM
[2019-08-08 07:55] LABS: Creatinine Clr Calc Pharmacy 29.2 ml/min; Est GFR (African American) 35.6; Est GFR (Non-African American) 30.7
[2019-08-08 07:56] LABS: Hemoglobin 12.8 g/dL (14.0-18.0); Mean Corpuscular Hemoglobin 30.8 pg (25-34); Mean Corpuscular Hgb Conc 33.7 g/dL (32-36); Mean Corpuscular Volume 91.3 fL (80-100); Mean Platelet Volume 10.5 fL (7.4-10.4); Platelet Count 169 K/uL (130-400); RDW Coefficient of Variation 15.2 % (11.5-14.5); RDW Standard Deviation 51.5 fL (36.4-46.3); Red Blood Count 4.16 M/uL (4.7-6.1); White Blood Count 8.08 K/uL (4.8-10.8)
[2019-08-08 07:57] LABS: Basophils # (auto) 0.01 K/uL (0-0.2); Basophils % (auto) 0.1 %; Echinocytes 1+; Eosinophils # (auto) 0.06 K/uL (0-0.5); Eosinophils % (auto) 0.7 %; Immature Granulocytes # (auto) 0.02 K/uL (0.00-0.02); Immature Granulocytes % (auto) 0.2 %; Lymphocytes # (auto) 0.46 K/uL (1.2-3.4); Lymphocytes % (auto) 5.7 %; Monocytes # (auto) 0.22 K/uL (0.11-0.59); Monocytes % (auto) 2.7 %; Neutrophils # (auto) 7.31 K/uL (1.4-6.5); Neutrophils % (auto) 90.6 %
[2019-08-08 08:00] LABS: BUN Creatinine Ratio 29.3 (10-20); Calcium 9.1 mg/dl (8.5-10.1); Creatinine Clr Calc Pharmacy 29.3 ml/min; Est GFR (African American) 35.9; Est GFR (Non-African American) 30.9; Potassium 4.9 mmol/L (3.5-5.1)
[2019-08-08] MEDS: METOPROLOL SUCC 25MG EXT REL TAB PO SCH (08:05)
[2019-08-08] MEDS: ISOSORBIDE MONO EXTENDED REL 30 MG TABCR PO SCH (08:05)
[2019-08-08] MEDS: SIMVASTATIN 80 MG TAB PO SCH (08:05)
[2019-08-08] MEDS: PREGABALIN 25 MG CAP PO SCH (08:05)
[2019-08-08] MEDS: MULTIVITAMIN TAB PO SCH (08:05)
[2019-08-08] MEDS: FUROSEMIDE 40 MG TAB PO SCH ×2 (08:06→17:22)
[2019-08-08] MEDS: SPIRONOLACTONE 25 MG TAB PO SCH (08:06)
[2019-08-08] MEDS: INSULIN GLARGINE SOLOSTAR 100 UNITS/ML 3 ML PEN SC SCH (08:06)
[2019-08-08] MEDS: APIXABAN 2.5 MG TAB PO SCH ×2 (08:06→20:32)
[2019-08-08] MEDS: NYSTATIN OINT 15 GM TUBE EXT SCH ×2 (08:06→20:32)
[2019-08-08] MEDS: ASPIRIN 81 MG ECTAB PO SCH (08:06)
[2019-08-08] MEDS: INSULIN ASPART 100 UNITS/ML 3 ML PEN SC SCH ×3 (08:42→20:40)
[2019-08-08] MEDS ORDERED: Nursing to Pharmacy Communication ONE (10:56)
--- NOTE | 2019-08-08 14:23 | Pharmacy Report ---
Pharmacy Glycemic Short Note 2 - Date of Service August 08, 2019 - Glycemic Short BSG Results (Last 24 hours): 08/07/19 08/07/19 08/07/19 07:12 16:18 20:14 Glucose POC Glucose 189 H 154 H 135 H 08/08/19 08/08/19 08/08/19 07:09 07:35 11:35 Glucose 119 H POC Glucose 119 H 254 H OUTPATIENT ANTIDIABETIC REGIMEN: * Lantus 40 units qAM (non compliant) * A1c = 12.3 % 08/04/19 (up significantly from 7.4% on 05/11/19) ASSESSMENT: * See progress note from 08/04/19 for more background info, in short: * Pt receiving SQ basal bolus insulin regimen for hyperglycemia secondary to baseline DM (outpatient regimen on hold) and infection * Patient is currently receiving an average of 45 units of insulin per day * 15 units of basal insulin * 30 units of prandial/correctional insulin * BSGs ranging 135-252 mg/dl over the past 24hrs * Changes needed to insulin regimen: * AM Fasting BSG = 119 mg/dl. This is at goal. Will continue current Lantus order. * Post-prandial BSGs are mostly at goal with the exception of the lunch check. I will tighten Novolog CF/CR with breakfast to avoid BSG spike at lunchtime. Of note, current regimen is highly bolus weighted. PLAN FOR INPATIENT GLYCEMIC CONTROL: * Hold outpatient oral diabetes medications * Basal insulin * Lantus 15 units SQ qAM * Bolus insulin - tighten CF/CR * NovoLog per scale ACHS or Q6hrs while NPO * Goal Range: Low 110 mg/dL - High 150 mg/dL Breakfast: * Correction Factor: 20 mg/dL/unit * Nutritional / Prandial insulin per carb ratio of 1 unit per 6 grams CHO consumed Lunch/Dinner/HS: * Correction Factor: 25 mg/dL/unit * Nutritional / Prandial insulin per carb ratio of 1 unit per 7 grams CHO consumed PLAN FOR DISCHARGE: * A1c = 12.3% (08/04/19) * Goal A1c <8 % based on age and comorbidities * Patient reported non-compliance on admission and A1c has increased significantly in just a few months (A1c of 7.4% on 05/11/19) * Recommend SMBG 2-3x/day * Recommend Lantus 15-20 units SQ daily (reduced dose d/t adequate inpatient BSG control on much lower doses and recent weight loss) * Follow up with outpatient provider to determine if basal insulin alone is sufficient or if bolus insulin should be added Thank you.
--- NOTE | 2019-08-08 15:44 | Pulmonary Consultation ---
Date of Consultation August 08, 2019 Assessment & Plan (1) Pleural effusion: With associated hydropneumothorax We were consulted for evaluation of pleural effusion and intervention 14 Vincentian pigtail catheter placed on the left by Dr. Rasmussen earlier this morning Currently to continuous suction to Nichole Pleur-evac 1400 initially evacuated This morning there is close to 80 mL evacuated Continue with suction secondary to small pneumothorax Repeat chest x-ray in the morning No respiratory distress at the time of my examination History of previous thoracentesis secondary to rectal cancer with benign pleural fluid Last thoracentesis was [place] [address] Calderon Continue to follow (2) Hydropneumothorax: 14 Vincentian pigtail catheter placed and patient put on suction 1400 cc of fluid evacuated and sent to the lab for evaluation On examination today there is no tracheal deviation or paradoxical chest wall movement. There are coarse crackles throughout the left lung mace Chest tube is in place and secure and good respiratory variation in the tube with no evidence of air leak Pleural fluid with pH of 7.36, total protein 2.8, albumin 1.2, LDH 127, glucose 135, amylase 40, triglycerides 7 Serum LDH 178 This demonstrates exudative fluid with a ratio of 0.7 Continue chest tube to suction We will continue to follow Thank you for including us in the care of this patient. Please refer to Dr. Rasmussen's addendum for further recommendations. We will continue to follow this patient Supervising Physician Co-Signing Physician Notes I saw and evaluated the patient with Sen Pierce, and agree with findings and plan as documented in the note. Patient seen and examined at bedside. Patient had a 14 Vincentian pigtail catheter placed in the left chest for hy dropneumothorax as he was in distress overnight by me. Fluid was serosanguineous a lot of RBCs and exudative as per lights criteria secondary to LDH. Patient is stating that he is more comfortable after having the pigtail catheter placed in. Catheter is in good position. Has drained so for 2 L. Chest x-ray did not show any significant change in the pneumothorax but improvement in the pleural effusion. There is symptomatic relief with the patient. It seems like this likely entrapped versus trapped lung given that the patient had chronic pleural effusion. Will continue with suction and repeat x-rays in the morning. If there is no improvement in pneumothorax is then it is most likely trapped lung and will let CT surgery deal with it with either VATS or Pleurx catheter for comfort measures. Follow-up cytology for the fluid. I have spent more than 50% of this 40 minute encounter in counseling and/or coordination of care with patient. History of Present Illness Attending Physician: Steve Vela DO History of Present Illness Attending: Dr. Rasmussen This is an 84-year-old male with a past medical history including hypertension, hypercholesterolemia, insulin-dependent diabetes mellitus, coronary artery disease, history of congestive heart failure, atrial fibrillation, chronic renal insufficiency, history of a rectal carcinoma, and secondary anemia. We are consulted to evaluate for thoracentesis versus chest tube as patient had a moderate left pleural effusion. Review of past records shows the patient had a previous small right pleural effusion which he underwent thoracentesis with Dr. Calderon in February 2016 resulting in a small pneumothorax. At that time the pleural fluid was benign. The patient has no history of metastatic carcinoma and no recurrence of his rectal carcinoma status post chemoradiation and surgical resection in 2015. The patient did present with some tachycardia and shortness of breath and was found to have the pleural effusion. A 14 Vincentian pigtail catheter was placed early this morning by Dr. Rasmussen and placed to suction. My arrival in the room there was a question as to whether the chest tube was functional. There is very little output. The patient was placed in his right lateral recumbent position and the chest tube was found to be slightly kinked on the skin. The tube to the Nichole Pleur-evac was adjusted and found to have good respiratory variation with the patient's inspiration and expiration. There is no evidence of air leak in the Nichole. It was confirmed that the Nichole was at 20 cm of water. After repositioning of the chest tube there was approximately 80 cc of straw-colored fluid evacuated into the Nichole. The patient denies any chest pain or tightness. He has no fever chills sweats or rigors. He does have a colostomy there is been in place since his surgical resection of his rectal carcinoma. There is noted to be soft brown stool with no evidence of melena or hematochezia. There is also no evidence of liquid stool. The patient's chest tubes in place and secured in the left mid axillary line at approximately the fourth intercostal rib space. The patient denies any pain at the insertion site. The patient has no cough or sputum production. He denies any hemoptysis. He has no paradoxical chest wall movement. He has no evidence of tracheal deviation. The patient is pleasant and denies any other additional acute complaints. He is alert and oriented and states he lives with his and daughter at home. He is a previous smoker of 11 pack years and states he quit smoking 50 years ago. Allergies Allergy/AdvReac Type Severity Reaction Status Date / Time poison sumac extract Allergy Unknown Rash Verified 08/03/19 23:55 Home Medications Home Medications Medication Instructions Recorded Confirmed Type aspirin 81 mg tablet 81 mg PO DAILY tab 04/23/19 08/03/19 History furosemide 40 mg tablet 40 mg PO BID tab 04/23/19 08/03/19 History insulin glargine (U-100) 100 40 units SUBCUT .use 40units in am 04/23/19 History unit/mL (3 mL) subcutaneous pen #3 ml isosorbide mononitrate ER 30 mg 30 mg PO .COMPLEX tab 04/23/19 08/03/19 History tablet,extended release 24 hr metoprolol succinate ER 25 mg 25 mg PO DAILY #90 tab 04/23/19 08/03/19 History tablet,extended release 24 hr multivitamin tablet 1 tab PO DAILY 04/23/19 08/03/19 History spironolactone 25 mg tablet 25 mg PO DAILY #90 tab 04/23/19 08/03/19 History pregabalin 25 mg capsule 25 mg PO DAILY #90 cap 05/31/19 08/03/19 Rx simvastatin 80 mg tablet 80 mg PO DAILY #90 tab 05/31/19 08/03/19 Rx apixaban 2.5 mg tablet 2.5 mg PO BID #180 tab 06/05/19 08/03/19 Rx metformin 500 mg PO DAILY 08/04/19 08/04/19 History Patient History Medical History Atrial fibrillation (Acute) Rectal cancer (Acute) CAD (coronary artery disease) Chronic renal insufficiency Congestive heart failure Hyperlipidemia Hypertension Insulin dependent type 2 diabetes mellitus Surgical History Colostomy in place H/O resection of rectum History of cataract surgery History of thoracentesis Social History Preferred Language: Italian Communication Ability: Effective Communication Tools: Letter Board Home Attendant Required: Yes Beliefs That Will Affect Care: None Current Living Situation: Family Other Information That Helps Us Care for You: No Feels Safe at Home: Yes Safety Concerns: Feels Safe At This Time Smoking Status: Former smoker packs per day: 1 ; Years Smoked: 11 ; Do You Dip or Chew Tobacco: No ; Number of Years Since Quit: 50 ; Hx Alcohol Use: No Hx Substance Use: No Review of Systems Review of Systems: All systems reviewed & are unremarkable except as noted in HPI & below Physical Exam Physical Exam: GENERAL : No acute distress. Appears cachectic EYES: No icterus, gaze conjugate. Pupils equal round and reactive to light NOSE: No evidence of epistaxis. Nasal cannula in place MOUTH: No lesions or candidiasis. Mucosa moist NECK: Supple. No appreciation of stridor LUNGS: Crackles throughout the left upper and lower lobes. Faint bronchospasm and expiratory phase in the left upper lobe in the posterior. Clear to auscultation on the right. HEART: Regular, rate in the low 100s ABDOMEN: Soft, NT, ND, BS Present. Colostomy placed in the left lower quadrant with brown soft stool. No evidence of melena or hematochezia EXTREMITIES: No LE edema, pedal pulses intact. Some nonhealing ulcers on the toes. Poor nail care on the feet bilaterally. Waffle boots in place bilaterally NEURO: A&OX3. Generalized weakness. Able to roll over in bed with assistance. Results & Data Vital Signs (Past 12 Hours) Vital Signs Temp Pulse Resp BP Pulse Ox 08/08/19 11:30 36.7 C 64 26 H 111/61 97 08/08/19 08:00 36.4 C L 68 16 130/72 94 Laboratory Results 08/08/19 07:09 08/08/19 07:09 Diagnostic Findings XR chest 1V portable CLINICAL HISTORY: Chest tube insertion COMPARISON STUDY: Chest radiograph August 07, 2019. Chest CT July 25, 2018. FINDINGS: Interval placement of a left basilar pleural catheter is noted. A left hydropneumothorax is again noted. The amount of pleural gas is similar to prior exam. The amount of pleural fluid has slightly diminished. Interstitial thickening within the lungs persist. There is a trace right pleural effusion. Cardiomegaly is unchanged. Right infrahilar left basilar opacity persists. IMPRESSION: 1. Interval placement of a left basilar pleural catheter. Redemonstration of a left hydropneumothorax with no significant change in the gaseous component. Mild interval decrease in the fluid component. 2. No change in interstitial thickening which favors pulmonary edema. Persistent right infrahilar and bibasilar opacities. 3. Trace right pleural effusion. Electronically signed by: Toño Gee M.D. 08/08/2019 6:47 AM XR chest 1V portable HISTORY: New Hypoxia, tachypnea COMPARISON: Chest 05/20/2017. Chest CT 11/25/2017. FINDINGS: There is a moderate size left hydropneumothorax. This demonstrates a m aximal pleural gap laterally of 2.5 cm. No right-sided pneumothorax. The heart remains mildly enlarged. Diffuse interstitial thickening and a small right pleural effusion. There are bilateral perihilar densities. This favors mild pulmonary edema. IMPRESSION: 1. Moderate left hydropneumothorax. 2. Mild interstitial pulmonary edema and a small right pleural effusion. 3. These findings were discussed with Dr. Sood at 8:50 PM on 08/07/2019. Electronically signed by: George Kingsley M.D. 08/07/2019 9:42 PM PG Care Time/CCT Total # of Minutes Spent Total Time Spent with Patient: Total time spent is greater than 50% in coordination of care (as documented) at patient's floor/unit and/or counseling patient: 30
[2019-08-08] MEDS ORDERED: INSULIN ASPART 100 UNITS/ML 3 ML PEN SC SCH (16:30)
--- NOTE | 2019-08-08 16:37 | Surgery Consultation ---
Date of Consultation August 08, 2019 Assessment & Plan (1) Hydropneumothorax: I discussed this case with Dr. Rasmussen. 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 He will remain on suction we will see how much he drains. If that is indeed the case we may consider putting in a Pleurx as it would be the best way to get him out of the hospital. The problem is he has a colostomy with some wounds. This will increase the chance of infection however, he apparently is so much better that we can have to consider drainage. He has not an operative candidate for anything. We will follow along and hopefully his lung will expand over the next few days. I will check daily x-rays. Present on Admission?: Yes History of Present Illness Attending Physician: Steve Vela, DO History of Present Illness Cordell Casillas is an 84-year-old male that I know. I have performed thoracenteses in the past. These were benign effusions. I have not seen him in over 2 years. Patient presented a few days ago and became short of breath earlier yesterday and underwent a x-ray which showed he had a hydropneumothorax on the left. Dr. Rasmussen inserted a 14 Brazilian pigtail catheter which drained a tremendous amount of fluid in fact is drained over 2 L since it was inserted last night. 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 He is done remarkably well given his advanced age. 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 He had trouble breathing and is much improved since his catheter was placed. I been asked to comment on this from a thoracic surgery standpoint. Patient states he is much better. He has had some cognitive dysfunction and deterioration since I last saw him. He does not remember me. He states his breathing is greatly improved. He also states that he is "ready to go home". pH of the fluid is 7.36. The LDH is 127 and his serum LDH is 178 giving him over a ratio over 0.7. Technically this is a exudate. The albumin is only 1.2. Glucose is 135. Saturation is 98% on 2 L. It should be noted that he was on room air when he came into the hospital. Allergies Allergy/AdvReac Type Severity Reaction Status Date / Time poison sumac extract Allergy Unknown Rash Verified 08/03/19 23:55 Home Medications Home Medications Medication Instructions Recorded Confirmed Type aspirin 81 mg tablet 81 mg PO DAILY tab 04/23/19 08/03/19 History furosemide 40 mg tablet 40 mg PO BID tab 04/23/19 08/03/19 History insulin glargine (U-100) 100 40 units SUBCUT .use 40units in am 04/23/19 08/03/19 History unit/mL (3 mL) subcutaneous pen #3 ml isosorbide mononitrate ER 30 mg 30 mg PO .COMPLEX tab 04/23/19 08/03/19 History tablet,extended release 24 hr metoprolol succinate ER 25 mg 25 mg PO DAILY #90 tab 04/23/19 08/03/19 History tablet,extended release 24 hr multivitamin tablet 1 tab PO DAILY 04/23/19 08/03/19 History spironolactone 25 mg tablet 25 mg PO DAILY #90 tab 04/23/19 08/03/19 History pregabalin 25 mg capsule 25 mg PO DAILY #90 cap 05/31/19 08/03/19 Rx simvastatin 80 mg tablet 80 mg PO DAILY #90 tab 05/31/19 08/03/19 Rx apixaban 2.5 mg tablet 2.5 mg PO BID #180 tab 06/05/19 08/03/19 Rx metformin 500 mg PO DAILY 08/04/19 08/04/19 History Patient History Medical History Atrial fibrillation (Acute) Rectal cancer (Acute) CAD (coronary artery disease) Chronic renal insufficiency Congestive heart failure Hyperlipidemia Hypertension Insulin dependent type 2 diabetes mellitus Surgical History Colostomy in place H/O resection of rectum History of cataract surgery History of thoracentesis Social History Preferred Language: Singaporean Communication Ability: Effective Communication Tools: Letter Board Process Description Writer Required: Yes Beliefs That Will Affect Care: None Current Living Situation: Family Other Information That Helps Us Care for You: No Feels Safe at Home: Yes Safety Concerns: Feels Safe At This Time Smoking Status: Former smoker packs per day: 1 ; Years Smoked: 11 ; Do You Dip or Chew Tobacco: No ; Number of Years Since Quit: 50 ; Hx Alcohol Use: No Hx Substance Use: No Review of Systems Review of Systems: All systems reviewed & are unremarkable except as noted in HPI & below Patient has multiple problems besides his rectal cancer. He has diabetes mellitus and has coronary artery disease. He has stents placed. He has had anterior wall myocardial infarction in the past. He has breakdown of his of sacral area due to pressure and also has left groin rash. Patient has been slipping cognitively. He was hydrated when he presented. Not as active in the last few months. He is not compliant with his insulin for his diabetes. P atshanell had apparently cyanosis edema of his legs which is much better. Apparently he is eating and drinking well and his ostomy is working well. He said no nausea or vomiting or hematuria. States that this left groin rash been present for quite a bit of time. He states not very clear on his sacral ulcer. He also has a wound at the top of the head. This is on his occiput. Eyes any visual auditory changes. Physical Exam Physical Exam: Patient has lost weight and is not as coherent as when I last s aw him in 2017. He states his breathing is better. He is on 2 L. He has some temporal wasting. His sclera pale but anicteric. He does appear to be a bit dry and his oral mucosa is a bit dry but he has no oral mucosal lesions. His neck is thin and supple. He has no carotid bruits. Auscultation of his lungs he does have decreased breath sounds on both bases but more so on the left than the right. He has accompanying rails and I really do not detect any any wheezing per se but he does have some rhonchi in the upper lobes. He has a huge parastomal hernia with his left colostomy but the colostomy is pink and functioning well with a bag in place. His abdomen is otherwise soft nontender. He has trace edema. He has some some skin breakdown over his toes. I can palpate posterior tibialis pulses. He has no joint effusions. Neurologically. He moves all extremities although weakly to command. Results & Data Vital Signs (Past 12 Hours) Vital Signs Temp Pulse Resp BP Pulse Ox 08/08/19 15:54 36.6 C 55 L 20 116/64 98 08/08/19 11:30 36.7 C 64 26 H 111/61 97 08/08/19 08:00 36.4 C L 68 16 130/72 94 PG Care Time/CCT Total # of Minutes Spent Total Time Spent with Patient: Total time spent is greater than 50% in coordination of care (as documented) at patient's floor/unit and/or counseling patient:
[2019-08-08] MEDS ORDERED: INSULIN HUMAN REGULAR PER UNIT 5 UNITS in SYRINGE 4.95 ML IV ONE (17:30)
--- NOTE | 2019-08-08 19:16 | Family Medicine Progress Note ---
Date of Service August 08, 2019 Assessment & Plan (1) Hyperglycemia: 84yoM with hx of DMII, CAD s/p stent 1st diagonal in 2017 s/p anterior STEMI, severe 2 vessel disease and critical L main involvement; CHF, HTN, HLD, Afib, CKD, rectal cancer presents from home to the ED for concern of worsening health at home per family. On admission, found to have elevated troponin with inverted T waves in lateral leads, glucose of 812 concerning for HHS, NILESH and pseudohyponatremia of 125. 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 Hyperglycemia Initially presented with Concern for HHS in the setting of insulin-dependent diabetes mellitus Appears to have lost compliance with his medication secondary to dementia and deconditioning Admission A1C resulted at 12.3 which is considerably up from most recent on 05/11/2019 of 7.4. Was placed On HHS protocol with insulin drip his sugars improved to 150-180s s/p 1 L NS in ED. Had 500cc on floor followed by 80mL/hr of maintenance fluid as patient wasn't alert and able to self maintain fluid intake. More alert now discontinued IVFs. Avoid fluid overload - Low EF 20%. Pharmacy glycemic management on SubQ insulin Well controlled currently Decubitus ulcer Little concern for cellulitis/infection stopped keflex Afebrile, normal WBC Wound care nurse consulted, appreciate recommendations Poor nutrition status Concerns for patient's nutrition status as appears very frail, thin, and has generalized weakness; sacral ulcer will need adequate nutrition for wound healing. Will consult Dietary for nutrition recs Pre-albumin level of 8.9 which is low. PT/OT ordered recommending SNF Elevated troponin: Patient denies any chest pain, shortness of breath, lightheadedness Hx of CAD s/p stent 1st diagonal in 2017 s/p anterior STEMI, severe 2 vessel disease and critical L main involvement -patient is high risk for surgical procedure and medically managed only Echo 2016: EF 20%, akinetic segment and mid to distal anterior wall and entire apex other hypokinetic segments, right ventricular systolic dysfunction EKG: Howie dacosta T wave inversion in anterior leads Troponin elevated to 0.152 with repeat at 0.466 then 1.0, down to .3 Certainly a component of elevation will be his CKD as is renally cleared. No concerning symptoms for ACS CMP BNP ordered which was >77349 - unreliable in setting of CKD No sign of fluid overload currently. Gentle hydration to avoid overload A fib Continue Eliquis NILESH setting of CKD In setting of HHS, but his values during visit reflect prior baseline values. No current concern for worsening kidney status and will continue IV fluid management as above Baseline creatinine around 2-2.2 Resumed home lasix and spironolactone will continue to trend BMP Pseudohyponatremia in the setting of hyperglycemia Resolved Left groin rash Concern for fungal infection versus dermatitis, appears consistent with tinea cruris Continue with nystatin cream History of hypertension/hyperlipidemia/coronary disease/CHF/A. fib Hx of CAD s/p stent 1st diagonal in 2016 s/p anterior STEMI, severe 2 vessel disease and critical L main involvement -patient is high risk for surgical procedure and medically managed only Echo 2016: EF 20%, akinetic segment and mid to distal anterior wall and entire apex other hypokinetic segments, right ventricular systolic dysfunction Lipid profile: May 2019, triglycerides 79, total cholesterol 130, LDL 72, HDL 42 Hold home Lasix and spironolactone Resumed Eliquis Continue home Imdur, metoprolol, simvastatin, aspirin History of rectal cancer diagnosed in 2014 T4N1 Status post resection with colostomy, radiation, chemo CT abdomen/pelvis in 01/29/2019: No metastatic disease Anemia: Chronic -anemia of chronic disease in the setting of CKD Appears at baseline if not improved Chest tube placement while on eliquis with high risk of bleeding but did not have much with acutal procedure Monitor CBC FEN/GI: meals - diabetic restrictions. DVT prophylaxis: Eliquis Code: Full Disposition: Med/Surg while chest tube in place, if lung re expands well and chest tube can be pulled we still want to d/c to SNF, if chest tube ineffective, will d/c to snf with Pleur-X catheter (2) Acute renal failure: (3) Rectal carcinoma: (4) Diabetes mellitus: (5) Hypercholesterolemia: (6) Hypertension: (7) CHF (congestive heart failure): (8) CAD (coronary artery disease): (9) Atrial fibrillation: (10) Decubitus skin ulcer: (11) Hyponatremia: (12) Elevated troponin: (13) Hydropneumothorax: Supervising Physician Co-Signing Physician Notes I personally examined the patient and verified all salcido points of history and exam, discussed case, and agree with decision making with Dr Sood. Feeling surprisingly well despite chest tube. No chest pain or shortness of breath. No other complaints. Vitals noted, in general he is awake and alert seems pleasantly confused but no distress. HEENT normocephalic atraumatic mucous membranes are moist. Breathing unlabored no accessory muscle use good effort. Chest tube seems to be functioning appropriately. Pneumothoraxnow with chest tube. Respiratory status overall stable, is needing supplemental oxygen but otherwise showing no distress. Continue management per pulmonary/thoracic surgery. Underlying etiology to be determined by solutions consultant services. Hyperglycemic dehydrationimproved. Suspect this relates to poor med compliance which probably relates back to his dementia. Sugars acceptable nowcontinue current care Dementiasupportive care. Actually seems surprisingly clear today. Stage II-III sacral ulcer present on admissioncontinue local wound care, mobility as possible Dispositionwill require SNFbut spontaneous pneumothorax obviously has significantly lengthen the time he will require inpatient hospitalization. Otherwise as above Subjective Mr. Casillas appears much better this morning following placement of his chest tube, he is no longer so tachypneic and his work of breathing has decreased. He continues to be oriented to person only, he is alert and communicative but lacks substance in his conversation and understanding. He reports that he is feeling well, denies any shortness of breath and wants to go home. Review of Systems Review of Systems: All systems reviewed & are unremarkable except as noted in HPI & below and Unobtainable due to cognitive status Physical Exam Physical Exam: Constitutional: Frail appearing elderly gentleman, chest tube in place draining serosanguinous fluid, colostomy in place on abdomen with large ostomy hernia, bandage over sacral wound Eyes: Anicteric Sclerae, EOMMI bilaterally ENMT: NAD Neck: Supple no masses, Jugular pulse normal Respiratory: Lung sounds course in left lung field, consistent with chest tube, no increased work of breathing, symmetrical chest expansion, no wheezing Cardiovascular: Heart sounds dual, no murmurs, rubs, skips, or gallops, no edema of lower extremities GI: Abdomen soft nontender, ostomy site looks intact no obvious skin breakdown Integumentary: Body covered in multiple lesions, including seborrheic keratoses, some concerning moles Abrasion on scalp Results & Data Vital Signs (Past 12 Hours) Vital Signs Temp Pulse Resp BP Pulse Ox 08/08/19 11:30 36.7 C 64 26 H 111/61 97 08/08/19 08:00 36.4 C L 68 16 130/72 94 PG Care Time/CCT Total # of Minutes Spent Total Time Spent with Patient: Total time spent is greater than 50% in coordination of care (as documented) at patient's floor/unit and/or counseling patient: (1) Acute renal failure Acute renal failure type: unspecified Qualified Code(s): N17.9 - Acute kidney failure, unspecified
[2019-08-08] MEDS ORDERED: INSULIN HUMAN REGULAR IV BOLUS 2 UNITS in SYRINGE 0 ML IV ONE (20:15)
[2019-08-08] MEDS: INSULIN REGULAR 250 UNITS in SODIUM CHLORIDE 0.9% 247.5 ML IV SCH ×2 (20:29→23:11)
[2019-08-09 06:15] LABS: BUN Creatinine Ratio 30.4 (10-20); Calcium 8.6 mg/dl (8.5-10.1); Creatinine Clr Calc Pharmacy 29.2 ml/min; Est GFR (African American) 35.6; Est GFR (Non-African American) 30.7; Potassium 5.1 mmol/L (3.5-5.1)
[2019-08-09 06:17] LABS: Hematocrit (blood only) 38.1 % (42-52); Hemoglobin 12.6 g/dL (14.0-18.0); Mean Corpuscular Hemoglobin 30.9 pg (25-34); Mean Corpuscular Hgb Conc 33.1 g/dL (32-36); Mean Corpuscular Volume 93.4 fL (80-100); Mean Platelet Volume 10.6 fL (7.4-10.4); Platelet Count 164 K/uL (130-400); RDW Coefficient of Variation 15.1 % (11.5-14.5); RDW Standard Deviation 51.8 fL (36.4-46.3); Red Blood Count 4.08 M/uL (4.7-6.1); White Blood Count 8.53 K/uL (4.8-10.8)
--- NOTE | 2019-08-09 07:28 | XRay Report ---
XR chest 1V portable HISTORY: hydropneumothorax COMPARISON: Chest 08/08/2019. FINDINGS: Left basilar pleural catheter is unchanged in position. The small to moderate left hydropne umothorax has decreased in size. The heart remains enlarged. Interstitial thickening and bilateral mi d to lower lung zone hazy airspace opacities persist. Small right pleural effusion is also unchanged. IMPRESSION: Slight decrease in size in the [id number] left hydropneumothorax. Left basilar pleural drain r emains unchanged in position. Electronically signed by: George Kingsley M.D. 08/09/2019 7:27 AM
[2019-08-09] MEDS ORDERED: INSULIN ASPART 100 UNITS/ML 3 ML PEN SC SCH ×2 (07:30)
[2019-08-09] MEDS: ASPIRIN 81 MG ECTAB PO SCH (08:00)
[2019-08-09] MEDS: FUROSEMIDE 40 MG TAB PO SCH ×2 (08:00→17:09)
[2019-08-09] MEDS: APIXABAN 2.5 MG TAB PO SCH ×2 (08:00→20:38)
[2019-08-09] MEDS: SPIRONOLACTONE 25 MG TAB PO SCH (08:01)
[2019-08-09] MEDS: NYSTATIN OINT 15 GM TUBE EXT SCH ×2 (08:01→20:37)
[2019-08-09] MEDS: MULTIVITAMIN TAB PO SCH (08:01)
[2019-08-09] MEDS: SIMVASTATIN 80 MG TAB PO SCH (08:01)
[2019-08-09] MEDS: METOPROLOL SUCC 25MG EXT REL TAB PO SCH (08:01)
[2019-08-09] MEDS: ISOSORBIDE MONO EXTENDED REL 30 MG TABCR PO SCH (08:01)
[2019-08-09] MEDS: INSULIN GLARGINE SOLOSTAR 100 UNITS/ML 3 ML PEN SC SCH (08:02)
[2019-08-09] MEDS: PREGABALIN 25 MG CAP PO SCH (08:13)
[2019-08-09] MEDS ORDERED: INSULIN GLARGINE SOLOSTAR 100 UNITS/ML 3 ML PEN SC ONE (08:45)
--- NOTE | 2019-08-09 09:21 | Surgery Progress Note ---
Date of Service August 09, 2019 Assessment & Plan (1) Hydropneumothorax: I discussed this case with Dr. Rasmussen yesterday. We will see how he does with a chest tube on suction. Chest tube appears to be functioning. He has no air leak. Hopefully his drainage will decrease. If the patient has a trapped lung, our options are rather limited. He is not a surgical candidate. The [place] pigtail catheter which is in is not a long-term catheter. Her options are going to be to simply remove the catheter or insert a Pleurx and allowing to be discharged. We will cross that bridge and we come to it. Present on Admission?: Yes Subjective The patient is more lethargic than yesterday. Review of Systems Review of Systems: There is been no change in his review of systems. He just seems a bit more lethargic. Physical Exam Physical Exam: This exam was limited to his chest. He has decreased breath sounds in both bases. His chest tube site dressing is dry. He has no neck vein distention or tracheal deviation. 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 Results & Data Vital Signs (Past 12 Hours) Vital Signs Temp Pulse Resp BP BP Pulse Ox 08/09/19 07:41 36.6 C 68 18 123/69 99 08/09/19 01:08 36.2 C L 67 19 123/71 100 I reviewed the patient's chest x-ray and his pneumothorax is smaller. However, it can be seen that he has a peel on his visceral pleura of the left lower lobe. He has drained about 350 cc of serous fluid since yesterday. He has no air leak. PG Care Time/CCT Total # of Minutes Spent Total Time Spent with Patient: Total time spent is greater than 50% in coordination of care (as documented) at patient's floor/unit and/or counseling patient:
[2019-08-09] MEDS: INSULIN ASPART 100 UNITS/ML 3 ML PEN SC SCH ×5 (09:44→20:36)
[2019-08-09] MEDS ORDERED: INSULIN HUMAN REGULAR PER UNIT 5 UNITS in SYRINGE 4.95 ML IV ONE (12:30)
--- NOTE | 2019-08-09 13:22 | Family Medicine Progress Note ---
Date of Service August 09, 2019 Assessment & Plan (1) Hyperglycemia: 84yoM with hx of DMII, CAD s/p stent 1st diagonal in 2017 s/p anterior STEMI, severe 2 vessel disease and critical L main involvement; CHF, HTN, HLD, Afib, CKD, rectal cancer presents from home to the ED for concern of worsening health at home per family. On admission, found to have elevated troponin with inverted T waves in lateral leads, glucose of 812 concerning for HHS, NILESH and pseudohyponatremia of 125. 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 Calderon, may place pleur X catheter if we do not see adequate re expansion High risk of infection with nearby ostomy site Goals of Care Patient's family contacted 08/08 they wish patient to be DNR/DNI They do want patient to undergo other therapeutic interventions on a case by case basis. Hyperglycemia Initially presented with Concern for HHS in the setting of insulin-dependent diabetes mellitus Appears to have lost compliance with his medication secondary to dementia and deconditioning Family concerned he can no longer take care of himself and isn't up to taking care of him either Admission A1C resulted at 12.3 which is considerably up from most recent on 05/11/2019 of 7.4. Was placed On HHS protocol with insulin drip his sugars improved to 150-180s s/p 1 L NS in ED. Had 500cc on floor followed by 80mL/hr of maintenance fluid as patient wasn't alert and able to self maintain fluid intake. More alert now discontinued IVFs. Avoid fluid overload - Low EF 20%. Pharmacy glycemic management on SubQ insulin Well controlled currently Decubitus ulcer Little concern for cellulitis/infection stopped keflex Afebrile, normal WBC Wound care nurse consulted, appreciate recommendations Poor nutrition status Concerns for patient's nutrition status as appears very frail, thin, and has generalized weakness; sacral ulcer will need adequate nutrition for wound healing. Will consult Dietary for nutrition recs Pre-albumin level of 8.9 which is low. PT/OT ordered recommending SNF Elevated troponin: Patient denies any chest pain, shortness of breath, lightheadedness Hx of CAD s/p stent 1st diagonal in 2017 s/p anterior STEMI, severe 2 vessel disease and critical L main involvement -patient is high risk for surgical procedure and medically managed only Echo 2016: EF 20%, akinetic segment and mid to distal anterior wall and entire apex other hypokinetic segments, right ventricular systolic dysfunction EKG: A. fib T wave inversion in anterior leads Troponin elevated to 0.152 with repeat at 0.466 then 1.0, down to .3 Certainly a component of elevation will be his CKD as is renally cleared. No concerning symptoms for ACS CMP BNP ordered which was >89560 - unreliable in setting of CKD No sign of fluid overload currently. Gentle hydration to avoid overload A fib Continue Eliquis NILESH setting of CKD In setting of HHS, but his values during visit reflect prior baseline values. No current concern for worsening kidney status and will continue IV fluid management as above Baseline creatinine around 2-2.2 Resumed home lasix and spironolactone will continue to trend BMP Pseudohyponatremia in the setting of hyperglycemia Resolved Left groin rash Concern for fungal infection versus dermatitis, appears consistent with tinea cruris Continue with nystatin cream History of hypertension/hyperlipidemia/coronary disease/CHF/A. fib Hx of CAD s/p stent 1st diagonal in 2017 s/p anterior STEMI, severe 2 vessel disease and critical L main involvement -patient is high risk for surgical procedure and medically managed only Echo 2016: EF 20%, akinetic segment and mid to distal anterior wall and entire apex other hypokinetic segments, right ventricular systolic dysfunction Lipid profile: May 2019, triglycerides 79, total cholesterol 130, LDL 72, HDL 42 Hold home Lasix and spironolactone Resumed Eliquis Continue home Imdur, metoprolol, simvastatin, aspirin History of rectal cancer diagnosed in 2014 T4N1 Status post resection with colostomy, radiation, chemo CT abdomen/pelvis in 01/29/2019: No metastatic disease Anemia: Chronic -anemia of chronic disease in the setting of CKD Appears at baseline if not improved Chest tube placement while on eliquis with high risk of bleeding but did not have much with acutal procedure Monitor CBC FEN/GI: meals - diabetic restrictions. DVT prophylaxis: Eliquis Code: DNR/DNI Disposition: Med/Surg while chest tube in place, if lung re expands well and chest tube can be pulled we still want to d/c to SNF, if chest tube ineffective, will d/c to snf with Pleur-X catheter (2) Acute renal failure: (3) Rectal carcinoma: (4) Diabetes mellitus: (5) Hypercholesterolemia: (6) Hypertension: (7) CHF (congestive heart failure): (8) CAD (coronary artery disease): (9) Atrial fibrillation: (10) Decubitus skin ulcer: (11) Hyponatremia: (12) Elevated troponin: (13) Hydropneumothorax: Supervising Physician Co-Signing Physician Notes I personally examined the patient and verified all salcido points of history and exam, discussed case, and agree with decision making with Dr Sood. Continues to feel well. No chest pain no shortness of breath. Discussed with pulmonary PA. Vitals noted, in general he is awake and alert seems pleasantly confused but no distress. HEENT normocephalic atraumatic mucous membranes are moist. Breathing unlabored no accessory muscle use good effort. Chest tube seems to be functioning appropriately. Pneumothoraxnow with chest tube. Respiratory status overall stable, is needing supplemental oxygen but otherwise showing no distress. Continue management per pulmonary/thoracic surgeryespecially in regards to progress. Would appreciate gis consultant thoughts on underlying etiology of pneumothorax as well. Hyperglycemic dehydrationimproved. Suspect this relates to poor med compliance which probably relates back to his dementia. Sugars have overall been reasonable. Continue current. Dementiasupportive care. The last few days he has been surprisingly clear mentally. Stage II-III sacral ulcer present on admissioncontinue with local wound care, mobility as possible Dispositionwill require SNFbut spontaneous pneumothorax obviously has significantly lengthen the time he will require inpatient hospitalization. Otherwise as above Subjective Attending Steve Nielsen is doing well this morning, denies any increased work of breathing, pain, or any other troubling symptoms. He continues to be on two liters of oxygen and is unable to give me much of a meaningful review of systems simply saying everything is fine. Review of Systems Review of Systems: Unobtainable due to cognitive status Physical Exam Physical Exam: Constitutional: Frail appearing elderly gentleman, chest tube in place draining serosanguinous fluid, colostomy in place on abdomen with large ostomy hernia, bandage over sacral wound Eyes: Anicteric Sclerae, EOMMI bilaterally ENMT: NAD Neck: Supple no masses, Jugular pulse normal Respiratory: Lung sounds course in left lung field, consistent with chest tube, no increased work of breathing, symmetrical chest expansion, no wheezing Cardiovascular: Heart sounds dual, no murmurs, rubs, skips, or gallops, no edema of lower extremities GI: Abdomen soft nontender, ostomy site looks intact no obvious skin breakdown, ostomy draining liquid stool Integumentary: Body covered in multiple lesions, including seborrheic keratoses, some concerning moles Abrasion on scalp Results & Data Vital Signs (Past 12 Hours) Vital Signs Temp Pulse Resp BP Pulse Ox 08/09/19 11:49 36.9 C 65 14 109/57 L 98 08/09/19 07:41 36.6 C 68 18 123/69 99 PG Care Time/CCT Total # of Minutes Spent Total Time Spent with Patient: Total time spent is greater than 50% in coordination of care (as documented) at patient's floor/unit and/or counseling patient: Resident Activity Tracking Resident Involvement: Resident Care Provided Care Provided: Adult Hospital Medicine (1) Acute renal failure Acute renal failure type: unspecified Qualified Code(s): N17.9 - Acute kidney failure, unspecified
--- NOTE | 2019-08-09 14:48 | Pharmacy Report ---
Glycemic Control Progress Note - Date of Service August 09, 2019 - Scope Glycemic Pharmacist consulted for glycemic control to write orders per [facility] inpatient glycemic control protocol. - Objective Accuchecks BSG(last 24 hours):: 08/08/19 08/08/19 08/08/19 16:41 16:43 17:12 Glucose POC Glucose 419 H* 405 H* 388 H* 08/08/19 08/08/19 08/08/19 17:14 19:25 19:28 Glucose POC Glucose 387 H* 335 H* 400 H* 08/08/19 08/08/19 08/09/19 21:35 22:43 00:24 Glucose POC Glucose 204 H 143 H 106 H 08/09/19 08/09/19 08/09/19 01:23 02:35 04:07 Glucose POC Glucose 97 132 H 150 H 08/09/19 08/09/19 08/09/19 05:22 05:26 06:32 Glucose 173 H POC Glucose 166 H 180 H 08/09/19 08/09/19 08/09/19 07:35 11:28 11:44 Glucose POC Glucose 174 H 334 H* 335 H* HbA1c:: Hemoglobin A1c 12.3 % (4.5-5.6) H 08/04/19 05:29 - Recent Pertinent Medications The patient is currently receiving: * Basal insulin: Lantus 15 units every 24 hours * Correctional Insulin: Novolog Correction per scale ACHS Goal Range: Low 110 mg/dL - High 140 mg/dL Correction Factor: 20 mg/dL/unit (25 units at all meals except breakfast) * Prandial insulin: Per carb ratio of 1 unit per 5 grams CHO consumed (7 at all meals except breakfast) - Outpatient Anti-Diabetic Meds noncompliance - Assessment & Plan ASSESSMENT: * See progress note from 08/04/19 for more background info, in short: * Pt receiving SQ basal bolus insulin regimen for hyperglycemia secondary to baseline DM (outpatient regimen on hold). * Patient is currently receiving an average of 47 units of insulin per day * 15 units of basal insulin * 32 units of prandial/correctional insulin * BSGs ranging 119 - 417 mg/dl over the past 24hrs * Changes needed to insulin regimen: * AM Fasting BSG = 180 mg/dl. This is slightly above goal range for patient based on inpatient targets and co-morbidities. Therefore Basal insulin will be increased. The patient was placed on an insulin infusion yesterday due to blood sugar greater than 400 mg/dL. Patient's family was in the room prior to dinner blood sugar so possible that patient ate something prior. Will increase basal insulin as I think he is basal deficient at this point and give some more Lantus tonight. * Post-prandial BSGs are elevated. Tight carbohydrate ratio for breakfast at CR of 5. Loosened for the rest of the day to prevent stacking and hypoglycemia. Patient did have Greek toast for breakfast. Insulin given very late which could explain blood sugar of 334 mg/dL. IV bolus given to push patient lower. * Total daily dose = ~50 units. PLAN FOR INPATIENT GLYCEMIC CONTROL: * INCREASING Lantus to 20 units SQ in the morning plus Lantus 0-10 units HS (hold if blood sugar less than 140 mg/dL; 5 units if blood sugar 140-180 mg/dL; 10 units if blood sugar greater than 10 units) * Continuing correction factor of 25 (20 for breakfast) mg/dl/unit * Continuing carb ratio of 1 unit per 7 (5 for breakfast) grams CHO consumed * Continuing goal range of Low 110 mg/dL - High 140 mg/dL * Please note that the plan above was derived based on current level of insulin resistance and hospital stress. These recommendations are appropriate for inpatient admission only. Plan of care upon discharge will need to be reassessed to avoid potential outpatient hypo/hyperglycemia. Thank you.
--- NOTE | 2019-08-09 15:11 | Pulmonology Progress Note ---
Date of Service August 09, 2019 Assessment & Plan (1) Pleural effusion: With associated hydropneumothorax We were consulted for evaluation of pleural effusion and intervention 14 Moroccan pigtail catheter placed on the left by Dr. Rasmussen 07/3019 at approximately 1 AM Chest x-ray shows improvement in the pleural effusion with persistent small pneumothorax Patient with no complaints of shortness of breath or chest discomfort Continue to suction History of previous thoracentesis secondary to rectal cancer with benign pleural fluid Last thoracentesis was completed [place] [address] Calderon Fluid is negative for malignancy. There are benign mesothelial cells and scattered lymphocytes Continue to follow (2) Hydropneumothorax: 14 Moroccan catheter remains in place and secure. Approximately 500 cc of straw-colored fluid since yesterday Chest tube is in place and secure and good respiratory variation in the tube with no evidence of air leak Continue chest tube to continuous suction -increased to 30 Repeat chest x-ray in the morning We will continue to follow Thank you for including us in the care of this patient. Please refer to Dr. Rasmussen's addendum for further recommendations. We will continue to follow this patient Supervising Physician Co-Signing Physician Notes I saw and evaluated the patient with Sen Pierce, and agree with findings and plan as documented in the note. Patient seen and examined at bedside. No acute distress. Patient stated that he feels very better after putting the chest tube in. Heart container has been changed since yesterday. So far 400 mL drainage appreciated in the container. It was on -20 suction. Increases to -30 which showed minimal bulging in the beginning with then then it stopped. Patient x-ray shows improvement in the pneumothorax compared to yesterday. C ontinue with suction repeat daily x-rays. It seems more likely to be an trapped lung given that gradually it is opening up and the pneumothorax is decreasing. If there is no improvement in pneumothorax is then it is most likely trapped lung and will let CT surgery deal with it with either VATS or Pleurx catheter for comfort measures. Cytology of the fluid is negative. I have spent more than 50% of this 30 minute encounter in counseling and/or coordination of care with patient. Subjective Attending: Dr. Rasmussen Patient seen and examined at bedside. He continues to remain in his bed. Pigtail catheter secure with dressing dry. Patient is currently to [facility] Pleur-evac at 30 cm of water. No air leak. A total of approximately 500 mL of fluid as evacuated from the chest tube over the last 24 hours. Patient denies any chest pain or chest discomfort. Shortness of breath is improved. No new complaints Review of Systems Review of Systems: All systems reviewed & are unremarkable except as noted in HPI & below Physical Exam Physical Exam: GENERAL : No acute distress. EYES: No icterus, gaze conjugate NOSE: No evidence of epistaxis MOUTH: No lesions or candidiasis NECK: Supple LUNGS: CTA B/L, no wheezes, rales or rhonchi. Decreased breath sounds of the left base CHEST: No paradoxical chest wall movement. 14 Moroccan chest tube is in place in the mid axillary left flank. Pleur-evac with no air leak. Currently to suction HEART: Regular, rate controlled ABDOMEN: Soft, NT, ND, BS Present EXTREMITIES: No LE edema, pedal pulses intact NEURO: A&OX3 Results & Data Vital Signs (Past 12 Hours) Vital Signs Temp Pulse Resp BP Pulse Ox 08/09/19 11:49 36.9 C 65 14 109/57 L 98 08/09/19 07:41 36.6 C 68 18 123/69 99 Laboratory Results 08/09/19 05:22 08/09/19 05:22 Diagnostic Findings XR chest 1V portable HISTORY: hydropneumothorax COMPARISON: Chest 08/08/2019. FINDINGS: Left basilar pleural catheter is unchanged in position. The small to moderate left hydropneumothorax has decreased in size. The heart remains enlarged. Interstitial thickening and bilateral mid to lower lung zone hazy airspace opacities persist. Small right pleural effusion is also unchanged. IMPRESSION: Slight decrease in size in the [id number] left hydropneumothorax. Left basilar pleural drain remains unchanged in position. Electronically signed by: George Kingsley M.D. 08/09/2019 7:27 AM PG Care Time/CCT Total # of Minutes Spent Total Time Spent with Patient: Total time spent is greater than 50% in coord ination of care (as documented) at patient's floor/unit and/or counseling patient: 20-minute
[2019-08-09] MEDS ORDERED: INSULIN GLARGINE SOLOSTAR 100 UNITS/ML 3 ML PEN SC SCH (16:30)
[2019-08-09] MEDS: ACETAMINOPHEN 325 MG TAB PO PRN (17:08)
[2019-08-10 05:46] LABS: Hematocrit (blood only) 39.5 % (42-52); Hemoglobin 13.2 g/dL (14.0-18.0); Mean Corpuscular Hemoglobin 30.8 pg (25-34); Mean Corpuscular Hgb Conc 33.4 g/dL (32-36); Mean Corpuscular Volume 92.3 fL (80-100); Mean Platelet Volume 10.2 fL (7.4-10.4); Platelet Count 193 K/uL (130-400); RDW Coefficient of Variation 15.1 % (11.5-14.5); RDW Standard Deviation 50.8 fL (36.4-46.3); Red Blood Count 4.28 M/uL (4.7-6.1)
[2019-08-10 06:14] LABS: Calcium 8.5 mg/dl (8.5-10.1); Creatinine Clr Calc Pharmacy 30.1 ml/min; Est GFR (Non-African American) 31.9
--- NOTE | 2019-08-10 07:06 | XRay Report ---
XR chest 1V portable CLINICAL HISTORY: hydropneumothorax COMPARISON STUDY: 08/09/2019 FINDINGS: The heart remains enlarged. There is a left basilar pleural pigtail catheter. There is a pe rsistent left-sided pneumothorax with apical pleural separation 19 mm, and basilar pleural separation of 37 mm. This remain stable. There is stable right hilar prominence. There are stable bilateral int erstitial opacities. There is blunting of the right lateral costophrenic angle.[ IMPRESSION: No significant change from the prior study. Stable left pleural pigtail catheter. Stable left-sided pneumothorax. Electronically signed by: Dipesh Mcnulty M.D. 08/10/2019 7:05 AM
[2019-08-10] MEDS: SPIRONOLACTONE 25 MG TAB PO SCH (08:20)
[2019-08-10] MEDS: APIXABAN 2.5 MG TAB PO SCH ×2 (08:20→20:11)
[2019-08-10] MEDS: MULTIVITAMIN TAB PO SCH (08:20)
[2019-08-10] MEDS: SIMVASTATIN 80 MG TAB PO SCH (08:20)
[2019-08-10] MEDS: ASPIRIN 81 MG ECTAB PO SCH (08:20)
[2019-08-10] MEDS: FUROSEMIDE 40 MG TAB PO SCH ×2 (08:20→17:39)
[2019-08-10] MEDS: ISOSORBIDE MONO EXTENDED REL 30 MG TABCR PO SCH (08:20)
[2019-08-10] MEDS: METOPROLOL SUCC 25MG EXT REL TAB PO SCH (08:20)
[2019-08-10] MEDS: INSULIN GLARGINE SOLOSTAR 100 UNITS/ML 3 ML PEN SQ SCH (08:21)
[2019-08-10] MEDS: PREGABALIN 25 MG CAP PO SCH (08:30)
[2019-08-10] MEDS: INSULIN ASPART 100 UNITS/ML 3 ML PEN SC SCH ×4 (08:31→20:43)
[2019-08-10] MEDS: NYSTATIN OINT 15 GM TUBE EXT SCH ×2 (08:32→20:11)
--- NOTE | 2019-08-10 11:16 | Family Medicine Progress Note ---
Date of Service August 10, 2019 Assessment & Plan (1) Hyperglycemia: 84yoM with hx of DMII, CAD s/p stent 1st diagonal in 2017 s/p anterior STEMI, severe 2 vessel disease and critical L main involvement; CHF, HTN, HLD, Afib, CKD, rectal cancer presents from home to the ED for concern of worsening health at home per family. On admission, found to have elevated troponin with inverted T waves in lateral leads, glucose of 812 concerning for HHS, NILESH and pseudohyponatremia of 125, which have now improved. Patient also had left groin rash and large decubitus ulcer. Required new O2 demand on 08/07 and was tachypneic. Found to have hydropneumothorax and now on chest tube with some improvement. 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 On RA. Hydropneumothorax Patient with new O2 demand 08/07 and tachypnea CXR: hydropneumothorax chornic pleural effusion on left with new pneumothorax Consulted pulmonology and chest tube placed hot dog vender of 08/08 Draining serosanguinous fluid, >1L taken off so far Repeat CXR today unchanged: Stable left pleural pigtail catheter. Stable left- sided pneumothorax. Concern for lung entrapment CT surgery consulted as patient already followed with Dr. Calderon, may place pleur X catheter given lack of adequate re expansion High risk of infection with nearby ostomy site Hyperglycemia - improving Poor compliance with meds secondary to dementia and deconditioning Initially HHS in the setting of ID-DM Admission A1C 12.3 up from 7.4 on 05/11/2019 Was placed On HHS protocol BSG improved to 144 this AM Pharmacy glycemic management on SubQ insulin Note: Avoid fluid overload - Low EF 20%. Decubitus ulcer Little concern for cellulitis/infection No abx received 1-2 doses of keflex only initially Afebrile, normal WBC Wound care nurse consulted Poor nutrition status Concerns for patient's nutrition status as appears very frail, thin, and has generalized weakness sacral ulcer will need adequate nutrition for wound healing Pre-albumin level of 8.9, low Dietary Consulted Elevated troponin: Downtrended Patient denied any chest pain, shortness of breath, lightheadedness Hx of CAD s/p stent 1st diagonal in 2017 s/p anterior STEMI, severe 2 vessel disease and critical L main involvement -patient is high risk for surgical procedure and medically managed only Echo 2016: EF 20%, akinetic segment and mid to distal anterior wall and entire apex other hypokinetic segments, right ventricular systolic dysfunction EKG: Howie dacosta T wave inversion in anterior leads Troponin elevated to 0.152 with repeat at 0.466 then 1.0, down to .3 Certainly a component of elevation will be his CKD as is renally cleared. No concerning symptoms for ACS CMP Initial BNP >33402 - unreliable in setting of CKD No sign of fluid overload currently A fib Continue Eliquis NILESH setting of CKD-resolved, stable CKD In setting of HHS, but his values during visit reflect prior baseline values. Baseline creatinine around 2-2.2 Resumed home lasix and spironolactone will continue to trend BMP Pseudohyponatremia in the setting of hyperglycemia Resolved Left groin rash Concern for fungal infection versus dermatitis, appears consistent with tinea cruris Continue with nystatin cream History of hypertension/hyperlipidemia/coronary disease/CHF/A. fib Hx of CAD s/p stent 1st diagonal in 2016 s/p anterior STEMI, severe 2 vessel disease and critical L main involvement -patient is high risk for surgical procedure and medically managed only Echo 2016: EF 20%, akinetic segment and mid to distal anterior wall and entire apex other hypokinetic segments, right ventricular systolic dysfunction Lipid profile: May 2019, triglycerides 79, total cholesterol 130, LDL 72, HDL 42 Continue Lasix and spironolactone Continue Eliquis Continue home Imdur, metoprolol, simvastatin, aspirin History of rectal cancer diagnosed in 2014 [id number] Status post resection with colostomy, radiation, chemo CT abdomen/pelvis in 01/29/2019: No metastatic disease Anemia: Chronic -anemia of chronic disease in the setting of CKD, STABLE Appears at baseline if not improved Chest tube placement while on eliquis with high risk of bleeding but did not have much with acutal procedure Monitor CBC Goals of Care Per family as of 08/08 DNR/DNI Other therapeutic interventions on a case by case basis FEN/GI: meals - diabetic restrictions. DVT prophylaxis: Eliquis Code: DNR/DNI Disposition: Med/Surg while chest tube in place, if lung re expands well and chest tube can be pulled we still want to d/c to SNF, if chest tube ineffective, will d/c to snf with Pleur-X catheter (2) Acute renal failure: (3) Rectal carcinoma: (4) Diabetes mellitus: (5) Hypercholesterolemia: (6) Hypertension: (7) CHF (congestive heart failure): (8) CAD (coronary artery disease): (9) Atrial fibrillation: (10) Decubitus skin ulcer: (11) Hyponatremia: (12) Elevated troponin: (13) Hydropneumothorax: Supervising Physician Co-Signing Physician Notes I personally examined the patient and verified all salcido points of history and exam, discussed case, and agree with decision making with Dr Kwong. Continues to feel well. no pain from tube, breathing well. updated family at the bedside Vitals noted, in general he is awake and alert seems pleasantly confused but no distress. HEENT normocephalic atraumatic mucous membranes are moist. Breathing unlabored no accessory muscle use good effort. Chest tube seems to be functioning appropriately. Pneumothoraxnow with chest tube. Respiratory status overall stable, and currently not needing O2. Continue management per pulmonary/thoracic surgeryespecially in regards to progress. likely relates to cancer. Hyperglycemic dehydrationimproved. Suspect this relates to poor med compliance which probably relates back to his dementia. continue to follow sugars and titrate control Dementiacontinue supportive care. The last few days he has been surprisingly clear mentally. Stage II-III sacral ulcer present on admissioncontinue with local wound care, goal for mobility as possible Dispositionwill require SNFbut spontaneous pneumothorax obviously has significantly lengthen the time he will require inpatient hospitalization. Otherwise as above Subjective Attending: Steve Ibrahimjcarlos Casillas is doing well this morning, denies any shortness of breath, chest pain, pain especially back pain. He is sating well on RA this AM. Also denies any nausea/vomiting, abdominal pain, diarrhea, constipation, dysuria. Review of Systems Review of Systems: As per HPI Physical Exam Physical Exam: General: In NAD, pleasant, examined in bed this AM Neuro: A&O x 3, not oriented to time Pulm: Diminished breath sounds, no crackles, rhonchi or wheezing appreciated bilaterally CV: RRR, no m/r/g Abdomen:+BS, no TTP in all quadrants, non-distended, ostomy bag with liquid brownish/green stool, ostomy site with no drainage or concerning erythema, ostomy hernia Skin: multiple areas of skin breakdown/seborrhea on scalp, sacral ulcer dressed LE: no LE edema, no calf TTP Results & Data Vital Signs (Past 12 Hours) Vital Signs Temp Pulse Resp BP BP Pulse Ox 08/10/19 07:00 36.4 C L 66 18 122/70 94 08/09/19 23:31 36.4 C L 66 23 114/69 95 Laboratory Results Abnormal lab results 08/09/19 08/09/19 08/09/19 Range/Units 11:28 11:44 15:24 RBC (4.7-6.1) M/uL Hgb (14.0-18.0) g/dL Hct (42-52) % RDW Std Deviation (36.4-46.3) fL RDW Coeff of Abdirizak (11.5-14.5) % Sodium (136-145) mmol/L Chloride (98-107) mmol/L BUN (7-18) mg/dl Creatinine (0.6-1.4) mg/dl BUN/Creatinine Ratio (10-20) Glucose (70-99) mg/dl POC Glucose 334 H* 335 H* 248 H (70-99) 08/09/19 08/09/19 08/10/19 Range/Units 16:08 20:04 05:31 RBC 4.28 L (4.7-6.1) M/uL Hgb 13.2 L (14.0-18.0) g/dL Hct 39.5 L (42-52) % RDW Std Deviation 50.8 H (36.4-46.3) fL RDW Coeff of Abdirizak 15.1 H (11.5-14.5) % Sodium (136-145) mmol/L Chloride (98-107) mmol/L BUN (7-18) mg/dl Creatinine (0.6-1.4) mg/dl BUN/Creatinine Ratio (10-20) Glucose (70-99) mg/dl POC Glucose 259 H 149 H (70-99) 08/10/19 08/10/19 Range/Units 05:31 08:01 RBC (4.7-6.1) M/uL Hgb (14.0-18.0) g/dL Hct (42-52) % RDW Std Deviation (36.4-46.3) fL RDW Coeff of Abdirizak (11.5-14.5) % Sodium 132 L (136-145) mmol/L Chloride 95 L (98-107) mmol/L BUN 63 H (7-18) mg/dl Creatinine 1.91 H (0.6-1.4) mg/dl BUN/Creatinine Ratio 33.0 H (10-20) Glucose 144 H (70-99) mg/dl POC Glucose 141 H (70-99) Diagnostic Findings XR chest 1V portable CLINICAL HISTORY: hydropneumothorax COMPARISON STUDY: 08/09/2019 FINDINGS: The heart remains enlarged. There is a left basilar pleural pigtail catheter. There is a persistent left-sided pneumothorax with apical pleural s eparation 19 mm, and basilar pleural separation of 37 mm. This remain stable. There is stable right hilar prominence. There are stable bilateral interstitial opacities. There is blunting of the right lateral costophrenic angle.[ IMPRESSION: No significant change from the prior study. Stable left pleural pigtail catheter. Stable left-sided pneumothorax. Medications Administered Current Inpatient Medications Acetaminophen (Tylenol) 650 mg PO Q4H PRN PRN Reason: Pain or Fever Stop: 09/03/19 04:13 Last Admin: 08/09/19 17:08 Dose: 650 mg Documented by: Apixaban (Eliquis) 2.5 mg PO BID RONNIE Stop: 09/04/19 09:59 Last Admin: 08/10/19 08:20 Dose: 2.5 mg Documented by: Aspirin (Ecotrin Ectab) 81 mg PO DAILY RONNIE Stop: 09/03/19 08:59 Last Admin: 08/10/19 08:20 Dose: 81 mg Documented by: Dextrose (Dextrose 50%) 25 - 50 ml IV UD PRN; Protocol PRN Reason: Hypoglycemia Protocol Stop: 09/03/19 03:14 Last Admin: 08/04/19 08:20 Dose: 25 ml Documented by: Furosemide (Lasix) 40 mg PO BID17 [facility] Stop: 09/05/19 08:59 Last Admin: 08/10/19 08:20 Dose: 40 mg Documented by: Glucagon (Glucagen) 1 mg IM UD PRN; Protocol PRN Reason: Hypoglycemia Protocol Stop: 09/03/19 03:14 Glucose (Glucose 40%) 15 - 30 gm PO UD PRN; Protocol PRN Reason: Hypoglycemia Protocol Stop: 09/03/19 03:14 Glucose (Dex4 Glucose) 4 - 8 tabs PO UD PRN; Protocol PRN Reason: Hypoglycemia Protocol Stop: 09/03/19 03:14 Insulin Aspart (Novolog Flexpen) 0 units SC 0730 RONNIE; Protocol Stop: 09/08/19 08:59 Last Admin: 08/10/19 08:31 Dose: 15 units Documented by: Insulin Aspart (Novolog Flexpen) 0 units SC 1130,1630,2100 RONNIE; Protocol Stop: 09/08/19 11:29 Last Admin: 08/09/19 20:36 Dose: 1 units Documented by: Insulin Glargine (Lantus Solostar Pen) 20 units SQ QAM RONNIE; Protocol Stop: 09/09/19 08:59 Last Admin: 08/10/19 08:21 Dose: 20 units Documented by: Insulin Glargine (Lantus Solostar Pen) 0 units SC HS RONNIE; Protocol Stop: 09/08/19 20:59 Isosorbide Mononitrate (Imdur Extended Rel) 30 mg PO DAILY [facility] Stop: 09/03/19 08:59 Last Admin: 08/10/19 08:20 Dose: 30 mg Documented by: Metoprolol Succinate (Toprol Xl) 25 mg PO DAILY [facility] Stop: 09/03/19 08:59 Last Admin: 08/10/19 08:20 Dose: 25 mg Documented by: Miscellaneous (Carbohydrates For Hypoglycemia) 15 - 30 gm PO PRN PRN PRN Reason: Hypoglycemia Treatment Stop: 09/03/19 03:14 Last Admin: 08/05/19 17:15 Dose: 15 gm Documented by: Miscellaneous Information (Consult Glycemic Management Pharmacy) 1 ea N/A UD PRN PRN Reason: Consult Stop: 09/03/19 04:47 Multivitamins (Multivitamin Tab) 1 tab PO DAILY [facility] Stop: 09/03/19 08:59 Last Admin: 08/10/19 08:20 Dose: 1 tab Documented by: Nitroglycerin (Nitrostat) 0.4 mg SL UD PRN PRN Reason: Chest Pain Stop: 09/03/19 04:13 Nystatin (Mycostatin) 1 appln EXT BID [facility] Stop: 09/03/19 08:59 Last Admin: 08/10/19 08:32 Dose: 1 appln Documented by: Pregabalin (Lyrica) 25 mg PO DAILY RONNIE Stop: 09/03/19 08:59 Last Admin: 08/10/19 08:30 Dose: 25 mg Documented by: Simvastatin (Zocor) 80 mg PO DAILY RONNIE Stop: 09/03/19 08:59 Last Admin: 08/10/19 08:20 Dose: 80 mg Documented by: Spironolactone (Aldactone) 25 mg PO DAILY RONNIE Stop: 09/03/19 08:59 Last Admin: 08/10/19 08:20 Dose: 25 mg Documented by: PG Care Time/CCT Total # of Minutes Spent Total Time Spent with Patient: Total time spent is greater than 50% in coordination of care (as documented) at patient's floor/unit and/or counseling patient: Resident Activity Tracking Resident Involvement: Resident Care Provided Care Provided: Adult Hospital Medicine (1) Acute renal failure Acute renal failure type: unspecified Qualified Code(s): N17.9 - Acute kidney failure, unspecified
--- NOTE | 2019-08-10 11:28 | Pulmonology Progress Note ---
Date of Service August 10, 2019 Assessment & Plan (1) Pleural effusion: With associated hydropneumothorax 14 Stateless pigtail catheter placed on the left on 08/08/19 at approximately 1 AM Patient with no complaints of shortness of breath or chest discomfort Continue to suction History of previous thoracentesis secondary to rectal cancer with benign pleural fluid Last thoracentesis [place] [address] Calderon Fluid is negative for malignancy. There are benign mesothelial cells and scattered lymphocytes Continue to follow (2) Hydropneumothorax: 14 Stateless catheter remains in place and secure. Chest tube is in place and secure and good respiratory variation in the tube with no evidence of air leak Continue chest tube to continuous suction -increased to 30. To the patient 100% nonrebreather Continue with suction repeat daily x-rays. It seems more likely to be entrapped lung given that gradually it is opening up and the pneumothorax is decreasing. If there is no improvement in pneumothorax then CT surgery can consider either VATS or Pleurx catheter for comfort measures. Case discussed with Dr. Calderon as well. Subjective Patient seen and examined at bedside. No acute distress. Was sleeping at the time of examination. Patient saturation is actually 99% on room air. States that he feels better after the chest tube was placed in. Denies any chest pain, no headache, no nausea, no vomiting. Look at the chest x-ray today no significant change in the pneumothorax compared to yesterday. At the time of examination increased suction to -40 bubbling was appreciated in the Nichole drainage for less than 5 seconds. We will put the patient on 100% nonrebreather to see if it will help with resolution of the persistent pneumothorax that the patient has. Review of Systems Review of Systems: All systems reviewed & are unremarkable except as noted in HPI & below Physical Exam Physical Exam: Constitutional: No acute distress HEENT: EOMI, PERRLA, arcus senilis bilaterally Respiratory system: Decreased air entry bilaterally, mild crackles left lower lobe, no wheeze, no rhonchi, left-sided chest tube present CVS: S1-S2 positive, no murmurs or gallops Abdomen: Soft, nontender, nondistended, positive bowel sounds x4 Extremities: +2 pulses bilaterally radialis/ dorsalis pedis, no edema, no cyanosis Neuro: Awake alert oriented x3 Psych: Normal mood and affect Lymphatic: no cervical or axillary lymphadenopathy Results & Data Vital Signs (Past 12 Hours) Vital Signs Temp Pulse Resp BP BP Pulse Ox 08/10/19 07:00 36.4 C L 66 18 122/70 94 08/09/19 23:31 36.4 C L 66 23 114/69 95 08/10/19 05:31 08/10/19 05:31 PG Care Time/CCT Total # of Minutes Spent Total Time Spent with Patient: Total time spent is greater than 50% in coordination of care (as documented) at patient's floor/unit and/or counseling patient:
--- NOTE | 2019-08-10 14:41 | Surgery Progress Note ---
Date of Service August 10, 2019 Assessment & Plan (1) Hydropneumothorax: This patient has a trapped lung in all likelihood. His x-ray shows continued hydropneumothorax as his left lower lobe is not expanding. I discussed this with the patient today and also discussed it with Dr. Rasmussen. We are going to see how he looks tomorrow. We will try him on high flow oxygen to see if we can leak some of the nitrogen out however I feel like would probably going need a Pleurx catheter. Should also be noted that this patient has deteriorated over the last year or so. I think a Pleurx catheter is drainage at home would be the best way to proceed. Another option would be to simply pull the catheter out and allow him to fill with fluid. Possible that that would be tolerable. He is going to be at a moderately increased risk for an infection or empyema due to the fact that he has a colostomy site and open wounds. It could be that we leave the Pleurx in for a few weeks and see if his x-ray improves and if it does not remove the catheter. Present on Admission?: Yes Subjective Mr. Casillas looks better this morning. He is more oriented. He denies shortness of breath and is on no oxygen. Review of Systems Review of Systems: All systems reviewed & are unremarkable except as noted in HPI & below No changes since yesterday. He is better from a mentation standpoint. He denies pain. Physical Exam Physical Exam: Patient breath sounds remain decreased on the left side. His dressings are dry. His tube site is clean. I do not see an air leak in this chest tube. He is draining some fluid which is serous. He is otherwise awake and alert. Results & Data Vital Signs (Past 12 Hours) Vital Signs Temp Pulse Resp BP BP Pulse Ox 08/10/19 12:48 35.9 C L 77 20 104/66 98 08/10/19 07:00 36.4 C L 66 18 122/70 94 PG Care Time/CCT Total # of Minutes Spent Total Time Spent with Patient: Total time spent is greater than 50% in coordination of care (as documented) at patient's floor/unit and/or counseling patient:
[2019-08-10] MEDS: ACETAMINOPHEN 325 MG TAB PO PRN (20:11)
[2019-08-10] MEDS: INSULIN GLARGINE SOLOSTAR 100 UNITS/ML 3 ML PEN SC SCH (20:43)
[2019-08-11 07:10] LABS: CEA, Pleural Fluid <0.5 ng/mL (<10.0); Pleural Fluid, Cholesterol 30 mg/dL
[2019-08-11 07:12] LABS: BUN Creatinine Ratio 33.4 (10-20); Calcium 8.4 mg/dl (8.5-10.1); Creatinine Clr Calc Pharmacy 27.3 ml/min; Est GFR (African American) 32.8; Est GFR (Non-African American) 28.3; Potassium 5.6 mmol/L (3.5-5.1)
[2019-08-11 07:26] LABS: Hematocrit (blood only) 40.3 % (42-52); Hemoglobin 13.2 g/dL (14.0-18.0); Mean Corpuscular Hemoglobin 30.8 pg (25-34); Mean Corpuscular Hgb Conc 32.8 g/dL (32-36); Mean Corpuscular Volume 93.9 fL (80-100); Mean Platelet Volume 10.7 fL (7.4-10.4); Platelet Count 213 K/uL (130-400); RDW Coefficient of Variation 15.1 % (11.5-14.5); RDW Standard Deviation 51.3 fL (36.4-46.3); Red Blood Count 4.29 M/uL (4.7-6.1); White Blood Count 8.69 K/uL (4.8-10.8)
--- NOTE | 2019-08-11 07:37 | XRay Report ---
XR chest 1V portable HISTORY: 84 years-old Male hydropneumothorax follow-up study in a patient with left hydropneumothora x COMPARISON: Chest radiograph 08/10/2019 TECHNIQUE: Portable AP view of the chest FINDINGS: Stable positioning of the left basilar chest tube with unchanged left hydropneumothorax. Cardiac silh ouette is enlarged, unchanged. Stable right hilar prominence with bilateral midlung and bibasilar opa cities. Degenerative changes of the shoulders and spine. IMPRESSION: 1. Stable positioning of the pigtail catheter projecting over the left lung base with unchanged size of the left hydropneumothorax. 2. Chronic findings as above. The above report was generated using voice recognition software. It may contain grammatical, syntax o r spelling errors. Electronically signed by: Tod Abarca M.D. 08/11/2019 7:36 AM
--- NOTE | 2019-08-11 08:41 | Surgery Progress Note ---
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 I am not enthusiastic about placing a long-term indwelling pleural catheter as he is at a high risk for an empyema which he would most likely not survive. He is not a candidate for any type of surgical procedure. I would remove the catheter that he currently has and as it is not functioning. Chest x-ray shows he is filling with fluid. I would see how he does with the fluid. It may well be that he can get by without it. If he has symptoms we will place a Pleurx catheter. Present on Admission?: Yes Subjective Mr. Casillas is awake and alert and eating breakfast. He is not motivated to get out of bed or to move. He denies pain. He denies shortness of breath. He was on a rebreather and attempt to singletary nitrogen out of the pneumothorax on the left. Unfortunately, it appears that the catheter is not working. He is collecting fluid in his left pleural cavity. At this point, I think removing this pigtail catheter would be best. If he fills up with fluid we can put a Pleurx in him however, he may be stable enough without it. Physical Exam Physical Exam: He is awake alert and interactive. He is eating breakfast. He has decreased breath sounds on the left with a few rhonchi. He has no wheezing. He is very thin. Results & Data Vital Signs (Past 12 Hours) Vital Signs Temp Pulse Resp BP BP Pulse Ox 08/11/19 07:21 36.6 C 66 22 177/77 H 100 08/10/19 23:25 36.6 C 71 18 108/69 100 08/10/19 21:12 36.5 C 65 20 122/67 100 PG Care Time/CCT Total # of Minutes Spent Total Time Spent with Patient: Total time spent is greater than 50% in coordination of care (as documented) at patient's floor/unit and/or counseling patient:
[2019-08-11] MEDS: SIMVASTATIN 80 MG TAB PO SCH (08:42)
[2019-08-11] MEDS: MULTIVITAMIN TAB PO SCH (08:42)
[2019-08-11] MEDS: SPIRONOLACTONE 25 MG TAB PO SCH (08:42)
[2019-08-11] MEDS: METOPROLOL SUCC 25MG EXT REL TAB PO SCH (08:42)
[2019-08-11] MEDS: FUROSEMIDE 40 MG TAB PO SCH ×2 (08:42→17:05)
[2019-08-11] MEDS: ISOSORBIDE MONO EXTENDED REL 30 MG TABCR PO SCH (08:42)
[2019-08-11] MEDS: APIXABAN 2.5 MG TAB PO SCH ×2 (08:42→20:25)
[2019-08-11] MEDS: ASPIRIN 81 MG ECTAB PO SCH (08:42)
[2019-08-11] MEDS: INSULIN ASPART 100 UNITS/ML 3 ML PEN SC SCH ×5 (08:43→20:26)
[2019-08-11] MEDS: INSULIN GLARGINE SOLOSTAR 100 UNITS/ML 3 ML PEN SQ SCH (08:43)
[2019-08-11] MEDS: PREGABALIN 25 MG CAP PO SCH (08:45)
[2019-08-11] MEDS: NYSTATIN OINT 15 GM TUBE EXT SCH ×2 (08:46→20:25)
--- NOTE | 2019-08-11 12:15 | Pulmonology Progress Note ---
Date of Service August 11, 2019 Assessment & Plan (1) Pleural effusion: With associated hydropneumothorax 14 Italian pigtail catheter placed on the left on 08/08/19 at approximately 1 AM Patient with no complaints of shortness of breath or chest discomfort Continue to suction History of previous thoracentesis secondary to rectal cancer with benign pleural fluid Last thoracentesis was [place] [address] Calderon Fluid is negative for malignancy. There are benign mesothelial cells and scattered lymphocytes Continue to follow (2) Hydropneumothorax: 14 Italian catheter remains in place and secure. Chest tube is in place and secure and good respiratory variation in the tube with no evidence of air leak Continue chest tube to continuous suction -increased to 40. Put patient 100% nonrebreather. Minimal improvement in pneumothorax on chest x-ray today compared to the chest x-ray done yesterday. Recommend 100% nonrebreather, suction to -40 and repeat chest x-ray in the morning. If the pneumothorax remains the same in size would clamp the chest tube tomorrow and repeat chest x-ray later tomorrow and if there is no increase in pneumothorax can remove the chest tube tomorrow. If there is no improvement in pneumothorax then CT surgery can consider either VATS or Pleurx catheter for comfort measures. Case discussed with Dr. Calderon as well. Subjective Patient seen and examined at bedside. No acute distress, no adverse events overnight. Denies any chest pain, no shortness of breath, no headache, no nausea, no vomiting. Tolerating diet. Chest tube at the time of examination was on suction to -20. Level was 1100 mL. Went up on suction to -40 there were air bubbles appreciated for less than 5 seconds with resolved. Review of Systems Review of Systems: All systems reviewed & are unremarkable except as noted in HPI & below Physical Exam Physical Exam: Constitutional: No acute distress HEENT: EOMI, PERRLA, arcus senilis bilaterally Respiratory system: Decreased air entry bilaterally, mild crackles left lower lobe, no wheeze, no rhonchi, left-sided chest tube present CVS: S1-S2 positive, no murmurs or gallops Abdomen: Soft, nontender, nondistended, positive bowel sounds x4 Extremities: +2 pulses bilaterally radialis/ dorsalis pedis, no edema, no cyanosis Neuro: Awake and alert Psych: Normal mood and affect Skin: no rashes, warm and dry Lymphatic: no cervical or axillary lymphadenopathy Results & Data Vital Signs (Past 12 Hours) Vital Signs Temp Pulse Resp BP Pulse Ox 08/11/19 07:21 36.6 C 66 22 177/77 H 100 PG Care Time/CCT Total # of Minutes Spent Total Time Spent with Patient: Total time spent is greater than 50% in coordination of care (as documented) at patient's floor/unit and/or counseling patient:
--- NOTE | 2019-08-11 15:30 | Hospitalist Progress Note ---
Date of Service August 11, 2019 Assessment & Plan (1) Hyperglycemia: 84yoM with hx of DMII, CAD s/p stent 1st diagonal in 2017 s/p anterior STEMI, severe 2 vessel disease and critical L main involvement; CHF, HTN, HLD, Afib, CKD, rectal cancer presented from home to the ED for concern of worsening health at home per family. On admission, found to have elevated troponin with inverted T waves in lateral leads, glucose of 812 concerning for HHS, NILESH and pseudohyponatremia of 125, which have now improved. Patient also had left groin rash and large decubitus ulcer. He had an increased O2 requirement and was found to have hydropneumothorax and now on chest tube with some improvement. 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 Hydropneumothorax - New O2 demand 08/07 with tachypnea. No SoB, feels at baseline on 100% nonrebreather for attempted washout of pneumothorax - CXR: Hydropneumothorax chornic pleural effusion on left with new pneumothorax - Chest tube placed 08/[address], draining serosanguinous fluid. Continue to suction - 14F pigtail cath in place - Repeat CXR in the morning - If no improvement consider Pleurx for comfort. He is not a surgical candidate. He is at high risk of empyema, and high risk of infection with nearby ostomy si te. Pulmonology and Thoracic surgery on board, appreciate recs Hyperglycemia, improved - Poor compliance with meds secondary to dementia and deconditioning - Initially HHS in the setting of ID-DM, admission A1C 12.3 up from 7.4 on 05/11/2019 - Improved on HHS protocol and pharmacy glycemic consult for insulin management - Note: Avoid fluid overload - Low EF 20%. - Glucose 100 this morning Decubitus ulcer - Sacral ulcer present with dressing in place. Low concern for cellulitis/infection at this time - Afebrile, normal WBC - Wound care nurse consulted Poor nutrition status - Concerns for patient's nutrition status as appears very frail, thin, and has generalized weakness sacral ulcer will need adequate nutrition for wound healing - Pre-albumin level of 8.9, low - Dietary Consulted Elevated troponin, improved - Low suspicion for ACS - Troponin bump which peaked at 1.0 then downtrended to 0.3 on admit, likely from demand vs CKD - Without chest pain, shortness of breath, lightheadedness - Hx of CAD s/p stent 1st diagonal in 2017 s/p anterior STEMI, severe 2 vessel disease and critical L main involvement -patient is high risk for surgical procedure and medically managed only - Echo 2016: EF 20%, akinetic segment and mid to distal anterior wall and entire apex other hypokinetic segments, right ventricular systolic dysfunction EKG: A. fib T wave inversion in anterior leads Elevated BNP -Initial BNP >76632 - unreliable in setting of CKD - No sign of fluid overload at this time Atrial Fibrillation - Continue Eliquis NILESH on CDK, resolved to baseline - NILESH 2/2 volume depletion in setting of HHS - Near/at baseline of ~2-2.2 - Resumed home lasix and spironolactone will continue to trend BMP Pseudohyponatremia in the setting of hyperglycemia Resolved Left groin rash - Concern for fungal infection versus dermatitis, appears consistent with tinea cruris - Continue with nystatin cream History of hypertension/hyperlipidemia/coronary disease/CHF/A. fib - Hx of CAD s/p stent 1st diagonal in 2017 s/p anterior STEMI, severe 2 vessel disease and critical L main involvement -patient is high risk for surgical procedure and medically managed only - Echo 2016: EF 20%, akinetic segment and mid to distal anterior wall and entire apex other hypokinetic segments, right ventricular systolic dysfunction - Lipid profile: May 2019, triglycerides 79, total cholesterol 130, LDL 72, HDL 42 -Continue Lasix and spironolactone as above -Continue Eliquis as above -Continue home Imdur, metoprolol, simvastatin, aspirin History of rectal cancer diagnosed in 2014 T4N1 - Status post resection with colostomy, radiation, chemo - CT abdomen/pelvis in 01/29/2019: No metastatic disease Anemia of Chronic Disease, stable - Appears at baseline, no acute change - CBC daily Goals of Care -Per family as of 08/08 DNR/DNI -Other therapeutic interventions on a case by case basis FEN/GI: T2DM diet DVT prophylaxis: Eliquis Code: DNR/DNI Disposition: Med/Surg, anticipate d/c to SNF +/- pleurX for comfort Supervising Physician Co-Signing Physician Notes I personally examined the patient and verified all salcido points of history and exam, discussed case, and agree with decision making with Dr Baresel. Continues to feel well. no pain from tube, breathing well. no other comp laints. d/w pulmonary. Vitals noted, in general he is awake and alert seems pleasantly confused but no distress. HEENT normocephalic atraumatic mucous membranes are moist. Breathing unlabored no accessory muscle use good effort. Chest tube seems to be functioning appropriately. Pneumothoraxnow with chest tube. Respiratory status overall stable, but lung not inflating. appreciate specialists' efforts in this regard Hyperglycemic dehydrationimproved. Suspect this related to poor med compliance which probably relates back to his dementia. ongoing sugar/insulin management Dementiacontinue supportive care. T Stage II-III sacral ulcer present on admissioncontinue with local wound care, goal for mobility as possible Dispositionwill require SNFbut spontaneous pneumothorax obviously has significantly lengthen the time he will require inpatient hospitalization. palliative consult pending Otherwise as above Review of Systems Review of Systems: All systems reviewed & are unremarkable except as noted in HPI & below Physical Exam Physical Exam: General: No acute distress, cooperative HEENT: Atraumatic, normocephalic.Extraocular movements intact, visual acuity grossly intact Pulm: Air movement diminished globally. LLL with trace rales. No wheeze, rhonchi appreciated. Left-sided chest tube in place draining serosanguineous fluid. Cardiac: RRR, -mrg. Radial pulses intact and symmetrical. Abdominal: Nontender, nondistended, soft. BS present. Results & Data Vital Signs (Past 12 Hours) Vital Signs Temp Pulse Resp BP Pulse Ox 08/11/19 07:21 36.6 C 66 22 177/77 H 100 PG Care Time/CCT Total # of Minutes Spent Total Time Spent with Patient: Total time spent is greater than 50% in coordination of care (as documented) at patient's floor/unit and/or counseling patient: Resident Activity Tracking Resident Involvement: Resident Care Provided Care Provided: Adult Hospital Medicine
[2019-08-11] MEDS: ACETAMINOPHEN 325 MG TAB PO PRN (19:04)
[2019-08-11] MEDS: INSULIN GLARGINE SOLOSTAR 100 UNITS/ML 3 ML PEN SC SCH (20:28)
[2019-08-12 07:14] LABS: Hematocrit (blood only) 39.2 % (42-52); Hemoglobin 12.8 g/dL (14.0-18.0); Mean Corpuscular Hemoglobin 30.4 pg (25-34); Mean Corpuscular Hgb Conc 32.7 g/dL (32-36); Mean Corpuscular Volume 93.1 fL (80-100); Mean Platelet Volume 10.8 fL (7.4-10.4); Platelet Count 214 K/uL (130-400); RDW Coefficient of Variation 15.1 % (11.5-14.5); RDW Standard Deviation 50.9 fL (36.4-46.3); Red Blood Count 4.21 M/uL (4.7-6.1); White Blood Count 13.09 K/uL (4.8-10.8)
--- NOTE | 2019-08-12 07:27 | XRay Report ---
SINGLE VIEW CHEST CLINICAL HISTORY: Hydropneumothorax. FINDINGS: An AP, portable, upright chest radiograph is compared to study dated 08/11/2019 and correlat ed with chest CT dated 11/25/2018. The examination is degraded by portable technique and patient rotat ion. The heart is enlarged noting atherosclerotic calcification of the thoracic aorta. The pulmonary vasculature is noncongested. Emphysema and chronic interstitial thickening are similar to previous. P arenchymal scarring in the left midlung is unchanged. A chest tube is present at the left lung base. Left hydropneumothorax is unchanged from yesterday. Airspace opacities are noted at the right lung ba se and there is trace right pleural effusion. The skeletal structures are osteopenic. The bony thorax is grossly intact. IMPRESSION: 1. Cardiomegaly and emphysema. 2. Findings of left-sided hydropneumothorax with a chest tube at the left lung base are unchanged fro m yesterday. 3. Airspace opacities are again seen at the right lung base with a trace right pleural effusion. Electronically signed by: Sen Estrada M.D. 08/12/2019 7:25 AM
[2019-08-12 07:52] LABS: BUN Creatinine Ratio 34.1 (10-20); Calcium 9.2 mg/dl (8.5-10.1); Creatinine Clr Calc Pharmacy 24.5 ml/min; Est GFR (African American) 28.9
[2019-08-12] MEDS ORDERED: INSULIN GLARGINE SOLOSTAR 100 UNITS/ML 3 ML PEN SQ SCH (09:00)
--- NOTE | 2019-08-12 09:03 | Surgery Progress Note ---
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 This is from a benign effusion. I would remove this catheter if it does not drain much and his x-ray shows that he has continued fluid accumulation tomorrow morning. If he is markedly symptomatic, we will consider insertion of an indwelling pleural catheter. Present on Admission?: Yes Physical Exam Physical Exam: Patient has been eating well. He has no complaints. He is wearing 100% nonrebreather. He is not short of breath. This is a thin elderly male who is traveled. I reviewed his suction set up and the 12 Somali pigtail catheter is occluded. I disconnected it and removed a long fibrin/thrombotic occlusion of the catheter. Draining some serous fluid after that but not very much. Decreased breath sounds in both bases. He has peripheral edema. Results & Data Vital Signs (Past 12 Hours) Vital Signs Temp Pulse Resp BP Pulse Ox 08/12/19 07:23 36.7 C 74 18 104/63 100 08/12/19 04:16 36.5 C 59 L 18 121/62 94 08/11/19 23:55 36.6 C 66 16 113/62 97 PG Care Time/CCT Total # of Minutes Spent Total Time Spent with Patient: Total time spent is greater than 50% in coordination of care (as documented) at patient's floor/unit and/or counseling patient:
[2019-08-12] MEDS: ASPIRIN 81 MG ECTAB PO SCH (09:27)
[2019-08-12] MEDS: METOPROLOL SUCC 25MG EXT REL TAB PO SCH (09:27)
[2019-08-12] MEDS: ISOSORBIDE MONO EXTENDED REL 30 MG TABCR PO SCH (09:27)
[2019-08-12] MEDS: MULTIVITAMIN TAB PO SCH (09:28)
[2019-08-12] MEDS: NYSTATIN OINT 15 GM TUBE EXT SCH ×2 (09:28→20:09)
[2019-08-12] MEDS: SIMVASTATIN 80 MG TAB PO SCH (09:28)
[2019-08-12] MEDS ORDERED: SODIUM CHLORIDE 0.9% 500 ML IV SCH (09:30)
[2019-08-12] MEDS: PREGABALIN 25 MG CAP PO SCH (09:33)
[2019-08-12] MEDS: INSULIN ASPART 100 UNITS/ML 3 ML PEN SC SCH ×4 (09:33→20:22)
[2019-08-12] MEDS: APIXABAN 2.5 MG TAB PO SCH ×2 (10:22→20:08)
[2019-08-12] MEDS: DOXYCYCLINE HYCLATE 100 MG in DEXTROSE 5% 100 ML IV SCH ×2 (11:04→20:18)
--- NOTE | 2019-08-12 11:26 | Pharmacy Report ---
Pharmacy Glycemic Short Note 2 - Date of Service August 12, 2019 - Glycemic Short BSG Results (Last 24 hours): 08/11/19 08/11/19 08/11/19 12:02 16:49 20:15 Glucose POC Glucose 290 H 201 H 176 H 08/12/19 08/12/19 05:21 08:00 Glucose 144 H POC Glucose 145 H OUTPATIENT ANTIDIABETIC REGIMEN: * Lantus 40 units qAM (non compliant) * A1c = 12.3 % 08/04/19 (up significantly from 7.4% on 05/11/19) ASSESSMENT: * Mr. Casillas had some hyperglycemia at lunch and dinner yesterday. Likely 2/2 to carb heavy meals. PLAN FOR INPATIENT GLYCEMIC CONTROL: * Hold outpatient oral diabetes medications * Basal insulin * increase lantus to 25u QAM * Bolus insulin - CF/CR * NovoLog per scale ACHS or Q6hrs while NPO * Goal Range: Low 110 mg/dL - High 140 mg/dL Breakfast: * Correction Factor: 20 mg/dL/unit * Nutritional / Prandial insulin per carb ratio of 1 unit per 5 grams CHO consumed Lunch/Dinner/HS: * Correction Factor: 25 mg/dL/unit * Nutritional / Prandial insulin per carb ratio of 1 unit per 6 grams CHO consumed PLAN FOR DISCHARGE: * A1c = 12.3% (08/04/19) * Goal A1c <8 % based on age and comorbidities * Patient reported non-compliance on admission and A1c has increased significantly in just a few months (A1c of 7.4% on 05/11/19) * Recommend SMBG 2-3x/day * Recommend Lantus 15-20 units SQ daily (reduced dose d/t adequate inpatient BSG control on much lower doses and recent weight loss) * Follow up with outpatient provider to determine if basal insulin alone is sufficient or if bolus insulin should be added Thank you.
--- NOTE | 2019-08-12 11:28 | Hospitalist Progress Note ---
Date of Service August 12, 2019 Assessment & Plan (1) Hyperglycemia: 84yoM with hx of DMII, CAD s/p stent 1st diagonal in 2017 s/p anterior STEMI, severe 2 vessel disease and critical L main involvement; CHF, HTN, HLD, Afib, CKD, rectal cancer presented from home to the ED for concern of worsening health at home per family. On admission, found to have elevated troponin with inverted T waves in lateral leads, glucose of 812 concerning for HHS, NILESH and pseudohyponatremia of 125, which have now improved. Patient also had left groin rash and large decubitus ulcer. He had an increased O2 requirement and was found to have hydropneumothorax and now on chest tube with some improvement. 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 Hydropneumothorax - New O2 demand 08/07 with tachypnea. No SoB, feels at baseline on 100% nonrebreather for attempted washout of pneumothorax - CXR: Hydropneumothorax chornic pleural effusion on left with new pneumothorax - Chest tube placed 08/[address], draining serosanguinous fluid. Continue to suction - 14F pigtail cath in place. - If no improvement consider Pleurx for comfort. He is not a surgical candidate. He is at high risk of empyema, and high risk of infection with nearby ostomy site. Pulmonology and Thoracic surgery on board, appreciate recs - If drain has low output, removed catheter and place indewlling pleural catheter if symptomatic per thoracic surgery. - Repeat CXR in the morning Sacral/Decubitus ulcer, ?cellulitis - Sacral ulcer present with dressing in place. - Afebrile, normal WBC - Increased purulent drainage - Dressing changes QD from QoD wound care nurse consulted - Doxycycline 100mg IV BID for empiric tx NILESH vs volume contraction on CKD with hyperkalemia - Potassium increased to 6.0, Cr increased to 2.3 from 2.11 - Baseline cr ~ 1.9-2.0 - Hold lasix and spirolactone - 500cc gentle NS bolus and reassess. Caution to fluid overload - Low EF 20%. - ECG pending. If any changes, transfer to tele - Repeat BMP in afternoon Hyperglycemia, improved - Poor compliance with meds secondary to dementia and deconditioning - Initially HHS in the setting of ID-DM, admission A1C 12.3 up from 7.4 on 05/11/2019 - Improved on [facility] protocol and pharmacy glycemic consult for insulin management - Note: Avoid fluid overload - Low EF 20%. - Glucose 100 this morning Poor nutrition status - Concerns for patient's nutrition status as appears very frail, thin, and has generalized weakness sacral ulcer will need adequate nutrition for wound healing - Pre-albumin level of 8.9, low - Dietary Consulted Elevated troponin, improved - Low suspicion for ACS - Troponin bump which peaked at 1.0 then downtrended to 0.3 on admit, likely from demand vs CKD - Without chest pain, shortness of breath, lightheadedness - Hx of CAD s/p stent 1st diagonal in 2017 s/p anterior STEMI, severe 2 vessel disease and critical L main involvement -patient is high risk for surgical proce dure and medically managed only - Echo 2016: EF 20%, akinetic segment and mid to distal anterior wall and entire apex other hypokinetic segments, right ventricular systolic dysfunction EKG: A. fib T wave inversion in anterior leads Elevated BNP -Initial BNP >19097 - unreliable in setting of CKD - No sign of fluid overload at this time Atrial Fibrillation - Continue Eliquis Pseudohyponatremia in the setting of hyperglycemia Resolved Left groin rash - Concern for fungal infection versus dermatitis, appears consistent with tinea cruris - Continue with nystatin cream History of hypertension/hyperlipidemia/coronary disease/CHF/A. fib - Hx of CAD s/p stent 1st diagonal in 2017 s/p anterior STEMI, severe 2 vessel disease and critical L main involvement -patient is high risk for surgical procedure and medically managed only - Echo 2016: EF 20%, akinetic segment and mid to distal anterior wall and entire apex other hypokinetic segments, right ventricular systolic dysfunction - Lipid profile: May 2019, triglycerides 79, total cholesterol 130, LDL 72, HDL 42 - Lasix and spironolactone as above -Continue Eliquis as above -Continue home Imdur, metoprolol, simvastatin, aspirin History of rectal cancer diagnosed in 2014 T4N1 - Status post resection with colostomy, radiation, chemo - CT abdomen/pelvis in 01/29/2019: No metastatic disease Anemia of Chronic Disease, stable - Appears at baseline, no acute change - CBC daily Goals of Care -Per family as of 08/08 DNR/DNI -Other therapeutic interventions on a case by case basis FEN/GI: T2DM diet DVT prophylaxis: [place] Code: DNR/DNI Disposition: Med/Surg, anticipate d/c to SNF +/- pleurX for comfort Supervising Physician Co-Signing Physician Notes I personally examined the patient and verified all salcido points of history and exam, discussed case, and agree with decision making with Dr Azar. still has zero complaints. breathing well. Vitals noted, in general he is awake and alert seems pleasantly confused but no distress. HEENT normocephalic atraumatic mucous membranes are moist. Breathing unlabored no accessory muscle use good effort. Chest tube seems to be functioning appropriately. Pneumothoraxnow with chest tube. no respiratory distress. appreciate specialists' efforts in this regard hyperkalemia/elevated creatinine - suspect volume depletion from diuretics + hospital diet - no EKG changes. gave small amount of fluids and f/u BMP improved some, EKG without hyperkalemic findings. hold lasix and aldactone for now (given low EF will likely need resumed at some point but would reduce doses since he'll be on more restricted institutional diets, follow BMP closely, vs possibly entresto if renal function can support it - would need close f/u on BMP); with K improving will f/u BMP later today - if mildly worse or not improving would first give another small, slow amount of fluid and follow; if truly worse would repeat EKG and manage more aggressively Hyperglycemic dehydrationimproved. Suspect this related to poor med compliance which probably relates back to his dementia. continue insulin management and follow sugars Dementiacontinue supportive care. chronic systolic CHF - see above under hyperkalemia - breathing is stable. continue to follow closely -ongoing management aggressiveness obviously hinges on palliative discussions Stage II-III sacral ulcer present on admissioncontinue with local wound care, goal for mobility as possible - given increased drainage and increased white count - cover for overgrowth (doxy since he's been in the hospital but want to avoid nephrotoxic w vanc, if not improving on doxy then consider addition for gram negative coverage) Dispositionwill require SNFbut spontaneous pneumothorax obviously has significantly lengthen the time he will require inpatient hospitalization. palliative consult pending Otherwise as above Subjective Feels 'ok, a little bit better' today. Denies fever, chills, sweats. No chest pain/palpitations/shortness of breath. He feels he is breathing better today with the nonrebreather mask. He has no pain in his lower back today. Denies abdominal pain or rash. No questions or concerns at time of visit. Review of Systems Review of Systems: All systems reviewed & are unremarkable except as noted in HPI & below Physical Exam Physical Exam: General: No acute distress, cooperative HEENT: Atraumatic, normocephalic. Extraocular movements intact, visual acuity grossly intact Pulm: Air movement diminished globally. LLL diminished with trace crackles. No wheeze, rhonchi appreciated. Left-sided chest tube in place draining serosanguineous fluid. Cardiac: RRR, -mrg. Radial pulses intact and symmetrical. Abdominal: Nontender, nondistended, soft. L sided soft abdominal deformity/pouch present at ostomy site and without pain/erythema. Back: Sacral ulcer present (see photo documentation). Increase drainage and purulence with dressing changes converted to QD from QoD. Results & Data Vital Signs (Past 12 Hours) Vital Signs Temp Pulse Resp BP Pulse Ox 08/12/19 07:23 36.7 C 74 18 104/63 100 08/12/19 04:16 36.5 C 59 L 18 121/62 94 08/11/19 23:55 36.6 C 66 16 113/62 97 PG Care Time/CCT Total # of Minutes Spent Total Time Spent with Patient: Total time spent is greater than 50% in coordination of care (as documented) at patient's floor/unit and/or counseling patient: Resident Activity Tracking Resident Involvement: Resident Care Provided Care Provided: Adult Hospital Medicine
--- NOTE | 2019-08-12 11:54 | Pulmonology Progress Note ---
Date of Service August 12, 2019 Assessment & Plan (1) Pleural effusion: With associated hydropneumothorax 14 [place] pigtail catheter placed on the left on 08/08/19 at approximately 1 AM Patient with no complaints of shortness of breath or chest discomfort History of previous thoracentesis secondary to rectal cancer with benign pleural fluid Last thoracentesis was [place] [address] Calderon Fluid is negative for malignancy. There are benign mesothelial cells and sca ttered lymphocytes (2) Hydropneumothorax: 14 [place] catheter remains in place and secure. Chest tube is in place and secure and good respiratory variation in the tube with no evidence of air leak There is no change in the pneumothorax although the patient is on negative suction and on 100% nonrebreather. 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 We will clamp the chest tube today. Repeat chest x-ray at around 2 PM if there is no worsening in the pneumothorax plan to remove the chest tube in the morning. Agree with Dr. Calderon conservative management. If the fluid r re-accumulates (which probably well as it is trapped lung) and patient gets short of breath can think about Pleurx catheter. Subjective Patient seen and examined at bedside. No acute distress, no adverse events overnight. Denies any chest pain, no shortness of breath, no headache, no nausea, no vomiting. No dizziness, no palpitations. Chest tube level is 1380. There is no bubbling even on exertion. Review of Systems Review of Systems: All systems reviewed & are unremarkable except as noted in HPI & below Physical Exam Physical Exam: Constitutional: No acute distress HEENT: EOMI, PERRLA, arcus senilis bilaterally Respiratory system: Decreased air entry bilaterally, mild crackles left lower lobe, no wheeze, no rhonchi, left-sided chest tube present CVS: S1-S2 positive, no murmurs or gallops Abdomen: Soft, nontender, nondistended, positive bowel sounds x4 Extremities: +2 pulses bilaterally radialis/ dorsalis pedis, no edema, no cyanosis Neuro: Awake and alert Psych: Normal mood and affect Skin: no rashes, warm and dry Lymphatic: no cervical or axillary lymphadenopathy Results & Data Vital Signs (Past 12 Hours) Vital Signs Temp Pulse Resp BP Pulse Ox 08/12/19 07:23 36.7 C 74 18 104/63 100 11/03/19 04:16 36.5 C 59 L 18 121/62 94 08/12/19 05:18 08/12/19 05:21 PG Care Time/CCT Total # of Minutes Spent Total Time Spent with Patient: Total time spent is greater than 50% in coordination of care (as documented) at patient's floor/unit and/or counseling patient:
[2019-08-12 13:21] LABS: BUN Creatinine Ratio 34.2 (10-20); Calcium 8.3 mg/dl (8.5-10.1); Creatinine Clr Calc Pharmacy 24.2 ml/min; Est GFR (African American) 28.5; Est GFR (Non-African American) 24.6; Potassium 5.7 mmol/L (3.5-5.1)
--- NOTE | 2019-08-12 16:01 | XRay Report ---
SINGLE VIEW CHEST CLINICAL HISTORY: Hydropneumothorax. Chest tube clamping. FINDINGS: An AP, portable, upright chest radiograph is compared to study performed earlier the same d ay 08/12/2019 and correlated with chest CT dated 11/25/2018. The examination is degraded by portable te chnique and patient rotation. The heart is enlarged noting atherosclerotic calcification of the thora cic aorta. The pulmonary vasculature is noncongested. Emphysema and chronic interstitial thickening a re similar to previous. Parenchymal scarring in the left midlung is unchanged. A chest tube is presen t at the left lung base. Left hydropneumothorax is unchanged from today's earlier examination. Airspa ce opacities are noted at the right lung base and there is trace right pleural effusion. The skeletal structures are osteopenic. The bony thorax is grossly intact. IMPRESSION: 1. Left-sided hydropneumothorax is unchanged from today's earlier examination. 2. Cardiomegaly and emphysema. 3. Airspace opacities are again seen at the right lung base with a trace right pleural effusion. Electronically signed by: Sen Estrada M.D. 08/12/2019 4:00 PM
[2019-08-12 18:21] LABS: BUN Creatinine Ratio 37.7 (10-20); Calcium 8.2 mg/dl (8.5-10.1); Est GFR (African American) 29.7; Est GFR (Non-African American) 25.6
[2019-08-12] MEDS: ACETAMINOPHEN 325 MG TAB PO PRN (20:17)
[2019-08-12] MEDS: INSULIN GLARGINE SOLOSTAR 100 UNITS/ML 3 ML PEN SC SCH (20:21)
[2019-08-13 06:22] LABS: BUN Creatinine Ratio 41.4 (10-20); Calcium 8.4 mg/dl (8.5-10.1); Creatinine Clr Calc Pharmacy 27.6 ml/min; Est GFR (African American) 33.2; Est GFR (Non-African American) 28.6
--- NOTE | 2019-08-13 07:02 | XRay Report ---
XR chest 1V portable HISTORY: 84 years-old Male effusion follow-up study in a patient with left pleural effusion COMPARISON: Chest radiograph 08/12/2019 TECHNIQUE: Portable AP view of the chest FINDINGS: Stable positioning of the left lung base pleural drainage catheter. Left-sided hydropneumothorax is u nchanged. Cardiac silhouette is enlarged. Chronic interstitial opacities with fibrotic changes of the lateral left midlung. Slightly progressed right lung base opacities with small right pleural effusio n. Degenerative changes of the shoulders and spine. IMPRESSION: 1. Stable positioning of the left-sided pleural drainage catheter with unchanged small left hydropneu mothorax. 2. Small right pleural effusion with mildly progressed right lung base opacities. The above report was generated using voice recognition software. It may contain grammatical, syntax o r spelling errors. Electronically signed by: Tod Abarca M.D. 08/13/2019 7:00 AM
[2019-08-13 07:05] LABS: Potassium 5.2 mmol/L (3.5-5.1)
[2019-08-13] MEDS: ASPIRIN 81 MG ECTAB PO SCH (08:43)
[2019-08-13] MEDS: APIXABAN 2.5 MG TAB PO SCH ×2 (08:43→20:21)
[2019-08-13] MEDS: ISOSORBIDE MONO EXTENDED REL 30 MG TABCR PO SCH (08:43)
[2019-08-13] MEDS: METOPROLOL SUCC 25MG EXT REL TAB PO SCH (08:44)
[2019-08-13] MEDS: MULTIVITAMIN TAB PO SCH (08:44)
[2019-08-13] MEDS: NYSTATIN OINT 15 GM TUBE EXT SCH ×2 (08:44→20:23)
[2019-08-13] MEDS: DOXYCYCLINE HYCLATE 100 MG in DEXTROSE 5% 100 ML IV SCH ×2 (08:45→20:16)
[2019-08-13] MEDS: SIMVASTATIN 80 MG TAB PO SCH (08:45)
[2019-08-13] MEDS: INSULIN ASPART 100 UNITS/ML 3 ML PEN SC SCH ×5 (08:46→20:24)
[2019-08-13] MEDS: INSULIN GLARGINE SOLOSTAR 100 UNITS/ML 3 ML PEN SQ SCH (08:52)
[2019-08-13] MEDS: PREGABALIN 25 MG CAP PO SCH (09:02)
--- NOTE | 2019-08-13 09:22 | Pharmacy Report ---
Pharmacy Glycemic Short Note 2 - Date of Service August 13, 2019 - Glycemic Short BSG Results (Last 24 hours): 08/12/19 08/12/19 08/12/19 11:46 11:49 12:56 Glucose Cancelled 184 H POC Glucose 120 H 08/12/19 08/12/19 08/12/19 16:49 17:56 20:19 Glucose 94 POC Glucose 100 H 72 08/13/19 08/13/19 05:21 08:12 Glucose 54 L POC Glucose 70 OUTPATIENT ANTIDIABETIC REGIMEN: * Lantus 40 units qAM (non compliant) * A1c = 12.3 % 08/04/19 (up significantly from 7.4% on 05/11/19) ASSESSMENT: * BSGs significantly lower yesterday, ranging 72-145 mg/dL * Fasting BSG also lower than days previous today at 70 mg/dL * Continues on doxycycline for treatment of cellulitis * Plan is for SNF at discharge PLAN FOR INPATIENT GLYCEMIC CONTROL: * Hold outpatient oral diabetes medications * Basal insulin * decrease Lantus back to 20 units daily * Bolus insulin - loosen breakfast CF/CR today - reassess tomorrow * NovoLog per scale ACHS or Q6hrs while NPO * Goal Range: Low 110 mg/dL - High 140 mg/dL * Correction Factor: 25 mg/dL/unit * Nutritional / Prandial insulin per carb ratio of 1 unit per 6 grams CHO consumed PLAN FOR DISCHARGE: * A1c = 12.3% (08/04/19) * Goal A1c <8 % based on age and comorbidities * Patient reported non-compliance on admission and A1c has increased significantly in just a few months (A1c of 7.4% on 05/11/19) * Recommend SMBG 2-3x/day * Recommend Lantus 15-20 units SQ daily (reduced dose d/t adequate inpatient BSG control on much lower doses and recent weight loss) * Follow up with outpatient provider to determine if basal insulin alone is sufficient or if bolus insulin should be added Thank you.
--- NOTE | 2019-08-13 10:54 | Palliative Care Consultation ---
Date of Consultation August 13, 2019 Assessment & Plan (1) Palliative care encounter: This is an 84 year old male who presented to the [facility] from home with overall decline of health. Additional PMH includes: DM2, CAD s/p STEMI and stent placement, dementia, CHF EF 20%, HTN, HLD, Afib, CKD, Rectal Cancer s/p resection/colostomy with radiation and chemotherapy, and two non-healing decubitus stage II-III pressure ulcers. On admission, his glucose level was 812 and there are concerns that there was med noncompliance from a memory standpoint. The patient lives in a one-story home with his , Saloni, briana Mcclain, grand-daughter Noemy, son-in-law Amor and great grandson Jaylon. The patient had multiple pleural effusions and has received multiple thoracentesis over the past few years. A chest tube was placed and was draining exudate over time. Fluid was obtained and sent to cytology, and was negative for malignancy. 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 The chest tube was removed today. Palliative Care was consulted for goals of care. -I met with the patient and his grand-daughter Noemy who was at his bedside in room 459. -The patient was sitting up smiling when I entered the room. -We talked briefly about palliative care and how was are involved with his care, he was very receptive. -The patient stated he would like to go home, that is his main concern. -He described his living situation and he lives in a one-story home with his , Saloni, briana Mcclain, grand-daughter Noemy, son-in-law Amor and great grandson Jaylon. -After discussion with the patient and Noemy, he bathes, ambulates, checks his own blood sugars and administers his own medications independently. He stated that he has had 3-4 falls over the past 3 months. -He is able to have a meaningful conversation, but definately has some forgetfullness. On a FAST scale, he would fall into 6c, indicating moderately severe dementia. -I talked with Noemy in the hallway regarding having a family meeting to discuss goals of care, including setting realistic expectations regarding recovery. The patient does have multiple chronic comorbidities -His has Parkinson's Dementia and can be involved with decisions, but he has an appointed POA, his grandson Ahmet who lives local but is on a hunting trip currently in [place]. . I called him but no voicemail has been set up. oNemy stated that he can text and he will call when he has good service to set up a family meeting. -Per the grand-daughter exterminator she doesn't think that they will want hemodialysis, etc for life prolonging treatment. -Ultimately there a few options that could be appropriate with this patient: 1. Return home with Hospice and additional private care if needed (there appears to be able members at home to care for the patient) 2. Return home with home health and transition to hospice. 3. Transition to a nursing facility for skilled rehab and transition to a permanent resident or return home with hospice. -I did leave a POLST form with Noemy to peruse and discuss with Ahmet, and we can look at it in detail during the family meeting. Patient is confirmed DNR/DNI. Would be helpful prior to discharge regardless of the goal. -Noemy stated that they have a very strong goal of him returning home, level of services to be determined after the family meeting. -PPS: 30% (2) Decubitus skin ulcer: (3) Rectal carcinoma: (4) Diabetes mellitus: (5) Acute exacerbation of CHF (congestive heart failure): History of Present Illness Reason for Consultation: Goals of Care Requesting Physician: Dr. Vela Attending Physician: Steve Vela, DO History of Present Illness This is an 84 year old male who presented to the [facility] from home with overall decline of health. Additional PMH includes: DM2, CAD s/p STEMI and stent placement, dementia, CHF, HTN, HLD, Afib, CKD, Rectal Cancer s/p resection/colostomy with radiation and chemotherapy, and two non-healing decubitus stage II-III pressure ulcers. On admission, his glucose level was 812 and there are concerns that there was med noncompliance from a memory standpoint. The patient lives in a one-story home with his , Saloni, daughter Johny, grand-daughter Noemy, son-in-law Amor and great grandson Jaylon. The patient had multiple pleural effusions and has received multiple thoracentesis over the past few years. A chest tube was placed and was draining exudate over time. Fluid was obtained and sent to cytology, and was negative for malignancy. 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 The chest tube was removed today. Palliative Care was consulted for goals of care. Please see A/P for further details. Thank you kindly for involving the palliative care team with this patient. We will follow accordingly. Allergies Allergy/AdvReac Type Severity Reaction Status Date / Time poison sumac extract Allergy Unknown Rash Verified 08/03/19 23:55 Home Medications Home Medications Medication Instructions Recorded Confirmed Type aspirin 81 mg tablet 81 mg PO DAILY tab 04/23/19 08/03/19 History furosemide 40 mg tablet 40 mg PO BID tab 04/23/19 08/03/19 History insulin glargine (U-100) 100 40 units SUBCUT .use 40units in am 04/23/19 08/03/19 History unit/mL (3 mL) subcutaneous pen #3 ml isosorbide mononitrate ER 30 mg 30 mg PO .COMPLEX tab 04/23/19 08/03/19 History tablet,extended release 24 hr metoprolol succinate ER 25 mg 25 mg PO DAILY #90 tab 04/23/19 08/03/19 History tablet,extended release 24 hr multivitamin tablet 1 tab PO DAILY 04/23/19 08/03/19 History spironolactone 25 mg tablet 25 mg PO DAILY #90 tab 04/23/19 08/03/19 History pregabalin 25 mg capsule 25 mg PO DAILY #90 cap 05/31/19 08/03/19 Rx simvastatin 80 mg tablet 80 mg PO DAILY #90 tab 05/31/19 08/03/19 Rx apixaban 2.5 mg tablet 2.5 mg PO BID #180 tab 06/05/19 08/03/19 Rx metformin 500 mg PO DAILY 08/04/19 08/04/19 History Patient History Medical History Atrial fibrillation (Acute) Rectal cancer (Acute) CAD (coronary artery disease) Chronic renal insufficiency Congestive heart failure Hyperlipidemia Hypertension Insulin dependent type 2 diabetes mellitus Surgical History Colostomy in place H/O resection of rectum History of cataract surgery History of thoracentesis Social History Preferred Language: Amharic Communication Ability: Effective Communication Tools: Letter Board [employer] Agent Required: Yes Beliefs That Will Affect Care: None Current Living Situation: Family Other Information That Helps Us Care for You: No Feels Safe at Home: Yes Safety Concerns: Feels Safe At This Time Smoking Status: Former smoker packs per day: 1 ; Years Smoked: 11 ; Do You Dip or Chew Tobacco: No ; Number of Years Since Quit: 50 ; Hx Alcohol Use: No Hx Substance Use: No Review of Systems Review of Systems: General: Patient denies pain HEENT: Pt denies GUTIERREZ, dizziness, visual changes CV: Pt denies chest pain, palpitations Resp: + SOB intermittently GI: Pt denies N/V/D : Pt denies dysuria Musculoskeletal: + falls and weakness Psych: Pt denies depression. Physical Exam Constitutional: + ill appearing, + cachectic, + frail appearing and co operative Eyes: PERRL, conjunctivae normal, anicteric sclerae ENMT: external ear and nose normal, oropharynx normal Neck: trachea midline, no thyromegaly Respiratory: Auscultation: + diminished lung sounds (left pleural catheter ) Cardiovascular: RRR, no murmur, no edema Gastrointestinal (Abdomen): normal bowel sounds, soft, nontender, no hepatosplenomegaly LLQ colostomy, no output noted at this time Skin: no rashes, warm and dry + crusts and + dry skin Psychiatric: Orientation: alert and oriented x 3 (some confusion regarding his complex history ) Results & Data Vital Signs (Past 12 Hours) Vital Signs Temp Pulse Resp BP BP Pulse Ox 08/13/19 07:00 36.6 C 68 22 113/65 96 08/13/19 03:55 36.3 C L 60 17 120/66 100 08/12/19 23:36 36.5 C 51 L 18 104/60 100 PG Care Time/CCT Total # of Minutes Spent Total Time Spent with Patient: Total time spent is greater than 50% in coordination of care (as documented) at patient's floor/unit and/or counseling patient: 100 Prolonged Care Time Prolonged Care Time: Yes Total Prolonged Care Time: 30 Time Spent Midlevel Total time spent 100 minutes with > 50% of that time spent discussing goals of care with the patient and grand-daughter and working to discuss a family meeting with the decision makers. Critical Care Time Prolonged Care Time Prolonged Care Time: Yes Total Prolonged Care Time: 30 100
--- NOTE | 2019-08-13 11:07 | Pulmonology Progress Note ---
Date of Service August 13, 2019 Assessment & Plan (1) Pleural effusion: Chest tube removed. Patient with evidence of recurrent hydroptx and trapped lung physiology. Clamped overnight. No increase in ptx. Tube removed at 11am 08/13/19. Notably, cyto is negative. Patient indicated to me he would not want further pleural procedures. Palliative care [employer] CONSULTANT also at bedside. Discussed case personally with Dr. Rasmussen, Dr. Calderon and palliative care. Pulm will sign off. Thanks for the consult. Please call with questions. No need for high flow O2 as this is a trapped lung and will likely not reabsorb. At risk for CO2 narcosis with high flow or non-rebreather. Hospice and comfort care measures would be very appropriate. (2) Hydropneumothorax: Subjective Patient sitting up in bed and working with PT. Denies shortness of breath or chest pain. No fevers or chills. No nausea or vomiting. Physical Exam Constitutional: Thin, frail and cachetic Eyes: PERRL, conjunctivae normal, anicteric sclerae ENMT: external ear and nose normal, oropharynx normal Neck: normal visual inspection Respiratory: normal respiratory effort, lungs clear to auscultation Cardiovascular: RRR, no murmur, no edema Gastrointestinal (Abdomen): Inspection/Auscultation: abdomen not distended and no abdominal edema Musculoskeletal: B/l upper and LE weakness Skin: Ulcer on back Neurologic: PERRL, EOMI, accommodation nl, no face palsy, no dysarthria Results & Data Vital Signs (Past 12 Hours) Vital Signs Temp Pulse Resp BP BP Pulse Ox 08/13/19 07:00 97.9 F 68 22 113/65 96 08/13/19 03:55 97.3 F L 60 17 120/66 100 08/12/19 23:36 97.7 F 51 L 18 104/60 100 I personally reviewed pertinent labs and chest imaging PG Care Time/CCT Total # of Minutes Spent Total Time Spent with Patient: Total time spent is greater than 50% in coordination of care (as documented) at patient's floor/unit and/or counseling patient:
--- NOTE | 2019-08-13 14:50 | Surgery Progress Note ---
Date of Service August 13, 2019 Assessment & Plan (1) Hydropneumothorax: I discussed this case with the patient and also discussed this with Dr. Fidel Vogel from Pulmonary. I believe that removing this catheter would be appropriate. The chest x-ray shows that there is some fluid accumulation but the space is no larger at the left base. I believe this is a chronic condition. The patient wishes no more pleural procedures and I would agree with that. Greatly appreciate Dr. vogel's help in this case. The cath will be removed today. Should he develop problems would recommend a Pleurx catheter be placed as an outpatient. Present on Admission?: Yes Subjective Patient is unchanged clinically and offers no complaints. Physical Exam Physical Exam: Decreased breath sounds on both sides. His left catheter site is clean. It is currently clamped but has serous fluid in the catheter. He is in no respiratory distress. Results & Data Vital Signs (Past 12 Hours) Vital Signs Temp Pulse Resp BP Pulse Ox 08/13/19 11:33 36.6 C 59 L 20 116/52 L 97 08/13/19 07:00 36.6 C 68 22 113/65 96 08/13/19 03:55 36.3 C L 60 17 120/66 100 PG Care Time/CCT Total # of Minutes Spent Total Time Spent with Patient: Total time spent is greater than 50% in coordination of care (as documented) at patient's floor/unit and/or counseling patient:
--- NOTE | 2019-08-13 15:56 | Hospitalist Progress Note ---
Date of Service August 13, 2019 Assessment & Plan (1) Hyperglycemia: 84yoM with hx of DMII, CAD s/p stent 1st diagonal in 2017 s/p anterior STEMI, severe 2 vessel disease and critical L main involvement; CHF, HTN, HLD, Afib, CKD, rectal cancer presented from home to the ED for concern of worsening health at home per family. On admission, found to have elevated troponin with inverted T waves in lateral leads, glucose of 812 concerning for HHS, NILESH and pseudohyponatremia of 125, which have now improved. Patient also had left groin rash and large decubitus ulcer. He had an increased O2 requirement and was found to have hydropneumothorax and now on chest tube with some improvement. 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 Hydropneumothorax - New O2 demand 08/07 with tachypnea. No SOB, feels at baseline on 100% nonrebreather for attempted washout of pneumothorax - CXR: Hydropneumothorax chronic pleural effusion on left with new pneumothorax - Chest tube placed 08/[address], draining serosanguinous fluid. Removed 08/13 -patient wishes no more pleural procedures. Cath removed today. Should he develop problems Pleurx catheter can be placed as an outpatient -He is not a surgical candidate. He is at high risk of empyema, and high risk of infection with nearby ostomy site. Pulmonology and Thoracic surgery on board, appreciate recs - No need for high flow O2 as this is a trapped lung and will likely not reabsorb. At risk for CO2 narcosis with high flow or non-rebreather - Repeat CXR in the morning- Today unchanged small left hydropneumothorax -fluid is negative for malignancy. There are benign mesothelial cells and scattered lymphocytes -appreciate palliative care following Sacral/Decubitus ulcer, ?cellulitis - Sacral ulcer present with dressing in place. - Afebrile, normal WBC - Increased purulent drainage - Dressing changes QD from QoD wound care nurse consulted - Doxycycline 100mg IV BID for empiric tx (avoiding nephrotoxic with vanc). If not improving on doxy then additional gram neg coverage. NILESH vs volume contraction on CKD with hyperkalemia - Potassium 5.2, Cr 2.09 - Baseline cr ~ 1.9-2.0 - Hold lasix and spirolactone. Given low EF will likely need resumed at some point but would reduce doses since he'll be on more restricted institutional diets -If not improving, another small, slow amount of fluid. Caution to fluid overload - Low EF 20%. -repeat EKG of severe hyperK Hyperglycemia, improved - Poor compliance with meds secondary to dementia and deconditioning - Initially HHS in the setting of ID-DM, admission A1C 12.3 up from 7.4 on 05/11/2019 - Improved on [facility] protocol and pharmacy glycemic consult for insulin management - Note: Avoid fluid overload - Low EF 20%. Poor nutrition status - Concerns for patient's nutrition status as appears very frail, thin, and has generalized weakness sacral ulcer will need adequate nutrition for wound healing - Pre-albumin level of 8.9, low - Dietary Consulted Elevated troponin, improved - Low suspicion for ACS - Troponin bump which peaked at 1.0 then downtrended to 0.3 on admit, likely from demand vs CKD - Without chest pain, shortness of breath, lightheadedness - Hx of CAD s/p stent 1st diagonal in 2017 s/p anterior STEMI, severe 2 vessel disease and critical L main involvement -patient is high risk for surgical procedure and medically managed only - Echo 2016: EF 20%, akinetic segment and mid to distal anterior wall and entire apex other hypokinetic segments, right ventricular systolic dysfunction EKG: A. fib T wave inversion in anterior leads Elevated BNP -Initial BNP >56870 - unreliable in setting of CKD - No sign of fluid overload at this time Atrial Fibrillation - Continue Eliquis Left groin rash - Concern for fungal infection versus dermatitis, appears consistent with tinea cruris - Continue with nystatin cream History of hypertension/hyperlipidemia/coronary disease/CHF/A. fib - Hx of CAD s/p stent 1st diagonal in 2017 s/p anterior STEMI, severe 2 vessel disease and critical L main involvement -patient is high risk for surgical procedure and medically managed only - Echo 2016: EF 20%, akinetic segment and mid to distal anterior wall and entire apex other hypokinetic segments, right ventricular systolic dysfunction - Lipid profile: May 2019, triglycerides 79, total cholesterol 130, LDL 72, HDL 42 - Lasix and spironolactone as above -Continue Eliquis as above -Continue home Imdur, metoprolol, simvastatin, aspirin History of rectal cancer diagnosed in 2014 T4N1 - Status post resection with colostomy, radiation, chemo - CT abdomen/pelvis in 01/29/2019: No metastatic disease Anemia of Chronic Disease, stable - Appears at baseline, no acute change - CBC daily FEN/GI: T2DM diet DVT prophylaxis: Siomara Code: DNR/DNI Disposition: Med/Surg. Family with very strong goal of him returning home, level of services to be determined after the family meeting (home with Hospice vs home with home health and transition to hospice vs Transition to a nursing facility for skilled rehab and transition to a permanent resident or return home with hospice) Supervising Physician Co-Signing Physician Notes I saw the patient concur with present position confirmed salcido portion of the history and physical exam. I agree with the impression and plan as noted above. Upon her visit this morning, the patient is without complaints. At rest, he has no breathing difficulty. It is somewhat of a struggle to assist him to a seated position to examine his lung mace; he does seem to have noted global weakness. The chest tube was clamped overnight and removed at 11:00 this morning. Cytology from the fluid previous redrawn was negative for malignancy. The patient has seen palliative medicine earlier today as well and this note is reviewed and appreciated. Hydropneumothorax Chest tube has been removed; stable from a respiratory standpoint hyperkalemia/elevated creatinine Mild elevation of potassium, serum creatinine slightly improved this morning. Will monitor; have to be cautious with fluids given his severely compromised left ventricular function Hyperglycemic dehydration Improving Again have to be cautious with fluids chronic systolic CHF Stage II-III sacral ulcer present on admission Disposition palliative consult appreciated; probably taking more of a palliative approach to include home hospice for which I believe he is both appropriate and eligible by guidelines Subjective 84 yo M found in bed this AM in NAD. No reported overnight events. States feels ok, no issues with breathing. Ok with plan to remove chest tube today. Pt has no other acute concerns or complaints. Review of Systems Review of Systems: All systems reviewed & are unremarkable except as noted in HPI & below Physical Exam Constitutional: pleasantly confused Eyes: PERRL, conjunctivae normal, anicteric sclerae ENMT: external ear and nose normal, oropharynx normal Respiratory: air movement diminished LLL trace crackles Cardiovascular: RRR, no murmur, no edema Gastrointestinal (Abdomen): normal bowel sounds, soft, nontender, no hepatosplenomegaly Skin: sacral ulcer w/ drainage Psychiatric: Orientation: alert Results & Data Vital Signs (Past 12 Hours) Vital Signs Temp Pulse Resp BP Pulse Ox 08/13/19 15:20 36.3 C L 58 L 32 H 111/54 L 99 08/13/19 11:33 36.6 C 59 L 20 116/52 L 97 08/13/19 07:00 36.6 C 68 22 113/65 96 08/13/19 03:55 36.3 C L 60 17 120/66 100 Laboratory Results Laboratory Results - last 24 hr 08/12/19 08/12/19 08/12/19 16:49 17:56 20:19 Sodium 132 L Potassium 5.0 Chloride 96 L Carbon Dioxide 30 Anion Gap 7.0 BUN 86 H Creatinine 2.29 H Est Cr Clr Drug Dosing 25.0 Est GFR ( Amer) 29.7 Est GFR (Non-Af Amer) 25.6 BUN/Creatinine Ratio 37.7 H Glucose 94 POC Glucose 100 H 72 Calcium 8.2 L Specimen Hemolysis 08/13/19 08/13/19 08/13/19 05:21 06:29 08:12 Sodium 133 L Potassium 5.2 H Chloride 96 L Carbon Dioxide 31 Anion Gap 6.0 BUN 87 H Creatinine 2.09 H Est Cr Clr Drug Dosing 27.6 Est GFR ( Amer) 33.2 Est GFR (Non-Af Amer) 28.6 BUN/Creatinine Ratio 41.4 H Glucose 54 L POC Glucose 70 Calcium 8.4 L Specimen Hemolysis 08/13/19 11:41 Sodium Potassium Chloride Carbon Dioxide Anion Gap BUN Creatinine Est Cr Clr Drug Dosing Est GFR ( Amer) Est GFR (Non-Af Amer) BUN/Creatinine Ratio Glucose POC Glucose 234 H Calcium Specimen Hemolysis Medications Administered Current Inpatient Medications Acetaminophen (Tylenol) 650 mg PO Q4H PRN PRN Reason: Pain or Fever Stop: 09/03/19 04:13 Last Admin: 08/12/19 20:17 Dose: 650 mg Documented by: Apixaban (Eliquis) 2.5 mg PO BID [facility] Stop: 09/04/19 09:59 Last Admin: 08/13/19 08:43 Dose: 2.5 mg Documented by: Aspirin (Ecotrin Ectab) 81 mg PO DAILY [facility] Stop: 09/03/19 08:59 Last Admin: 08/13/19 08:43 Dose: 81 mg Documented by: Dextrose (Dextrose 50%) 25 - 50 ml IV UD PRN; Protocol PRN Reason: Hypoglycemia Protocol Stop: 09/03/19 03:14 Last Admin: 08/04/19 08:20 Dose: 25 ml Documented by: Glucagon (Glucagen) 1 mg IM UD PRN; Protocol PRN Reason: Hypoglycemia Protocol Stop: 09/03/19 03:14 Glucose (Glucose 40%) 15 - 30 gm PO UD PRN; Protocol PRN Reason: Hypoglycemia Protocol Stop: 09/03/19 03:14 Glucose (Dex4 Glucose) 4 - 8 tabs PO UD PRN; Protocol PRN Reason: Hypoglycemia Protocol Stop: 09/03/19 03:14 Doxycycline Hyclate 100 mg/ (Dextrose) 110 mls @ 50 mls/hr IV BID [facility]; Protocol Stop: 08/22/19 08:59 Last Infusion: 08/13/19 10:57 Dose: Infused Documented by: Insulin Aspart (Novolog Flexpen) 0 units SC ACHS [facility]; Protocol Stop: 09/08/19 11:29 Last Admin: 08/13/19 12:59 Dose: 12 units Documented by: Insulin Glargine (Lantus Solostar Pen) 20 units SQ QAM [facility]; Protocol Stop: 09/09/19 08:59 Last Admin: 08/13/19 08:52 Dose: 20 units Documented by: Isosorbide Mononitrate (Imdur Extended Rel) 30 mg PO DAILY [facility] Stop: 09/03/19 08:59 Last Admin: 08/13/19 08:43 Dose: 30 mg Documented by: Metoprolol Succinate (Toprol Xl) 25 mg PO DAILY [facility] Stop: 09/03/19 08:59 Last Admin: 08/13/19 08:44 Dose: 25 mg Documented by: Miscellaneous (Carbohydrates For Hypoglycemia) 15 - 30 gm PO PRN PRN PRN Reason: Hypoglycemia Treatment Stop: 09/03/19 03:14 Last Admin: 08/05/19 17:15 Dose: 15 gm Documented by: Miscellaneous Information (Consult Glycemic Management Pharmacy) 1 ea N/A UD PRN PRN Reason: Consult Stop: 09/03/19 04:47 Multivitamins (Multivitamin Tab) 1 tab PO DAILY [facility] Stop: 09/03/19 08:59 Last Admin: 08/13/19 08:44 Dose: 1 tab Documented by: Nitroglycerin (Nitrostat) 0.4 mg SL UD PRN PRN Reason: Chest Pain Stop: 09/03/19 04:13 Nystatin (Mycostatin) 1 appln EXT BID [facility] Stop: 09/03/19 08:59 Last Admin: 08/13/19 08:44 Dose: 1 appln Documented by: Pregabalin (Lyrica) 25 mg PO DAILY [facility] Stop: 09/03/19 08:59 Last Admin: 08/13/19 09:02 Dose: 25 mg Documented by: Simvastatin (Zocor) 80 mg PO DAILY [facility] Stop: 09/03/19 08:59 Last Admin: 08/13/19 08:45 Dose: 80 mg Documented by: PG Care Time/CCT Total # of Minutes Spent Total Time Spent with Patient: Total time spent is greater than 50% in coordination of care (as documented) at patient's floor/unit and/or counseling patient: Resident Activity Tracking Resident Involvement: Resident Care Provided Care Provided: Adult Hospital Medicine
[2019-08-13] MEDS: ACETAMINOPHEN 325 MG TAB PO PRN (20:21)
--- NOTE | 2019-08-14 07:01 | XRay Report ---
XR chest 1V portable HISTORY: 84 years-old Male daily follow-up study in a patient with left pleural effusion COMPARISON: Chest radiograph 08/13/2019 TECHNIQUE: Portable AP view of the chest FINDINGS: Cardiac silhouette is enlarged, unchanged. Calcified plaque of the thoracic aortic arch. Status post removal of the left-sided pigtail drainage catheter. Small left-sided hydropneumothorax redemonstrate d. Trace right pleural effusion. Chronic bilateral mixed interstitial and alveolar opacities with 9 m m nodular focus of the right midlung. Degenerative changes of the shoulders and spine. IMPRESSION: 1. Unchanged small left hydropneumothorax with interval removal of the left-sided pigtail drainage ca theter. 2. Cardiomegaly. 3. Trace right pleural effusion with unchanged bilateral opacities. The above report was generated using voice recognition software. It may contain grammatical, syntax o r spelling errors. Electronically signed by: Tod Abarca M.D. 08/14/2019 7:00 AM
[2019-08-14 08:40] LABS: Calcium 8.4 mg/dl (8.5-10.1); Creatinine Clr Calc Pharmacy 31.7 ml/min; Est GFR (African American) 39.5; Est GFR (Non-African American) 34.1; Potassium 4.6 mmol/L (3.5-5.1)
[2019-08-14 08:59] LABS: Hematocrit (blood only) 34.4 % (42-52); Hemoglobin 11.3 g/dL (14.0-18.0); Mean Corpuscular Hemoglobin 30.5 pg (25-34); Mean Corpuscular Hgb Conc 32.8 g/dL (32-36); Mean Platelet Volume 10.5 fL (7.4-10.4); Platelet Count 187 K/uL (130-400); RDW Coefficient of Variation 15.2 % (11.5-14.5); RDW Standard Deviation 51.7 fL (36.4-46.3); White Blood Count 6.12 K/uL (4.8-10.8)
[2019-08-14 09:05] LABS: Eosinophils # (auto) 0.04 K/uL (0-0.5); Eosinophils % (auto) 0.7 %; Immature Granulocytes # (auto) 0.03 K/uL (0.00-0.02); Immature Granulocytes % (auto) 0.5 %; Lymphocytes # (auto) 0.21 K/uL (1.2-3.4); Lymphocytes % (auto) 3.4 %; Monocytes # (auto) 0.39 K/uL (0.11-0.59); Monocytes % (auto) 6.4 %; Neutrophils # (auto) 5.45 K/uL (1.4-6.5)
[2019-08-14] MEDS: ASPIRIN 81 MG ECTAB PO SCH (10:05)
[2019-08-14] MEDS: APIXABAN 2.5 MG TAB PO SCH ×2 (10:06→20:06)
[2019-08-14] MEDS: ISOSORBIDE MONO EXTENDED REL 30 MG TABCR PO SCH (10:07)
[2019-08-14] MEDS: PREGABALIN 25 MG CAP PO SCH (10:07)
[2019-08-14] MEDS: NYSTATIN OINT 15 GM TUBE EXT SCH ×2 (10:08→20:06)
[2019-08-14] MEDS: MULTIVITAMIN TAB PO SCH (10:08)
[2019-08-14] MEDS: DOXYCYCLINE HYCLATE 100 MG in DEXTROSE 5% 100 ML IV SCH (10:09)
[2019-08-14] MEDS: SIMVASTATIN 80 MG TAB PO SCH (10:11)
[2019-08-14] MEDS: METOPROLOL SUCC 25MG EXT REL TAB PO SCH (10:13)
[2019-08-14] MEDS: INSULIN ASPART 100 UNITS/ML 3 ML PEN SC SCH ×4 (10:28→21:22)
[2019-08-14] MEDS: INSULIN GLARGINE SOLOSTAR 100 UNITS/ML 3 ML PEN SQ SCH (10:29)
--- NOTE | 2019-08-14 12:55 | Pharmacy Report ---
Pharmacy Glycemic Short Note 2 - Date of Service August 14, 2019 - Glycemic Short BSG Results (Last 24 hours): 08/13/19 08/13/19 08/14/19 16:42 20:13 07:50 Glucose 87 POC Glucose 86 107 H 08/14/19 08/14/19 08:02 11:29 Glucose POC Glucose 96 239 H OUTPATIENT ANTIDIABETIC REGIMEN: * Lantus 40 units qAM (non compliant) * Metformin 500 mg PO daily * A1c = 12.3 % 08/04/19 (up significantly from 7.4% on 05/11/19) ASSESSMENT: * BSGs yesterday ranging 54-234 mg/dL * patient received 53 units of insulin yesterday (20 of which were basal) * Fasting BSG this morning is 96 mg/dL * AM Novolog and Lantus given at 1030 AM - won't overreact to elevated lunch BSG of 239 mg/dL * Continues on doxycycline for treatment of cellulitis * Plan is for SNF at discharge PLAN FOR INPATIENT GLYCEMIC CONTROL: * Hold outpatient oral diabetes medications * Basal insulin * continue Lantus 20 units daily * Bolus insulin - continue current parameters * NovoLog per scale ACHS or Q6hrs while NPO * Goal Range: Low 110 mg/dL - High 140 mg/dL * Correction Factor: 25 mg/dL/unit * Nutritional / Prandial insulin per carb ratio of 1 unit per 6 grams CHO consumed PLAN FOR DISCHARGE: * A1c = 12.3% (08/04/19) * Goal A1c <8 % based on age and comorbidities * Patient reported non-compliance on admission and A1c has increased significantly in just a few months (A1c of 7.4% on 05/11/19) * Recommend SMBG 2-3x/day * Recommend Lantus 15-20 units SQ daily (reduced dose d/t adequate inpatient BSG control on much lower doses and recent weight loss) * Follow up with outpatient provider to determine if basal insulin alone is sufficient or if bolus insulin should be added Thank you.
--- NOTE | 2019-08-14 14:52 | Palliative Care Progress Note ---
Date of Service August 14, 2019 Assessment & Plan (1) Goals of care, counseling/discussion: -Met with patient in room 459. He is awake, alert and oriented for the most part. Somewhat of a poor historian but does know he is quite ill. -Patient stated to me, "I know my time here is short." He states he would prefer to go home rather than go to rehab, but wants his family to be involved in decision making. -Patient states his family is not coming in for the rest of today. I asked nursing to have me paged tomorrow when family available. -Palliative care met with patient and granddaughter yesterday, they were to call us with family meeting time. No call from patient's family today. Will try tomorrow. -Patient did okay with therapy but easily tired and became SOB. Likely not a great rehab candidate. Will discuss with family. (2) Decubitus skin ulcer: (3) Rectal carcinoma: (4) Diabetes mellitus: (5) Acute exacerbation of CHF (congestive heart failure): Subjective Patient awake and oriented x4. C/o SOB after working with therapy today. No family at bedside. Review of Systems Review of Systems: C/o SOB. No chest pain, no N/V, no MSK pain Physical Exam Constitutional: + ill appearing and + frail appearing ENMT: external ear and nose normal, oropharynx normal Respiratory: + labored breathing Auscultation: + diminished lung sounds Cardiovascular: RRR, no murmur, no edema Gastrointestinal (Abdomen): normal bowel sounds, soft, nontender, no hepatosplenomegaly Psychiatric: Orientation: alert and oriented x 3 (some confusion regarding his complex history ) Results & Data Vital Signs (Past 12 Hours) Vital Signs Temp Pulse Resp BP BP Pulse Ox 08/14/19 13:14 24 08/14/19 11:33 36.4 C L 67 42 H 107/53 L 97 08/14/19 09:55 63 102/54 L 100/58 L 96 08/14/19 07:21 36.4 C L 60 20 118/74 98 08/14/19 04:00 36.4 C L 62 18 116/63 98 Time Spent Midlevel 25 minutes with >50% of the time spent at bedside with patient discussing condition and GOC.
--- NOTE | 2019-08-14 15:13 | Surgery Progress Note ---
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 This point his x-ray does not look much different. I would allow him to go home. I will be glad to see him back in the office if you become short of breath and we can always insert a Pleurx catheter if necessary. This can be done as an outpatient and we can send him either home or to the extended care facility in which he may be residing. Present on Admission?: Yes Subjective "I feel fine and I want to go home ". Physical Exam Physical Exam: Is a thin elderly male who appears more awake and alert. His chest tube site dressing is clean. He does have decreased breath sounds in both bases but is moving air well. He has good saturations on 3 L of O2. He does have some peripheral edema. Results & Data Vital Signs (Past 12 Hours) Vital Signs Temp Pulse Resp BP BP Pulse Ox 08/14/19 15:06 36.7 C 60 18 125/54 L 99 08/14/19 13:14 24 08/14/19 11:33 36.4 C L 67 42 H 107/53 L 97 08/14/19 09:55 63 102/54 L 100/58 L 96 08/14/19 07:21 36.4 C L 60 20 118/74 98 08/14/19 04:00 36.4 C L 62 18 116/63 98 PG Care Time/CCT Total # of Minutes Spent Total Time Spent with Patient: Total time spent is greater than 50% in coordination of care (as documented) at patient's floor/unit and/or counseling patient:
--- NOTE | 2019-08-14 17:39 | Hospitalist Progress Note ---
Date of Service August 14, 2019 Assessment & Plan (1) Hyperglycemia: 84yoM with hx of DMII, CAD s/p stent 1st diagonal in 2017 s/p anterior STEMI, severe 2 vessel disease and critical L main involvement; CHF, HTN, HLD, Afib, CKD, rectal cancer presented from home to the ED for concern of worsening health at home per family. On admission, found to have elevated troponin with inverted T waves in lateral leads, glucose of 812 concerning for HHS, NILESH and pseudohyponatremia of 125, which have now improved. Patient also had left groin rash and large decubitus ulcer. He had an increased O2 requirement and was found to have hydropneumothorax and now on chest tube with some improvement. 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 Hydropneumothorax - New O2 demand 08/07 with tachypnea. No SOB, feels at baseline on 100% nonrebreather for attempted washout of pneumothorax - CXR: Hydropneumothorax chronic pleural effusion on left with new pneumothorax - Chest tube placed 08/[address], draining serosanguinous fluid. 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 Cath removed 08/13. Should he develop problems Pleurx catheter can be placed as an outpatient -He is not a surgical candidate. He is at high risk of empyema, and high risk of infection with nearby ostomy site. Pulmonology and Thoracic surgery on board, appreciate recs - No need for high flow O2 as this is a trapped lung and will likely not reabsorb. At risk for CO2 narcosis with high flow or non-rebreather - Repeat CXR in the morning- Today unchanged small left hydropneumothorax -fluid is negative for malignancy. There are benign mesothelial cells and scattered lymphocytes -appreciate palliative care following. Family meeting pending Sacral/Decubitus ulcer, ?cellulitis - Sacral ulcer present with dressing in place. - Afebrile, normal WBC - Increased purulent drainage, resolved now - Dressing changes QD from QoD wound care nurse consulted - Doxycycline 100mg PO BID for empiric tx (avoiding nephrotoxic with vanc). If not improving on doxy then additional gram neg coverage. NILESH vs volume contraction on CKD with hyperkalemia - K and Cr improving - Baseline cr ~ 1.9-2.0 - Hold lasix and spirolactone. Given low EF will likely need resumed at some point but would reduce doses since he'll be on more restricted institutional diets -If not improving, another small, slow amount of fluid. Caution to fluid overload - Low EF 20%. -repeat EKG if severe hyperK Hyperglycemia, improved - Poor compliance with meds secondary to dementia and deconditioning - Initially HHS in the setting of ID-DM, admission A1C 12.3 up from 7.4 on 05/11/2019 - Improved on [facility] protocol and pharmacy glycemic consult for insulin management - Note: Avoid fluid overload - Low EF 20%. Poor nutrition status - Concerns for patient's nutrition status as appears very frail, thin, and has generalized weakness sacral ulcer will need adequate nutrition for wound healing - Pre-albumin level of 8.9, low - Dietary Consulted Elevated troponin, improved - Low suspicion for ACS - Troponin bump which peaked at 1.0 then downtrended to 0.3 on admit, likely from demand vs CKD - Without chest pain, shortness of breath, lightheadedness - Hx of CAD s/p stent 1st diagonal in 2017 s/p anterior STEMI, severe 2 vessel disease and critical L main involvement -patient is high risk for surgical procedure and medically managed only - Echo 2016: EF 20%, akinetic segment and mid to distal anterior wall and entire apex other hypokinetic segments, right ventricular systolic dysfunction EKG: A. fib T wave inversion in anterior leads Elevated BNP -Initial BNP >95339 - unreliable in setting of CKD - No sign of fluid overload at this time Atrial Fibrillation - Continue Eliquis Left groin rash - Concern for fungal infection versus dermatitis, appears consistent with tinea cruris - Continue with nystatin cream History of hypertension/hyperlipidemia/coronary disease/CHF/A. fib - Hx of CAD s/p stent 1st diagonal in 2017 s/p anterior STEMI, severe 2 vessel disease and critical L main involvement -patient is high risk for surgical procedure and medically managed only - Echo 2016: EF 20%, akinetic segment and mid to distal anterior wall and entire apex other hypokinetic segments, right ventricular systolic dysfunction - Lipid profile: May 2019, triglycerides 79, total cholesterol 130, LDL 72, HDL 42 - Lasix and spironolactone as above -Continue Eliquis as above -Continue home Imdur, metoprolol, simvastatin, aspirin History of rectal cancer diagnosed in 2014 T4N1 - Status post resection with colostomy, radiation, chemo - CT abdomen/pelvis in 01/29/2019: No metastatic disease Anemia of Chronic Disease, stable - Appears at baseline, no acute change - CBC daily FEN/GI: T2DM diet DVT prophylaxis: Eliquis Code: DNR/DNI Disposition: Med/Surg. Family with very strong goal of him returning home, level of services to be determined after the family meeting (home with Hospice vs home with home health and transition to hospice vs Transition to a nursing facility for skilled rehab and transition to a permanent resident or return home with hospice). Family meeting pending. Supervising Physician Co-Signing Physician Notes I saw the patient concurrent with the resident physician and confirmed salcido portions of the history and physical exam. I agree with the impression and plan as noted above. Upon her visit this morning, the patient is without complaints. At rest, he has no breathing difficulty. Nursing tells me that they just repositioned him and that took a lot out of him. 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 Hydropneumothorax Chest tube has been removed; stable from a respiratory standpoint hyperkalemia/elevated creatinine Potassium is normalized, creatinine slight improvement Will monitor; have to be cautious with fluids given his severely compromised left ventricular function Hyperglycemic dehydration Improving Again have to be cautious with fluids chronic systolic CHF Stage II-III sacral ulcer present on admission Dispositionlikely home with hospice although family consensus still pending. Subjective 84 yo M found in bed this AM in NAD. No reported overnight events. States feels ok, no issues with breathing. States desire to go home. Case discussed with family at bedside. Pt has no other acute concerns or complaints Review of Systems Review of Systems: All systems reviewed & are unremarkable except as noted in HPI & below Physical Exam Constitutional: pleasantly confused Eyes: PERRL, conjunctivae normal, anicteric sclerae ENMT: external ear and nose normal, oropharynx normal Respiratory: decreased breath sounds in both bases but is moving air well Cardiovascular: RRR, no murmur, no edema Gastrointestinal (Abdomen): normal bowel sounds, soft, nontender, no hepatosplenomegaly Skin: sacral ulcer, bandage c/d/i Psychiatric: Orientation: alert Results & Data Vital Signs (Past 12 Hours) Vital Signs Temp Pulse Resp BP BP Pulse Ox 08/14/19 15:06 36.7 C 60 18 125/54 L 99 08/14/19 13:14 24 08/14/19 11:33 36.4 C L 67 42 H 107/53 L 97 08/14/19 09:55 63 102/54 L 100/58 L 96 08/14/19 07:21 36.4 C L 60 20 118/74 98 Laboratory Results Laboratory Results - last 24 hr 08/13/19 08/14/19 08/14/19 20:13 07:50 07:50 WBC 6.12 RBC 3.70 L Hgb 11.3 L Hct 34.4 L MCV 93.0 MCH 30.5 MCHC 32.8 RDW Std Deviation 51.7 H RDW Coeff of Abdirizak 15.2 H Plt Count 187 MPV 10.5 H Immature Gran % (Auto) 0.5 Neut % (Auto) 89.0 Lymph % (Auto) 3.4 Garza % (Auto) 6.4 Eos % (Auto) 0.7 Baso % (Auto) 0.0 Immature Gran # (Auto) 0.03 H Neut # (Auto) 5.45 Lymph # (Auto) 0.21 L Garza # (Auto) 0.39 Eos # (Auto) 0.04 Baso # (Auto) 0.00 Sodium 131 L Potassium 4.6 Chloride 97 L Carbon Dioxide 29 Anion Gap 5.0 BUN 83 H Creatinine 1.81 H Est Cr Clr Drug Dosing 31.7 Est GFR ( Amer) 39.5 Est GFR (Non-Af Amer) 34.1 BUN/Creatinine Ratio 46.0 H Glucose 87 POC Glucose 107 H Calcium 8.4 L 08/14/19 08/14/19 08/14/19 08:02 11:29 16:44 WBC RBC Hgb Hct MCV MCH MCHC RDW Std Deviation RDW Coeff of Abdirizak Plt Count MPV Immature Gran % (Auto) Neut % (Auto) Lymph % (Auto) Garza % (Auto) Eos % (Auto) Baso % (Auto) Immature Gran # (Auto) Neut # (Auto) Lymph # (Auto) Garza # (Auto) Eos # (Auto) Baso # (Auto) Sodium Potassium Chloride Carbon Dioxide Anion Gap BUN Creatinine Est Cr Clr Drug Dosing Est GFR ( Amer) Est GFR (Non-Af Amer) BUN/Creatinine Ratio Glucose POC Glucose 96 239 H 274 H Calcium Medications Administered Current Inpatient Medications Acetaminophen (Tylenol) 650 mg PO Q4H PRN PRN Reason: Pain or Fever Stop: 09/03/19 04:13 Last Admin: 08/13/19 20:21 Dose: 650 mg Documented by: Apixaban (Eliquis) 2.5 mg PO BID [facility] Stop: 09/04/19 09:59 Last Admin: 08/14/19 10:06 Dose: 2.5 mg Documented by: Aspirin (Ecotrin Ectab) 81 mg PO DAILY [facility] Stop: 09/03/19 08:59 Last Admin: 08/14/19 10:05 Dose: 81 mg Documented by: Dextrose (Dextrose 50%) 25 - 50 ml IV UD PRN; Protocol PRN Reason: Hypoglycemia Protocol Stop: 09/03/19 03:14 Last Admin: 08/04/19 08:20 Dose: 25 ml Documented by: Glucagon (Glucagen) 1 mg IM UD PRN; Protocol PRN Reason: Hypoglycemia Protocol Stop: 09/03/19 03:14 Glucose (Glucose 40%) 15 - 30 gm PO UD PRN; Protocol PRN Reason: Hypoglycemia Protocol Stop: 09/03/19 03:14 Glucose (Dex4 Glucose) 4 - 8 tabs PO UD PRN; Protocol PRN Reason: Hypoglycemia Protocol Stop: 09/03/19 03:14 Doxycycline Hyclate 100 mg/ (Dextrose) 110 mls @ 50 mls/hr IV BID [facility]; Protocol Stop: 08/22/19 08:59 Last Infusion: 08/14/19 12:21 Dose: Infused Documented by: Insulin Aspart (Novolog Flexpen) 0 units SC ACHS [facility]; Protocol Stop: 09/08/19 11:29 Last Admin: 08/14/19 17:32 Dose: 14 units Documented by: Insulin Glargine (Lantus Solostar Pen) 20 units SQ QAM [facility]; Protocol Stop: 09/09/19 08:59 Last Admin: 08/14/19 10:29 Dose: 20 units Documented by: Isosorbide Mononitrate (Imdur Extended Rel) 30 mg PO DAILY [facility] Stop: 09/03/19 08:59 Last Admin: 08/14/19 10:07 Dose: 30 mg Documented by: Metoprolol Succinate (Toprol Xl) 25 mg PO DAILY [facility] Stop: 09/03/19 08:59 Last Admin: 08/14/19 10:13 Dose: 25 mg Documented by: Miscellaneous (Carbohydrates For Hypoglycemia) 15 - 30 gm PO PRN PRN PRN Reason: Hypoglycemia Treatment Stop: 09/03/19 03:14 Last Admin: 08/05/19 17:15 Dose: 15 gm Documented by: Miscellaneous Information (Consult Glycemic Management Pharmacy) 1 ea N/A UD PRN PRN Reason: Consult Stop: 09/03/19 04:47 Multivitamins (Multivitamin Tab) 1 tab PO DAILY RONNIE Stop: 09/03/19 08:59 Last Admin: 08/14/19 10:08 Dose: 1 tab Documented by: Nitroglycerin (Nitrostat) 0.4 mg SL UD PRN PRN Reason: Chest Pain Stop: 09/03/19 04:13 Nystatin (Mycostatin) 1 appln EXT BID RONNIE Stop: 09/03/19 08:59 Last Admin: 08/14/19 10:08 Dose: 1 appln Documented by: Pregabalin (Lyrica) 25 mg PO DAILY [facility] Stop: 09/03/19 08:59 Last Admin: 08/14/19 10:07 Dose: 25 mg Documented by: Simvastatin (Zocor) 80 mg PO DAILY RONNIE Stop: 09/03/19 08:59 Last Admin: 08/14/19 10:11 Dose: 80 mg Documented by: PG Care Time/CCT Total # of Minutes Spent Total Time Spent with Patient: Total time spent is greater than 50% in coordination of care (as documented) at patient's floor/unit and/or counseling patient: Resident Activity Tracking Resident Involvement: Resident Care Provided Care Provided: Adult Hospital Medicine
[2019-08-14] MEDS: DOXYCYCLINE HYCLATE 100 MG CAP PO SCH (20:06)
[2019-08-15] MEDS: DOXYCYCLINE HYCLATE 100 MG CAP PO SCH ×2 (07:35→21:01)
[2019-08-15] MEDS: MULTIVITAMIN TAB PO SCH (07:36)
[2019-08-15] MEDS: ISOSORBIDE MONO EXTENDED REL 30 MG TABCR PO SCH (07:36)
[2019-08-15] MEDS: SIMVASTATIN 80 MG TAB PO SCH (07:36)
[2019-08-15] MEDS: METOPROLOL SUCC 25MG EXT REL TAB PO SCH (07:36)
[2019-08-15] MEDS: ASPIRIN 81 MG ECTAB PO SCH (07:37)
[2019-08-15] MEDS: APIXABAN 2.5 MG TAB PO SCH ×2 (07:37→21:02)
[2019-08-15] MEDS: CARBOHYDRATES FOR HYPOGLYCEMIA PO PRN (07:52)
[2019-08-15 08:12] LABS: Calcium 8.3 mg/dl (8.5-10.1); Est GFR (African American) 45.1; Est GFR (Non-African American) 38.9; Potassium 4.5 mmol/L (3.5-5.1)
[2019-08-15 08:16] LABS: Basophils # (auto) 0.01 K/uL (0-0.2); Basophils % (auto) 0.1 %; Eosinophils # (auto) 0.04 K/uL (0-0.5); Eosinophils % (auto) 0.5 %; Hematocrit (blood only) 34.9 % (42-52); Hemoglobin 11.5 g/dL (14.0-18.0); Immature Granulocytes # (auto) 0.07 K/uL (0.00-0.02); Immature Granulocytes % (auto) 0.9 %; Lymphocytes # (auto) 0.31 K/uL (1.2-3.4); Lymphocytes % (auto) 3.9 %; Mean Corpuscular Hemoglobin 30.3 pg (25-34); Mean Corpuscular Volume 92.1 fL (80-100); Mean Platelet Volume 10.2 fL (7.4-10.4); Monocytes # (auto) 0.29 K/uL (0.11-0.59); Monocytes % (auto) 3.6 %; Neutrophils # (auto) 7.29 K/uL (1.4-6.5); Platelet Count 199 K/uL (130-400); RDW Coefficient of Variation 15.2 % (11.5-14.5); RDW Standard Deviation 51.2 fL (36.4-46.3); Red Blood Count 3.79 M/uL (4.7-6.1); White Blood Count 8.01 K/uL (4.8-10.8)
--- NOTE | 2019-08-15 08:43 | Pharmacy Report ---
Pharmacy Glycemic Short Note 2 - Date of Service August 15, 2019 - Glycemic Short BSG Results (Last 24 hours): 08/14/19 08/14/19 08/14/19 07:50 11:29 16:44 Glucose 87 POC Glucose 239 H 274 H 08/14/19 08/15/19 08/15/19 20:34 07:21 07:46 Glucose 53 L* POC Glucose 178 H 63 L* 08/15/19 08/15/19 07:48 08:09 Glucose POC Glucose 58 L* 74 OUTPATIENT ANTIDIABETIC REGIMEN: * Lantus 40 units qAM (non compliant) * Metformin 500 mg PO daily * A1c = 12.3 % 08/04/19 (up significantly from 7.4% on 05/11/19) ASSESSMENT: * BSGs yesterday ranging 96-247 mg/dL * patient received 64 units of insulin yesterday (20 of which were basal) * Fasting BSG this morning is 58 mg/dL * Of note: patient received 6 units of insulin HS for a BSG of 178 mg/dL and to cover 24 grams of carbs * Continues on doxycycline for treatment of cellulitis * Plan is for SNF at discharge * Utilized CR of 5 for breakfast and lunch, but will back off back to 6 and eliminate carb coverage at HS * Patient to be discharge home with hospice (will focus on limiting hypoglycemia) PLAN FOR INPATIENT GLYCEMIC CONTROL: * Hold outpatient oral diabetes medications * Basal insulin * continue Lantus 20 units daily * Bolus insulin - * NovoLog per scale ACHS or Q6hrs while NPO * Goal Range: Low 110 mg/dL - High 140 mg/dL * Correction Factor: 25 mg/dL/unit * Nutritional / Prandial insulin per carb ratio of 1 unit per 6 grams CHO consumed * Eliminate carb coverage at HS PLAN FOR DISCHARGE: * A1c = 12.3% (08/04/19) * Goal A1c <8 % based on age and comorbidities * Patient reported non-compliance on admission and A1c has increased significantly in just a few months (A1c of 7.4% on 05/11/19) * Recommend SMBG 2-3x/day * Recommend Lantus 15-20 units SQ daily (reduced dose d/t adequate inpatient BSG control on much lower doses and recent weight loss) * Follow up with outpatient provider to determine if basal insulin alone is sufficient or if bolus insulin should be added Thank you.
[2019-08-15] MEDS: PREGABALIN 25 MG CAP PO SCH (08:45)
[2019-08-15] MEDS: INSULIN ASPART 100 UNITS/ML 3 ML PEN SC SCH ×4 (08:47→21:16)
[2019-08-15] MEDS: INSULIN GLARGINE SOLOSTAR 100 UNITS/ML 3 ML PEN SQ SCH (08:47)
[2019-08-15] MEDS: NYSTATIN OINT 15 GM TUBE EXT SCH ×2 (08:48→21:02)
--- NOTE | 2019-08-15 09:17 | Palliative Care Progress Note ---
Date of Service August 15, 2019 Assessment & Plan (1) Goals of care, counseling/discussion: -Spoke with patient, his granddaughter Noemy, Noemy's , in room 459. Patient is feeling about the same today, no new complaints. Still tires easily and is SOB at rest, which worsens with any exertion. -Discussed patient's wishes and goals. He states he wants to go home on hospice. He does have some hesitation which seems to be related to not wanting to be a burden on his family. -Patient's , Saloni, and daughter, Johny, came down with a GI illness and are not able to come to the hospital. I called and spoke to Saloni at length over the phone per patient and granddaughters request. We discussed all of patient's medical problems and options for care after the hospital including rehab vs. home with hospice. Saloni is in agreement with home hospice if that is what the patient wants. -Will have case management call and get a choice of hospice agency to make referral today. Patient's family needs a few days to get the home ready for patient. They will need hospital bed and other equipment. -POLST form would be helpful prior to discharge. -Okay to continue patient's medications for now. -Palliative will continue to follow. (2) Decubitus skin ulcer: (3) Rectal carcinoma: (4) Diabetes mellitus: (5) Acute exacerbation of CHF (congestive heart failure): Subjective Met with patient and family in room 459. Patient still c/o weakness and SOB. Also spoke at length with patient's over phone. See A&P. Review of Systems Review of Systems: C/o SOB and weakness. No chest pain, no N/V, no MSK pain Physical Exam Constitutional: + ill appearing and + frail appearing ENMT: external ear and nose normal, oropharynx normal Respiratory: + labored breathing Auscultation: + diminished lung sounds Cardiovascular: RRR, no murmur, no edema Gastrointestinal (Abdomen): normal bowel sounds, soft, nontender, no hepatosplenomegaly Neurologic: moves all extremities and awake Psychiatric: Orientation: alert and oriented x 3 (some confusion regarding his complex history ) Results & Data Vital Signs (Past 12 Hours) Vital Signs Temp Pulse Resp BP BP Pulse Ox 11/06/19 08:00 36.3 C L 60 20 120/68 99 08/15/19 03:54 36.7 C 72 18 113/72 95 08/14/19 23:35 36.7 C 58 L 18 121/54 L 99 PG Care Time/CCT Prolonged Care Time Prolonged Care Time: Yes Total Prolonged Care Time: 65 Time Spent Midlevel 65 minutes with >50% of time spent at bedside with patient and family discussing condition and GOC.
--- NOTE | 2019-08-15 17:06 | Hospitalist Progress Note ---
Date of Service August 15, 2019 Assessment & Plan (1) Hyperglycemia: 84yoM with hx of DMII, CAD s/p stent 1st diagonal in 2017 s/p anterior STEMI, severe 2 vessel disease and critical L main involvement; CHF, HTN, HLD, Afib, CKD, rectal cancer presented from home to the ED for concern of worsening health at home per family. On admission, found to have elevated troponin with inverted T waves in lateral leads, glucose of 812 concerning for HHS, NILESH and pseudohyponatremia of 125, which have now improved. Patient also had left groin rash and large decubitus ulcer. He had an increased O2 requirement and was found to have hydropneumothorax and now on chest tube with some improvement. 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 Hydropneumothorax - New O2 demand 08/07 with tachypnea. No SOB, feels at baseline on 100% nonrebreather for attempted washout of pneumothorax - CXR: Hydropneumothorax chronic pleural effusion on left with new pneumothorax - Chest tube placed 08/[address], draining serosanguinous fluid. 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 Cath removed 08/13. Should he develop problems Pleurx catheter can be placed as an outpatient -He is not a surgical candidate. He is at high risk of empyema, and high risk of infection with nearby ostomy site. Pulmonology and Thoracic surgery on board, appreciate recs - No need for high flow O2 as this is a trapped lung and will likely not reabsorb. At risk for CO2 narcosis with high flow or non-rebreather - Repeat CXR in the morning- Today unchanged small left hydropneumothorax -fluid is negative for malignancy. There are benign mesothelial cells and scattered lymphocytes -appreciate palliative care following. Pt states he wants to go home on hospice Sacral/Decubitus ulcer, ?cellulitis - Sacral ulcer present with dressing in place. - Afebrile, normal WBC - Increased purulent drainage, resolved now - Dressing changes QD from QoD wound care nurse consulted - Doxycycline 100mg PO BID for empiric tx (avoiding nephrotoxic with vanc). If not improving on doxy then additional gram neg coverage. NILESH vs volume contraction on CKD with hyperkalemia - K and Cr improved - Baseline cr ~ 1.9-2.0 - Resume lasix 40 mg daily (home BID) but still holding spironolactone. Given low EF will likely need resumed at some point but would reduce doses since he'll be on more restricted institutional diets -If not improving, another small, slow amount of fluid. Caution to fluid overload - Low EF 20%. -repeat EKG if severe hyperK Hyperglycemia, improved - Poor compliance with meds secondary to dementia and deconditioning - Initially HHS in the setting of ID-DM, admission A1C 12.3 up from 7.4 on 05/11/2019 - Improved on [facility] protocol and pharmacy glycemic consult for insulin management - Note: Avoid fluid overload - Low EF 20%. Poor nutrition status - Concerns for patient's nutrition status as appears very frail, thin, and has generalized weakness sacral ulcer will need adequate nutrition for wound healing - Pre-albumin level of 8.9, low - Dietary Consulted Elevated troponin, improved - Low suspicion for ACS - Troponin bump which peaked at 1.0 then downtrended to 0.3 on admit, likely from demand vs CKD - Without chest pain, shortness of breath, lightheadedness - Hx of CAD s/p stent 1st diagonal in 2017 s/p anterior STEMI, severe 2 vessel disease and critical L main involvement -patient is high risk for surgical procedure and medically managed only - Echo 2016: EF 20%, akinetic segment and mid to distal anterior wall and entire apex other hypokinetic segments, right ventricular systolic dysfunction EKG: A. fib T wave inversion in anterior leads Elevated BNP -Initial BNP >12137 - unreliable in setting of CKD - No sign of fluid overload at this time Atrial Fibrillation - Continue Eliquis Left groin rash - Concern for fungal infection versus dermatitis, appears consistent with tinea cruris - Continue with nystatin cream History of hypertension/hyperlipidemia/coronary disease/CHF/A. fib - Hx of CAD s/p stent 1st diagonal in 2016 s/p anterior STEMI, severe 2 vessel disease and critical L main involvement -patient is high risk for surgical procedure and medically managed only - Echo 2016: EF 20%, akinetic segment and mid to distal anterior wall and entire apex other hypokinetic segments, right ventricular systolic dysfunction - Lipid profile: May 2019, triglycerides 79, total cholesterol 130, LDL 72, HDL 42 - Lasix and spironolactone as above -Continue Eliquis as above -Continue home Imdur, metoprolol, simvastatin, aspirin History of rectal cancer diagnosed in 2014 T4N1 - Status post resection with colostomy, radiation, chemo - CT abdomen/pelvis in 01/29/2019: No metastatic disease Anemia of Chronic Disease, stable - Appears at baseline, no acute change - CBC daily FEN/GI: T2DM diet DVT prophylaxis: Eliquis Code: DNR/DNI Disposition: Med/Surg. Appreciate Case Management to make referral for hospice agency Supervising Physician Co-Signing Physician Notes I saw the patient with the resident physician and confirmed salcido portion history and physical exam. Upon examination the patient is resting without complaint. Plan is for home with hospice once arrangements can be finalized. I agree with the impression and plan as noted in the resident documentation. Subjective 84 yo M found in bed this AM in NAD. No reported overnight events. States feels ok, no issues with breathing. States desire to go home. Some complaints of weakness. Pt has no other acute concerns or complaints. Review of Systems Review of Systems: All systems reviewed & are unremarkable except as noted in HPI & below Physical Exam Constitutional: pleasantly confused Eyes: PERRL, conjunctivae normal, anicteric sclerae ENMT: external ear and nose normal, oropharynx normal Respiratory: diminished lung sounds at bases but moves air well Cardiovascular: RRR, no murmur, no edema Gastrointestinal (Abdomen): normal bowel sounds, soft, nontender, no hepatosplenomegaly Skin: sacral ulcer Psychiatric: Orientation: alert Results & Data Vital Signs (Past 12 Hours) Vital Signs Temp Pulse Resp BP BP Pulse Ox 08/15/19 15:19 36.4 C L 55 L 20 119/65 97 08/15/19 08:00 36.3 C L 60 20 120/68 99 Laboratory Results Laboratory Results - last 24 hr 08/14/19 08/15/19 08/15/19 20:34 07:21 07:21 WBC 8.01 RBC 3.79 L Hgb 11.5 L Hct 34.9 L MCV 92.1 MCH 30.3 MCHC 33.0 RDW Std Deviation 51.2 H RDW Coeff of Abdirizak 15.2 H Plt Count 199 MPV 10.2 Immature Gran % (Auto) 0.9 Neut % (Auto) 91.0 Lymph % (Auto) 3.9 [place] % (Auto) 3.6 Eos % (Auto) 0.5 Baso % (Auto) 0.1 Immature Gran # (Auto) 0.07 H Neut # (Auto) 7.29 H Lymph # (Auto) 0.31 L [place] # (Auto) 0.29 Eos # (Auto) 0.04 Baso # (Auto) 0.01 Sodium 133 L Potassium 4.5 Chloride 99 Carbon Dioxide 29 Anion Gap 5.0 BUN 78 H Creatinine 1.62 H Est Cr Clr Drug Dosing 42.0 Est GFR ( Amer) 45.1 Est GFR (Non-Af Amer) 38.9 BUN/Creatinine Ratio 48.0 H Glucose 53 L* POC Glucose 178 H Calcium 8.3 L 08/15/19 08/15/19 08/15/19 07:46 07:48 08:09 WBC RBC Hgb Hct MCV MCH MCHC RDW Std Deviation RDW Coeff of Abdirizak Plt Count MPV Immature Gran % (Auto) Neut % (Auto) Lymph % (Auto) [place] % (Auto) Eos % (Auto) Baso % (Auto) Immature Gran # (Auto) Neut # (Auto) Lymph # (Auto) [place] # (Auto) Eos # (Auto) Baso # (Auto) Sodium Potassium Chloride Carbon Dioxide Anion Gap BUN Creatinine Est Cr Clr Drug Dosing Est GFR ( Amer) Est GFR (Non-Af Amer) BUN/Creatinine Ratio Glucose POC Glucose 63 L* 58 L* 74 Calcium 08/15/19 11:56 WBC RBC Hgb Hct MCV MCH MCHC RDW Std Deviation RDW Coeff of Abdirizak Plt Count MPV Immature Gran % (Auto) Neut % (Auto) Lymph % (Auto) [place] % (Auto) Eos % (Auto) Baso % (Auto) Immature Gran # (Auto) Neut # (Auto) Lymph # (Auto) [place] # (Auto) Eos # (Auto) Baso # (Auto) Sodium Potassium Chloride Carbon Dioxide Anion Gap BUN Creatinine Est Cr Clr Drug Dosing Est GFR ( Amer) Est GFR (Non-Af Amer) BUN/Creatinine Ratio Glucose POC Glucose 145 H Calcium Medications Administered Current Inpatient Medications Acetaminophen (Tylenol) 650 mg PO Q4H PRN PRN Reason: Pain or Fever Stop: 09/03/19 04:13 Last Admin: 08/13/19 20:21 Dose: 650 mg Documented by: Apixaban (Eliquis) 2.5 mg PO BID [facility] Stop: 09/04/19 09:59 Last Admin: 08/15/19 07:37 Dose: 2.5 mg Documented by: Aspirin (Ecotrin Ectab) 81 mg PO DAILY [facility] Stop: 09/03/19 08:59 Last Admin: 08/15/19 07:37 Dose: 81 mg Documented by: Dextrose (Dextrose 50%) 25 - 50 ml IV UD PRN; Protocol PRN Reason: Hypoglycemia Protocol Stop: 09/03/19 03:14 Last Admin: 08/04/19 08:20 Dose: 25 ml Documented by: Doxycycline Hyclate (Vibramycin) 100 mg PO BID [facility] Stop: 08/24/19 20:59 Last Admin: 08/15/19 07:35 Dose: 100 mg Documented by: Glucagon (Glucagen) 1 mg IM UD PRN; Protocol PRN Reason: Hypoglycemia Protocol Stop: 09/03/19 03:14 Glucose (Glucose 40%) 15 - 30 gm PO UD PRN; Protocol PRN Reason: Hypoglycemia Protocol Stop: 09/03/19 03:14 Glucose (Dex4 Glucose) 4 - 8 tabs PO UD PRN; Protocol PRN Reason: Hypoglycemia Protocol Stop: 09/03/19 03:14 Insulin Aspart (Novolog Flexpen) 0 units SC HS [facility]; Protocol Stop: 09/14/19 20:59 Insulin Aspart (Novolog Flexpen) 0 units SC 0730,1130,1630 [facility]; Protocol Stop: 09/12/19 08:44 Last Admin: 08/15/19 12:32 Dose: 10 units Documented by: Insulin Glargine (Lantus Solostar Pen) 20 units SQ QAM [facility]; Protocol Stop: 09/09/19 08:59 Last Admin: 08/15/19 08:47 Dose: 20 units Documented by: Isosorbide Mononitrate (Imdur Extended Rel) 30 mg PO DAILY [facility] Stop: 09/03/19 08:59 Last Admin: 08/15/19 07:36 Dose: 30 mg Documented by: Metoprolol Succinate (Toprol Xl) 25 mg PO DAILY [facility] Stop: 09/03/19 08:59 Last Admin: 08/15/19 07:36 Dose: 25 mg Documented by: Miscellaneous (Carbohydrates For Hypoglycemia) 15 - 30 gm PO PRN PRN PRN Reason: Hypoglycemia Treatment Stop: 09/03/19 03:14 Last Admin: 08/15/19 07:52 Dose: 15 gm Documented by: Miscellaneous Information (Consult Glycemic Management Pharmacy) 1 ea N/A UD PRN PRN Reason: Consult Stop: 09/03/19 04:47 Multivitamins (Multivitamin Tab) 1 tab PO DAILY RONNIE Stop: 09/03/19 08:59 Last Admin: 08/15/19 07:36 Dose: 1 tab Documented by: Nitroglycerin (Nitrostat) 0.4 mg SL UD PRN PRN Reason: Chest Pain Stop: 09/03/19 04:13 Nystatin (Mycostatin) 1 appln EXT BID RONNIE Stop: 09/03/19 08:59 Last Admin: 08/15/19 08:48 Dose: 1 appln Documented by: Pregabalin (Lyrica) 25 mg PO DAILY RONNIE Stop: 09/03/19 08:59 Last Admin: 08/15/19 08:45 Dose: 25 mg Documented by: Simvastatin (Zocor) 80 mg PO DAILY RONNIE Stop: 09/03/19 08:59 Last Admin: 08/15/19 07:36 Dose: 80 mg Documented by: Resident Activity Tracking Resident Involvement: Resident Care Provided Care Provided: Adult Hospital Medicine
[2019-08-15] MEDS ORDERED: FUROSEMIDE 40 MG TAB PO ONE (17:10)
[2019-08-15] MEDS: ACETAMINOPHEN 325 MG TAB PO PRN (18:32)
[2019-08-16 06:25] LABS: BUN Creatinine Ratio 45.4 (10-20); Calcium 8.3 mg/dl (8.5-10.1); Creatinine Clr Calc Pharmacy 42.3 ml/min; Est GFR (African American) 45.5; Est GFR (Non-African American) 39.2; Potassium 4.4 mmol/L (3.5-5.1)
[2019-08-16 06:26] LABS: Basophils # (auto) 0.01 K/uL (0-0.2); Basophils % (auto) 0.2 %; Eosinophils # (auto) 0.06 K/uL (0-0.5); Hemoglobin 11.1 g/dL (14.0-18.0); Immature Granulocytes # (auto) 0.06 K/uL (0.00-0.02); Lymphocytes # (auto) 0.52 K/uL (1.2-3.4); Lymphocytes % (auto) 8.3 %; Mean Corpuscular Hemoglobin 30.3 pg (25-34); Mean Corpuscular Hgb Conc 32.6 g/dL (32-36); Mean Corpuscular Volume 92.9 fL (80-100); Mean Platelet Volume 10.4 fL (7.4-10.4); Monocytes # (auto) 0.23 K/uL (0.11-0.59); Monocytes % (auto) 3.7 %; Neutrophils # (auto) 5.35 K/uL (1.4-6.5); Neutrophils % (auto) 85.8 %; Platelet Count 207 K/uL (130-400); RDW Coefficient of Variation 15.2 % (11.5-14.5); RDW Standard Deviation 51.3 fL (36.4-46.3); Red Blood Count 3.66 M/uL (4.7-6.1); White Blood Count 6.23 K/uL (4.8-10.8)
--- NOTE | 2019-08-16 09:04 | Pharmacy Report ---
Pharmacy Glycemic Short Note 2 - Date of Service August 16, 2019 - Glycemic Short BSG Results (Last 24 hours): 08/15/19 08/15/19 08/15/19 11:56 16:58 20:11 Glucose POC Glucose 145 H 111 H 147 H 08/16/19 08/16/19 05:40 08:11 Glucose 93 POC Glucose 117 H OUTPATIENT ANTIDIABETIC REGIMEN: * Lantus 40 units qAM (non compliant) * Metformin 500 mg PO daily * A1c = 12.3 % 08/04/19 (up significantly from 7.4% on 05/11/19) ASSESSMENT: * BSGs yesterday ranging 58-147 mg/dL * patient received 52 units of insulin yesterday (20 of which were basal) * Fasting BSG this morning is 117 mg/dL * Continues on doxycycline for treatment of cellulitis * Plan is for patient to be discharge home with hospice (will focus on limiting hypoglycemia) PLAN FOR INPATIENT GLYCEMIC CONTROL: * Hold outpatient oral diabetes medications * Basal insulin * continue Lantus 20 units daily * Bolus insulin - continue current parameters (adjust goal range slightly to 110-150 mg/dL in effort to limit hypoglycemia) * NovoLog per scale ACHS or Q6hrs while NPO * Goal Range: Low 110 mg/dL - High 150 mg/dL * Correction Factor: 25 mg/dL/unit * Nutritional / Prandial insulin per carb ratio of 1 unit per 6 grams CHO consumed * No carb coverage at HS PLAN FOR DISCHARGE: * A1c = 12.3% (08/04/19) * Goal A1c <8 % based on age and comorbidities (if patient discharged with hospice - this goal may be loosened depending on goals of care for patient) * Recommend Lantus 20 units SQ daily (reduced dose d/t adequate inpatient BSG control on much lower doses, recent weight loss, and to limit hypoglycemia) * Follow up with outpatient provider to determine if basal insulin alone is sufficient or if bolus insulin should be added Thank you.
[2019-08-16] MEDS: INSULIN ASPART 100 UNITS/ML 3 ML PEN SC SCH ×4 (10:15→20:56)
[2019-08-16] MEDS: INSULIN GLARGINE SOLOSTAR 100 UNITS/ML 3 ML PEN SQ SCH (10:16)
[2019-08-16] MEDS: ASPIRIN 81 MG ECTAB PO SCH (10:25)
[2019-08-16] MEDS: ISOSORBIDE MONO EXTENDED REL 30 MG TABCR PO SCH (10:26)
[2019-08-16] MEDS: APIXABAN 2.5 MG TAB PO SCH ×2 (10:26→20:54)
[2019-08-16] MEDS: MULTIVITAMIN TAB PO SCH (10:27)
[2019-08-16] MEDS: PREGABALIN 25 MG CAP PO SCH (10:27)
[2019-08-16] MEDS: FUROSEMIDE 40 MG TAB PO SCH (10:27)
[2019-08-16] MEDS: NYSTATIN OINT 15 GM TUBE EXT SCH ×2 (10:28→20:56)
[2019-08-16] MEDS: METOPROLOL SUCC 25MG EXT REL TAB PO SCH (10:29)
[2019-08-16] MEDS: SIMVASTATIN 80 MG TAB PO SCH (10:29)
[2019-08-16] MEDS: DOXYCYCLINE HYCLATE 100 MG CAP PO SCH ×2 (10:29→20:55)
--- NOTE | 2019-08-16 12:09 | Palliative Care Progress Note ---
Date of Service August 16, 2019 Assessment & Plan (1) Goals of care, counseling/discussion: -Patient feels okay today. No new complaints. -Waiting for family to choose hospice agency and get the home ready. Realistically it seems that we are probably looking at discharge next week. Case management following. -Will add Roxanol 5mg PO/SL Q3h PRN pain or SOB. Lorazepam 0.5mg SL Q4h PRN anxiety/agitation. -POLST form would be helpful prior to discharge. -Okay to continue patient's medications for now. -Palliative will continue to follow. (2) Decubitus skin ulcer: (3) Rectal carcinoma: (4) Diabetes mellitus: (5) Acute exacerbation of CHF (congestive heart failure): Subjective Patient has no new complaints today. Talked about home hospice and patient is agreeable with this plan. Review of Systems Review of Systems: C/o SOB and weakness. No chest pain, no N/V, no MSK pain Physical Exam 2 Constitutional: + ill appearing and + frail appearing ENMT: external ear and nose normal, oropharynx normal Respiratory: + labored breathing Auscultation: + diminished lung sounds Cardiovascular: RRR, no murmur, no edema Gastrointestinal (Abdomen): normal bowel sounds, soft, nontender, no hepatosplenomegaly Neurologic: moves all extremities and awake Psychiatric: Orientation: alert and oriented x 3 (some confusion regarding his complex history ) Results & Data Vital Signs (Past 12 Hours) Vital Signs Temp Pulse Resp BP BP Pulse Ox 08/16/19 11:54 36.4 C L 58 L 30 H 126/49 L 99 08/16/19 07:00 57 L 35 H 123/51 L 98 08/16/19 03:42 36.7 C 59 L 18 101/60 99 PG Care Time/CCT Total # of Minutes Spent Total Time Spent with Patient: Total time spent is greater than 50% in coordination of care (as documented) at patient's floor/unit and/or counseling patient: Time Spent Midlevel 25 minutes with >50% of the time spent at bedside with patient and IDT discussing plan of care.
[2019-08-16] MEDS ORDERED: LORazepam 1 MG TAB SL PRN (14:04)
[2019-08-16] MEDS: MoRPHine SULFATE 5 MG/0.25 ML UDP PO PRN ×2 (15:38→21:06)
--- NOTE | 2019-08-16 16:33 | Hospitalist Progress Note ---
Date of Service August 16, 2019 Assessment & Plan (1) Hyperglycemia: 84yoM with hx of DMII, CAD s/p stent 1st diagonal in 2017 s/p anterior STEMI, severe 2 vessel disease and critical L main involvement; CHF, HTN, HLD, Afib, CKD, rectal cancer presented from home to the ED for concern of worsening health at home per family. On admission, found to have elevated troponin with inverted T waves in lateral leads, glucose of 812 concerning for HHS, NILESH and pseudohyponatremia of 125, which have now improved. Patient also had left groin rash and large decubitus ulcer. 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 A waiting home hospice. 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 Removed 08/13 -patient wishes no more pleural procedures. Should he develop problems Pleurx catheter can be placed as an outpatient -He is not a surgical candidate. He is at high risk of empyema, and high risk of infection with nearby ostomy site. Pulmonology and Thoracic surgery on board, appreciate recs - No need for high flow O2 as this is a trapped lung and will likely not reabsorb. At risk for CO2 narcosis with high flow or non-rebreather -fluid is negative for malignancy. There are benign mesothelial cells and scattered lymphocytes -appreciate palliative care following. Pt states he wants to go home on hospice Sacral/Decubitus ulcer, ?cellulitis - Sacral ulcer present with dressing in place. - Afebrile, normal WBC - Increased purulent drainage, resolved now - Dressing changes QD from QoD wound care nurse consulted - Doxycycline 100mg PO BID for empiric tx (avoiding nephrotoxic with vanc). If not improving on doxy then additional gram neg coverage. NILESH vs volume contraction on CKD with hyperkalemia- resolved - K and Cr improved - Baseline cr ~ 1.9-2.0 - Resume lasix 40 mg daily (home BID) but still holding spironolactone. Given low EF will likely need resumed at some point but would reduce doses since he'll be on more restricted institutional diets -If not improving, another small, slow amount of fluid. Caution to fluid overload - Low EF 20%. -repeat EKG if severe hyperK Hyperglycemia, improved - Poor compliance with meds secondary to dementia and deconditioning - Initially HHS in the setting of ID-DM, admission A1C 12.3 up from 7.4 on 05/11/2019 - Improved on [facility] protocol and pharmacy glycemic consult for insulin management - Note: Avoid fluid overload - Low EF 20%. Poor nutrition status - Concerns for patient's nutrition status as appears very frail, thin, and has generalized weakness sacral ulcer will need adequate nutrition for wound healing - Pre-albumin level of 8.9, low - Dietary Consulted Elevated troponin, resolved - Low suspicion for ACS - Troponin bump which peaked at 1.0 then downtrended to 0.3 on admit, likely from demand vs CKD - Without chest pain, shortness of breath, lightheadedness - Hx of CAD s/p stent 1st diagonal in 2017 s/p anterior STEMI, severe 2 vessel disease and critical L main involvement -patient is high risk for surgical procedure and medically managed only - Echo 2016: EF 20%, akinetic segment and mid to distal anterior wall and entire apex other hypokinetic segments, right ventricular systolic dysfunction EKG: A. fib T wave inversion in anterior leads Elevated BNP -Initial BNP >29517 - unreliable in setting of CKD - No sign of fluid overload at this time Left groin rash - Concern for fungal infection versus dermatitis, appears consistent with tinea cruris - Continue with nystatin cream History of hypertension/hyperlipidemia/coronary disease/CHF/A. fib - Hx of CAD s/p stent 1st diagonal in 2017 s/p anterior STEMI, severe 2 vessel disease and critical L main involvement -patient is high risk for surgical procedure and medically managed only - Echo 2016: EF 20%, akinetic segment and mid to distal anterior wall and entire apex other hypokinetic segments, right ventricular systolic dysfunction - Lipid profile: May 2019, triglycerides 79, total cholesterol 130, LDL 72, HDL 42 - Lasix and spironolactone as above -Continue Eliquis -Continue home Imdur, metoprolol, simvastatin, aspirin History of rectal cancer diagnosed in 2014 T4N1 - Status post resection with colostomy, radiation, chemo - CT abdomen/pelvis in 01/29/2019: No metastatic disease Anemia of Chronic Disease, stable - Appears at baseline, no acute change - CBC daily FEN/GI: T2DM diet DVT prophylaxis: Eliquis Code: DNR/DNI Disposition: Med/Surg. Waiting for family to choose hospice agency and get the home ready. Likely d/c next week. Appreciate Pal Care/Case Management following. Supervising Physician Co-Signing Physician Notes I saw the patient with the resident physician and confirmed salcido portion history and physical exam. Plan is for home with hospice once arrangements can be finalized. I agree with the impression and plan as noted in the resident documentation. Subjective 84 yo M found in bed this AM in NAD. No reported overnight events. States feels ok, no issues with breathing. States desire to go home. Some complaints of weakness. Pt has no other acute concerns or complaints. Review of Systems Review of Systems: All systems reviewed & are unremarkable except as noted in HPI & below Physical Exam Constitutional: pleasantly confused Eyes: PERRL, conjunctivae normal, anicteric sclerae ENMT: external ear and nose normal, oropharynx normal Respiratory: diminished sounds at bases but moves air well Cardiovascular: RRR, no murmur, no edema Gastrointestinal (Abdomen): normal bowel sounds, soft, nontender, no hepatosplenomegaly Skin: sacral ulcer Psychiatric: Orientation: alert Results & Data Vital Signs (Past 12 Hours) Vital Signs Temp Pulse Resp BP BP Pulse Ox 08/16/19 15:10 36.4 C L 55 L 16 119/66 99 08/16/19 11:54 36.4 C L 58 L 30 H 126/49 L 99 08/16/19 07:00 57 L 35 H 123/51 L 98 Laboratory Results Laboratory Results - last 24 hr 08/15/19 08/15/19 08/16/19 16:58 20:11 05:40 WBC 6.23 RBC 3.66 L Hgb 11.1 L Hct 34.0 L MCV 92.9 MCH 30.3 MCHC 32.6 RDW Std Deviation 51.3 H RDW Coeff of Abdirizak 15.2 H Plt Count 207 MPV 10.4 Immature Gran % (Auto) 1.0 Neut % (Auto) 85.8 Lymph % (Auto) 8.3 [place] % (Auto) 3.7 Eos % (Auto) 1.0 Baso % (Auto) 0.2 Immature Gran # (Auto) 0.06 H Neut # (Auto) 5.35 Lymph # (Auto) 0.52 L [place] # (Auto) 0.23 Eos # (Auto) 0.06 Baso # (Auto) 0.01 Sodium Potassium Chloride Carbon Dioxide Anion Gap BUN Creatinine Est Cr Clr Drug Dosing Est GFR ( Amer) Est GFR (Non-Af Amer) BUN/Creatinine Ratio Glucose POC Glucose 111 H 147 H Calcium 08/16/19 08/16/19 08/16/19 05:40 08:11 11:52 WBC RBC Hgb Hct MCV MCH MCHC RDW Std Deviation RDW Coeff of Abdirizak Plt Count MPV Immature Gran % (Auto) Neut % (Auto) Lymph % (Auto) [place] % (Auto) Eos % (Auto) Baso % (Auto) Immature Gran # (Auto) Neut # (Auto) Lymph # (Auto) [place] # (Auto) Eos # (Auto) Baso # (Auto) Sodium 135 L Potassium 4.4 Chloride 101 Carbon Dioxide 29 Anion Gap 6.0 BUN 73 H Creatinine 1.61 H Est Cr Clr Drug Dosing 42.3 Est GFR ( Amer) 45.5 Est GFR (Non-Af Amer) 39.2 BUN/Creatinine Ratio 45.4 H Glucose 93 POC Glucose 117 H 188 H Calcium 8.3 L Medications Administered Current Inpatient Medications Acetaminophen (Tylenol) 650 mg PO Q4H PRN PRN Reason: Pain or Fever Stop: 09/03/19 04:13 Last Admin: 08/15/19 18:32 Dose: 650 mg Documented by: Apixaban (Eliquis) 2.5 mg PO BID [facility] Stop: 09/04/19 09:59 Last Admin: 08/16/19 10:26 Dose: 2.5 mg Documented by: Aspirin (Ecotrin Ectab) 81 mg PO DAILY [facility] Stop: 09/03/19 08:59 Last Admin: 08/16/19 10:25 Dose: 81 mg Documented by: Dextrose (Dextrose 50%) 25 - 50 ml IV UD PRN; Protocol PRN Reason: Hypoglycemia Protocol Stop: 09/03/19 03:14 Last Admin: 08/04/19 08:20 Dose: 25 ml Documented by: Doxycycline Hyclate (Vibramycin) 100 mg PO BID [facility] Stop: 08/24/19 20:59 Last Admin: 08/16/19 10:29 Dose: 100 mg Documented by: Furosemide (Lasix) 40 mg PO QAM [facility] Stop: 09/15/19 08:59 Last Admin: 08/16/19 10:27 Dose: 40 mg Documented by: Glucagon (Glucagen) 1 mg IM UD PRN; Protocol PRN Reason: Hypoglycemia Protocol Stop: 09/03/19 03:14 Glucose (Glucose 40%) 15 - 30 gm PO UD PRN; Protocol PRN Reason: Hypoglycemia Protocol Stop: 09/03/19 03:14 Glucose (Dex4 Glucose) 4 - 8 tabs PO UD PRN; Protocol PRN Reason: Hypoglycemia Protocol Stop: 09/03/19 03:14 Insulin Aspart (Novolog Flexpen) 0 units SC HS [facility]; Protocol Stop: 09/14/19 20:59 Last Admin: 08/15/19 21:16 Dose: Not Given Documented by: Insulin Aspart (Novolog Flexpen) 0 units SC 0730,1130,1630 [facility]; Protocol Stop: 09/12/19 08:44 Last Admin: 08/16/19 13:09 Dose: 4 units Documented by: Insulin Glargine (Lantus Solostar Pen) 20 units SQ QAM [facility]; Protocol Stop: 09/09/19 08:59 Last Admin: 08/16/19 10:16 Dose: 20 units Documented by: Isosorbide Mononitrate (Imdur Extended Rel) 30 mg PO DAILY [facility] Stop: 09/03/19 08:59 Last Admin: 08/16/19 10:26 Dose: 30 mg Documented by: Lorazepam (Ativan) 0.5 mg SL Q4H PRN PRN Reason: Anxiety/Agitation Stop: 09/15/19 14:03 Metoprolol Succinate (Toprol Xl) 25 mg PO DAILY [facility] Stop: 09/03/19 08:59 Last Admin: 08/16/19 10:29 Dose: 25 mg Documented by: Miscellaneous (Carbohydrates For Hypoglycemia) 15 - 30 gm PO PRN PRN PRN Reason: Hypoglycemia Treatment Stop: 09/03/19 03:14 Last Admin: 08/15/19 07:52 Dose: 15 gm Documented by: Miscellaneous Information (Consult Glycemic Management Pharmacy) 1 ea N/A UD PRN PRN Reason: Consult Stop: 09/03/19 04:47 Morphine Sulfate (Roxanol) 5 mg PO Q3H PRN PRN Reason: Pain or SOB Stop: 08/30/19 14:03 Last Admin: 08/16/19 15:38 Dose: 5 mg Documented by: Multivitamins (Multivitamin Tab) 1 tab PO DAILY [facility] Stop: 09/03/19 08:59 Last Admin: 08/16/19 10:27 Dose: 1 tab Documented by: Nitroglycerin (Nitrostat) 0.4 mg SL UD PRN PRN Reason: Chest Pain Stop: 09/03/19 04:13 Nystatin (Mycostatin) 1 appln EXT BID [facility] Stop: 09/03/19 08:59 Last Admin: 08/16/19 10:28 Dose: 1 appln Documented by: Pregabalin (Lyrica) 25 mg PO DAILY [facility] Stop: 09/03/19 08:59 Last Admin: 08/16/19 10:27 Dose: 25 mg Documented by: Simvastatin (Zocor) 80 mg PO DAILY [facility] Stop: 09/03/19 08:59 Last Admin: 08/16/19 10:29 Dose: 80 mg Documented by: Resident Activity Tracking Resident Involvement: Resident Care Provided Care Provided: Adult Hospital Medicine
[2019-08-17] MEDS: MoRPHine SULFATE 5 MG/0.25 ML UDP PO PRN ×3 (03:25→21:16)
[2019-08-17 06:30] LABS: Hematocrit (blood only) 33.1 % (42-52); Mean Corpuscular Hemoglobin 30.7 pg (25-34); Mean Corpuscular Hgb Conc 33.2 g/dL (32-36); Mean Corpuscular Volume 92.5 fL (80-100); Mean Platelet Volume 10.2 fL (7.4-10.4); Platelet Count 202 K/uL (130-400); RDW Coefficient of Variation 14.9 % (11.5-14.5); RDW Standard Deviation 50.2 fL (36.4-46.3); Red Blood Count 3.58 M/uL (4.7-6.1); White Blood Count 6.86 K/uL (4.8-10.8)
[2019-08-17 06:35] LABS: Basophils # (auto) 0.01 K/uL (0-0.2); Basophils % (auto) 0.1 %; Eosinophils # (auto) 0.06 K/uL (0-0.5); Eosinophils % (auto) 0.9 %; Immature Granulocytes # (auto) 0.09 K/uL (0.00-0.02); Immature Granulocytes % (auto) 1.3 %; Lymphocytes # (auto) 0.28 K/uL (1.2-3.4); Lymphocytes % (auto) 4.1 %; Monocytes # (auto) 0.52 K/uL (0.11-0.59); Monocytes % (auto) 7.6 %
[2019-08-17 06:48] LABS: BUN Creatinine Ratio 43.1 (10-20); Calcium 8.4 mg/dl (8.5-10.1); Creatinine Clr Calc Pharmacy 35.9 ml/min; Est GFR (African American) 47.6; Est GFR (Non-African American) 41.1; Potassium 4.4 mmol/L (3.5-5.1)
[2019-08-17] MEDS: ASPIRIN 81 MG ECTAB PO SCH (09:06)
[2019-08-17] MEDS: APIXABAN 2.5 MG TAB PO SCH ×2 (09:06→21:09)
[2019-08-17] MEDS: SIMVASTATIN 80 MG TAB PO SCH (09:07)
[2019-08-17] MEDS: MULTIVITAMIN TAB PO SCH (09:07)
[2019-08-17] MEDS: DOXYCYCLINE HYCLATE 100 MG CAP PO SCH ×2 (09:07→21:08)
[2019-08-17] MEDS: ISOSORBIDE MONO EXTENDED REL 30 MG TABCR PO SCH (09:07)
[2019-08-17] MEDS: METOPROLOL SUCC 25MG EXT REL TAB PO SCH (09:07)
[2019-08-17] MEDS: FUROSEMIDE 40 MG TAB PO SCH (09:08)
[2019-08-17] MEDS: NYSTATIN OINT 15 GM TUBE EXT SCH ×2 (09:08→21:08)
[2019-08-17] MEDS: INSULIN GLARGINE SOLOSTAR 100 UNITS/ML 3 ML PEN SQ SCH ×2 (09:10→11:23)
[2019-08-17] MEDS: PREGABALIN 25 MG CAP PO SCH (09:13)
[2019-08-17] MEDS: INSULIN ASPART 100 UNITS/ML 3 ML PEN SC SCH ×4 (09:16→21:20)
--- NOTE | 2019-08-17 09:36 | Pharmacy Report ---
Pharmacy Glycemic Short Note 2 - Date of Service August 17, 2019 - Glycemic Short BSG Results (Last 24 hours): 08/16/19 08/16/19 08/16/19 11:52 16:27 20:11 Glucose POC Glucose 188 H 194 H 137 H 08/17/19 08/17/19 05:39 08:04 Glucose 64 L POC Glucose 86 OUTPATIENT ANTIDIABETIC REGIMEN: * Lantus 40 units qAM * Metformin 500 mg PO daily * Hx of noncompliance * A1c = 12.3 % 08/04/19 (up significantly from 7.4% on 05/11/19) ASSESSMENT: * BSGs yesterday ranging 93-194 mg/dL * patient received 48 units of insulin yesterday (20 of which were basal) * Fasting BSG this morning is 86 mg/dL * Will back off on Lantus while inpatient to avoid future lows * Continues on doxycycline for treatment of cellulitis * Plan is for patient to be discharged home with hospice (will focus on limiting hypoglycemia) PLAN FOR INPATIENT GLYCEMIC CONTROL: * Hold outpatient oral diabetes medications * Basal insulin - decrease * Lantus 15 units daily * Bolus insulin - continue current parameters * NovoLog per scale ACHS or Q6hrs while NPO * Goal Range: Low 110 mg/dL - High 150 mg/dL * Correction Factor: 25 mg/dL/unit * Nutritional / Prandial insulin per carb ratio of 1 unit per 6 grams CHO consumed * No carb coverage at HS PLAN FOR DISCHARGE: * A1c = 12.3% (08/04/19) * Goal A1c <8 % based on age and comorbidities (if patient discharged with hospice - this goal may be loosened depending on goals of care for patient) * Recommend reducing outpatient Lantus to 20 units SQ daily on discharge * Follow up with outpatient provider for further dose titration and to determine if basal insulin alone is sufficient or if bolus insulin should be added Thank you.
--- NOTE | 2019-08-17 13:28 | Palliative Care Progress Note ---
Date of Service August 17, 2019 Assessment & Plan (1) Goals of care, counseling/discussion: -Patient feels okay today. No new complaints and is no apparent distress. -Waiting for family to choose hospice agency and get the home ready. Realistically it seems that we are probably looking at discharge next week. Case management following and patients naya FABIAN) returns this weekend from his hunting trip. -Pt has Roxanol 5mg PO/SL Q3h PRN pain or SOB and has utilized 4 doses over the past 24 hours. Pt states it is effective. -No Lorazepam has been used to date. -POLST form would be helpful prior to discharge, and can complete prior to discharge with naya KULKARNI. -Okay to continue patient's medications for now. -Palliative will continue to follow. -PPS: 30% (2) Decubitus skin ulcer: (3) Rectal carcinoma: (4) Diabetes mellitus: (5) Acute exacerbation of CHF (congestive heart failure): Subjective -Patient was sitting in his bed today when I entered the room in no apparent distress. -Pt states he does still want to go home. See A/P for further details. Review of Systems Review of Systems: Pt denies Mos[place], dizziness, visual changes Pt denies chest pain, palpitations Pt denies SOB Pt denies N/V/D Pt states he feels weak overall Physical Exam Constitutional: + ill appearing, + cachectic, + frail appearing and cooperative Eyes: PERRL, conjunctivae normal, anicteric sclerae ENMT: external ear and nose normal, oropharynx normal Neck: trachea midline, no thyromegaly Respiratory: Auscultation: + diminished lung sounds Cardiovascular: RRR, no murmur, no edema Gastrointestinal (Abdomen): normal bowel sounds, soft, nontender, no hepatosplenomegaly Skin: no rashes, warm and dry + crusts and + dry skin Psychiatric: Orientation: alert and oriented x 3 (some confusion regarding his complex history ) Results & Data Vital Signs (Past 12 Hours) Vital Signs Temp Pulse Resp BP BP Pulse Ox 08/17/19 11:14 36.6 C 58 L 16 121/61 97 08/17/19 07:17 36.5 C 66 16 119/61 98 08/17/19 07:00 36.5 C 69 19 117/68 98 11/08/19 04:00 36.5 C 67 22 129/72 97 PG Care Time/CCT Total # of Minutes Spent Total Time Spent with Patient: Total time spent is greater than 50% in coordination of care (as documented) at patient's floor/unit and/or counseling patient: 25 Time Spent Midlevel Total time spent 25 minutes with > 50% of that time spent assessing the patient and determining discharge planning.
--- NOTE | 2019-08-17 15:35 | Hospitalist Progress Note ---
Date of Service August 17, 2019 Assessment & Plan (1) Hyperglycemia: 84yoM with hx of DMII, CAD s/p stent 1st diagonal in 2017 s/p anterior STEMI, severe 2 vessel disease and critical L main involvement; CHF, HTN, HLD, Afib, CKD, rectal cancer presented from home to the ED for concern of worsening health at home per family. On admission, found to have elevated troponin with inverted T waves in lateral leads, glucose of 812 concerning for HHS, NILESH and pseudohyponatremia of 125, which have now improved. Patient also had left groin rash and large decubitus ulcer. 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 A waiting home hospice. 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 Removed 08/13 - patient wishes no more pleural procedures. Should he develop problems Pleurx catheter can be placed as an outpatient -He is not a surgical candidate. He is at high risk of empyema, and high risk of infection with nearby ostomy site. Pulmonology and Thoracic surgery on board, appreciate recs - No need for high flow O2 as this is a trapped lung and will likely not reabsorb. At risk for CO2 narcosis with high flow or non-rebreather -fluid is negative for malignancy. There are benign mesothelial cells and scattered lymphocytes -Roxinol 5mg q3h prn for pain/SOB. Lorazepam 0.5mg q4h for anxiety/agitation -appreciate palliative care following. Pt states he wants to go home on hospice Sacral/Decubitus ulcer, ?cellulitis - Sacral ulcer present with dressing in place. - Afebrile, normal WBC - Increased purulent drainage, resolved now - Dressing changes QD from [facility] wound care nurse consulted - Doxycycline 100mg PO BID for empiric tx (avoiding nephrotoxic with vanc). If not improving on doxy then additional gram neg coverage. NILESH vs volume contraction on CKD with hyperkalemia- resolved - K and Cr improved - Baseline cr ~ 1.9-2.0 - Resume lasix 40 mg daily (home BID) but still holding spironolactone. Given low EF will likely need resumed at some point but would reduce doses since he'll be on more restricted institutional diets -If not improving, another small, slow amount of fluid. Caution to fluid overload - Low EF 20%. -repeat EKG if severe hyperK Hyperglycemia, improved - Poor compliance with meds secondary to dementia and deconditioning - Initially HHS in the setting of ID-DM, admission A1C 12.3 up from 7.4 on 11/2018 - Improved on [facility] protocol and pharmacy glycemic consult for insulin management - Note: Avoid fluid overload - Low EF 20%. Poor nutrition status - Concerns for patient's nutrition status as appears very frail, thin, and has generalized weakness sacral ulcer will need adequate nutrition for wound healing - Pre-albumin level of 8.9, low - Dietary Consulted Elevated troponin, resolved - Low suspicion for ACS - Troponin bump which peaked at 1.0 then downtrended to 0.3 on admit, likely from demand vs CKD - Without chest pain, shortness of breath, lightheadedness - Hx of CAD s/p stent 1st diagonal in 2017 s/p anterior STEMI, severe 2 vessel disease and critical L main involvement -patient is high risk for surgical procedure and medically managed only - Echo 2016: EF 20%, akinetic segment and mid to distal anterior wall and entire apex other hypokinetic segments, right ventricular systolic dysfunction EKG: A. fib T wave inversion in anterior leads Elevated BNP -Initial BNP >80583 - unreliable in setting of CKD - No sign of fluid overload at this time Left groin rash - Concern for fungal infection versus dermatitis, appears consistent with tinea cruris - Continue with nystatin cream History of hypertension/hyperlipidemia/coronary disease/CHF/A. fib - Hx of CAD s/p stent 1st diagonal in 2017 s/p anterior STEMI, severe 2 vessel disease and critical L main involvement -patient is high risk for surgical procedure and medically managed only - Echo 2016: EF 20%, akinetic segment and mid to distal anterior wall and entire apex other hypokinetic segments, right ventricular systolic dysfunction - Lipid profile: May 2019, triglycerides 79, total cholesterol 130, LDL 72, HDL 42 - Lasix and spironolactone as above -Continue Eliquis -Continue home Imdur, metoprolol, simvastatin, aspirin History of rectal cancer diagnosed in 2014 T4N1 - Status post resection with colostomy, radiation, chemo - CT abdomen/pelvis in 01/29/2019: No metastatic disease Anemia of Chronic Disease, stable - Appears at baseline, no acute change - CBC daily FEN/GI: T2DM diet DVT prophylaxis: Eliquis Code: DNR/DNI Disposition: Med/Surg. Waiting for family to choose hospice agency and get the home ready. Likely d/c next week. Appreciate Pal Care/Case Management following. Supervising Physician Co-Signing Physician Notes Patient seen with Dr. Dove. Agree with history, exam findings, assessment and plan of care as outlined by Dr. Dove. Doing well today. Appreciate palliative assistance. Plan for home with hospice once arrangements are finalized. Medical issues are stable. Subjective 84 yo M found in bed this AM in NAD. No reported overnight events. States feels ok, no issues with breathing. States desire to go home. Some complaints of weakness. Pt has no other acute concerns or complaints. Review of Systems Review of Systems: All systems reviewed & are unremarkable except as noted in HPI & below Physical Exam Constitutional: + cachectic Eyes: PERRL, conjunctivae normal, anicteric sclerae ENMT: external ear and nose normal, oropharynx normal Respiratory: decreased breath sounds bases, but moves air well Cardiovascular: RRR, no murmur, no edema Gastrointestinal (Abdomen): normal bowel sounds, soft, nontender, no hepatosplenomegaly Skin: scattered bruises sacral ulcer, bandage c/d/i Psychiatric: A+Ox3, euthymic affect Results & Data Vital Signs (Past 12 Hours) Vital Signs Temp Pulse Resp BP BP Pulse Ox 08/17/19 15:02 36.4 C L 63 19 114/67 93 08/17/19 11:14 36.6 C 58 L 16 121/61 97 08/17/19 07:17 36.5 C 66 16 119/61 98 08/17/19 07:00 36.5 C 69 19 117/68 98 08/17/19 04:00 36.5 C 67 22 129/72 97 Laboratory Results Laboratory Results - last 24 hr 08/16/19 08/16/19 08/17/19 16:27 20:11 05:39 WBC 6.86 RBC 3.58 L Hgb 11.0 L Hct 33.1 L MCV 92.5 MCH 30.7 MCHC 33.2 RDW Std Deviation 50.2 H RDW Coeff of Abdirizak 14.9 H Plt Count 202 MPV 10.2 Immature Gran % (Auto) 1.3 Neut % (Auto) 86.0 Lymph % (Auto) 4.1 Motley % (Auto) 7.6 Eos % (Auto) 0.9 Baso % (Auto) 0.1 Immature Gran # (Auto) 0.09 H Neut # (Auto) 5.90 Lymph # (Auto) 0.28 L Motley # (Auto) 0.52 Eos # (Auto) 0.06 Baso # (Auto) 0.01 Sodium Potassium Chloride Carbon Dioxide Anion Gap BUN Creatinine Est Cr Clr Drug Dosing Est GFR ( Amer) Est GFR (Non-Af Amer) BUN/Creatinine Ratio Glucose POC Glucose 194 H 137 H Calcium 08/17/19 08/17/19 08/17/19 05:39 08:04 12:03 WBC RBC Hgb Hct MCV MCH MCHC RDW Std Deviation RDW Coeff of Abdirizak Plt Count MPV Immature Gran % (Auto) Neut % (Auto) Lymph % (Auto) Motley % (Auto) Eos % (Auto) Baso % (Auto) Immature Gran # (Auto) Neut # (Auto) Lymph # (Auto) Motley # (Auto) Eos # (Auto) Baso # (Auto) Sodium 135 L Potassium 4.4 Chloride 100 Carbon Dioxide 29 Anion Gap 5.0 BUN 67 H Creatinine 1.55 H Est Cr Clr Drug Dosing 35.9 Est GFR ( Amer) 47.6 Est GFR (Non-Af Amer) 41.1 BUN/Creatinine Ratio 43.1 H Glucose 64 L POC Glucose 86 129 H Calcium 8.4 L Medications Administered Current Inpatient Medications Acetaminophen (Tylenol) 650 mg PO Q4H PRN PRN Reason: Pain or Fever Stop: 09/03/19 04:13 Last Admin: 08/15/19 18:32 Dose: 650 mg Documented by: Apixaban (Eliquis) 2.5 mg PO BID [facility] Stop: 09/04/19 09:59 Last Admin: 08/17/19 09:06 Dose: 2.5 mg Documented by: Aspirin (Ecotrin Ectab) 81 mg PO DAILY [facility] Stop: 09/03/19 08:59 Last Admin: 08/17/19 09:06 Dose: 81 mg Documented by: Dextrose (Dextrose 50%) 25 - 50 ml IV UD PRN; Protocol PRN Reason: Hypoglycemia Protocol Stop: 09/03/19 03:14 Last Admin: 08/04/19 08:20 Dose: 25 ml Documented by: Doxycycline Hyclate (Vibramycin) 100 mg PO BID [facility] Stop: 08/24/19 20:59 Last Admin: 08/17/19 09:07 Dose: 100 mg Documented by: Furosemide (Lasix) 40 mg PO QAM [facility] Stop: 09/15/19 08:59 Last Admin: 08/17/19 09:08 Dose: 40 mg Documented by: Glucagon (Glucagen) 1 mg IM UD PRN; Protocol PRN Reason: Hypoglycemia Protocol Stop: 09/03/19 03:14 Glucose (Glucose 40%) 15 - 30 gm PO UD PRN; Protocol PRN Reason: Hypoglycemia Protocol Stop: 09/03/19 03:14 Glucose (Dex4 Glucose) 4 - 8 tabs PO UD PRN; Protocol PRN Reason: Hypoglycemia Protocol Stop: 09/03/19 03:14 Insulin Aspart (Novolog Flexpen) 0 units SC HS [facility]; Protocol Stop: 09/14/19 20:59 Last Admin: 08/16/19 20:56 Dose: Not Given Documented by: Insulin Aspart (Novolog Flexpen) 0 units SC 0730,1130,1630 [facility]; Protocol Stop: 09/12/19 08:44 Last Admin: 08/17/19 12:28 Dose: 4 units Documented by: Insulin Glargine (Lantus Solostar Pen) 15 units SQ QAM [facility]; Protocol Stop: 09/09/19 08:59 Last Admin: 08/17/19 11:23 Dose: 3 units Documented by: Isosorbide Mononitrate (Imdur Extended Rel) 30 mg PO DAILY [facility] Stop: 09/03/19 08:59 Last Admin: 08/17/19 09:07 Dose: 30 mg Documented by: Lorazepam (Ativan) 0.5 mg SL Q4H PRN PRN Reason: Anxiety/Agitation Stop: 09/15/19 14:03 Metoprolol Succinate (Toprol Xl) 25 mg PO DAILY [facility] Stop: 09/03/19 08:59 Last Admin: 08/17/19 09:07 Dose: 25 mg Documented by: Miscellaneous (Carbohydrates For Hypoglycemia) 15 - 30 gm PO PRN PRN PRN Reason: Hypoglycemia Treatment Stop: 09/03/19 03:14 Last Admin: 08/15/19 07:52 Dose: 15 gm Documented by: Miscellaneous Information (Consult Glycemic Management Pharmacy) 1 ea N/A UD PRN PRN Reason: Consult Stop: 09/03/19 04:47 Morphine Sulfate (Roxanol) 5 mg PO Q3H PRN PRN Reason: Pain or SOB Stop: 08/30/19 14:03 Last Admin: 08/17/19 09:13 Dose: 5 mg Documented by: Multivitamins (Multivitamin Tab) 1 tab PO DAILY RONNIE Stop: 09/03/19 08:59 Last Admin: 08/17/19 09:07 Dose: 1 tab Documented by: Nitroglycerin (Nitrostat) 0.4 mg SL UD PRN PRN Reason: Chest Pain Stop: 09/03/19 04:13 Nystatin (Mycostatin) 1 appln EXT BID RONNIE Stop: 09/03/19 08:59 Last Admin: 08/17/19 09:08 Dose: 1 appln Documented by: Pregabalin (Lyrica) 25 mg PO DAILY [facility] Stop: 09/03/19 08:59 Last Admin: 08/17/19 09:13 Dose: 25 mg Documented by: Simvastatin (Zocor) 80 mg PO DAILY [facility] Stop: 09/03/19 08:59 Last Admin: 08/17/19 09:07 Dose: 80 mg Documented by: Resident Activity Tracking Resident Involvement: Resident Care Provided Care Provided: Adult Hospital Medicine
[2019-08-17] MEDS: ACETAMINOPHEN 325 MG TAB PO PRN (23:34)
[2019-08-18] MEDS: MoRPHine SULFATE 5 MG/0.25 ML UDP PO PRN ×3 (04:50→18:31)
[2019-08-18 06:19] LABS: Basophilic Stippling 1+; Basophils # (auto) 0.01 K/uL (0-0.2); Basophils % (auto) 0.2 %; Eosinophils # (auto) 0.06 K/uL (0-0.5); Eosinophils % (auto) 0.9 %; Hematocrit (blood only) 34.8 % (42-52); Hemoglobin 11.1 g/dL (14.0-18.0); Immature Granulocytes # (auto) 0.13 K/uL (0.00-0.02); Lymphocytes # (auto) 0.46 K/uL (1.2-3.4); Lymphocytes % (auto) 7.1 %; Mean Corpuscular Hemoglobin 30.1 pg (25-34); Mean Corpuscular Hgb Conc 31.9 g/dL (32-36); Mean Corpuscular Volume 94.3 fL (80-100); Mean Platelet Volume 10.3 fL (7.4-10.4); Monocytes # (auto) 0.28 K/uL (0.11-0.59); Monocytes % (auto) 4.3 %; Neutrophils # (auto) 5.53 K/uL (1.4-6.5); Neutrophils % (auto) 85.5 %; Ovalocytes 1+; Platelet Count 200 K/uL (130-400); RDW Coefficient of Variation 15.2 % (11.5-14.5); RDW Standard Deviation 52.6 fL (36.4-46.3); Red Blood Count 3.69 M/uL (4.7-6.1); White Blood Count 6.47 K/uL (4.8-10.8)
[2019-08-18 06:33] LABS: BUN Creatinine Ratio 34.4 (10-20); Calcium 8.5 mg/dl (8.5-10.1); Creatinine Clr Calc Pharmacy 30.6 ml/min; Est GFR (African American) 38.4; Est GFR (Non-African American) 33.2; Potassium 4.7 mmol/L (3.5-5.1)
[2019-08-18] MEDS: PREGABALIN 25 MG CAP PO SCH (08:39)
[2019-08-18] MEDS: MULTIVITAMIN TAB PO SCH (08:40)
[2019-08-18] MEDS: SIMVASTATIN 80 MG TAB PO SCH (08:40)
[2019-08-18] MEDS: FUROSEMIDE 40 MG TAB PO SCH (08:40)
[2019-08-18] MEDS: METOPROLOL SUCC 25MG EXT REL TAB PO SCH (08:41)
[2019-08-18] MEDS: NYSTATIN OINT 15 GM TUBE EXT SCH ×2 (08:41→21:05)
[2019-08-18] MEDS: DOXYCYCLINE HYCLATE 100 MG CAP PO SCH ×2 (08:41→21:07)
[2019-08-18] MEDS: ISOSORBIDE MONO EXTENDED REL 30 MG TABCR PO SCH (08:42)
[2019-08-18] MEDS: APIXABAN 2.5 MG TAB PO SCH ×2 (08:42→21:04)
[2019-08-18] MEDS: ASPIRIN 81 MG ECTAB PO SCH (08:42)
[2019-08-18] MEDS: INSULIN GLARGINE SOLOSTAR 100 UNITS/ML 3 ML PEN SQ SCH (08:44)
[2019-08-18] MEDS: INSULIN ASPART 100 UNITS/ML 3 ML PEN SC SCH ×4 (08:47→21:05)
--- NOTE | 2019-08-18 09:23 | XRay Report ---
XR chest 1V portable CLINICAL HISTORY: pleural effusion COMPARISON STUDY: 08/14/2019 FINDINGS: The heart remains enlarged. There is persistent right hilar fullness. There is a small left pleural effusion. No pneumothorax is visualized. There is a stable left midlung zone pleural-based o pacity with tethering/spiculation. There are subcentimeter right lower lung zone nodules. There is di ffuse interstitial thickening.[ IMPRESSION: 1. Cardiomegaly with persistent diffuse interstitial thickening/edema 2. Stable right lower lung zone nodularity 3. Small right pleural effusion 4. No evidence of pneumothorax 5. Stable left midlung zone pleural-based opacity within the right/spiculation 6. Mild right hilar fullness Electronically signed by: Dipesh Mcnulty M.D. 08/18/2019 9:21 AM
--- NOTE | 2019-08-18 09:41 | Surgery Progress Note ---
Date of Service August 18, 2019 Assessment & Plan (1) Hydropneumothorax: The x-ray today shows very little change. He does not have much fluid on the left. At this point we will sign off from a thoracic surgery standpoint as I do not think any interventions are indicated in this elderly man. He apparently is going to be discharged when the logistical issues are worked out. Will be glad to see him back at any time. Present on Admission?: Yes Subjective Patient states he is "good". States he is eating better. His granddaughter is at the bedside. He has decreased breath sounds in both bases but actually looks pretty stable to me. He is on 2 L with 99% saturations. I assume this could probably be weaned. Physical Exam Physical Exam: He has mildly decreased breath sounds at the bases. His pleural catheter site is clean. Rest of his exam is unchanged. Results & Data Vital Signs (Past 12 Hours) Vital Signs Temp Pulse Resp BP Pulse Ox 08/18/19 07:25 72 18 131/74 99 08/18/19 03:52 36.4 C L 67 23 118/62 97 08/17/19 22:59 36.3 C L 69 23 108/61 95 PG Care Time/CCT Total # of Minutes Spent Total Time Spent with Patient: Total time spent is greater than 50% in coordination of care (as documented) at patient's floor/unit and/or counseling patient:
--- NOTE | 2019-08-18 17:13 | Hospitalist Progress Note ---
Date of Service August 18, 2019 Assessment & Plan (1) Hydropneumothorax: 84-year-old male was admitted on August 04, 2019 with family concerns for worsening health and work-up concerns of HHS, NILESH, and multiple medical issues. Hydropneumothorax: Seen on chest x-ray. Drained via chest tube. Patient declined further procedures. May benefit from Pleurx catheter as outpatient. Not a surgical candidate. High risk for empyema and infection with nearby ostomy site. See related pulmonology and thoracic surgery notes. At risk for CO2 narcosis with high flow nonrebreather. - Scheduled Tylenol in the morning, as needed the remainder of day. Also as needed on Roxanol and lorazepam. See related palliative care and thoracic surgery notes. Sacral/Decubitus ulcer, possible cellulitis, left groin rash: Dressing in place changes daily to every other day. On empiric doxycycline. Inguinal rash consistent with tinea cruris. On nystatin cream. NILESH vs volume contraction on PMH CKD with hyperkalemia: Improved volume status. Baseline creatinine 1.92.0. Resumed home Lasix but holding Spironolactone. Concerns for risk of fluid overload given EF 20%. Recommend small blood fluid boluses as needed. Hyperglycemia, HHS: Likely secondary to poor compliance due to dementia and dec onditioning. 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 Since improved on protocol and with pharmacy glycemic consult. Monitoring for fluid overload. Cachectic, Poor nutrition status: Low prealbumin. Dietary limitations appreciated. Generalized weakness and concerns for adequate healing of sacral ulcer given his cachectic state. Elevated troponin: TnI as high as 1.0, trended down. Likely demand vs CKD. Asymptomatic. EKG noted A. fib with T wave inversion in anterior leads. Hx of CAD s/p stent 1st diagonal in 2017 s/p anterior STEMI, severe 2 vessel disease and critical L main involvement. Echo in May 2017 noted EF 20% amongst other findings (see report). - Patient is high risk for surgical procedure, thus medically managed only. Elevated BNP: Admit BNP > 35K. Unreliable in setting of CKD. No sign of fluid overload at this time. Ongoing medical issues: - HTN, HLD, CAD, CHF, A. fib: Hx of CAD s/p stent 1st diagonal in 2017 s/p anterior STEMI, severe 2 vessel disease and critical L main involvement. Patient is high risk for surgical procedure and medically managed only. Lasix and spironolactone as above. Continue Eliquis. Continue home Imdur, metoprolol, simvastatin, aspirin. --- Consider stopping his statin at discharge. - History of rectal cancer diagnosed in 2014 T4N1, history of radiation & chemo with resection and colostomy: CT a/p in Jan 2019 noted no evidence of metastatic disease. - Anemia of Chronic Disease: Presently stable in Hb 11s. Code status: DNR/DNI. Diet: T2DM. DVT prophy: Eliquis. PT/OT: See related notes. Disbo: Med/Surg. Waiting for family to choose hospice agency and get the home ready. Likely d/c next week. Appreciate Pal Care/Case Management following. (2) Decubitus skin ulcer: (3) Tinea cruris: (4) Acute renal failure: (5) Hyperglycemia: (6) Diabetes mellitus: (7) Cachectic: (8) Elevated troponin: (9) Hypertension: (10) Hypercholesterolemia: (11) CAD (coronary artery disease): (12) CHF (congestive heart failure): (13) Atrial fibrillation: (14) History of colon cancer, stage I: (15) Anemia of chronic disease: Supervising Physician Co-Signing Physician Notes Patient seen with PGY-3 Dr. Bustamante. Agree with history, exam findings, assessment and plan of care as outlined. Nursing notes mention that he has pain with shifting or turning in bed. He does report that the tylenol seems to help with his discomfort. Concern for contamination of the sacral wound since he is incontinent of urine. Attempts at a Guillaume failed and condom cath placed. This afternoon, he seems a bit more dyspneic. Repeat CXR today, compared to 08/14 shows a small left pleural effusion. Will continue to monitor this. He does have morphine and ativan ordered as well. For his pain, we have scheduled an extra-strength tylenol each morning. He still has PRN tylenol if needed. Reviewing his medications, would consider lowering or discontinuing his statin medication. Will defer this to the hospice team. Dispo: pending completion of home hospice arrangements. Subjective Found patient sitting up in bed earlier this morning, talking with his granddaughter at bedside. Overall he says that he feels "good" to most questions. He denies any particular concerns, including with his breathing. W hen asked if we could do anything for him, he said he wanted to eat more green, properly cooked foods. His granddaughter at bedside stated that the family was still on track in hopes for home hospice this Tuesday. Review of Systems Review of Systems: Per HPI as above. Physical Exam Physical Exam: General Appearance: Awake, alert, cachectic, but does not appear in acute distress. CV: +S1S2 RRR, no murmur. Pulm: Mildly decreased in bases but otherwise clear. Nasal cannula oxygen in place. Abdomen: +BS, soft, non-tender, non-distended. Left lower quadrant ostomy bag in place. Extremities: No pedal edema or calf tenderness. Moving all extremities naturally and easily. Waffle boots in place. Neuro: No gross neuro deficits. Results & Data Vital Signs (Past 12 Hours) Vital Signs Temp Pulse Resp BP BP Pulse Ox 08/18/19 15:13 36.3 C L 64 16 107/69 97 08/18/19 07:25 72 18 131/74 99 Laboratory Results 08/18/19 08/18/19 08/18/19 Range/Units 16:44 11:41 07:51 WBC (4.8-10.8) K/uL RBC (4.7-6.1) M/uL Hgb (14.0-18.0) g/dL Hct (42-52) % MCV (80-100) fL MCH (25-34) pg MCHC (32-36) g/dL RDW Std Deviation (36.4-46.3) fL RDW Coeff of Abdirizak (11.5-14.5) % Plt Count (130-400) K/uL MPV (7.4-10.4) fL Immature Gran % (Auto) % Neut % (Auto) % Lymph % (Auto) % [place] % (Auto) % Eos % (Auto) % Baso % (Auto) % Immature Gran # (Auto) (0.00-0.02) K/uL Neut # (Auto) (1.4-6.5) K/uL Lymph # (Auto) (1.2-3.4) K/uL [place] # (Auto) (0.11-0.59) K/uL Eos # (Auto) (0-0.5) K/uL Baso # (Auto) (0-0.2) K/uL Basophilic Stippling Ovalocytes Sodium (136-145) mmol/L Potassium (3.5-5.1) mmol/L Chloride (98-107) mmol/L Carbon Dioxide (21-32) mmol/L Anion Gap (3-11) BUN (7-18) mg/dl Creatinine (0.6-1.4) mg/dl Est Cr Clr Drug Dosing ml/min Est GFR ( Amer) Est GFR (Non-Af Amer) BUN/Creatinine Ratio (10-20) Glucose (70-99) mg/dl POC Glucose 139 H 108 H 76 (70-99) Calcium (8.5-10.1) mg/dl 08/18/19 08/18/19 08/17/19 Range/Units 05:43 05:43 20:39 WBC 6.47 (4.8-10.8) K/uL RBC 3.69 L (4.7-6.1) M/uL Hgb 11.1 L (14.0-18.0) g/dL Hct 34.8 L (42-52) % MCV 94.3 (80-100) fL MCH 30.1 (25-34) pg MCHC 31.9 L (32-36) g/dL RDW Std Deviation 52.6 H (36.4-46.3) fL RDW Coeff of Abdirizak 15.2 H (11.5-14.5) % Plt Count 200 (130-400) K/uL MPV 10.3 (7.4-10.4) fL Immature Gran % (Auto) 2.0 % Neut % (Auto) 85.5 % Lymph % (Auto) 7.1 % [place] % (Auto) 4.3 % Eos % (Auto) 0.9 % Baso % (Auto) 0.2 % Immature Gran # (Auto) 0.13 H (0.00-0.02) K/uL Neut # (Auto) 5.53 (1.4-6.5) K/uL Lymph # (Auto) 0.46 L (1.2-3.4) K/uL [place] # (Auto) 0.28 (0.11-0.59) K/uL Eos # (Auto) 0.06 (0-0.5) K/uL Baso # (Auto) 0.01 (0-0.2) K/uL Basophilic Stippling 1+ Ovalocytes 1+ Sodium 135 L (136-145) mmol/L Potassium 4.7 (3.5-5.1) mmol/L Chloride 99 (98-107) mmol/L Carbon Dioxide 32 (21-32) mmol/L Anion Gap 4.0 (3-11) BUN 64 H (7-18) mg/dl Creatinine 1.85 H D (0.6-1.4) mg/dl Est Cr Clr Drug Dosing 30.6 ml/min Est GFR ( Amer) 38.4 Est GFR (Non-Af Amer) 33.2 BUN/Creatinine Ratio 34.4 H (10-20) Glucose 106 H (70-99) mg/dl POC Glucose 143 H (70-99) Calcium 8.5 (8.5-10.1) mg/dl Medications Administered Current Inpatient Medications Acetaminophen (Tylenol) 650 mg PO Q4H PRN PRN Reason: Pain or Fever Stop: 09/03/19 04:13 Last Admin: 08/17/19 23:34 Dose: 650 mg Documented by: Acetaminophen (Tylenol) 650 mg PO QAM [facility] Stop: 09/18/19 08:59 Apixaban (Eliquis) 2.5 mg PO BID [facility] Stop: 09/04/19 09:59 Last Admin: 08/18/19 08:42 Dose: 2.5 mg Documented by: Aspirin (Ecotrin Ectab) 81 mg PO DAILY [facility] Stop: 09/03/19 08:59 Last Admin: 08/18/19 08:42 Dose: 81 mg Documented by: Dextrose (Dextrose 50%) 25 - 50 ml IV UD PRN; Protocol PRN Reason: Hypoglycemia Protocol Stop: 09/03/19 03:14 Last Admin: 08/04/19 08:20 Dose: 25 ml Documented by: Doxycycline Hyclate (Vibramycin) 100 mg PO BID [facility] Stop: 08/24/19 20:59 Last Admin: 08/18/19 08:41 Dose: 100 mg Documented by: Furosemide (Lasix) 40 mg PO QAM [facility] Stop: 09/15/19 08:59 Last Admin: 08/18/19 08:40 Dose: 40 mg Documented by: Glucagon (Glucagen) 1 mg IM UD PRN; Protocol PRN Reason: Hypoglycemia Protocol Stop: 09/03/19 03:14 Glucose (Glucose 40%) 15 - 30 gm PO UD PRN; Protocol PRN Reason: Hypoglycemia Protocol Stop: 09/03/19 03:14 Glucose (Dex4 Glucose) 4 - 8 tabs PO UD PRN; Protocol PRN Reason: Hypoglycemia Protocol Stop: 09/03/19 03:14 Insulin Aspart (Novolog Flexpen) 0 units SC HS [facility]; Protocol Stop: 09/14/19 20:59 Last Admin: 08/17/19 21:20 Dose: Not Given Documented by: Insulin Aspart (Novolog Flexpen) 0 units SC 0730,1130,1630 [facility]; Protocol Stop: 09/12/19 08:44 Last Admin: 08/18/19 14:00 Dose: Not Given Documented by: Insulin Glargine (Lantus Solostar Pen) 15 units SQ QAM [facility]; Protocol Stop: 09/09/19 08:59 Last Admin: 08/18/19 08:44 Dose: 15 units Documented by: Isosorbide Mononitrate (Imdur Extended Rel) 30 mg PO DAILY [facility] Stop: 09/03/19 08:59 Last Admin: 08/18/19 08:42 Dose: 30 mg Documented by: Lorazepam (Ativan) 0.5 mg SL Q4H PRN PRN Reason: Anxiety/Agitation Stop: 09/15/19 14:03 Metoprolol Succinate (Toprol Xl) 25 mg PO DAILY [facility] Stop: 09/03/19 08:59 Last Admin: 08/18/19 08:41 Dose: 25 mg Documented by: Miscellaneous (Carbohydrates For Hypoglycemia) 15 - 30 gm PO PRN PRN PRN Reason: Hypoglycemia Treatment Stop: 09/03/19 03:14 Last Admin: 08/15/19 07:52 Dose: 15 gm Documented by: Miscellaneous Information (Consult Glycemic Management Pharmacy) 1 ea N/A UD PRN PRN Reason: Consult Stop: 09/03/19 04:47 Morphine Sulfate (Roxanol) 5 mg PO Q3H PRN PRN Reason: Pain or SOB Stop: 08/30/19 14:03 Last Admin: 08/18/19 14:03 Dose: 5 mg Documented by: Multivitamins (Multivitamin Tab) 1 tab PO DAILY [facility] Stop: 09/03/19 08:59 Last Admin: 08/18/19 08:40 Dose: 1 tab Documented by: Nitroglycerin (Nitrostat) 0.4 mg SL UD PRN PRN Reason: Chest Pain Stop: 09/03/19 04:13 Nystatin (Mycostatin) 1 appln EXT BID [facility] Stop: 09/03/19 08:59 Last Admin: 08/18/19 08:41 Dose: 1 appln Documented by: Pregabalin (Lyrica) 25 mg PO DAILY [facility] Stop: 09/03/19 08:59 Last Admin: 08/18/19 08:39 Dose: 25 mg Documented by: Simvastatin (Zocor) 80 mg PO DAILY [facility] Stop: 09/03/19 08:59 Last Admin: 08/18/19 08:40 Dose: 80 mg Documented by: Resident Activity Tracking Resident Involvement: Resident Care Provided Care Provided: Adult Hospital Medicine (1) Acute renal failure Acute renal failure type: unspecified Qualified Code(s): N17.9 - Acute kidney failure, unspecified
[2019-08-19] MEDS: MoRPHine SULFATE 5 MG/0.25 ML UDP PO PRN ×5 (00:58→20:31)
--- NOTE | 2019-08-19 09:16 | Pharmacy Report ---
Glycemic Control Progress Note - Date of Service August 19, 2019 - Scope Glycemic Pharmacist consulted for glycemic control to write orders per [facility] inpatient glycemic control protocol. - Objective Accuchecks BSG(last 24 hours):: 08/18/19 08/18/19 08/18/19 11:41 16:44 20:20 POC Glucose 108 H 139 H 153 H 08/19/19 07:47 POC Glucose 128 H HbA1c:: Hemoglobin A1c 12.3 % (4.5-5.6) H 08/04/19 05:29 - Recent Pertinent Medications The patient is currently receiving: * Basal insulin: Lantus 15 units every 24 hours * Correctional Insulin: Novolog Correction per scale ACHS Goal Range: Low 110 mg/dL - High 140 mg/dL Correction Factor: 25 mg/dL/unit * Prandial insulin: Per carb ratio of 1 unit per 6 grams CHO consumed (no carb ratio at bedtime) - Outpatient Anti-Diabetic Meds noncompliant - Assessment & Plan ASSESSMENT: * See progress note from 08/04/19 for more background info, in short: * Pt receiving SQ basal bolus insulin regimen for hyperglycemia secondary to baseline DM (outpatient regimen on hold),stress/infection (currently on doxycycline). * Patient is currently receiving an average of 30 units of insulin per day * 15 units of basal insulin * 15 units of prandial/correctional insulin * BSGs ranging 76 - 153 mg/dl over the past 24hrs * Changes needed to insulin regimen: * AM Fasting BSG = 128 mg/dl. This is in goal range for patient based on inpatient targets and co-morbidities. Therefore Basal insulin will be continued. * Post-prandial BSGs are in range therefore no changes needed to CF/CR. Only one blood sugar slightly above goal range. * Total daily dose = ~30 units. PLAN FOR INPATIENT GLYCEMIC CONTROL: * Continuing Lantus 15 units SQ daily * Continuing correction factor of 25 mg/dl/unit * Continuing carb ratio of 1 unit per 6 grams CHO consumed * Continuing goal range of Low 110 mg/dL - High 150 mg/dL RECOMMENDATIONS FOR DISCHARGE: * If patient elects to go home with insulin (left up to family since hospice), consider 20 units daily. If do not want insulin, I feel it is reasonable to allow patient to not have insulin due to hospice status. * Please note that the plan above was derived based on current level of insulin resistance and hospital stress. These recommendations are appropriate for inpatient admission only. Plan of care upon discharge will need to be reassessed to avoid potential outpatient hypo/hyperglycemia. Thank you.
[2019-08-19] MEDS: INSULIN ASPART 100 UNITS/ML 3 ML PEN SC SCH ×4 (09:27→21:32)
[2019-08-19] MEDS: INSULIN GLARGINE SOLOSTAR 100 UNITS/ML 3 ML PEN SQ SCH (09:28)
[2019-08-19] MEDS: PREGABALIN 25 MG CAP PO SCH (09:28)
[2019-08-19] MEDS: METOPROLOL SUCC 25MG EXT REL TAB PO SCH (09:30)
[2019-08-19] MEDS: ASPIRIN 81 MG ECTAB PO SCH (09:30)
[2019-08-19] MEDS: ISOSORBIDE MONO EXTENDED REL 30 MG TABCR PO SCH (09:30)
[2019-08-19] MEDS: MULTIVITAMIN TAB PO SCH (09:31)
[2019-08-19] MEDS: ACETAMINOPHEN 325 MG TAB PO SCH (09:31)
[2019-08-19] MEDS: SIMVASTATIN 80 MG TAB PO SCH (09:31)
[2019-08-19] MEDS: NYSTATIN OINT 15 GM TUBE EXT SCH ×2 (09:32→20:21)
[2019-08-19] MEDS: DOXYCYCLINE HYCLATE 100 MG CAP PO SCH ×2 (09:32→20:21)
[2019-08-19] MEDS: POLYETHYLENE (MIRALAX) 17 GM PACK PO SCH (09:35)
[2019-08-19] MEDS: APIXABAN 2.5 MG TAB PO SCH ×2 (09:35→20:21)
[2019-08-19] MEDS: FUROSEMIDE 40 MG TAB PO SCH (09:35)
--- NOTE | 2019-08-19 12:42 | Hospitalist Progress Note ---
Date of Service August 19, 2019 Assessment & Plan (1) Hydropneumothorax: 84-year-old male was admitted on August 04, 2019 with family concerns for worsening health and work-up concerns of HHS, NILESH, and multiple medical issues. Hydropneumothorax: Seen on chest x-ray. Drained via chest tube. Patient declined further procedures. May benefit from Pleurx catheter as outpatient. Not a surgical candidate. High risk for empyema and infection with nearby ostomy site. See related pulmonology, thoracic surgery, and palliative care notes. At risk for CO2 narcosis with high flow non-rebreather. On scheduled AM Tylenol, prn remainder of day. Also as needed on Roxanol and lorazepam. Sacral/Decubitus ulcer, possible cellulitis, left groin rash: Dressing in place changes daily to every other day. 26Oct wound culture grew resistant staph aureus. On doxycycline. Inguinal rash consistent with tinea cruris. On nystatin cream. NILESH vs volume contraction on PMH CKD with hyperkalemia: K as high as 5.7. Improved volume status. Baseline creatinine 1.82.0. Resumed home Lasix but holding Spironolactone. Concerns for risk of fluid overload given EF 20% (see May 2017 echo report). Recommend small blood fluid boluses as needed. Hyperglycemia, HHS: Likely secondary to poor compliance due to dementia and deconditioning. 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 Since improved on protocol and with pharmacy glycemic consult. Monitoring for fluid overload. Cachectic, Poor nutrition status, likely constipation: Low prealbumin. Generalized weakness and concerns for adequate healing of sacral ulcer given his cachectic state. Dietary recommendations appreciated. Some note of hard stool through ostomy. Added daily miralax. Elevated BNP: Admit BNP > 35K. Unreliable in setting of CKD. No sign of fluid overload at this time. Ongoing medical issues: - HTN, HLD, CAD, CHF, A. fib: Hx of CAD s/p stent 1st diagonal in 2017 s/p anterior STEMI, severe 2 vessel disease and critical L main involvement. Patient is high risk for surgical procedures and medically managed only. Lasix and spironolactone as above. Continue Eliquis. Continue home Imdur, metoprolol, simvastatin, aspirin. Transient TnI to 1.0 here is likely demand ischemia vs CKD. --- Consider stopping his statin at discharge. - History of rectal cancer diagnosed in 2014 T4N1, history of radiation & chemo with resection and colostomy: CT a/p in Jan 2019 noted no evidence of metastatic disease. - Anemia of Chronic Disease: Presently stable in Hb 11s. Code status: DNR/DNI. Diet: T2DM. DVT prophy: Siomara. PT/OT: See related notes. Disbo: Med/Surg. Likely d/c tomorrow (11Nov) to home hospice. (2) Decubitus skin ulcer: (3) Tinea cruris: (4) Acute renal failure: (5) Hyperglycemia: (6) Diabetes mellitus: (7) Cachectic: (8) Elevated troponin: (9) Hypertension: (10) Hypercholesterolemia: (11) CAD (coronary artery disease): (12) CHF (congestive heart failure): (13) Atrial fibrillation: (14) History of colon cancer, stage I: (15) Anemia of chronic disease: Supervising Physician Co-Signing Physician Notes Patient seen with PGY-3 Dr. Bustamante. Agree with history, exam findings, assessment and plan of care as outlined. Reports that he is doing well. He is eager to go home tomorrow with home hospice. No complaints. Breathing comfortably this morning. Reviewing his medications, would consider lowering or discontinuing his statin medication. Will defer this to the hospice team. Dispo: discharged planned for tomorrow. Home with hospice. Subjective Early this morning, the patient resting in bed. Again, he generally said that he felt "good" when asked how he was doing and denied any physical concerns. He was noted to be mildly tachypneic but denies any feeling of shortness of breath. His primary concern was getting a breakfast consisting of eggs, pancakes, as well as toast with jam. On repeat rounds later in the morning, found patient sleeping comfortably and not tachypneic. He woke easily to the sound of us entering the room. When asked about his breakfast, he smiled and said he was very happy he got the food he wanted. He continues to deny any particular concerns. Review of Systems Review of Systems: Per HPI as above. Physical Exam Physical Exam: General Appearance: Awake, alert, cachectic, but does not appear in acute distress. CV: +S1S2 RRR, no murmur. Pulm: Mildly decreased in bases but otherwise clear. Nasal cannula oxygen in place. Transiently tachypneic earlier this morning. Abdomen: +BS, soft, non-tender, non-distended. Left lower quadrant ostomy bag in place. Extremities: No pedal edema or calf tenderness. Moving all extremities naturally and easily. Waffle boots in place. Neuro: No gross neuro deficits. Results & Data Vital Signs (Past 12 Hours) Vital Signs Temp Pulse Resp BP BP Pulse Ox 08/19/19 11:21 36.5 C 60 18 112/46 L 97 08/19/19 07:16 36.4 C L 67 18 122/60 96 08/19/19 04:00 36.6 C 64 20 127/70 98 Laboratory Results 08/19/19 08/19/19 08/18/19 Range/Units 11:46 07:47 20:20 POC Glucose 90 128 H 153 H (70-99) 08/18/19 Range/Units 16:44 POC Glucose 139 H (70-99) Medications Administered Current Inpatient Medications Acetaminophen (Tylenol) 650 mg PO Q4H PRN PRN Reason: Pain or Fever Stop: 09/03/19 04:13 Last Admin: 08/17/19 23:34 Dose: 650 mg Documented by: Acetaminophen (Tylenol) 650 mg PO QAM [facility] Stop: 09/18/19 08:59 Last Admin: 08/19/19 09:31 Dose: 650 mg Documented by: Apixaban (Eliquis) 2.5 mg PO BID [facility] Stop: 09/04/19 09:59 Last Admin: 08/19/19 09:35 Dose: 2.5 mg Documented by: Aspirin (Ecotrin Ectab) 81 mg PO DAILY [facility] Stop: 09/03/19 08:59 Last Admin: 08/19/19 09:30 Dose: 81 mg Documented by: Dextrose (Dextrose 50%) 25 - 50 ml IV UD PRN; Protocol PRN Reason: Hypoglycemia Protocol Stop: 09/03/19 03:14 Last Admin: 08/04/19 08:20 Dose: 25 ml Documented by: Doxycycline Hyclate (Vibramycin) 100 mg PO BID [facility] Stop: 08/24/19 20:59 Last Admin: 08/19/19 09:32 Dose: 100 mg Documented by: Furosemide (Lasix) 40 mg PO QAM [facility] Stop: 09/15/19 08:59 Last Admin: 08/19/19 09:35 Dose: 40 mg Documented by: Glucagon (Glucagen) 1 mg IM UD PRN; Protocol PRN Reason: Hypoglycemia Protocol Stop: 09/03/19 03:14 Glucose (Glucose 40%) 15 - 30 gm PO UD PRN; Protocol PRN Reason: Hypoglycemia Protocol Stop: 09/03/19 03:14 Glucose (Dex4 Glucose) 4 - 8 tabs PO UD PRN; Protocol PRN Reason: Hypoglycemia Protocol Stop: 09/03/19 03:14 Insulin Aspart (Novolog Flexpen) 0 units SC HS [facility]; Protocol Stop: 09/14/19 20:59 Last Admin: 08/18/19 21:05 Dose: 1 units Documented by: Insulin Aspart (Novolog Flexpen) 0 units SC 0730,1130,1630 [facility]; Protocol Stop: 09/12/19 08:44 Last Admin: 08/19/19 12:27 Dose: 8 units Documented by: Insulin Glargine (Lantus Solostar Pen) 15 units SQ [facility]; Protocol Stop: 09/09/19 08:59 Last Admin: 08/19/19 09:28 Dose: 15 units Documented by: Isosorbide Mononitrate (Imdur Extended Rel) 30 mg PO DAILY [facility] Stop: 09/03/19 08:59 Last Admin: 08/19/19 09:30 Dose: 30 mg Documented by: Lorazepam (Ativan) 0.5 mg SL Q4H PRN PRN Reason: Anxiety/Agitation Stop: 09/15/19 14:03 Metoprolol Succinate (Toprol Xl) 25 mg PO DAILY [facility] Stop: 09/03/19 08:59 Last Admin: 08/19/19 09:30 Dose: 25 mg Documented by: Miscellaneous (Carbohydrates For Hypoglycemia) 15 - 30 gm PO PRN PRN PRN Reason: Hypoglycemia Treatment Stop: 09/03/19 03:14 Last Admin: 08/15/19 07:52 Dose: 15 gm Documented by: Miscellaneous Information (Consult Glycemic Management Pharmacy) 1 ea N/A UD PRN PRN Reason: Consult Stop: 09/03/19 04:47 Morphine Sulfate (Roxanol) 5 mg PO Q3H PRN PRN Reason: Pain or SOB Stop: 08/30/19 14:03 Last Admin: 08/19/19 12:30 Dose: 5 mg Documented by: Multivitamins (Multivitamin Tab) 1 tab PO DAILY [facility] Stop: 09/03/19 08:59 Last Admin: 08/19/19 09:31 Dose: 1 tab Documented by: Nitroglycerin (Nitrostat) 0.4 mg SL UD PRN PRN Reason: Chest Pain Stop: 09/03/19 04:13 Nystatin (Mycostatin) 1 appln EXT BID [facility] Stop: 09/03/19 08:59 Last Admin: 08/19/19 09:32 Dose: 1 appln Documented by: Polyethylene Glycol (Miralax Powder Packet) 17 gm PO DAILY [facility] Stop: 09/18/19 08:59 Last Admin: 08/19/19 09:35 Dose: 17 gm Documented by: Pregabalin (Lyrica) 25 mg PO DAILY [facility] Stop: 09/03/19 08:59 Last Admin: 08/19/19 09:28 Dose: 25 mg Documented by: Simvastatin (Zocor) 80 mg PO DAILY [facility] Stop: 09/03/19 08:59 Last Admin: 08/19/19 09:31 Dose: 80 mg Documented by: Resident Activity Tracking Resident Involvement: Resident Care Provided Care Provided: Adult Hospital Medicine (1) Acute renal failure Acute renal failure type: unspecified Qualified Code(s): N17.9 - Acute kidney failure, unspecified
[2019-08-19] MEDS: CARBOHYDRATES FOR HYPOGLYCEMIA PO PRN (16:56)
[2019-08-19] MEDS ORDERED: INSULIN ASPART 100 UNITS/ML 3 ML PEN SC SCH (18:45)
[2019-08-20] MEDS: MoRPHine SULFATE 5 MG/0.25 ML UDP PO PRN (00:34)
[2019-08-20] MEDS ORDERED: MoRPHine SULFATE 5 MG/0.25 ML UDP PO ONE (02:02)
[2019-08-20] MEDS: ISOSORBIDE MONO EXTENDED REL 30 MG TABCR PO SCH (08:21)
[2019-08-20] MEDS: METOPROLOL SUCC 25MG EXT REL TAB PO SCH (08:21)
[2019-08-20] MEDS: SIMVASTATIN 80 MG TAB PO SCH (08:21)
[2019-08-20] MEDS: APIXABAN 2.5 MG TAB PO SCH ×2 (08:21→20:58)
[2019-08-20] MEDS: DOXYCYCLINE HYCLATE 100 MG CAP PO SCH ×2 (08:22→20:59)
[2019-08-20] MEDS: ASPIRIN 81 MG ECTAB PO SCH (08:22)
[2019-08-20] MEDS: ACETAMINOPHEN 325 MG TAB PO SCH (08:22)
[2019-08-20] MEDS: MULTIVITAMIN TAB PO SCH (08:23)
[2019-08-20] MEDS: FUROSEMIDE 40 MG TAB PO SCH (08:23)
[2019-08-20] MEDS: PREGABALIN 25 MG CAP PO SCH (08:30)
[2019-08-20] MEDS: INSULIN GLARGINE SOLOSTAR 100 UNITS/ML 3 ML PEN SQ SCH (08:31)
[2019-08-20] MEDS: INSULIN ASPART 100 UNITS/ML 3 ML PEN SC SCH ×4 (08:32→20:56)
[2019-08-20] MEDS: NYSTATIN OINT 15 GM TUBE EXT SCH ×2 (08:34→20:59)
[2019-08-20] MEDS: POLYETHYLENE (MIRALAX) 17 GM PACK PO SCH (08:36)
--- NOTE | 2019-08-20 11:32 | Palliative Care Progress Note ---
Date of Service August 20, 2019 Assessment & Plan (1) Goals of care, counseling/discussion: -Patient feels okay today. No new complaints and is no apparent distress. -Home with [facility]. Equipment being delivered today. Patient can go home today or tomorrow. -Roxanol 5mg PO/SL Q3h PRN pain or SOB and has utilized 4 doses over the past 24 hours. Pt states it is effective. -No Lorazepam has been used to date. -Okay to continue patient's medications for now. -Please contact us with any further palliative care needs. -PPS: 30% (2) Decubitus skin ulcer: (3) Rectal carcinoma: (4) Diabetes mellitus: (5) Acute exacerbation of CHF (congestive heart failure): Subjective Patient is anxious to go home. He has no new complaints. Review of Systems Review of Systems: Denies any new complaints. Does have SOB with any exertion. Physical Exam Constitutional: + ill appearing and + frail appearing ENMT: external ear and nose normal, oropharynx normal Respiratory: + labored breathing Auscultation: + diminished lung sounds Cardiovascular: RRR, no murmur, no edema Gastrointestinal (Abdomen): normal bowel sounds, soft, nontender, no hepatosplenomegaly Neurologic: moves all extremities and awake Psychiatric: Orientation: alert and oriented x 3 (some confusion regarding his complex history ) Results & Data Vital Signs (Past 12 Hours) Vital Signs Temp Pulse Resp BP Pulse Ox 08/20/19 07:14 36.6 C 63 22 123/60 98 08/19/19 23:19 36.4 C L 19 121/64 96 Time Spent Midlevel 25 minutes with >50% of the time spent at bedside with patient discussing POC and home hospice.
--- NOTE | 2019-08-20 14:20 | Discharge Summary ---
Date of Service August 20, 2019 Admission HPI Per Admitting Provider 84yoM with hx of DM-ID, CAD s/p stent 1st diagonal in 2017 s/p anterior STEMI, severe 2 vessel disease adn critical L main involvement; CHF, HTN, HLD, Afib, CKD, rectal cancer presents from home to the ED for concern of worsening health at home per family. Per patient has been showing signs of failure. Has not been as active for at least 6 months. He also has a decubitus ulcer which has been bleeding. He has diabetes but is not compliant with his insulin. Per his gait is unsteady but he refuses to use a walker or cane. Per no falls. According to he has been more confused today and somewhat disoriented. Per grandchildren his lower extremity edema is much better than before and his feet no longer look blue. Otherwise eating and drinking well Patient denies any headache, lightheadedness, chest pain, shortness of breath, abdominal pain, nausea, vomiting, blood in his ostomy bag, hematuria, dysuria. He reports his left groin erythema has been there for a while and he also rep orts his decubitus ulcer being there for a long time. He denies any discomfort in his back or left groin region. He denies any discomfort. Principal Diagnosis hydropneumothorax Discharge Exam Constitutional + cachectic Eyes PERRL, conjunctivae normal, anicteric sclerae ENMT external ear and nose normal, oropharynx normal Respiratory decreased at bases but moves air well Cardiovascular RRR, no murmur, no edema Gastrointestinal (Abdomen) normal bowel sounds, soft, nontender, no hepatosplenomegaly Skin sacral ulcer bandage c/d/i Psychiatric A+Ox3, euthymic affect Discharge Data Allergies Allergy/AdvReac Type Severity Reaction Status Date / Time poison sumac extract Allergy Unknown Rash Verified 08/03/19 23:55 Consultations 08/04/19 00:45 ED Decision to Admit Stat 08/06/19 07:44 Consult Case Management - Discharge Planning Routine 08/07/19 22:59 Consult Pulmonology Stat 08/08/19 00:33 Consult Thoracic Surgery Routine 08/10/19 17:43 Consult Palliative Care Routine Hospital Course (1) Palliative care encounter: 84yoM with hx of DMII, CAD s/p stent 1st diagonal in 2017 s/p anterior STEMI, severe 2 vessel disease and critical L main involvement; CHF, HTN, HLD, Afib, CKD, rectal cancer presented from home to the ED for concern of worsening health at home per family. On admission, found to have elevated troponin with inverted T waves in lateral leads, glucose of 812 concerning for HHS, NILESH and pseudohyponatremia of 125, which have now improved. Patient also had left groin rash and large decubitus ulcer. 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 Decision was made by family to make pt go home with hospice. 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 Removed 08/13 - patient wished no more pleural procedures. Should he develop problems Pleurx catheter can be placed as an outpatient -He is not a surgical candidate. He is at high risk of empyema, and high risk of infection with nearby ostomy site. Pulmonology and Thoracic surgery on board, appreciate recs - No need for high flow O2 as this is a trapped lung and will likely not reabsorb. At risk for CO2 narcosis with high flow or non-rebreather -fluid is negative for malignancy. There were benign mesothelial cells and scattered lymphocytes -For comfort, script given for: Roxinol 5mg q3h prn for pain/SOB. Lorazepam 0.5mg q4h for anxiety/agitation Sacral/Decubitus ulcer, ?cellulitis - Sacral ulcer present with dressing in place. -Had been Afebrile, normal WBC - Increased purulent drainage initially, resolved now -Pt completed course of Doxycycline 100mg PO BID for empiric tx (avoiding nephrotoxic with vanc), will not be d/c on any antibiotics NILESH vs volume contraction on CKD with hyperkalemia- resolved - K and Cr improved at time of d/c - Baseline cr ~ 1.9-2.0 -Will resume lasix 40 mg daily (home BID) but still holding spironolactone. Given low EF will likely need resumed at some point but would reduce doses since he'll be on more restricted institutional diets -If not improving, another small, slow amount of fluid. Caution to fluid overload - Low EF 20% Hyperglycemia, improved - Poor compliance with meds secondary to dementia and deconditioning - Initially HHS in the setting of ID-DM, admission A1C 12.3 up from 7.4 on 05/11/2019 - Improved on [facility] protocol and pharmacy glycemic consult for insulin management - Note: Avoid fluid overload - Low EF 20%. -will resume home management on d/c Left groin rash - Concern for fungal infection versus dermatitis, appears consistent with tinea cruris - Continue with nystatin cream History of hypertension/hyperlipidemia/coronary disease/CHF/A. fib - Hx of CAD s/p stent 1st diagonal in 2016 s/p anterior STEMI, severe 2 vessel disease and critical L main involvement -patient is high risk for surgical procedure and medically managed only - Echo 2016: EF 20%, akinetic segment and mid to distal anterior wall and entire apex other hypokinetic segments, right ventricular systolic dysfunction - Lipid profile: May 2019, triglycerides 79, total cholesterol 130, LDL 72, HDL 42 - Lasix and spironolactone as above -Continue Eliquis -Continue home Imdur, metoprolol, simvastatin, aspirin History of rectal cancer diagnosed in 2014 T4N1 - Status post resection with colostomy, radiation, chemo - CT abdomen/pelvis in 01/29/2019: No metastatic disease Anemia of Chronic Disease, stable - Appears at baseline, no acute change DVT prophylaxis: Eliquis. At time of d/c, pt had no other acute concerns or complaints. All home hospice has been set up. Total Time Total Time Spent Total Time Spent (In Minutes): 30 Discharge Plan Discharge Items Patient Disposition: Hospice - Home Reason For Visit: DETERIORATING AT HOME,ELEVATED BSG,NILESH Discharge Diagnosis: hydropneumothorax Activity: Per Instructions section Non-emergency contact: Primary Care Provider Call non-emergency contact if: you have any medication questions, your symptoms worsen and your pain is not controlled Follow-up/Referrals: Henri Daily MD [Primary Care Provider] - 08/21/19 2:00 pm (Please, follow up with Dr. Daily on TuesdayAugust 21 at 2:00 pm. *If you need to change this appointment, call the office at [phone].) Diet: Regular Addtl Attending Provider Instructions: You were admitted with concerns of hydropneumothorax (fluid in lungs causing collapse). Dr. Calderon saw you for this and put in a chest tube, which drained some of the fluid out. The fluid drained was negative for any sort of malignancy. Should you develop breathing problems, a PleurX Catheter can be placed as an outpatient, but this does not seem necessary as you have breathed well since removing your chest tube. Please follow the below instructions on discharge: -you have completed your antibiotic course for your sacral ulcer and do not need any additional coverage -for comfort measures you will be given: -Roxanol 5mg PO/SL to be used for pain or shortness of breath as needed every 3 hrs. -Lorazepam 0.5mg SL to be used for anxiety/agitation as needed every 4 hrs -continue all other medications as you see fit to optimize your health -you other home health services have been set up already for your arrive home -thank you for allowing us to participate in your care, it was out pleasure Pending Studies at Discharge: No Stand-Alone Forms: My [facility] Medications and DC Order Prescriptions: New lorazepam 1 mg Tablet 0.5 mg sublingual Q4H PRN (Reason: agitation) Qty: 30 RF: 2 morphine concentrate 100 mg/5 mL (20 mg/mL) Solution 5 mg PO Q3H PRN (Reason: pain) Qty: 120 RF: 0 nystatin 100,000 unit/gram Ointment 1 applic EXT BID Qty: 30 RF: 2 Continued pregabalin 25 mg capsule 25 mg PO DAILY Qty: 90 RF: 3 simvastatin 80 mg tablet 80 mg PO DAILY Qty: 90 RF: 1 apixaban 2.5 mg tablet 2.5 mg PO BID Qty: 180 RF: 3 aspirin 81 mg tablet 81 mg PO DAILY RF: 0 isosorbide mononitrate 30 mg tablet extended release 24 hr 30 mg PO .COMPLEX RF: 0 metoprolol succinate 25 mg tablet extended release 24 hr 25 mg PO DAILY Qty: 90 RF: 0 multivitamin [Multiple Vitamins] tablet 1 tab PO DAILY RF: 0 Lantus Solostar U-100 Insulin 100 unit/mL (3 mL) insulin pen 40 units subcut .use 40units in am Qty: 3 RF: 0 metformin 500 mg Tablet 500 mg PO DAILY RF: 0 Changed furosemide 40 mg tablet 40 mg PO DAILY Qty: 0 RF: 0 Discontinued spironolactone 25 mg tablet 25 mg PO DAILY Qty: 90 RF: 0 Discharge Orders: Discharge Order (Routine); Ordered 08/20/19 Ordered By: Daniel Dove Admission Data Admit Date/Time: 08/04/19 02:04 Attending Provider: Steve Vela Admit Provider: Alisia Sifuentes Primary Care Provider: Henri Daily Other Providers: Alisia Sifuentes ; Tess Shaikh ; Ted Rasmussen ; Ronaldo Calderon ; Alissa Appiah ; Steve Vela ; [place] ; Nidia Byrd Resident Activity Tracking Resident Involvement: Resident Care Provided Care Provided: Adult Hospital Medicine
--- NOTE | 2019-08-20 16:22 | Hospitalist Progress Note ---
Date of Service August 20, 2019 Assessment & Plan (1) Palliative care encounter: 84yoM with hx of DMII, CAD s/p stent 1st diagonal in 2017 s/p anterior STEMI, severe 2 vessel disease and critical L main involvement; CHF, HTN, HLD, Afib, CKD, rectal cancer presented from home to the ED for concern of worsening health at home per family. On admission, found to have elevated troponin with inverted T waves in lateral leads, glucose of 812 concerning for HHS, NILESH and pseudohyponatremia of 125, which have now improved. Patient also had left groin rash and large decubitus ulcer. 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 Decision was made by family to make pt go home with hospice. 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 Removed 08/13 - patient wished no more pleural procedures. Should he develop problems Pleurx catheter can be placed as an outpatient -He is not a surgical candidate. He is at high risk of empyema, and high risk of infection with nearby ostomy site. Pulmonology and Thoracic surgery on board, appreciate recs - No need for high flow O2 as this is a trapped lung and will likely not reabsorb. At risk for CO2 narcosis with high flow or non-rebreather -fluid is negative for malignancy. There were benign mesothelial cells and scattered lymphocytes -For comfort, script given for: Roxinol 5mg q3h prn for pain/SOB. Lorazepam 0.5mg q4h for anxiety/agitation Sacral/Decubitus ulcer, ?cellulitis - Sacral ulcer present with dressing in place. -Had been Afebrile, normal WBC - Increased purulent drainage initially, resolved now -Pt completed course of Doxycycline 100mg PO BID for empiric tx (avoiding nephrotoxic with vanc), will not be d/c on any antibiotics NILESH vs volume contraction on CKD with hyperkalemia- resolved - K and Cr improved at time of d/c - Baseline cr ~ 1.9-2.0 -Will resume lasix 40 mg daily (home BID) but still holding spironolactone. Given low EF will likely need resumed at some point but would reduce doses since he'll be on more restricted institutional diets -If not improving, another small, slow amount of fluid. Caution to fluid overload - Low EF 20% Hyperglycemia, improved - Poor compliance with meds secondary to dementia and deconditioning - Initially HHS in the setting of ID-DM, admission A1C 12.3 up from 7.4 on 05/11/2019 - Improved on [facility] protocol and pharmacy glycemic consult for insulin management - Note: Avoid fluid overload - Low EF 20%. -will resume home management on d/c Left groin rash - Concern for fungal infection versus dermatitis, appears consistent with tinea cruris - Continue with nystatin cream History of hypertension/hyperlipidemia/coronary disease/CHF/A. fib - Hx of CAD s/p stent 1st diagonal in 2016 s/p anterior STEMI, severe 2 vessel disease and critical L main involvement -patient is high risk for surgical procedure and medically managed only - Echo 2016: EF 20%, akinetic segment and mid to distal anterior wall and entire apex other hypokinetic segments, right ventricular systolic dysfunction - Lipid profile: May 2019, triglycerides 79, total cholesterol 130, LDL 72, HDL 42 - Lasix and spironolactone as above -Continue Eliquis -Continue home Imdur, metoprolol, simvastatin, aspirin History of rectal cancer diagnosed in 2014 T4N1 - Status post resection with colostomy, radiation, chemo - CT abdomen/pelvis in 01/29/2019: No metastatic disease Anemia of Chronic Disease, stable - Appears at baseline, no acute change FEN/GI: T2DM diet DVT prophylaxis: Eliquis Code: DNR/DNI Disposition: Med/Surg. D/c home hospice tomorrow. Supervising Physician Co-Signing Physician Notes I personally examined the patient and verified all salcido points of history and exam, discussed case, and agree with decision making with Dr Dove. ready for home/hospice but needed to ensure equipment at home. no new issues. vitals noted nad heent nc at mmm breathing unlabored hydropneumothorax, multiple comorbidities, severe chronic systolic CHF, DM2, dementia - for home w hospice. otherwise as above Subjective 84 yo M found in bed this AM in NAD. No reported overnight events. States feels ok, no issues with breathing. States desire to go home. Some complaints of weakness. Pt has no other acute concerns or complaints. Review of Systems Review of Systems: All systems reviewed & are unremarkable except as noted in HPI & below Physical Exam Constitutional: + cachectic Eyes: PERRL, conjunctivae normal, anicteric sclerae ENMT: external ear and nose normal, oropharynx normal Respiratory: decreased movement lower mace but moves air well Cardiovascular: RRR, no murmur, no edema Gastrointestinal (Abdomen): normal bowel sounds, soft, nontender, no hepatosplenomegaly Skin: sacral ulcer c/d/i Psychiatric: A+Ox3, euthymic affect Orientation: alert Results & Data Vital Signs (Past 12 Hours) Vital Signs Temp Pulse Resp BP BP Pulse Ox 08/20/19 15:00 36.7 C 78 18 106/79 91 08/20/19 14:44 36.5 C 61 19 115/64 117/68 96 08/20/19 11:13 36.5 C 61 19 115/64 96 08/20/19 07:14 36.6 C 63 22 123/60 98 Laboratory Results Laboratory Results - last 24 hr 08/19/19 08/19/19 08/19/19 16:54 16:56 17:11 POC Glucose 66 L* 56 L* 78 08/19/19 08/20/19 08/20/19 20:28 07:39 11:44 POC Glucose 111 H 117 H 104 H 08/20/19 16:19 POC Glucose 143 H Medications Administered Current Inpatient Medications Acetaminophen (Tylenol) 650 mg PO Q4H PRN PRN Reason: Pain or Fever Stop: 09/03/19 04:13 Last Admin: 08/17/19 23:34 Dose: 650 mg Documented by: Acetaminophen (Tylenol) 650 mg PO QAM [facility] Stop: 09/18/19 08:59 Last Admin: 08/20/19 08:22 Dose: 650 mg Documented by: Apixaban (Eliquis) 2.5 mg PO BID [facility] Stop: 09/04/19 09:59 Last Admin: 08/20/19 08:21 Dose: 2.5 mg Documented by: Aspirin (Ecotrin Ectab) 81 mg PO DAILY [facility] Stop: 09/03/19 08:59 Last Admin: 08/20/19 08:22 Dose: 81 mg Documented by: Dextrose (Dextrose 50%) 25 - 50 ml IV UD PRN; Protocol PRN Reason: Hypoglycemia Protocol Stop: 09/03/19 03:14 Last Admin: 08/04/19 08:20 Dose: 25 ml Documented by: Doxycycline Hyclate (Vibramycin) 100 mg PO BID [facility] Stop: 08/24/19 20:59 Last Admin: 08/20/19 08:22 Dose: 100 mg Documented by: Furosemide (Lasix) 40 mg PO QAM [facility] Stop: 09/15/19 08:59 Last Admin: 08/20/19 08:23 Dose: 40 mg Documented by: Glucagon (Glucagen) 1 mg IM UD PRN; Protocol PRN Reason: Hypoglycemia Protocol Stop: 09/03/19 03:14 Glucose (Glucose 40%) 15 - 30 gm PO UD PRN; Protocol PRN Reason: Hypoglycemia Protocol Stop: 09/03/19 03:14 Glucose (Dex4 Glucose) 4 - 8 tabs PO UD PRN; Protocol PRN Reason: Hypoglycemia Protocol Stop: 09/03/19 03:14 Insulin Aspart (Novolog Flexpen) 0 units SC HS [facility]; Protocol Stop: 09/14/19 20:59 Last Admin: 08/19/19 21:32 Dose: Not Given Documented by: Insulin Aspart (Novolog Flexpen) 0 units SC 0730,1130,1630 [facility]; Protocol Stop: 09/12/19 08:44 Last Admin: 08/20/19 13:14 Dose: 2 units Documented by: Insulin Glargine (Lantus Solostar Pen) 15 units SQ QAM [facility]; Protocol Stop: 09/09/19 08:59 Last Admin: 08/20/19 08:31 Dose: 15 units Documented by: Isosorbide Mononitrate (Imdur Extended Rel) 30 mg PO DAILY [facility] Stop: 09/03/19 08:59 Last Admin: 08/20/19 08:21 Dose: 30 mg Documented by: Lorazepam (Ativan) 0.5 mg SL Q4H PRN PRN Reason: Anxiety/Agitation Stop: 09/15/19 14:03 Metoprolol Succinate (Toprol Xl) 25 mg PO DAILY [facility] Stop: 09/03/19 08:59 Last Admin: 08/20/19 08:21 Dose: 25 mg Documented by: Miscellaneous (Carbohydrates For Hypoglycemia) 15 - 30 gm PO PRN PRN PRN Reason: Hypoglycemia Treatment Stop: 09/03/19 03:14 Last Admin: 08/19/19 16:56 Dose: 15 gm Documented by: Miscellaneous Information (Consult Glycemic Management Pharmacy) 1 ea N/A UD PRN PRN Reason: Consult Stop: 09/03/19 04:47 Morphine Sulfate (Roxanol) 5 mg PO Q3H PRN PRN Reason: Pain or SOB Stop: 08/30/19 14:03 Last Admin: 08/20/19 00:34 Dose: 5 mg Documented by: Multivitamins (Multivitamin Tab) 1 tab PO DAILY [facility] Stop: 09/03/19 08:59 Last Admin: 08/20/19 08:23 Dose: 1 tab Documented by: Nitroglycerin (Nitrostat) 0.4 mg SL UD PRN PRN Reason: Chest Pain Stop: 09/03/19 04:13 Nystatin (Mycostatin) 1 appln EXT BID [facility] Stop: 09/03/19 08:59 Last Admin: 08/20/19 08:34 Dose: 1 appln Documented by: Polyethylene Glycol (Miralax Powder Packet) 17 gm PO DAILY [facility] Stop: 09/18/19 08:59 Last Admin: 08/20/19 08:36 Dose: Not Given Documented by: Pregabalin (Lyrica) 25 mg PO DAILY [facility] Stop: 09/03/19 08:59 Last Admin: 08/20/19 08:30 Dose: 25 mg Documented by: Simvastatin (Zocor) 80 mg PO DAILY [facility] Stop: 09/03/19 08:59 Last Admin: 08/20/19 08:21 Dose: 80 mg Documented by: Resident Activity Tracking Resident Involvement: Resident Care Provided Care Provided: Adult Hospital Medicine
--- NOTE | 2019-08-20 19:13 | Billing Data ---
Coding Level of Care Code 61101 Subseq Hosp Care Lvl 2
[2019-08-21] MEDS: MoRPHine SULFATE 5 MG/0.25 ML UDP PO PRN ×3 (05:03→12:14)
[2019-08-21] MEDS: ASPIRIN 81 MG ECTAB PO SCH (10:21)
[2019-08-21] MEDS: APIXABAN 2.5 MG TAB PO SCH (10:21)
[2019-08-21] MEDS: ISOSORBIDE MONO EXTENDED REL 30 MG TABCR PO SCH (10:22)
[2019-08-21] MEDS: FUROSEMIDE 40 MG TAB PO SCH (10:23)
--- NOTE | 2019-08-21 10:23 | Discharge Summary ---
Date of Service August 21, 2019 Admission HPI Per Admitting Provider 84yoM with hx of DM-ID, CAD s/p stent 1st diagonal in 2017 s/p anterior STEMI, severe 2 vessel disease adn critical L main involvement; CHF, HTN, HLD, Afib, CKD, rectal cancer presents from home to the ED for concern of worsening health at home per family. Per patient has been showing signs of failure. Has not been as active for at least 6 months. He also has a decubitus ulcer which has been bleeding. He has diabetes but is not compliant with his insulin. Per his gait is unsteady but he refuses to use a walker or cane. Per no falls. According to he has been more confused today and somewhat disoriented. Per grandchildren his lower extremity edema is much better than before and his feet no longer look blue. Otherwise eating and drinking well Patient denies any headache, lightheadedness, chest pain, shortness of breath, abdominal pain, nausea, vomiting, blood in his ostomy bag, hematuria, dysuria. He reports his left groin erythema has been there for a while and he also rep orts his decubitus ulcer being there for a long time. He denies any discomfort in his back or left groin region. He denies any discomfort. Principal Diagnosis hydropneumothorax Discharge Exam Constitutional + cachectic Eyes PERRL, conjunctivae normal, anicteric sclerae ENMT external ear and nose normal, oropharynx normal Respiratory decreased lung sounds bases but moves air well Cardiovascular RRR, no murmur, no edema Gastrointestinal (Abdomen) normal bowel sounds, soft, nontender, no hepatosplenomegaly Skin sacral ulcer c/d/i Psychiatric Orientation: alert Discharge Data Allergies Allergy/AdvReac Type Severity Reaction Status Date / Time poison sumac extract Allergy Unknown Rash Verified 08/03/19 23:55 Consultations 08/04/19 00:45 ED Decision to Admit Stat 08/06/19 07:44 Consult Case Management - Discharge Planning Routine 08/07/19 22:59 Consult Pulmonology Stat 08/08/19 00:33 Consult Thoracic Surgery Routine 08/10/19 17:43 Consult Palliative Care Routine Hospital Course (1) Anemia of chronic disease: 84yoM with hx of DMII, CAD s/p stent 1st diagonal in 2017 s/p anterior STEMI, severe 2 vessel disease and critical L main involvement; CHF, HTN, HLD, Afib, CKD, rectal cancer presented from home to the ED for concern of worsening health at home per family. On admission, found to have elevated troponin with inverted T waves in lateral leads, glucose of 812 concerning for HHS, NILESH and pseudohyponatremia of 125, which have now improved. Patient also had left groin rash and large decubitus ulcer. 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 Decision was made by family to make pt go home with hospice. 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 Removed 08/13 - patient wished no more pleural procedures. Should he develop problems Pleurx catheter can be placed as an outpatient -He is not a surgical candidate. He is at high risk of empyema, and high risk of infection with nearby ostomy site. Pulmonology and Thoracic surgery on board, appreciate recs - No need for high flow O2 as this is a trapped lung and will likely not reabsorb. At risk for CO2 narcosis with high flow or non-rebreather -fluid is negative for malignancy. There were benign mesothelial cells and scattered lymphocytes -For comfort, script given for: Roxinol 5mg q3h prn for pain/SOB. Lorazepam 0.5 mg q4h for anxiety/agitation Sacral/Decubitus ulcer, ?cellulitis - Sacral ulcer present with dressing in place. -Had been Afebrile, normal WBC - Increased purulent drainage initially, resolved now -Pt completed course of Doxycycline 100mg PO BID for empiric tx (avoiding nephrotoxic with vanc), will not be d/c on any antibiotics NILESH vs volume contraction on CKD with hyperkalemia- resolved - K and Cr improved at time of d/c - Baseline cr ~ 1.9-2.0 -Will resume lasix 40 mg daily (home BID) but still holding spironolactone. Given low EF will likely need resumed at some point but would reduce doses since he'll be on more restricted institutional diets -If not improving, another small, slow amount of fluid. Caution to fluid overload - Low EF 20% Hyperglycemia, improved - Poor compliance with meds secondary to dementia and deconditioning - Initially HHS in the setting of ID-DM, admission A1C 12.3 up from 7.4 on 05/11/2019 - Improved on [facility] protocol and pharmacy glycemic consult for insulin management - Note: Avoid fluid overload - Low EF 20%. -will resume home management on d/c Left groin rash - Concern for fungal infection versus dermatitis, appears consistent with tinea cruris - Continue with nystatin cream History of hypertension/hyperlipidemia/coronary disease/CHF/A. fib - Hx of CAD s/p stent 1st diagonal in 2017 s/p anterior STEMI, severe 2 vessel disease and critical L main involvement -patient is high risk for surgical procedure and medically managed only - Echo 2016: EF 20%, akinetic segment and mid to distal anterior wall and entire apex other hypokinetic segments, right ventricular systolic dysfunction - Lipid profile: May 2019, triglycerides 79, total cholesterol 130, LDL 72, HDL 42 - Lasix and spironolactone as above -Continue Eliquis -Continue home Imdur, metoprolol, simvastatin, aspirin History of rectal cancer diagnosed in 2014 [id number] - Status post resection with colostomy, radiation, chemo - CT abdomen/pelvis in 01/29/2019: No metastatic disease Anemia of Chronic Disease, stable - Appears at baseline, no acute change DVT prophylaxis: Eliquis. At time of d/c, pt had no other acute concerns or complaints. All home hospice has been set up. Total Time Total Time Spent Total Time Spent (In Minutes): <30 Discharge Plan Discharge Items Patient Disposition: Hospice - Home Reason For Visit: DETERIORATING AT HOME,ELEVATED BSG,NILESH Discharge Diagnosis: hydropneumothorax Activity: Per Instructions section Non-emergency contact: Primary Care Provider Call non-emergency contact if: you have any medication questions, your symptoms worsen and your pain is not controlled Follow-up/Referrals: Henri Daily MD [Primary Care Provider] - 08/21/19 2:00 pm (Please, follow up with Dr. Daily on TuesdayAugust 21 at 2:00 pm. *If you need to change this appointment, call the office at [phone].) Diet: Regular Addtl Attending Provider Instructions: You were admitted with concerns of hydropneumothorax (fluid in lungs causing collapse). Dr. Calderon saw you for this and put in a chest tube, which drained some of the fluid out. The fluid drained was negative for any sort of malignancy. Should you develop breathing problems, a PleurX Catheter can be placed as an outpatient, but this does not seem necessary as you have breathed well since removing your chest tube. Please follow the below instructions on discharge: -you have completed your antibiotic course for your sacral ulcer and do not need any additional coverage -for comfort measures you will be given: -Roxanol 5mg PO/SL to be used for pain or shortness of breath as needed every 3 hrs. -Lorazepam 0.5mg SL to be used for anxiety/agitation as needed every 4 hrs -continue all other medications as you see fit to optimize your health -you other home health services have been set up already for your arrive home -thank you for allowing us to participate in your care, it was out pleasure Pending Studies at Discharge: No Stand-Alone Forms: My [facility] Medications and DC Order Prescriptions: New lorazepam 1 mg Tablet 0.5 mg sublingual Q4H PRN (Reason: agitation) Qty: 30 RF: 2 morphine concentrate 100 mg/5 mL (20 mg/mL) Solution 5 mg PO Q3H PRN (Reason: pain) Qty: 120 RF: 0 nystatin 100,000 unit/gram Ointment 1 applic EXT BID Qty: 30 RF: 2 lorazepam 2 mg/mL concentrate 0.25 mg PO Q6H PRN (Reason: anxiety) Qty: 30 RF: 0 morphine concentrate 100 mg/5 mL (20 mg/mL) solution 5 mg PO Q6H PRN (Reason: pain) Qty: 15 RF: 0 nystatin 100,000 unit/gram powder 1 appln TOP TID Qty: 30 RF: 0 morphine concentrate 100 mg/5 mL (20 mg/mL) solution 5 mg PO Q6H PRN (Reason: pain) Qty: 30 RF: 0 Continued pregabalin 25 mg capsule 25 mg PO DAILY Qty: 90 RF: 3 simvastatin 80 mg tablet 80 mg PO DAILY Qty: 90 RF: 1 apixaban 2.5 mg tablet 2.5 mg PO BID Qty: 180 RF: 3 aspirin 81 mg tablet 81 mg PO DAILY RF: 0 isosorbide mononitrate 30 mg tablet extended release 24 hr 30 mg PO .COMPLEX RF: 0 metoprolol succinate 25 mg tablet extended release 24 hr 25 mg PO DAILY Qty: 90 RF: 0 multivitamin [Multiple Vitamins] tablet 1 tab PO DAILY RF: 0 insulin glargine 100 unit/mL (3 mL) insulin pen 40 units subcut .use 40units in am Qty: 3 RF: 0 metformin 500 mg Tablet 500 mg PO DAILY RF: 0 Changed furosemide 40 mg tablet 40 mg PO DAILY Qty: 0 RF: 0 Discontinued spironolactone 25 mg tablet 25 mg PO DAILY Qty: 90 RF: 0 No Action (DME) lancets [OneTouch Delica Lancets] 33 gauge misc See Rx Instructions .ROUTE .MEDSUPPLY Qty: 100 RF: 0 Discharge Orders: Discharge Order (Routine); Ordered 08/20/19 Ordered By: Daniel Dove Admission Data Admit Date/Time: 08/04/19 02:04 Attending Provider: Steve Vela Admit Provider: Alisia Sifuentes Primary Care Provider: Henri Daily Other Providers: Alisia Sifuentes ; Tess Shaikh ; Ted Rasmussen ; Ronaldo Calderon ; Alissa Appiah ; Steve Vela ; [facility] ; Nidia Byrd. Other Interventions: Discharge Summary Assessment (RN) Last Done: 08/21/19 10:24 DC Date/Time DO NOT enter until pt leaves facility: 08/21/19 12:46 Supervising Physician Co-Signing Physician Notes I personally examined the patient and verified all salcido points of history and exam, discussed case, and agree with decision making with Dr Dove. no new issues, ready for home/hospice. no complaints vitals noted nad heent nc at mmm breathing unlabored hydropneumothorax, multiple comorbidities, severe chronic systolic CHF, DM2, dementia - for home w hospice today. otherwise as above Resident Activity Tracking Resident Involvement: Resident Care Provided Care Provided: Adult Hospital Medicine
[2019-08-21] MEDS: PREGABALIN 25 MG CAP PO SCH (10:25)
[2019-08-21] MEDS: NYSTATIN OINT 15 GM TUBE EXT SCH (10:26)
[2019-08-21] MEDS: POLYETHYLENE (MIRALAX) 17 GM PACK PO SCH (10:26)
[2019-08-21] MEDS: METOPROLOL SUCC 25MG EXT REL TAB PO SCH (10:27)
[2019-08-21] MEDS: ACETAMINOPHEN 325 MG TAB PO SCH (10:30)
[2019-08-21] MEDS: DOXYCYCLINE HYCLATE 100 MG CAP PO SCH (10:31)
[2019-08-21] MEDS: SIMVASTATIN 80 MG TAB PO SCH (10:31)
[2019-08-21] MEDS: INSULIN ASPART 100 UNITS/ML 3 ML PEN SC SCH (10:43)
[2019-08-21] MEDS: INSULIN GLARGINE SOLOSTAR 100 UNITS/ML 3 ML PEN SQ SCH (10:44)
[2019-08-21] MEDS: MULTIVITAMIN TAB PO SCH (11:23)
[2019-08-21] MEDS ORDERED: Nursing to Pharmacy Communication ONE (12:14)
--- NOTE | 2019-08-22 20:21 | Billing Data ---
Coding Level of Care Code D/C Day Management <30 mins
--- NOTE | 2019-08-28 06:33 | Coding Query ---
PRESENT ON ADMISSION QUERY To promote full compliance with coding requirements relating to pateint care, physician participation is requested in all cases of welder production line gas uncertainty. Please assist us with the question(s) below: Please place an X within the parenthesis (x). The following diagnosis listed in this patient's medical record (beginning on 08/07/19) require physician assistance to determine if they were present on admission (POA) or not. Please advise for each diagnosis whether it was present on admission, not present on admission, or if it was clinically undetermined. 1. HYDROPNEUMOTHORAX ( ) Present On Admission ( ) Not Present On Admission ( ) Clinically Undetermined pneumothorax appears to have occurred spontaneously during admission, hydrothorax likely was present prior to admission Thank you Christelle Sawyer *Definition of the present on admission (POA)-Present on admission is defined as present at the time the order for inpatient admission occurs. Conditions that develop during an outpatient encounter prior to a written order for inpatient admission (including emergency department, observation, or outpatient surgery) are considered present on admission. CHEN
== END 2019-08-21 12:46 | disposition hospice, home (50) | DRG 186 ==
LOC: ED 22:49 → 2S 08-04 02:04 → SUATTDRO 08-04 02:04 → 2S 08-04 03:02 → 2N 08-05 01:02 → 4W 08-10 21:10